=== PATIENT | female | born 1955 | race Caucasian/White ===

== ENCOUNTER → 2017-01-31 | Outpatient (CLI) | payer OTHER ==
[2016-07-31 14:38] VITALS: BP 146/78; PULSE 82
[~2017-01-31] MED LIST: ANAS1TAB19 PO; ASPI-461 PO; CITA10TA4 PO; FMR25 PO; IBUP-1450 PO; LISI10TA PO; LORA-339 PO; OMEP20CA9 PO; RISP0.254 PO; SIMV40TA4 PO
[2017-01-31 12:57] VITALS: BP 128/75; PULSE 89; TEMP 36.7; O2SAT 92
--- NOTE | 2017-01-31 16:45 | Radiation Oncology Follow-Up ---
Radiation Oncology Follow-Up Date of Visit Jan 31, 2017. Reason For Visit Six-month follow-up Radiation Completion Date 06/26/16 - Hypo Diagnosis (1) Cancer of central portion of left breast Status: Resolved Onset Date: 01/30/2016 Permanent Comment: Abnormal left breast mammogram Status post stereotactic biopsy 01/30/2016 revealing ductal carcinoma grade 2 Estrogen receptor positive, progesterone receptor positive, HER-2/frederic negative Status post needle localization lumpectomy and sentinel lymph node biopsy mar 24 2016 Stage pT1c pN0 positive margin of DCIS Status post reexcision 04/09/2016 negative margins Oncotype DX 7 Status post completion of radiation therapy 06/26/2016 received 5130 cGy utilizing hypo-fractionation Last Edited By: Sylvia Angel on Jul 02, 2016 16:32 History of Present Illness Ms. Bentley is a 61-year-old female with limited mental ability and a distant family history of breast cancer in aunts and cousins. She has been followed with screening mammograms. Her most recent bilateral screening mammogram was on 01/16/2016. This was compared to a prior study from 2011. In the left breast there was a grouped calcifications at the middle depth 90 o' clock position associated mammographic asymmetry was noted. Magnification views and true lateral views were recommended with ultrasound as needed. On patient underwent a unilateral diagnostic mammogram and spot magnification views. There was a persistent area of architectural distortion with some amorphous calcifications noted. Ultrasound evaluation showed no sonographic abnormalities. This was given a BI-RADS Category 4 indicating a suspicion of malignancy and a stereotactic biopsy was recommended. On 01/30/2016 the patient underwent a stereotactic biopsy of the left breast calcifications at the 3 o'clock position. 2 samples were taken both revealing invasive carcinoma [place] grade 2 of 3 with lobular features. The first biopsy measured 0.8 cm in greatest dimension and the second 0.7 cm in greatest dimension. Also noted was DCIS, intermediate grade solid and cribriform with luminal necrosis and dystrophic calcifications. Estrogen receptors were strongly positive as were progesterone receptors. HER-2/frederic oncogene expression is negative. [id number]. Patient was seen by Dr. Quiroz who reviewed treatment options. The patient' s brother is her power of securities attorney and the joint decision was to proceed with a left breast partial mastectomy and sentinel node biopsy. This procedure was performed on 03/06/2016. A single non-sentinel lymph node was negative for metastatic carcinoma and 3 sentinel nodes were identified and were negative for metastatic carcinoma on routine sections and immunohistochemical stains for cytokeratin. The partial mastectomy specimen confirmed residual infiltrating ductal carcinoma. The tumor measured 1.4 cm in greatest dimension. This was a histologic grade 2 with evidence of focal DCIS nuclear grade 2 with focal necrosis. The margins were uninvolved by invasive carcinoma. Invasive carcinoma however extended to within 0.2 cm anterior margin and 0.4 cm of the posterior margin. DCIS extended to the en face lateral margin with a focus measuring 0.2 cm. The AJCC pathologic staging was pT1c pNo(sn-), ER positive, NM positive and HER-2/frederic negative. Case: [id number]. Patient underwent a reexcision of the left breast excision cavity on 2015. This revealed no residual invasive carcinoma or DCIS. There was focal usual ductal hyperplasia and changes consistent with the previous biopsy and surgery including fat necrosis. Case: [id number]. The patient was subsequently seen by Dr. Memo Noble. She ordered an Oncotype DX test which was sent out on May 04 and results are pending. She is awaiting for the results of this test prior to making a final decision on the role of systemic chemotherapy. She has recommended adjuvant antiestrogen therapy which will begin following the completion of her radiation. We were asked to see the patient in referral to evaluate her and discuss with her the potential role of radiation. It is for this reason the patient is seen in referral. The Oncotype DX score came back at 7. She will return to our office for CT simulation. She was found to be a good candidate for hypo-fractionation. Radiation completed 06/26/2016. She received 5130 cGy. Interim History She continues to have discomfort of the left breast and chest wall. This occurs especially if she lays on this side. There is been no redness or swelling. She has noted no masses or changes of the axilla. She has had no swelling of her arm. She is up-to-date on mammography. She had a mammogram 01/2017. This was a bilateral mammogram. There was no evidence of malignancy. Follow-up was recommended for 6 months for the left and 12 months for the right. This was given a BI-RADS Category 2. She does take Tylenol intermittently for pain. I did speak to her brother who states that he will give her Tylenol 650 mg possibly 3 times a day when she is having breast discomfort. Allergies Coded Allergies: No Known Allergies (Unverified , 04/09/16) Home Medications Scheduled Anastrozole (Arimidex), 1 TAB PO DAILY Aspirin (Aspirin), 81 MG PO QAM Citalopram Hydrobromide (Citalopram Hydrobromide), 10 MG PO QAM Lisinopril (Prinivil), 10 MG PO QAM Loratadine (Allergy Relief), 10 MG PO QAM Omeprazole (Prilosec), 20 MG PO QPM Risperidone (Risperidone), 0.25 MG PO HS Simvastatin (Zocor), 40 MG PO QPM Scheduled PRN Ibuprofen (Motrin), 600 MG PO TID PRN for prn Review of Systems Gastrointestinal: Symptoms: WNL GI Comments: "Diarrhea the other day" Oral: Symptoms: No Problems Respiratory: Symptoms: WNL, SOB With Exertion Respiratory Comments: Patient currently has cold - moist productive cough thick yellow Other Respiratory: IVERSON Urinary: Symptoms: WNL Comments: incontinent at night Skin: Symptoms: No Problems Other Skin Symptoms: Patient reports pain/tenderness at site Breast: Right Upper Arm Measurement: 29.0 Right Mid Arm Measurement: 21.5 Right Wrist Measurement: 15.9 Left Upper Arm Measurement: 33.0 Left Mid Arm Measurement: 24.0 Left Wrist Measurement: 15.3 Arm Dominence: Left Physical Exam Vital Signs Date Time Temp Pulse Resp B/P Pulse Ox O2 Delivery O2 Flow Rate FiO2 01/31/17 12:57 36.7 89 16 128/75 92 Pain: Patient Pain Scale: 0 - 10 Initial Pain Intensity: 0.0 Fatigue: None General Appearance: no apparent distress Eyes: normal inspection, EOMI ENT: normal ENT inspection, hearing grossly normal Neck: no adenopathy Respiratory/Chest: lungs clear, no respiratory distress, no accessory muscle use Breast: Breast examination reveals well-healed incisions of the left breast. There are no masses. She has a generalized tenderness. This is increased to deep palpation and more notable laterally. There is no axillary adenopathy. There is no erythema or edema. She has no skin retractions or nipple changes. Using the Dickey score cosmesis she has in excellent outcome. The right breast showed no masses or tenderness and no axillary adenopathy. Cardiovascular: regular rate, rhythm, no gallop, no murmur Abdomen: non tender, soft, no organomegaly Extremities: non-tender, no pedal edema Neurologic/Psychiatric: no motor/sensory deficits, alert, normal mood/affect Skin: warm/dry Additional Studies Mammography as reviewed above. Assessment & Plan Plan: Recommendation is for warm compresses to the breast and lateral chest wall. She can continue to use the Tylenol. I reviewed with her brother that should steadily improved over time. If she continues to have problems they may call and we'll be happy to see her. Continue with current scheduled mammography. Continue follow-up with her surgeon and Dr. Noble. We asked her to return to our office in 1 year. Total Time In Follow-Up I spent 20 minutes speaking to the patient and performing examination. I spent 15 minutes reviewing information in completing this note. Copy To Dru Quiroz M.D.; Liss March M.D. (MEDICAL); Memo Noble MD
== END | disposition home or self-care (01) ==
LOC: C.ONC 12:50
PROVIDERS: ATTEND Physician Assistant Medical
DX: Z08 Encounter for follow-up examination after completed treatment for malignant neoplasm (principal); Z92.3 Personal history of irradiation; Z85.3 Personal history of malignant neoplasm of breast

== ENCOUNTER 2017-04-14 16:39 | Inpatient (IN) | payer OTHER ==
[~2017-04-14] VITALS: Ht 160 cm; Wt 80.3 kg
[~2017-04-14 16:39] MED LIST changes: -FMR25 PO
[2017-04-14] MEDS ORDERED: SODIUM CHLORIDE 0.9% 1000ML 1,000 ML IV STA ×2 (16:46)
[2017-04-14 17:03] LABS: URINE APPEARANCE CLOUDY (CLEAR); URINE BILIRUBIN NEG (NEG); URINE COLOR YELLOW; URINE EPITHELIAL CELL AUTO >30 /lpf (0-5); URINE NITRITE NEG (NEG); URINE PH 5.5 (4.5-7.5); URINE SPECIFIC GRAVITY 1.019 (1.000-1.030); UROBILINOGEN NEG (NEG); ZZUR CULT IF INDIC CLEAN CATCH YES
[2017-04-14 17:05] LABS: MANUAL MICROSCOPIC REQUIRED? NO; REVIEW REQ? YES
[2017-04-14 17:19] LABS: BASO % 0.2 %; BASO ABS # 0.03 K/uL (0-0.2); COMPLETE YES; HEMATOCRIT 38.4 % (37-47); IG% 0.3 %; LYMPH % 10.6 %; LYMPH ABS # 1.76 K/uL (1.2-3.4); MEAN CELL VOLUME 93.2 fL (80-100); MEAN CORPUSCULAR HEMOGLOBIN 32.8 pg (25-34); MEAN CORPUSCULAR HGB CONC 35.2 g/dl (32-36); MEAN PLATELET VOLUME 10.2 fL (7.4-10.4); MONO % 12.6 %; NEUT % 76.3 %; PLATELET COUNT 284 K/uL (130-400); RED BLOOD COUNT 4.12 M/uL (4.2-5.4); WHITE BLOOD COUNT 16.68 K/uL (4.8-10.8)
[2017-04-14] MEDS ORDERED: ONDANSETRON 8 MG/54 ML D5W IV STA (17:37)
[2017-04-14 19:03] LABS: ALT/SGPT 23 U/L (12-78); AST/SGOT 25 U/L (15-37); BLOOD UREA NITROGEN 9 mg/dl (7-18); BUN/CREATININE RATIO 16.4 (10-20); CALCIUM 8.2 mg/dl (8.5-10.1); CARBON DIOXIDE 27 mmol/L (21-32); CHLORIDE 103 mmol/L (98-107); CREATININE 0.53 mg/dl (0.60-1.20); GLUCOSE 126 mg/dl (70-99); POTASSIUM 3.2 mmol/L (3.5-5.1); SODIUM 140 mmol/L (136-145)
[2017-04-14 19:09] LABS: ALKALINE PHOSPHATASE 98 U/L (45-117); CKMB/CK RATIO 0.3 (0-3.0)
--- NOTE | 2017-04-14 19:56 | DIAGNOSTIC IMAGING REPORT ---
CT SCAN OF THE ABDOMEN AND PELVIS WITHOUT CONTRAST CLINICAL HISTORY: Flank pain, vomiting. Urinary symptoms. COMPARISON STUDY: None TECHNIQUE: CT scan of the abdomen and pelvis was performed from the lung bases to the proximal femurs. Images are reviewed in the axial, sagittal, and coronal planes. IV contrast was not administered for this examination. CT DOSE: 3083.00 mGy.cm FINDINGS: Lower chest: The heart is mildly enlarged. There is no pericardial effusion. There are no pleural effusions Liver: There is mild hepatic steatosis. No focal masses are visualized. Gallbladder: Unremarkable. Spleen: Normal in size and attenuation. Pancreas: Unremarkable. Adrenal glands: There is bilateral adrenal gland thickening Kidneys: No renal, ureteral, or bladder calculi are visualized. Bowel: There are no transition zones indicate bowel obstruction. There are several calcified appendicoliths. There are no periappendiceal inflammatory changes. The appendix is at the upper limits of normal in diameter. There is no acute diverticulitis. Peritoneum: There is no intraperitoneal free air or abdominal ascites. Vasculature: The abdominal aorta is normal in course and caliber. Adenopathy: None. Pelvic viscera: The bladder, and pelvic viscera are unremarkable. Skeletal structures: There are several nonspecific lytic foci within the skeleton. Is unclear whether these are pathologic or a reflection of focal osteoporosis. IMPRESSION: 1. No renal, ureteral, or bladder calculi identified 2. No evidence of bowel obstruction. No evidence of free air 3. Calcified appendicoliths, but no evidence of periappendiceal inflammatory change 4. No evidence of acute diverticulitis 5. Small nonspecific skeletal lytic foci most pronounced within the iliac bones. Electronically signed by: Sky Bajwa M.D. 04/14/2017 7:55 PM Dictated Date/Time: 04/14/2017 7:47 PM
[2017-04-14] MEDS ORDERED: CEFTRIAXONE SOD INJ 1 GM ADDVIAL IV STA (20:33)
[2017-04-14] MEDS ORDERED: POTASSIUM CHLORIDE 10 MEQ / 100ML WTR IV STA (20:33)
[2017-04-14] MEDS ORDERED: D5NSS + 20MEQ KCL 1,000 ML IV SCH (21:04)
[2017-04-14] MEDS ORDERED: ALUMINUM/MAGNESIUM/SIMETH (MAALOX MAX) 30 ML UDC PO PRN (21:15)
[2017-04-14] MEDS ORDERED: ONDANSETRON INJ 2 MG/ML 2 ML VIAL IV PRN (21:15)
[2017-04-14] MEDS ORDERED: MAGNESIUM HYDROXIDE SUSP 30 ML UDC PO PRN (21:15)
[2017-04-14] MEDS ORDERED: POLYETHYLENE (MIRALAX) 17 GM PACK PO PRN (21:15)
[2017-04-14] MEDS ORDERED: ACETAMINOPHEN 325 MG TAB PO PRN (21:15)
--- NOTE | 2017-04-14 21:48 | DIAGNOSTIC IMAGING REPORT ---
CHEST ONE VIEW PORTABLE CLINICAL HISTORY: hypoxia COMPARISON STUDY: 04/18/2015 FINDINGS: The heart is enlarged. There is no focal pulmonary consolidation. Slight prominence of the basilar markings, likely relates to overlying breast tissue attenuation. There is no overt failure. There are no pleural effusions.[ There is an old left ventricular fracture. IMPRESSION: Mild cardiomegaly. No evidence of focal pulmonary consolidation. Electronically signed by: Sky Bajwa M.D. 04/14/2017 9:46 PM Dictated Date/Time: 04/14/2017 9:45 PM
[2017-04-14 22:36] VITALS: BP 150/92; PULSE 106; TEMP 37; O2SAT 92; Ht 160 cm; Wt 80.3 kg
--- NOTE | 2017-04-14 22:36 | History and Physical ---
History & Physical Date & Time of Service: Apr 14, 2017 at 21:26 Chief Complaint: Vomiting,Not Eating/Drinking,Not Taking Meds Primary Care Physician: Liss March M.D. (MEDICAL) History of Present Illness Source: patient, family This is a 62 year old female with a PMH of mild MR, HTN, HLD, hx. of breast CA, GERD, depression/anxiety presents with a one week history of nausea/vomiting; history obtained from the patient and patient's brother, who has assumed the role of caregiver for the patient. He states that she usually performs her own ADLs (toilet/showering), works at [employer], but has been less active for the past years - she lays around most of the day. This past week, she could not keep anything down, including pills. Her brother thought maybe she stopped taking her pills, so he asked her to take them in front of him, but she threw this up. She tried soup, but this did not work either. She denies fevers/chills at home. Denies abdominal pain. C/o mild dysuria. Seems comfortable currently; does have supplemental oxygen via nasal cannula, but denies SOB. Past Medical/Surgical History Medical Problems: (1) Cancer of central portion of left breast Permanent Comment: Abnormal left breast mammogram Status post stereotactic biopsy 01/30/2016 revealing ductal carcinoma grade 2 Estrogen receptor positive, progesterone receptor positive, HER-2/frederic negative Status post needle localization lumpectomy and sentinel lymph node biopsy mar 24 2016 Stage pT1c pN0 positive margin of DCIS Status post reexcision 04/09/2016 negative margins Oncotype DX 7 Status post completion of radiation therapy 06/26/2016 received 5130 cGy utilizing hypo-fractionation Status: Resolved (2) Chest Pain Nos Status: Resolved (3) Mild Mental Retardation Status: Chronic Family History Patient reports no known family medical history. Social History Smoking Status: Never Smoker Drug Use: none Occupational Status: employed Allergies Coded Allergies: No Known Allergies (Unverified , 04/09/16) Home Medications Scheduled Anastrozole (Arimidex), 1 TAB PO DAILY Aspirin (Aspirin), 81 MG PO QAM Citalopram Hydrobromide (Citalopram Hydrobromide), 10 MG PO QAM Lisinopril (Prinivil), 10 MG PO QAM Loratadine (Allergy Relief), 10 MG PO QAM Omeprazole (Prilosec), 20 MG PO QPM Risperidone (Risperidone), 0.25 MG PO HS Simvastatin (Zocor), 40 MG PO QPM Review of Systems Constitutional: + weakness, No fever, No chills Respiratory: No cough, No sputum, No wheezing, No shortness of breath, No dyspnea on exertion, No dyspnea at rest Cardiovascular: No chest pain, No edema, No palpitations Abdomen: + nausea, + vomiting, No pain, No diarrhea, No constipation, No GI bleeding Genitourinary - Female: + dysuria, + urinary frequency, No urinary urgency, No urinary incontinence, No urinary retention, No hematuria Neurologic: No numbness/tingling, No vertigo Psychiatric: + depression symptoms (controlled with medications), + anxiety Endocrine: + excessive urination, No fatigue Hematologic / Lymphatic: No abnormal bleeding/bruising Integumentary: No rash Allergic / Immunologic: No environmental allergies, No seasonal allergies Physical Exam Vital Signs Date Time Temp Pulse Resp B/P (MAP) Pulse Ox O2 Delivery O2 Flow Rate FiO2 04/14/17 21:16 102 04/14/17 19:28 88 20 133/76 98 Nasal Cannula 3.0 04/14/17 18:01 89 Room Air 04/14/17 17:39 109 23 93 04/14/17 17:32 154/77 04/14/17 17:23 105 04/14/17 17:13 163/95 04/14/17 16:41 36.7 122 20 120/81 93 Room Air General Appearance: no apparent distress, + pertinent finding (mild intellectual disability) Head: normocephalic, atraumatic Eyes: normal inspection ENT: hearing grossly normal Respiratory/Chest: chest non-tender, lungs clear, normal breath sounds, no respiratory distress, no accessory muscle use Cardiovascular: no edema, no murmur, + tachycardia Abdomen/GI: normal bowel sounds, non tender, soft Extremities/Musculoskelatal: normal capillary refill, no pedal edema Neurologic/Psych: alert, normal mood/affect Skin: normal color Lymphatic: no adenopathy Diagnostics Laboratory Results Results Past 24 Hours Test 04/14/17 16:50 04/14/17 17:04 04/14/17 18:26 04/14/17 18:29 Range/Units Urine Color YELLOW Urine Appearance CLOUDY CLEAR Urine pH 5.5 4.5-7.5 Urine Specific [place] 1.019 1.000-1.030 Urine Protein 1+ NEG Urine Glucose (UA) NEG NEG Urine Ketones NEG NEG Urine Occult Blood 3+ NEG Urine Nitrite NEG NEG Urine Bilirubin NEG NEG Urine Urobilinogen NEG NEG Urine Leukocyte Esterase LARGE NEG Urine WBC (Auto) 10-30 0-5 /hpf Urine RBC (Auto) 0-4 0-4 /hpf Urine Hyaline Casts (Auto) 10-30 0-5 /lpf Urine Epithelial Cells (Auto) >30 0-5 /lpf Urine Bacteria (Auto) NEG NEG Urine Renal Epithelial Cells 0-5 0-5 /lpf Urine Yeast (Auto) PRESENT NONE PRSENT White Blood Count 16.68 4.8-10.8 K/uL Red Blood Count 4.12 4.2-5.4 M/uL Hemoglobin 13.5 12.0-16.0 g/dL Hematocrit 38.4 37-47 % Mean Corpuscular Volume 93.2 80-100 fL Mean Corpuscular Hemoglobin 32.8 25-34 pg Mean Corpuscular Hemoglobin Concent 35.2 32-36 g/dl Platelet Count 284 130-400 K/uL Mean Platelet Volume 10.2 7.4-10.4 fL Neutrophils (%) (Auto) 76.3 % Lymphocytes (%) (Auto) 10.6 % Monocytes (%) (Auto) 12.6 % Eosinophils (%) (Auto) 0.0 % Basophils (%) (Auto) 0.2 % Neutrophils # (Auto) 12.74 1.4-6.5 K/uL Lymphocytes # (Auto) 1.76 1.2-3.4 K/uL Monocytes # (Auto) 2.10 0.11-0.59 K/uL Eosinophils # (Auto) 0.00 0-0.5 K/uL Basophils # (Auto) 0.03 0-0.2 K/uL RDW Standard Deviation 44.6 36.4-46.3 fL RDW Coefficient of Variation 13.0 11.5-14.5 % Immature Granulocyte % (Auto) 0.3 % Immature Granulocyte # (Auto) 0.05 0.00-0.02 K/uL Creatine Kinase MB Ratio 0.3 0-3.0 Sodium Level 140 136-145 mmol/L Potassium Level 3.2 3.5-5.1 mmol/L Chloride Level 103 98-107 mmol/L Carbon Dioxide Level 27 21-32 mmol/L Anion Gap 10.0 3-11 mmol/L Blood Urea Nitrogen 9 7-18 mg/dl Creatinine 0.53 0.60-1.20 mg/dl Estimated GFR () 118.8 Estimated GFR (Non- 102.5 BUN/Creatinine Ratio 16.4 10-20 Random Glucose 126 70-99 mg/dl Calcium Level 8.2 8.5-10.1 mg/dl Total Bilirubin 0.5 0.2-1 mg/dl Direct Bilirubin 0.1 0-0.2 mg/dl Aspartate Amino Transf (AST/SGOT) 25 15-37 U/L Alanine Aminotransferase (ALT/SGPT) 23 12-78 U/L Alkaline Phosphatase 98 45-117 U/L Total Creatine Kinase 580 26-192 U/L Creatine Kinase MB 1.5 0.5-3.6 ng/ml Troponin I 0.019 0-0.045 ng/ml Total Protein 7.1 6.4-8.2 gm/dl Albumin 3.0 3.4-5.0 gm/dl Lipase 159 73-393 U/L Microbiology Results 04/14/17 Urine Culture, Received Pending Diagnostic Radiology CHEST ONE VIEW PORTABLE CLINICAL HISTORY: hypoxia COMPARISON STUDY: 04/18/2015 FINDINGS: The heart is enlarged. There is no focal pulmonary consolidation. Slight prominence of the basilar markings, likely relates to overlying breast tissue attenuation. There is no overt failure. There are no pleural effusions.[ There is an old left ventricular fracture. IMPRESSION: Mild cardiomegaly. No evidence of focal pulmonary consolidation. EKG Sinus tachycardia Possible Left atrial enlargement Incomplete right bundle branch block ST & T wave abnormality, consider lateral ischemia Impression Assessment and Plan This is a 62 year old female with a PMH of mild MR, HTN, HLD, hx. of breast CA, GERD, depression/anxiety presents with a one week history of nausea/vomiting Urinary Tract Infection patient presents with leukocytosis, tachycardia, some dysuria, frequency UA with + leukocyte esterase, +hematuria, +WBC urine culture pending started on Rocephin will continue this for now IVFs recheck CBC in AM to monitor WBC count Intractable Nausea/Vomiting viral infection vs. UTI related Zofran PRN, IVFs, monitor electrolytes start on clears and advance as tolerated EKG changes T wave inversions noted on lateral leads monitor in tele overnight with the tachycardia and EKG changes check cardiac enzymes if negative x 3, can transfer to med/surg clinically denies SOB or chest pain Hypoxia I believe this is obesity-hypoventilation vs. TC continue O2 use nocturnally, wean as tolerated CXR negative for pneumonia Mild MR performs her own ADLs will likely need PT/OT due to weakness Hypokalemia replace and recheck in AM HTN hold oral medications due to nausea/vomiting monitor BP and add back Lisinopril when eating okay HLD hold Zocor, add back on discharge DVT ppx subq heparin FULL CODE VTE Prophylaxis VTE Risk Assessment Done? Y/N: Yes Risk Level: Moderate
[2017-04-14] MEDS: NSS + 20MEQ KCL 1000ML 1,000 ML IV SCH (23:05)
[2017-04-14 23:59] VITALS: O2SAT 92
[2017-04-15] VITALS (8 sets, daily range): BP systolic 113–147; BP diastolic 57–84; PULSE 71–92; TEMP 36.4–37.6; O2SAT 92–97
--- NOTE | 2017-04-15 00:08 | EMERGENCY ROOM VISIT NOTE ---
History Report prepared by [place]: Bryan Nogueira Under the Supervision of: Dr. Sudheer Farah M.D. First contact with patient: 16:45 Chief Complaint: VOMITING Stated Complaint: VOMITING,NOT EATING/DRINKING,NOT TAKING MEDS History of Present Illness The patient is a 62 year old female who presents to the Emergency Room with complaints of intermittent vomiting starting two days ago. The patient's brother is accompanying her in the ED today. He states that she stopped taking her medication a week and a half ago and has been nauseous, vomiting, and experiencing diarrhea since. The brother reports that she has been progressively weak for the last six months. He states that she has not been able to keep down any fluids or food for the last three days. The patient states that she has mild abdominal pain, bilateral flank pain, dyspnea, chest pains, and a cough. She also states that she has been experiencing a hot sensation during urination. The patient denies any medication for any of her symptoms. The patient's brother states that she has breast cancer and has been taking medication for it that she is supposed to take for five years. He reports that she has amblyopia to her left eye that is not different from baseline. The patient denies LOC, headache, fevers, chills, diaphoresis, visual changes, neck pain, breathing difficulties, back pain, melena, hematochezia, numbness, weakness, lymphadenopathy, rash, or other complaints. Source of History: patient, sibling (brother) Onset: two days ago Position: other (global) Timing: intermittent Modifying Factors (Worsening): eating, drinking Associated Symptoms: + cough, + chest pain, + SOB, + abdominal pain, + back pain, + urinary symptoms Review of Systems See HPI for pertinent positives and negatives. A total of ten systems were reviewed and were otherwise negative. Past Medical & Surgical Medical Problems: (1) Cancer of central portion of left breast (2) Chest Pain Nos (3) Intractable nausea and vomiting (4) Mild Mental Retardation (5) UTI (urinary tract infection) Family History Patient reports no known family medical history. Social History Smoking Status: Never Smoker Smokeless Tobacco Use: No Alcohol Use: none Drug Use: none Occupation Status: employed Current/Historical Medications Scheduled Anastrozole (Arimidex), 1 TAB PO DAILY Aspirin (Aspirin), 81 MG PO QAM Citalopram Hydrobromide (Citalopram Hydrobromide), 10 MG PO QAM Lisinopril (Prinivil), 10 MG PO QAM Loratadine (Allergy Relief), 10 MG PO QAM Omeprazole (Prilosec), 20 MG PO QPM Risperidone (Risperidone), 0.25 MG PO HS Simvastatin (Zocor), 40 MG PO QPM Allergies Coded Allergies: No Known Allergies (Unverified , 04/09/16) Physical Exam Vital Signs Date Time Temp Pulse Resp B/P (MAP) Pulse Ox O2 Delivery O2 Flow Rate FiO2 04/14/17 19:28 88 20 133/76 98 Nasal Cannula 3.0 04/14/17 18:01 89 Room Air 04/14/17 17:39 109 23 93 04/14/17 17:32 154/77 04/14/17 17:23 105 04/14/17 17:13 163/95 04/14/17 16:41 36.7 122 20 120/81 93 Room Air Physical Exam GENERAL: Awake, alert, non ill appearing, mildly distress HEAD: Normocephalic, atraumatic. No edema. EYES: Normal conjunctiva. Sclera non-icteric. OROPHARYNX: Lips, tongue, and mucosa unremarkable. No erythema or exudate. NECK: Supple. No nuchal rigidity. FROM. No adenopathy. RESPIRATORY: CTA bilaterally. No wheezes rales or rhonchi. CARDIAC: Borderline tachycardic rate, normal rhythm. ABDOMEN: Soft, non distended. Mild tenderness to palpation to Left and Right Lower Quadrant. Moderate tenderness to palpation in the epigastric region. No rebound or guarding. MUSCULOSKELETAL: Atraumatic. No edema. NEURO: Normal sensorium. SKIN: No rash or jaundice noted Medical Decision & Procedures ER Provider Diagnostic Interpretation: Radiology results as stated below per my review and radiologist interpretation CT SCAN OF THE ABDOMEN AND PELVIS WITHOUT CONTRAST CLINICAL HISTORY: Flank pain, vomiting. Urinary symptoms. COMPARISON STUDY: None TECHNIQUE: CT scan of the abdomen and pelvis was performed from the lung bases to the proximal femurs. Images are reviewed in the axial, sagittal, and coronal planes. IV contrast was not administered for this examination. CT DOSE: 3083.00 mGy.cm FINDINGS: Lower chest: The heart is mildly enlarged. There is no pericardial effusion. There are no pleural effusions Liver: There is mild hepatic steatosis. No focal masses are visualized. Gallbladder: Unremarkable. Spleen: Normal in size and attenuation. Pancreas: Unremarkable. Adrenal glands: There is bilateral adrenal gland thickening Kidneys: No renal, ureteral, or bladder calculi are visualized. Bowel: There are no transition zones indicate bowel obstruction. There are several calcified appendicoliths. There are no periappendiceal inflammatory changes. The appendix is at the upper limits of normal in diameter. There is no acute diverticulitis. Peritoneum: There is no intraperitoneal free air or abdominal ascites. Vasculature: The abdominal aorta is normal in course and caliber. Adenopathy: None. Pelvic viscera: The bladder, and pelvic viscera are unremarkable. Skeletal structures: There are several nonspecific lytic foci within the skeleton. Is unclear whether these are pathologic or a reflection of focal osteoporosis. IMPRESSION: 1. No renal, ureteral, or bladder calculi identified Laboratory Results 04/14/17 17:04 Red Blood Count 4.12, Mean Corpuscular Volume 93.2, Mean Corpuscular Hemoglobin 32.8, Mean Corpuscular Hemoglobin Concent 35.2, Mean Platelet Volume 10.2, Neutrophils (%) (Auto) 76.3, Lymphocytes (%) (Auto) 10.6, Monocytes (%) (Auto) 12.6, Eosinophils (%) (Auto) 0.0, Basophils (%) (Auto) 0.2, Neutrophils # (Auto ) 12.74, Lymphocytes # (Auto) 1.76, Monocytes # (Auto) 2.10, Eosinophils # (Auto ) 0.00, Basophils # (Auto) 0.03 04/14/17 18:29 Test 04/14/17 16:50 04/14/17 17:04 04/14/17 18:29 Urine Color YELLOW Urine Appearance CLOUDY (CLEAR) Urine pH 5.5 (4.5-7.5) Urine Specific [place] 1.019 (1.000-1.030) Urine Protein 1+ (NEG) Urine Glucose (UA) NEG (NEG) Urine Ketones NEG (NEG) Urine Occult Blood 3+ (NEG) Urine Nitrite NEG (NEG) Urine Bilirubin NEG (NEG) Urine Urobilinogen NEG (NEG) Urine Leukocyte Esterase LARGE (NEG) Urine WBC (Auto) 10-30 /hpf (0-5) Urine RBC (Auto) 0-4 /hpf (0-4) Urine Hyaline Casts (Auto) 10-30 /lpf (0-5) Urine Epithelial Cells (Auto) >30 /lpf (0-5) Urine Bacteria (Auto) NEG (NEG) Urine Renal Epithelial Cells 0-5 /lpf (0-5) Urine Yeast (Auto) PRESENT (NONE PRSENT) White Blood Count 16.68 K/uL (4.8-10.8) Red Blood Count 4.12 M/uL (4.2-5.4) Hemoglobin 13.5 g/dL (12.0-16.0) Hematocrit 38.4 % (37-47) Mean Corpuscular Volume 93.2 fL (80-100) Mean Corpuscular Hemoglobin 32.8 pg (25-34) Mean Corpuscular Hemoglobin Concent 35.2 g/dl (32-36) Platelet Count 284 K/uL (130-400) Mean Platelet Volume 10.2 fL (7.4-10.4) Neutrophils (%) (Auto) 76.3 % Lymphocytes (%) (Auto) 10.6 % Monocytes (%) (Auto) 12.6 % Eosinophils (%) (Auto) 0.0 % Basophils (%) (Auto) 0.2 % Neutrophils # (Auto) 12.74 K/uL (1.4-6.5) Lymphocytes # (Auto) 1.76 K/uL (1.2-3.4) Monocytes # (Auto) 2.10 K/uL (0.11-0.59) Eosinophils # (Auto) 0.00 K/uL (0-0.5) Basophils # (Auto) 0.03 K/uL (0-0.2) RDW Standard Deviation 44.6 fL (36.4-46.3) RDW Coefficient of Variation 13.0 % (11.5-14.5) Immature Granulocyte % (Auto) 0.3 % Immature Granulocyte # (Auto) 0.05 K/uL (0.00-0.02) Anion Gap 10.0 mmol/L (3-11) Estimated GFR () 118.8 Estimated GFR (Non- 102.5 BUN/Creatinine Ratio 16.4 (10-20) Calcium Level 8.2 mg/dl (8.5-10.1) Total Bilirubin 0.5 mg/dl (0.2-1) Direct Bilirubin 0.1 mg/dl (0-0.2) Aspartate Amino Transf (AST/SGOT) 25 U/L (15-37) Alanine Aminotransferase (ALT/SGPT) 23 U/L (12-78) Alkaline Phosphatase 98 U/L (45-117) Total Creatine Kinase 580 U/L (26-192) Creatine Kinase MB 1.5 ng/ml (0.5-3.6) Creatine Kinase MB Ratio 0.3 (0-3.0) Troponin I 0.019 ng/ml (0-0.045) Total Protein 7.1 gm/dl (6.4-8.2) Albumin 3.0 gm/dl (3.4-5.0) Lipase 159 U/L (73-393) Laboratory results reviewed by me Medications Administered Medications (Trade) Dose Ordered Sig/Toma Route Start Time Stop Time Status Last Admin Dose Admin Sodium Chloride 1,000 ml @ 125 mls/hr Q8H STAT IV 04/14/17 16:46 04/14/17 22:27 DC 04/14/17 17:57 125 MLS/HR Sodium Chloride 1,000 ml @ 999 mls/hr Q1H1M STAT IV 04/14/17 16:46 04/14/17 17:46 DC 04/14/17 17:14 999 MLS/HR Ondansetron HCl (Zofran 8mg Iv) 8 mg NOW STAT IV 04/14/17 17:37 04/14/17 17:38 DC 04/14/17 17:57 8 MG Ceftriaxone Sodium (Rocephin Inj) 1 gm NOW STAT IV 04/14/17 20:33 04/14/17 20:35 DC 04/14/17 20:43 1 GM Potassium Chloride (Kcl 10 Meq / Wtr) 10 meq NOW STAT IV 04/14/17 20:33 04/14/17 20:35 DC 04/14/17 20:43 10 MEQ ECG Indication: vomiting Rate (beats per minute): 112 Rhythm: sinus tachycardia Findings: RBBB (incomplete), ST depression (Anterolateral, inferior) Comparison ECG Date: 06/28/15 Change: ST changes are new ED Course Blood pressure screening: Patient was found to have normal blood pressure on screening and does not require follow-up. Medication Reconciliation: I attest that I have personally reviewed the patient' s current medication list 1646: Sodium Chloride 1000 ml @ 999 mls/hr IV, Sodium Chloride 1000 ml @ 125 mls /hr. 165: The patient was evaluated in room B07. A complete history and physical exam was performed. 1736: Ondansetron HCl 8 mg IV. 1941: I reevaluated the patient and she is doing well. She is currently waiting on her imaging results. 2032: Potassium Chloride 10 meq IV, Rocephin Injection 1 gm IV. 2041: I discussed the patient's case with Suraj Castrejon. He understands the patient's condition and agrees to accept the patient. She will further be evaluated. Medical Decision Triage Nursing notes reviewed. The patient's presentation and history were concerning for vomiting, not taking medications and abdominal pain. Etiologies such as appendicitis, diverticulitis, cardiac issues, obstruction, inflammatory bowel disease, renal colic, PUD, biliary pathology, pancreatitis, mesenteric ischemia, aortic pathology, infections, genitourinary, UTI, perforated viscus, as well as others were entertained. An IV was established. The patient was treated as above. She was feeling better. Her CBC was concerning for leukocytosis. Her urinalysis did raise concerns for infection. IV Rocephin was initiated. She was found to be hypokalemic and was given IV potassium. The patient had a concerning ECG but negative cardiac markers. She underwent CT imaging which did not reveal any acute findings. Chest x-ray was unremarkable. Given the patient's symptoms further evaluation and management in the hospital will be necessary. [facility] The patient was evaluated for further management. Consults Time Called: 2041 Consulting Physician: Suraj Dennison Returned Call: 2041 I discussed the patient's case with Suraj Castrejon. He understands the patient's condition and agrees to accept the patient. She will further be evaluated. Impression Primary Impression: Vomiting Additional Impressions: Urinary tract infection Hypocalcemia Generalized abdominal pain Scribe Attestation The scribe's documentation has been prepared under my direction and personally reviewed by me in its entirety. I confirm that the note above accurately reflects all work, treatment, procedures, and medical decision making performed by me. Departure Information Dispostion Being Evaluated By Hospitalist (Dr. Lake) Referrals Liss March M.D. (MEDICAL) (PCP) Patient Instructions My [facility] Problem Qualifiers
[2017-04-15 03:30] LABS: PROTHROMBIN TIME (PATIENT) 11.1 SECONDS (9.0-12.0)
[2017-04-15 03:38] LABS: CALCIUM 8.2 mg/dl (8.5-10.1); CREATININE 0.48 mg/dl (0.60-1.20); MAGNESIUM 2.2 mg/dl (1.8-2.4); POTASSIUM 3.3 mmol/L (3.5-5.1)
[2017-04-15 03:43] LABS: CKMB/CK RATIO 0.2 (0-3.0)
[2017-04-15] MEDS: HEPARIN SOD 5000 UNIT/0.5 ML CARP SQ SCH ×3 (05:55→21:21)
[2017-04-15 07:37] LABS: HEMATOCRIT 35.9 % (37-47); MEAN CELL VOLUME 93.2 fL (80-100); MEAN CORPUSCULAR HEMOGLOBIN 30.4 pg (25-34); MEAN CORPUSCULAR HGB CONC 32.6 g/dl (32-36); MEAN PLATELET VOLUME 9.9 fL (7.4-10.4); PLATELET COUNT 268 K/uL (130-400); RED BLOOD COUNT 3.85 M/uL (4.2-5.4); WHITE BLOOD COUNT 16.58 K/uL (4.8-10.8)
--- NOTE | 2017-04-15 09:55 | Progress Note ---
Medicine Progress Note Date & Time of Visit: Apr 15, 2017 at 09:35. Subjective 62 yo F p/w 1 week n/v -vomiting improved and currently tolerating regular food -denies nausea -denies chest pain or trouble breathing -denies sick contacts, strange food exposure or travel history to [place] -states that she did have some bilateral flank/abdominal pain that is gone now ( pointed to sides just above hips) -denies fevers, chills -states that she is a little bit dizzy when she ambulates to and from the bathroom -nurse states that she has been up and down to the bathroom all night without any issues. Objective Last 8 Hrs Date Time Temp Pulse Resp B/P (MAP) Pulse Ox O2 Delivery O2 Flow Rate FiO2 04/15/17 08:01 36.8 81 19 143/79 (100) 95 Nasal Cannula 2.0 04/15/17 04:15 36.9 83 19 128/57 (80) 93 Nasal Cannula 2.0 04/15/17 04:00 92 Nasal Cannula 2.0 Physical Exam: GEN: WNWD, in no acute distress, alert and appropriate, no conversational dyspnea or tachypnea present HEENT: NC/AT, normal sclerae, MMM CARDIO: reg rate, S1/2 heard without m/g/r LUNGS: CTA bilaterally, no crackles, rales or wheezes, good diaphragmatic excursion ABD: soft, non-tender, non-distended, no rebound or guarding, +BS, no CVA tenderness EXTREMITY: RP and DP palpable 2+ bilat, no LE swelling or edema, extremities are warm and well-perfused NEURO: CN 2-12 grossly intact, sensation intact throughout, no gross focal deficits. Mentation is appropriate MUSC: moves all extremities equally SKIN: warm and dry Laboratory Results: 04/15/17 07:12 04/15/17 03:06 Test 04/14/17 16:50 04/14/17 17:04 04/14/17 18:29 04/15/17 03:06 Urine Color YELLOW Urine Appearance CLOUDY (CLEAR) Urine pH 5.5 (4.5-7.5) Urine Specific [place] 1.019 (1.000-1.030) Urine Protein 1+ (NEG) Urine Glucose (UA) NEG (NEG) Urine Ketones NEG (NEG) Urine Occult Blood 3+ (NEG) Urine Nitrite NEG (NEG) Urine Bilirubin NEG (NEG) Urine Urobilinogen NEG (NEG) Urine Leukocyte Esterase LARGE (NEG) Urine WBC (Auto) 10-30 /hpf (0-5) Urine RBC (Auto) 0-4 /hpf (0-4) Urine Hyaline Casts (Auto) 10-30 /lpf (0-5) Urine Epithelial Cells (Auto) >30 /lpf (0-5) Urine Bacteria (Auto) NEG (NEG) Urine Renal Epithelial Cells 0-5 /lpf (0-5) Urine Yeast (Auto) PRESENT (NONE PRSENT) Immature Granulocyte % (Auto) 0.3 % White Blood Count 16.68 K/uL (4.8-10.8) Red Blood Count 4.12 M/uL (4.2-5.4) Hemoglobin 13.5 g/dL (12.0-16.0) Hematocrit 38.4 % (37-47) Mean Corpuscular Volume 93.2 fL (80-100) Mean Corpuscular Hemoglobin 32.8 pg (25-34) Mean Corpuscular Hemoglobin Concent 35.2 g/dl (32-36) Platelet Count 284 K/uL (130-400) Mean Platelet Volume 10.2 fL (7.4-10.4) Neutrophils (%) (Auto) 76.3 % Lymphocytes (%) (Auto) 10.6 % Monocytes (%) (Auto) 12.6 % Eosinophils (%) (Auto) 0.0 % Basophils (%) (Auto) 0.2 % Neutrophils # (Auto) 12.74 K/uL (1.4-6.5) Lymphocytes # (Auto) 1.76 K/uL (1.2-3.4) Monocytes # (Auto) 2.10 K/uL (0.11-0.59) Eosinophils # (Auto) 0.00 K/uL (0-0.5) Basophils # (Auto) 0.03 K/uL (0-0.2) Immature Granulocyte # (Auto) 0.05 K/uL (0.00-0.02) Total Bilirubin 0.5 mg/dl (0.2-1) Direct Bilirubin 0.1 mg/dl (0-0.2) Aspartate Amino Transf (AST/SGOT) 25 U/L (15-37) Alanine Aminotransferase (ALT/SGPT) 23 U/L (12-78) Alkaline Phosphatase 98 U/L (45-117) Total Protein 7.1 gm/dl (6.4-8.2) Albumin 3.0 gm/dl (3.4-5.0) Lipase 159 U/L (73-393) Prothrombin Time 11.1 SECONDS (9.0-12.0) Prothromb Time International Ratio 1.0 (0.9-1.1) Anion Gap 9.0 mmol/L (3-11) Est Creatinine Clear Calc Drug Dose 123.5 ml/min Estimated GFR () 122.7 Estimated GFR (Non- 105.9 BUN/Creatinine Ratio 18.0 (10-20) Calcium Level 8.2 mg/dl (8.5-10.1) Magnesium Level 2.2 mg/dl (1.8-2.4) Total Creatine Kinase 801 U/L (26-192) Creatine Kinase MB 1.8 ng/ml (0.5-3.6) Creatine Kinase MB Ratio 0.2 (0-3.0) Troponin I 0.034 ng/ml (0-0.045) Test 04/15/17 07:12 Red Blood Count 3.85 M/uL (4.2-5.4) Mean Corpuscular Volume 93.2 fL (80-100) Mean Corpuscular Hemoglobin 30.4 pg (25-34) Mean Corpuscular Hemoglobin Concent 32.6 g/dl (32-36) RDW Standard Deviation 44.2 fL (36.4-46.3) RDW Coefficient of Variation 13.0 % (11.5-14.5) Mean Platelet Volume 9.9 fL (7.4-10.4) Date/Time Source Procedure Growth Status 04/14/17 16:50 Urine , Clean Catch Urine Culture Pending Received Last 24 Hours Test 04/14/17 16:50 04/14/17 17:04 04/14/17 18:26 04/14/17 18:29 Urine Color YELLOW Urine Appearance CLOUDY Urine pH 5.5 Urine Specific [place] 1.019 Urine Protein 1+ Urine Glucose (UA) NEG Urine Ketones NEG Urine Occult Blood 3+ Urine Nitrite NEG Urine Bilirubin NEG Urine Urobilinogen NEG Urine Leukocyte Esterase LARGE Urine WBC (Auto) 10-30 /hpf Urine RBC (Auto) 0-4 /hpf Urine Hyaline Casts (Auto) 10-30 /lpf Urine Epithelial Cells (Auto) >30 /lpf Urine Bacteria (Auto) NEG Urine Renal Epithelial Cells 0-5 /lpf Urine Yeast (Auto) PRESENT White Blood Count 16.68 K/uL Red Blood Count 4.12 M/uL Hemoglobin 13.5 g/dL Hematocrit 38.4 % Mean Corpuscular Volume 93.2 fL Mean Corpuscular Hemoglobin 32.8 pg Mean Corpuscular Hemoglobin Concent 35.2 g/dl Platelet Count 284 K/uL Mean Platelet Volume 10.2 fL Neutrophils (%) (Auto) 76.3 % Lymphocytes (%) (Auto) 10.6 % Monocytes (%) (Auto) 12.6 % Eosinophils (%) (Auto) 0.0 % Basophils (%) (Auto) 0.2 % Neutrophils # (Auto) 12.74 K/uL Lymphocytes # (Auto) 1.76 K/uL Monocytes # (Auto) 2.10 K/uL Eosinophils # (Auto) 0.00 K/uL Basophils # (Auto) 0.03 K/uL RDW Standard Deviation 44.6 fL RDW Coefficient of Variation 13.0 % Immature Granulocyte % (Auto) 0.3 % Immature Granulocyte # (Auto) 0.05 K/uL Creatine Kinase MB Ratio 0.3 Sodium Level 140 mmol/L Potassium Level 3.2 mmol/L Chloride Level 103 mmol/L Carbon Dioxide Level 27 mmol/L Anion Gap 10.0 mmol/L Blood Urea Nitrogen 9 mg/dl Creatinine 0.53 mg/dl Estimated GFR () 118.8 Estimated GFR (Non- 102.5 BUN/Creatinine Ratio 16.4 Random Glucose 126 mg/dl Calcium Level 8.2 mg/dl Total Bilirubin 0.5 mg/dl Direct Bilirubin 0.1 mg/dl Aspartate Amino Transf (AST/SGOT) 25 U/L Alanine Aminotransferase (ALT/SGPT) 23 U/L Alkaline Phosphatase 98 U/L Total Creatine Kinase 580 U/L Creatine Kinase MB 1.5 ng/ml Troponin I 0.019 ng/ml Total Protein 7.1 gm/dl Albumin 3.0 gm/dl Lipase 159 U/L Test 04/15/17 03:06 04/15/17 07:12 Prothrombin Time 11.1 SECONDS Prothromb Time International Ratio 1.0 Sodium Level 142 mmol/L Potassium Level 3.3 mmol/L Chloride Level 106 mmol/L Carbon Dioxide Level 27 mmol/L Anion Gap 9.0 mmol/L Blood Urea Nitrogen 9 mg/dl Creatinine 0.48 mg/dl Est Creatinine Clear Calc Drug Dose 123.5 ml/min Estimated GFR () 122.7 Estimated GFR (Non- 105.9 BUN/Creatinine Ratio 18.0 Random Glucose 112 mg/dl Calcium Level 8.2 mg/dl Magnesium Level 2.2 mg/dl Total Creatine Kinase 801 U/L Creatine Kinase MB 1.8 ng/ml Creatine Kinase MB Ratio 0.2 Troponin I 0.034 ng/ml White Blood Count 16.58 K/uL Red Blood Count 3.85 M/uL Hemoglobin 11.7 g/dL Hematocrit 35.9 % Mean Corpuscular Volume 93.2 fL Mean Corpuscular Hemoglobin 30.4 pg Mean Corpuscular Hemoglobin Concent 32.6 g/dl RDW Standard Deviation 44.2 fL RDW Coefficient of Variation 13.0 % Platelet Count 268 K/uL Mean Platelet Volume 9.9 fL Date/Time Source Procedure Growth Status 04/14/17 16:50 Urine , Clean Catch Urine Culture Pending Received Diagnostic Imaging: CHEST ONE VIEW PORTABLE CLINICAL HISTORY: hypoxia COMPARISON STUDY: 04/18/2015 FINDINGS: The heart is enlarged. There is no focal pulmonary consolidation. Slight prominence of the basilar markings, likely relates to overlying breast tissue attenuation. There is no overt failure. There are no pleural effusions.[ There is an old left ventricular fracture. IMPRESSION: Mild cardiomegaly. No evidence of focal pulmonary consolidation. CT A/P WITHOUT CONTRAST: IMPRESSION: 1. No renal, ureteral, or bladder calculi identified 2. No evidence of bowel obstruction. No evidence of free air 3. Calcified appendicoliths, but no evidence of periappendiceal inflammatory change 4. No evidence of acute diverticulitis 5. Small nonspecific skeletal lytic foci most pronounced within the iliac bones. Assessment & Plan 62 year old female with a PMH of mild developmental delay, HTN, HLD, hx. of breast CA, GERD, depression/anxiety presents with a one week history of nausea/ vomiting Urinary Tract Infection patient presents with leukocytosis, tachycardia, some dysuria, frequency UA with + leukocyte esterase, +hematuria, +WBC Leukocytosis still present at 16K--afebrile overnight and no chills. started on Rocephin empirically; cont pending culture results-->pt currently denying dysuria Intractable Nausea/Vomiting viral infection vs. UTI related Zofran PRN, IVFs, monitor electrolytes pt tolerating solid food this morning and not complaining of nausea-no vomiting overnight. EKG changes T wave inversions noted on lateral leads so was monitored on tele overnight no events on tele; she denies chest pain or shortness of breath serial cardiac enzymes were negative overnight transfer to floor Hypoxia Initially requiring 2L via NC thought to be 2/2 obesity hypoventilation vs TC she doesn't use supplemental oxygen at home no overt cause for hypoxia-i.e. CXR is clear, etc. weaned off at this time Mild MR performs her own ADLs PT/OT to assess for safety prior to discharge Hypokalemia 3.3 this am replace and recheck in AM HTN: Lisinopril added back this morning, currently controlled. HLD: Zocor added back today DVT ppx subq heparin FULL CODE Dispo-likely to home in am pending PT/OT; transfer to floor. Verónica Silva DO [facility] Hospitalist Current Inpatient Medications: Current Inpatient Medications Medications (Trade) Dose Ordered Sig/Toma Route Start Time Stop Time Status Last Admin Dose Admin Heparin Sodium (Porcine) (Heparin Sq 5000 Unit/0.5ml) 5,000 unit Q8 SQ 04/15/17 06:00 05/15/17 05:59 04/15/17 05:55 5,000 UNIT Acetaminophen (Tylenol Tab) 650 mg Q4H PRN PO 04/14/17 21:15 05/14/17 21:14 Al Hydrox/Mg Hydrox/Simethicone (Maalox Max Susp) 15 ml Q4H PRN PO 04/14/17 21:15 05/14/17 21:14 Magnesium Hydroxide (Milk Of Magnesia Susp) 30 ml Q12H PRN PO 04/14/17 21:15 05/14/17 21:14 Ondansetron HCl (Zofran Inj) 4 mg Q6H PRN IV 04/14/17 21:15 05/14/17 21:14 04/15/17 09:18 4 MG Polyethylene (Miralax Powder Packet) 17 gm DAILY PRN PO 04/14/17 21:15 05/14/17 21:14 Ceftriaxone Sodium 1 gm/ Dextrose 50 ml @ 100 mls/hr Q24H IV 04/15/17 21:00 04/20/17 20:59 Potassium Chloride/Sodium Chloride 1,000 ml @ 100 mls/hr Q10H IV 04/14/17 22:45 05/14/17 22:44 04/14/17 23:05 100 MLS/HR Potassium Chloride (Klor-Con Tab) 40 meq Q6H PO 04/15/17 09:00 04/15/17 15:01
[2017-04-15] MEDS: POTASSIUM CHLORIDE 20 MEQ TABCR PO SCH ×2 (10:03→14:26)
[2017-04-15] MEDS: NSS + 20MEQ KCL 1000ML 1,000 ML IV SCH ×2 (10:03→20:15)
[2017-04-15] MEDS: ASPIRIN 81 MG ECTAB PO SCH (11:18)
[2017-04-15] MEDS: LORATADINE 10 MG TAB PO SCH (11:18)
[2017-04-15] MEDS: LISINOPRIL 10 MG TAB PO SCH (11:18)
[2017-04-15] MEDS ORDERED: CEFTRIAXONE SOD INJ 1 GM in DEXTROSE 5% ADD-VANTAGE 50ML 50 ML IV SCH (21:00)
[2017-04-15] MEDS ORDERED: RISPERIDONE 0.5 MG TAB PO SCH (21:00)
[2017-04-15] MEDS ORDERED: SIMVASTATIN 40 MG TAB PO SCH (21:00)
[2017-04-16] VITALS: O2SAT 92
[2017-04-16] MEDS: NSS + 20MEQ KCL 1000ML 1,000 ML IV SCH (05:44)
[2017-04-16] MEDS: HEPARIN SOD 5000 UNIT/0.5 ML CARP SQ SCH ×2 (05:45→13:49)
[2017-04-16 07:22] VITALS: BP 122/65; PULSE 69; TEMP 36.5; O2SAT 96
[2017-04-16 07:36] LABS: BUN/CREATININE RATIO 16.1 (10-20); CALCIUM 8.8 mg/dl (8.5-10.1); CREATININE 0.36 mg/dl (0.60-1.20); MAGNESIUM 2.4 mg/dl (1.8-2.4); POTASSIUM 3.8 mmol/L (3.5-5.1)
[2017-04-16] MEDS: LORATADINE 10 MG TAB PO SCH (07:52)
[2017-04-16] MEDS: ASPIRIN 81 MG ECTAB PO SCH (07:52)
[2017-04-16] MEDS: LISINOPRIL 10 MG TAB PO SCH (07:52)
[2017-04-16 08:05] LABS: BASO % 0.3 %; BASO ABS # 0.04 K/uL (0-0.2); COMPLETE YES; EOS % 0.7 %; HEMATOCRIT 35.8 % (37-47); IG% 0.3 %; LYMPH % 14.4 %; LYMPH ABS # 1.65 K/uL (1.2-3.4); MEAN CORPUSCULAR HEMOGLOBIN 31.3 pg (25-34); MEAN PLATELET VOLUME 10.7 fL (7.4-10.4); MONO % 13.3 %; PLATELET COUNT 249 K/uL (130-400); RED BLOOD COUNT 3.77 M/uL (4.2-5.4); WHITE BLOOD COUNT 11.47 K/uL (4.8-10.8)
[2017-04-16] MEDS ORDERED: CITALOPRAM 20 MG TAB PO SCH (09:00)
[2017-04-16] MEDS ORDERED: PANTOprazole SOD 40 MG TAB PO SCH (09:00)
[2017-04-16 11:59] VITALS: BP 143/79; PULSE 73; TEMP 36.3; O2SAT 91
--- NOTE | 2017-04-16 15:18 | Discharge Instructions ---
Discharge Instructions Date of Service Apr 16, 2017. Admission Reason for Admission: Intractable Nausea And Vomiting,Uti Discharge Discharge Diagnosis / Problem: Nausea and vomiting Discharge Goals Goal(s): Prevent Disease Progression Activity Recommendations Activity Limitations: per Instructions/Follow-up section . Instructions / Follow-Up Instructions / Follow-Up Please continue all mediations as instructed. You have a follow-up appointment with Dr. March for Mon, 04/22 @ 1:45pm for follow-up from this hospitalization. Please bring all paperwork with you. You had a small nonspecific skeletal lytic foci most pronounced within the iliac bones that was seen on CT imaging while in the hospital. Dr. March will assist with follow-up and workup as outpatient as needed. It was a pleasure taking care of you! Call if you have any questions or problems. You can reach a [facility] hospitalist on duty at [facility] 24 hours a day by calling [phone]. Take care of yourself. Verónica Silva, [facility] Hospitalist Current Hospital Diet Patient's current hospital diet: Regular Diet Discharge Diet Recommended Diet: Regular Diet Procedures Procedures Performed: None. Pending Studies Studies pending at discharge: no Medical Emergencies . Who to Call and When: Medical Emergencies: If at any time you feel your situation is an emergency, please call 911 immediately. . Non-Emergent Contact Non-Emergency issues call your: Primary Care Provider . . "Provider Documentation" section prepared by Verónica Silva. . VTE Core Measure Inpt VTE Proph given/why not?: Unfractionated heparin SQ
--- NOTE | 2017-04-16 15:21 | Discharge Summary ---
Discharge Summary Date of Service Apr 16, 2017. Discharge Summary Admission Date: Apr 14, 2017 at 21:14 Discharge Date: Apr 16, 2017 Discharge Disposition: Home Principal Diagnosis: Gastritis likely viral Developmental Delay Hypokalemia-resolved Hypertension Hyperlipidemia Procedures: None. Vaccinations: None. Consultations: None. Pending Studies/Follow-Up: see instructions below. Medication Reconciliation Continued Medications: Anastrozole (Arimidex) 1 Mg Tab 1 TAB PO DAILY for 90 Days, #90 TAB 1 Refill Aspirin (Aspirin) 81 Mg Tab 81 MG PO QAM Citalopram Hydrobromide (Citalopram Hydrobromide) 10 Mg Tab 10 MG PO QAM Lisinopril (Prinivil) 10 Mg Tab 10 MG PO QAM, TAB Loratadine (Allergy Relief) 10 Mg Tab 10 MG PO QAM Omeprazole (Prilosec) 20 Mg Cap 20 MG PO QPM, CAP Risperidone (Risperidone) 0.25 Mg Tab 0.25 MG PO HS Simvastatin (Zocor) 40 Mg Tab 40 MG PO QPM, TAB Admission Information HPI (per Admitting provider): This is a 62 year old female with a PMH of mild MR, HTN, HLD, hx. of breast CA, GERD, depression/anxiety presents with a one week history of nausea/vomiting; history obtained from the patient and patient's brother, who has assumed the role of caregiver for the patient. He states that she usually performs her own ADLs (toilet/showering), works at [employer], but has been less active for the past years - she lays around most of the day. This past week, she could not keep anything down, including pills. Her brother thought maybe she stopped taking her pills, so he asked her to take them in front of him, but she threw this up. She tried soup, but this did not work either. She denies fevers/chills at home. Denies abdominal pain. C/o mild dysuria. Seems comfortable currently; does have supplemental oxygen via nasal cannula, but denies SOB. Physical Exam (per Admitting): General Appearance: no apparent distress, + pertinent finding (mild intellectual disability) Head: normocephalic, atraumatic Eyes: normal inspection ENT: hearing grossly normal Respiratory/Chest: chest non-tender, lungs clear, normal breath sounds, no respiratory distress, no accessory muscle use Cardiovascular: no edema, no murmur, + tachycardia Abdomen/GI: normal bowel sounds, non tender, soft Extremities/Musculoskelatal: normal capillary refill, no pedal edema Neurologic/Psych: alert, normal mood/affect Skin: normal color Lymphatic: no adenopathy Hospital Course 62 year old female with a PMH of mild developmental delay, HTN, HLD, hx. of breast CA, GERD, depression/anxiety presents with a one week history of nausea/ vomiting Urinary Tract Infection patient presents with leukocytosis, tachycardia, some dysuria, frequency UA with + leukocyte esterase, +hematuria, +WBC Leukocytosis still present at 16K--afebrile overnight and no chills. started on Rocephin empirically; cont pending culture results-->pt currently denying dysuria Intractable Nausea/Vomiting viral infection vs. UTI related Zofran PRN, IVFs, monitor electrolytes pt tolerating solid food EKG changes T wave inversions noted on lateral leads so was monitored on tele overnight no events on tele; she denies chest pain or shortness of breath serial cardiac enzymes were negative overnight transferred to floor, no further events on telemetry noted. Hypoxia Initially requiring 2L via NC thought to be 2/2 obesity hypoventilation vs TC she doesn't use supplemental oxygen at home no overt cause for hypoxia-i.e. CXR is clear, etc. weaned off at this time, tolerating room air at discharge. Mild performs her own ADLs After formal PT and OT evaluation she was deemed safe to go home with brother support with whom she lives. Hypokalemia 3.3-->replaced and was 3.8 at time of discharge. HTN: Lisinopril added back, currently controlled. HLD: Zocor added back today By day of discharge, she was tolerating regular food as nausea and vomiting had resolved. She had no demonstrated weakness and was mentating and ambulating at baseline. She was sent home in stable condition with close PCP follow-up recommended. Total time spent on discharge = 60 minutes This includes examination of the patient, discharge planning, medication reconciliation, and communication with other providers. Discharge Instructions Discharge Instructions Date of Service Apr 16, 2017. Admission Reason for Admission: Intractable Nausea And Vomiting,Uti Discharge Discharge Diagnosis / Problem: Nausea and vomiting Discharge Goals Goal(s): Prevent Disease Progression Activity Recommendations Activity Limitations: per Instructions/Follow-up section . Instructions / Follow-Up Instructions / Follow-Up Please continue all mediations as instructed. You have a follow-up appointment with Dr. March for Mon, 04/22 @ 1:45pm for follow-up from this hospitalization. Please bring all paperwork with you. You had a small nonspecific skeletal lytic foci most pronounced within the iliac bones that was seen on CT imaging while in the hospital. Dr. March will assist with follow-up and workup as outpatient as needed. It was a pleasure taking care of you! Call if you have any questions or problems. You can reach a [facility] hospitalist on duty at [facility] 24 hours a day by calling [phone]. Take care of yourself. Verónica Silva, DO [facility] Hospitalist Additional Copies To Liss March M.D. (MEDICAL)
[2017-04-16 15:22] VITALS: BP 143/79; PULSE 73; TEMP 36.3; O2SAT 91
== END 2017-04-16 15:40 | disposition home or self-care (01) | DRG 690 ==
LOC: C.EDB 16:40 → C.2T 21:14 → ENRESERV 21:19 → C.MED 04-15 11:39
PROVIDERS: ADMIT Family Medicine; ATTEND Hospitalist
DX: N39.0 Urinary tract infection, site not specified (principal); E66.2 Morbid (severe) obesity with alveolar hypoventilation; A08.4 Viral intestinal infection, unspecified; G47.33 Obstructive sleep apnea (adult) (pediatric); R62.50 Unspecified lack of expected normal physiological development in childhood; E87.6 Hypokalemia; I10 Essential (primary) hypertension; E78.5 Hyperlipidemia, unspecified; F70 Mild intellectual disabilities; Z85.3 Personal history of malignant neoplasm of breast; Z79.82 Long term (current) use of aspirin

== ENCOUNTER 2018-03-10 13:41 | Emergency (ER) | payer OTHER ==
[~2018-03-10] VITALS: Ht 157.5 cm; Wt 80.0 kg
[2018-03-10 13:52] VITALS: TEMP 37.3; Ht 157.5 cm; Wt 80.0 kg
[2018-03-10] MEDS ORDERED: ACETAMINOPHEN 500 MG TAB PO STA (13:57)
--- NOTE | 2018-03-10 14:10 | EMERGENCY ROOM VISIT NOTE ---
History Report prepared by [place]: Roby Gaspar Under the Supervision of: Dr. Justus Irby M.D. First contact with patient: 13:52 Chief Complaint: FALL Stated Complaint: FALL History of Present Illness The patient is a 63 year old female who presents to the Emergency Room with complaints of a sudden fall occurring prior to arrival. Per the nursing staff, the patient was at the gym with [employer], and she was on a treadmill for the first time. She fell, and she hit the back of her head, though she did not lose consciousness, and she was crying afterwards. Per her brother she is not on any blood thinners, and she is on cholesterol and blood pressure medications. The patient denies any neck pain, though she states that currently she has a headache. Source of History: patient, family, nursing staff Onset: prior to arrival Position: head, other (global) Quality: other (fall) Timing: other (sudden) Associated Symptoms: + headache, No LOC, No neck pain Review of Systems See HPI for pertinent positives & negatives. A total of 10 systems reviewed and were otherwise negative. Past Medical & Surgical Medical Problems: (1) Cancer of central portion of left breast (2) Chest Pain Nos (3) Intractable nausea and vomiting (4) Mild Mental Retardation (5) UTI (urinary tract infection) Family History Patient reports no known family medical history. Social History Smoking Status: Never Smoker Alcohol Use: none Drug Use: none Occupation Status: employed Current/Historical Medications Scheduled Anastrozole (Arimidex), 1 TAB PO DAILY Aspirin (Aspirin), 81 MG PO QAM Citalopram Hydrobromide (Citalopram Hydrobromide), 10 MG PO QAM Lisinopril (Prinivil), 10 MG PO QAM Loratadine (Allergy Relief), 10 MG PO QAM Omeprazole (Prilosec), 20 MG PO QPM Risperidone (Risperidone), 0.25 MG PO HS Simvastatin (Zocor), 40 MG PO QPM Allergies Coded Allergies: No Known Allergies (Unverified , 04/09/16) Physical Exam Vital Signs Date Time Temp Pulse Resp B/P (MAP) Pulse Ox O2 Delivery O2 Flow Rate FiO2 03/10/18 15:29 76 16 131/73 95 03/10/18 15:03 76 16 131/73 95 Room Air 03/10/18 14:09 84 161/77 93 Room Air 03/10/18 13:52 37.3 93 18 161/77 93 Room Air Physical Exam GENERAL: Patient is in no acute distress. HEENT: Mucous membranes are moist. No facial swelling or bony step off. There is a small hematoma to the posterior scalp. No laceration requiring repair. No bony step off. NECK: Non-tender C-spine. No stridor, no adenopathy, no meningismus, trachea is midline. LUNGS: Clear to auscultation bilaterally, no wheeze, no rhonchi, breath sounds equal. HEART: 2/6 systolic murmur, regular rate and rhythm. ABDOMEN: Soft, nontender, bowel sounds positive, no hernias, no peritonitis. EXTREMITIES: No cyanosis or edema, full range of motion of all the joints without pain or difficulty, no signs for acute trauma. NEUROLOGIC: Awake. Intellectual disability noted. Moving all extremities. No focal motor deficits. GCS 15 SKIN: No rash, no jaundice, no diaphoresis. Back: Nontender thoracic and lumbar spine. No contusions noted. Medical Decision & Procedures ER Provider Diagnostic Interpretation: Radiology results as stated below per my review and radiologist interpretation: HEAD WITHOUT CONTRAST (CT) CLINICAL HISTORY: 63 years-old Female with fall, hit head. Acute head trauma status post fall TECHNIQUE: Multiple axial CT images of the head were obtained without contrast. A dose lowering technique was utilized adhering to the principles of ALARA. CT DOSE: 614.27 mGy.cm COMPARISON: CT head 04/18/2015. FINDINGS: No acute intracranial hemorrhage, midline shift, intracranial mass, hydrocephalus, territorial ischemia or abnormal extra-axial collection. Senescent calcifications of the lentiform nuclei. The calvarium is intact. Mastoid air cells are clear. Mild mucosal thickening of the left maxillary sinus with trace air-fluid level. Soft tissues are unremarkable. Note is made of disconjugate gaze. IMPRESSION: No acute intracranial abnormality. The above report was generated using voice recognition software. It may contain grammatical, syntax or spelling errors. Electronically signed by: Hudson French M.D. 03/10/2018 2:56 PM Dictated Date/Time: 03/10/2018 2:48 PM Medications Administered Medications (Trade) Dose Ordered Sig/Toma Route Start Time Stop Time Status Last Admin Dose Admin Acetaminophen (Tylenol Tab) 1,000 mg NOW STAT PO 03/10/18 13:57 03/10/18 13:59 DC 03/10/18 14:07 1,000 MG ED Course 1352: The patient was evaluated in room A11. A complete history and physical exam was performed. 1357: Tylenol Tab 1000mg PO 1525: Reevaluated the patient. Discussed results and discharge instructions: she and her brother verbalized understanding and agreement. The patient is ready for discharge. Medical Decision Differential diagnoses include: intracranial bleeding, skull fracture, concussion, scalp hematoma, neck injury; back, chest, abdominal, or extremity trauma. Patient presents with head trauma. There was no loss of consciousness. There are no focal neurologic deficits. The patient is not on anticoagulants. I could not find evidence for injury to the neck, chest, back, extremities or abdomen. A brain CT was done, there was no skull fracture, no acute bleed or mass-effect. The patient was given oral Tylenol. She and her family were reassured. The patient was discharged home. Conservative measures were recommended. Head Trauma GCS Score: 15 Medication Reconcilliation Current Medication List: was personally reviewed by me Blood Pressure Screening Patient's blood pressure: Elevated blood pressure Blood pressure disposition: Elevated BP felt to be situational Impression Primary Impression: Fall Additional Impression: Head trauma Scribe Attestation The scribe's documentation has been prepared under my direction and personally reviewed by me in its entirety. I confirm that the note above accurately reflects all work, treatment, procedures, and medical decision making performed by me. Departure Information Dispostion Home / Self-Care Referrals Liss March M.D. (MEDICAL) (PCP) Forms HOME CARE DOCUMENTATION FORM, IMPORTANT VISIT INFORMATION Patient Instructions My [facility] Additional Instructions tylenol for pain ice to the area may help the pain as well brain CT today shows no bleeding or skull fracture return if worsening or have persistent vomiting Problem Qualifiers
--- NOTE | 2018-03-10 14:58 | DIAGNOSTIC IMAGING REPORT ---
HEAD WITHOUT CONTRAST (CT) CLINICAL HISTORY: 63 years-old Female with fall, hit head. Acute head trauma status post fall TECHNIQUE: Multiple axial CT images of the head were obtained without contrast. A dose lowering technique was utilized adhering to the principles of ALARA. CT DOSE: 614.27 mGy.cm COMPARISON: CT head 04/18/2015. FINDINGS: No acute intracranial hemorrhage, midline shift, intracranial mass, hydrocephalus, territorial ischemia or abnormal extra-axial collection. Senescent calcifications of the lentiform nuclei. The calvarium is intact. Mastoid air cells are clear. Mild mucosal thickening of the left maxillary sinus with trace air-fluid level. Soft tissues are unremarkable. Note is made of disconjugate gaze. IMPRESSION: No acute intracranial abnormality. The above report was generated using voice recognition software. It may contain grammatical, syntax or spelling errors. Electronically signed by: Hudson French M.D. 03/10/2018 2:56 PM Dictated Date/Time: 03/10/2018 2:48 PM
[2018-03-10 15:29] VITALS: BP 131/73; PULSE 76; O2SAT 95
[2018-03-12] MEDS ORDERED: CITA10TA4 PO (10:40)
[2018-03-12] MEDS ORDERED: LORA-339 PO (10:40)
[2018-03-12] MEDS ORDERED: RISP0.254 PO (10:40)
[2018-03-12] MEDS ORDERED: ASPI-461 PO (10:40)
[2018-03-12] MEDS ORDERED: SIMV40TA4 PO (10:40)
[2018-03-12] MEDS ORDERED: LISI10TA PO (10:40)
[2018-03-12] MEDS ORDERED: OMEP20CA9 PO (10:40)
[2018-03-12] MEDS ORDERED: ANAS1TAB19 PO (13:10)
== END 2018-03-10 15:27 | disposition home or self-care (01) ==
LOC: EDBD 13:41 → C.EDA 13:42
DX: S00.03XA Contusion of scalp, initial encounter (principal); W19.XXXA Unspecified fall, initial encounter; Y93.A1 Activity, exercise machines primarily for cardiorespiratory conditioning; R40.2412 Glasgow coma scale score 13-15, at arrival to emergency department; F70 Mild intellectual disabilities; Z79.82 Long term (current) use of aspirin; Z85.3 Personal history of malignant neoplasm of breast

== ENCOUNTER 2018-03-12 20:35 | Emergency (ER) | payer OTHER ==
[~2018-03-12] VITALS: Ht 170.2 cm; Wt 77.0 kg
[~2018-03-12 20:35] MED LIST changes: -IBUP-1450 PO
[2018-03-12] MEDS ORDERED: SODIUM CHLORIDE 0.9% 1000ML 1,000 ML IV STA (20:53)
[2018-03-12] MEDS ORDERED: ONDANSETRON INJ 2 MG/ML 2 ML VIAL IV STA (20:53)
--- NOTE | 2018-03-12 20:57 | EMERGENCY ROOM VISIT NOTE ---
History Report prepared by Edinson: Carl Jo Under the Supervision of: Dr. Cm Velazquez D.O. First contact with patient: 20:45 Chief Complaint: DIZZY Stated Complaint: DIZZINESS, Nursing Triage Summary: post concussive symptoms. s/p fall off treadmill 2 days ago, treated and released from [facility]. today c/o increased dizziness with movement and nausea. states able to drink po fluids and eat meals today. ems report "dry heaved en route" moustapha, EOMI, cranial #3,5,7,11 intact. states her OS deviation normal for her. tongue and trachea midline. speech limited, EMS report normal for pt. answers questions appropriately History of Present Illness The patient is a 63 year old female who presents to the Emergency Room with complaints of intermittent head ache secondary to a fall that occurred two days ago. She was seen in the ED at that time for similar symptoms. She states that she has had more frequent dizzy spells since the fall. She was on a treadmill when she fell and hit her head. She denies any neck pain. She denies any history of concussion. She reports abdominal pain. She states that she could not finish eating her supper. She denies taking any medication for nausea. Source of History: patient Onset: two days Position: head Quality: ache, other (dizziness) Timing: intermittent Associated Symptoms: + nausea, No neck pain Review of Systems See HPI for pertinent positives & negatives. A total of 10 systems reviewed and were otherwise negative. Past Medical & Surgical Medical Problems: (1) Cancer of central portion of left breast (2) Chest Pain Nos (3) Intractable nausea and vomiting (4) Mild Mental Retardation (5) UTI (urinary tract infection) Family History Patient reports no known family medical history. Social History Smoking Status: Never Smoker Alcohol Use: none Drug Use: none Marital Status: single Housing Status: lives with family Occupation Status: unemployed Current/Historical Medications Scheduled Anastrozole (Arimidex), 1 MG PO DAILY Aspirin (Aspirin), 81 MG PO QAM Citalopram Hydrobromide (Citalopram Hydrobromide), 10 MG PO QAM Lisinopril (Prinivil), 10 MG PO QAM Loratadine (Allergy Relief), 10 MG PO QAM Omeprazole (Prilosec), 20 MG PO QPM Ondasetron Odt (Zofran Odt), 4 MG SL Q6H Risperidone (Risperidone), 0.25 MG PO HS Simvastatin (Zocor), 40 MG PO QPM Allergies Coded Allergies: No Known Allergies (Unverified , 04/09/16) Physical Exam Vital Signs Date Time Temp Pulse Resp B/P (MAP) Pulse Ox O2 Delivery O2 Flow Rate FiO2 03/12/18 22:51 37.7 75 24 117/99 96 03/12/18 22:05 75 24 96 03/12/18 22:01 117/99 03/12/18 21:50 74 14 95 03/12/18 21:35 78 24 140/55 96 03/12/18 21:15 76 17 151/77 95 Room Air 03/12/18 21:10 79 19 94 Room Air 03/12/18 21:05 79 20 03/12/18 21:01 143/106 03/12/18 21:01 93 Room Air 03/12/18 21:01 93 Room Air 03/12/18 21:00 83 16 03/12/18 20:52 77 03/12/18 20:50 76 32 93 03/12/18 20:45 158/68 03/12/18 20:43 37.7 76 20 158/68 93 Room Air Physical Exam GENERAL: Patient is awake, alert, and in no acute distress. Patient is somewhat anxious appearing. EYES: The conjunctivae are clear. The pupils are round and reactive. Dysconjugate gaze noted. EARS, NOSE, MOUTH AND THROAT: The nose is without any evidence of any deformity. Mucous membranes are moist tongue is midline NECK: The neck is nontender and supple. RESPIRATORY: Normal respiratory effort is noted there is no evidence of wheezing rhonchi or rales CARDIOVASCULAR: Regular rate and rhythm noted there no murmurs rubs or gallops normal S1 normal S2 GASTROINTESTINAL: The abdomen is soft. Bowel sounds are present in all quadrants. Abdomen is nontender MUSCULOSKELETAL/EXTREMITIES: There is no evidence of gross deformity full range of motion is noted in the hips and shoulders SKIN: There is no obvious evidence of any rash. There are no petechiae, pallor or cyanosis noted. NEUROLOGIC: Patient is awake alert and oriented x3, strength is symmetric. Medical Decision & Procedures ER Provider Diagnostic Interpretation: Radiology results as stated below per my review and radiologist interpretation: CHEST ONE VIEW PORTABLE CLINICAL HISTORY: 63 years-old Female presenting with EVALUATE ALTERED MENTAL STATUS/WEAKNESS. TECHNIQUE: Portable upright AP view of the chest was obtained. COMPARISON: 04/14/2017. FINDINGS: Atherosclerosis of aortic arch. Cardiac silhouette enlarged. Mild pulmonary vascular prominence. Calcified granulomata may be present. No focal opacity. No large effusion or pneumothorax. Degenerative changes of the thoracic spine. Upper abdomen normal. IMPRESSION: 1. Cardiomegaly with possible volume overload. No carol pulmonary edema. Electronically signed by: Cirilo Pfeiffer M.D. 03/12/2018 9:15 PM Dictated Date/Time: 03/12/2018 9:13 PM HEAD WITHOUT CONTRAST (CT) CLINICAL HISTORY: 63 years-old Female presenting with EVALUATE ALTERED MENTAL STATUS/WEAKNESS. TECHNIQUE: Multidetector CT imaging of the head was performed without the use of intravenous contrast. IV contrast: None. A dose lowering technique was used consistent with the principles of ALARA (as low as reasonably achievable). COMPARISON: 03/10/2018. CT DOSE (mGy.cm): The estimated cumulative dose is 537.48 mGy.cm. FINDINGS: Toeing Stockings topogram: Unremarkable. Ventricles and sulci normal in size. Brain parenchyma normal in appearance with preserved fontenot-white differentiation. No mass effect or midline shift. No hemorrhage or acute territorial infarct. No extra-axial fluid collection. Paranasal sinuses and mastoid air cells clear. Calvarium intact. IMPRESSION: 1. No acute intracranial abnormality. Electronically signed by: Cirilo Pfeiffer M.D. 03/12/2018 9:32 PM Dictated Date/Time: 03/12/2018 9:30 PM Laboratory Results 03/12/18 21:00 Red Blood Count 4.27, Mean Corpuscular Volume 90.4, Mean Corpuscular Hemoglobin 32.1, Mean Corpuscular Hemoglobin Concent 35.5, Mean Platelet Volume 10.1, Neutrophils (%) (Auto) 74.4, Lymphocytes (%) (Auto) 15.7, Monocytes (%) (Auto) 8.7, Eosinophils (%) (Auto) 0.5, Basophils (%) (Auto) 0.3, Neutrophils # (Auto) 9.97, Lymphocytes # (Auto) 2.10, Monocytes # (Auto) 1.17, Eosinophils # (Auto) 0.07, Basophils # (Auto) 0.04 5/9/18 21:00 Test 03/12/18 21:00 White Blood Count 13.40 K/uL (4.8-10.8) Red Blood Count 4.27 M/uL (4.2-5.4) Hemoglobin 13.7 g/dL (12.0-16.0) Hematocrit 38.6 % (37-47) Mean Corpuscular Volume 90.4 fL (80-100) Mean Corpuscular Hemoglobin 32.1 pg (25-34) Mean Corpuscular Hemoglobin Concent 35.5 g/dl (32-36) Platelet Count 313 K/uL (130-400) Mean Platelet Volume 10.1 fL (7.4-10.4) Neutrophils (%) (Auto) 74.4 % Lymphocytes (%) (Auto) 15.7 % Monocytes (%) (Auto) 8.7 % Eosinophils (%) (Auto) 0.5 % Basophils (%) (Auto) 0.3 % Neutrophils # (Auto) 9.97 K/uL (1.4-6.5) Lymphocytes # (Auto) 2.10 K/uL (1.2-3.4) Monocytes # (Auto) 1.17 K/uL (0.11-0.59) Eosinophils # (Auto) 0.07 K/uL (0-0.5) Basophils # (Auto) 0.04 K/uL (0-0.2) RDW Standard Deviation 42.8 fL (36.4-46.3) RDW Coefficient of Variation 13.1 % (11.5-14.5) Immature Granulocyte % (Auto) 0.4 % Immature Granulocyte # (Auto) 0.05 K/uL (0.00-0.02) Prothrombin Time 10.3 SECONDS (9.0-12.0) Prothromb Time International Ratio 1.0 (0.9-1.1) Activated Partial Thromboplast Time 22.9 SECONDS (21.0-31.0) Partial Thromboplastin Ratio 0.9 Urine Color YELLOW Urine Appearance CLEAR (CLEAR) Urine pH 6.5 (4.5-7.5) Urine Specific [place] 1.006 (1.000-1.030) Urine Protein NEG (NEG) Urine Glucose (UA) NEG (NEG) Urine Ketones NEG (NEG) Urine Occult Blood TRACE (NEG) Urine Nitrite NEG (NEG) Urine Bilirubin NEG (NEG) Urine Urobilinogen NEG (NEG) Urine Leukocyte Esterase MODERATE (NEG) Urine WBC (Auto) 1-5 /hpf (0-5) Urine RBC (Auto) 0-4 /hpf (0-4) Urine Hyaline Casts (Auto) 0 /lpf (0-5) Urine Epithelial Cells (Auto) 10-20 /lpf (0-5) Urine Bacteria (Auto) NEG (NEG) Anion Gap 6.0 mmol/L (3-11) Est Creatinine Clear Calc Drug Dose 86.7 ml/min Estimated GFR () 104.0 Estimated GFR (Non- 89.8 BUN/Creatinine Ratio 16.3 (10-20) Calcium Level 8.9 mg/dl (8.5-10.1) Magnesium Level 2.0 mg/dl (1.8-2.4) Total Bilirubin 0.4 mg/dl (0.2-1) Direct Bilirubin 0.1 mg/dl (0-0.2) Aspartate Amino Transf (AST/SGOT) 15 U/L (15-37) Alanine Aminotransferase (ALT/SGPT) 19 U/L (12-78) Alkaline Phosphatase 116 U/L (45-117) Troponin I < 0.015 ng/ml (0-0.045) Total Protein 7.7 gm/dl (6.4-8.2) Albumin 3.8 gm/dl (3.4-5.0) Lipase 232 U/L (73-393) Thyroid Stimulating Hormone (TSH) 1.300 uIu/ml (0.300-4.500) Laboratory results per my review. Medications Administered Medications (Trade) Dose Ordered Sig/Toma Route Start Time Stop Time Status Last Admin Dose Admin Ondansetron HCl (Zofran Inj) 4 mg NOW STAT IV 03/12/18 20:53 03/12/18 20:54 DC 03/12/18 21:21 4 MG Sodium Chloride 1,000 ml @ 999 mls/hr Q1H1M STAT IV 03/12/18 20:53 03/12/18 21:53 DC 03/12/18 21:21 999 MLS/HR Ondansetron HCl (ZOFRAN ODT 4MG Home Pack) 1 homepack UD ONCE PO 03/12/18 23:00 03/12/18 23:01 DC 03/12/18 22:58 1 [facility] ED Course 2049: The patient was evaluated in room B12B. A complete history and physical examination were performed. 2052: Ordered NSS 1,000 ml @ 999 mls/hr IV and Zofran 4 mg IV 2244: I reassessed the patient at this time. She is feeling better and resting comfortably. I discussed the results and treatment plan with the patient. I answered all pertaining questions that she had. She expressed understanding and verbalized agreement. The patient will be discharged home. 2299: Ordered Zofran 1 [facility] PO Medical Decision Prior records/ancillary studies reviewed. Triage Nursing notes reviewed. The patient's history was concerning for dizziness and vertigo. Differential diagnosis: Etiologies such as benign positional vertigo, dehydration, hypovolemia, anemia, tumor, infection, hypoglycemia, electrolyte abnormalities, cardiac sources, intracerebral event, toxicologic, neurologic, as well as others were entertained. The patient is a 63-year-old female who presented to the emergency department for an evaluation of dizziness nausea and vomiting. The patient had a recent head injury and I do feel that her condition at this time is consistent with a postconcussive syndrome. The patient did not have any findings on abdominal exam. The patient was treated with Zofran in the emergency department. She was reevaluated multiple times. I discussed the patient's laboratory and radiographic studies with her and her family members. She was encouraged to continue using the Zofran for nausea and vomiting and follow-up with the primary care physician as soon as possible. She is also encouraged to discuss further testing such as MRI of the brain if symptoms do not improve. She was also encouraged to return the emergency department immediately if symptoms change worsen or the need arises. Medication Reconcilliation Current Medication List: was personally reviewed by me Blood Pressure Screening Patient's blood pressure: Elevated blood pressure Blood pressure disposition: Elevated BP felt to be situational Impression Primary Impression: Vertigo Additional Impression: Nausea and vomiting Scribe Attestation The scribe's documentation has been prepared under my direction and personally reviewed by me in its entirety. I confirm that the note above accurately reflects all work, treatment, procedures, and medical decision making performed by me. Departure Information Dispostion Home / Self-Care Prescriptions Ondasetron Odt (ZOFRAN ODT) 4 Mg Tab 4 MG SL Q6H for Nausea, #15 TAB Prov: Cm Velazquez DO 03/12/18 Referrals Liss March M.D. (MEDICAL) (PCP) Forms HOME CARE DOCUMENTATION FORM, IMPORTANT VISIT INFORMATION Patient Instructions My [facility] Additional Instructions Call your family doctor in the morning to schedule a follow-up appointment. Continue all medications as prescribed. Drink plenty clear liquids. Return to the emergency department immediately if symptoms change worsen or the need arises. Problem Qualifiers Additional Impression: Nausea and vomiting Vomiting type: unspecified Vomiting Intractability: non-intractable Qualified Codes: R11.2 - Nausea with vomiting, unspecified
[2018-03-12 21:01] VITALS: O2SAT 93; Ht 170.2 cm; Wt 77.0 kg
--- NOTE | 2018-03-12 21:16 | DIAGNOSTIC IMAGING REPORT ---
CHEST ONE VIEW PORTABLE CLINICAL HISTORY: 63 years-old Female presenting with EVALUATE ALTERED MENTAL STATUS/WEAKNESS. TECHNIQUE: Portable upright AP view of the chest was obtained. COMPARISON: 04/14/2017. FINDINGS: Atherosclerosis of aortic arch. Cardiac silhouette enlarged. Mild pulmonary vascular prominence. Calcified granulomata may be present. No focal opacity. No large effusion or pneumothorax. Degenerative changes of the thoracic spine. Upper abdomen normal. IMPRESSION: 1. Cardiomegaly with possible volume overload. No carol pulmonary edema. Electronically signed by: Cirilo Pfeiffer M.D. 03/12/2018 9:15 PM Dictated Date/Time: 03/12/2018 9:13 PM
[2018-03-12 21:22] LABS: BASO % 0.3 %; BASO ABS # 0.04 K/uL (0-0.2); EOS % 0.5 %; EOS ABS # 0.07 K/uL (0-0.5); HEMATOCRIT 38.6 % (37-47); HEMOGLOBIN 13.7 g/dL (12.0-16.0); IG# 0.05 K/uL (0.00-0.02); LYMPH % 15.7 %; MEAN CELL VOLUME 90.4 fL (80-100); MEAN CORPUSCULAR HEMOGLOBIN 32.1 pg (25-34); MEAN CORPUSCULAR HGB CONC 35.5 g/dl (32-36); MEAN PLATELET VOLUME 10.1 fL (7.4-10.4); MONO % 8.7 %; MONO ABS # 1.17 K/uL (0.11-0.59); NEUT % 74.4 %; NEUT ABS # 9.97 K/uL (1.4-6.5); PLATELET COUNT 313 K/uL (130-400); RED CELL DISTRIBUTION WIDTH CV 13.1 % (11.5-14.5); RED CELL DISTRIBUTION WIDTH SD 42.8 fL (36.4-46.3)
[2018-03-12 21:34] LABS: PTT PATIENT 22.9 SECONDS (21.0-31.0)
--- NOTE | 2018-03-12 21:34 | DIAGNOSTIC IMAGING REPORT ---
HEAD WITHOUT CONTRAST (CT) CLINICAL HISTORY: 63 years-old Female presenting with EVALUATE ALTERED MENTAL STATUS/WEAKNESS. TECHNIQUE: Multidetector CT imaging of the head was performed without the use of intravenous contrast. IV contrast: None. A dose lowering technique was used consistent with the principles of ALARA (as low as reasonably achievable). COMPARISON: 03/10/2018. CT DOSE (mGy.cm): The estimated cumulative dose is 537.48 mGy.cm. FINDINGS: [place] Tender topogram: Unremarkable. Ventricles and sulci normal in size. Brain parenchyma normal in appearance with preserved fontenot-white differentiation. No mass effect or midline shift. No hemorrhage or acute territorial infarct. No extra-axial fluid collection. Paranasal sinuses and mastoid air cells clear. Calvarium intact. IMPRESSION: 1. No acute intracranial abnormality. Electronically signed by: Cirilo Pfeiffer M.D. 03/12/2018 9:32 PM Dictated Date/Time: 03/12/2018 9:30 PM
[2018-03-12 21:40] LABS: ALBUMIN 3.8 gm/dl (3.4-5.0); ALT/SGPT 19 U/L (12-78); AST/SGOT 15 U/L (15-37); BLOOD UREA NITROGEN 12 mg/dl (7-18); CALCIUM 8.9 mg/dl (8.5-10.1); CARBON DIOXIDE 28 mmol/L (21-32); CREATININE 0.72 mg/dl (0.60-1.20); GLUCOSE 133 mg/dl (70-99); LIPASE 232 U/L (73-393); POTASSIUM 3.2 mmol/L (3.5-5.1); SODIUM 135 mmol/L (136-145)
[2018-03-12 21:50] LABS: ALKALINE PHOSPHATASE 116 U/L (45-117); TOTAL PROTEIN 7.7 gm/dl (6.4-8.2)
[2018-03-12] MEDS ORDERED: ONDA4TAB10 SL (22:48)
[2018-03-12 22:51] VITALS: BP 117/99; PULSE 75; TEMP 37.7; O2SAT 96
[2018-03-12] MEDS ORDERED: ONDANSETRON HOME PACK 4MG OD TAB PO ONE (23:00)
== END 2018-03-12 22:52 | disposition home or self-care (01) ==
LOC: EDBD 20:35 → C.EDB 20:36
DX: R42 Dizziness and giddiness (principal); R11.2 Nausea with vomiting, unspecified; W19.XXXA Unspecified fall, initial encounter; F70 Mild intellectual disabilities; Z85.3 Personal history of malignant neoplasm of breast; Z87.440 Personal history of urinary (tract) infections; Z79.82 Long term (current) use of aspirin

== ENCOUNTER 2023-10-07 08:56 | Inpatient (IN) ==
[2023-10-07 10:01] LABS: Basophils # (auto) 0.07 K/uL (0.00-0.20); Basophils % (auto) 0.6 %; Eosinophils % (auto) 0.9 %; Hemoglobin 13.6 g/dl (12.0-16.0); Immature Granulocytes # (auto) 0.19 K/uL (0.01-0.20); Immature Granulocytes % (auto) 1.7 %; Lymphocytes # (auto) 0.66 K/uL (1.20-3.40); Lymphocytes % (auto) 5.9 %; Mean Corpuscular Hemoglobin 30.8 pg (25.0-34.0); Mean Corpuscular Volume 90.7 fL (80.0-100.0); Mean Platelet Volume 9.9 fL (9.4-12.4); Monocytes # (auto) 1.54 K/uL (0.11-0.59); Monocytes % (auto) 13.9 %; Neutrophils # (auto) 8.55 K/uL (1.40-6.50); Platelet Count 318 K/uL (130-400); RDW Coefficient of Variation 13.7 % (11.5-14.5); RDW Standard Deviation 46.3 fL (36.4-46.3); Red Blood Count 4.41 M/uL (4.20-5.40); White Blood Count 11.11 K/ul (4.8-10.8)
--- OUTSIDE RECORDS SUMMARY | 2023-10-07 10:13 | External Medical Summary | Summary of Care ---
Author Name Unknown Organization [facility] Address [address] [place] [address] Phone [phone] Care Team Providers Care Gas Controller Name Role Phone Liudmila Tyson MD Primary Care Provid er Reason for Visit * Reason Onset Date Comments Appointment 08/20/2023 Encounter Details Date Type Department Care Team Description 08/20/2023 Telephone Pulmonary Medicine, [place] [address], [place] [id number] Kuldip Wellington, [address], [place] [phone] Appointment Allergies No known active allergiesdocumented as of this encounter (statuses as of 08/20/2023) Medications Medication Sig Dispensed Refills Start Date End Date Status Zoster Vac Recomb Adjuvanted 50 MCG/0.5ML Intramuscular Suspension Reconstituted (Shingrix)Indication s:Need for vaccination for zoster Inject 0.5 mL into a large muscle now and repeat dose in 180 days 1 Each 1 08/03/2022 Active Additional Information Patient not taking.Reported on 12/28/2022 Atorvastatin Calcium 40 MG Oral Tablet (Lipitor)Indications :Dyslipidemia, goal LDL below 100 Take 1 Tablet (40 mg) by mouth at bedtime. 90 Tablet 3 10/01/2022 Active Lisinopril 10 MG Oral Tablet (Prinivil)Indication s:HTN, goal below 130/80 Take 1 Tablet by mouth in the morning. 90 Tablet 1 01/30/2023 Active Omeprazole 20 MG Oral Capsule Delayed Release (PriLOSEC) TAKE ONE CAPSULE BY MOUTH EVERY EVENING 90 Capsule 3 04/15/2023 Active metFORMIN HCl ER 500 MG Oral Tablet Extended Release 24 Hour (Glucophage XR)Indications:Predi abetes Take 1 tab at bedtime x 7 days, then take 2 tabs at bedtime. 60 Tablet 5 06/28/2023 Active Diclofenac Sodium 1 % External Gel (Voltaren)Indication s:Chronic pain of right knee Apply topically to affected area 2 times a day as needed (muscle pain). 150 g 5 07/05/2023 Active LORazepam 0.5 MG Oral Tablet (Ativan)Indications: Panic attack Take 1 tab 30 minutes prior to dental appointment. May repeat dose in 2 hours if needed. No more than 2 tabs per day. 10 Tablet 0 07/11/2023 Active Citalopram Hydrobromide 10 MG Oral Tablet (CeleXA) Take 1.5 Tablets by mouth in the morning. 45 Tablet 1 07/17/2023 Active risperiDONE 0.25 MG Oral Tablet (RisperDAL)Indicatio ns:Hallucinations Take 1 Tablet by mouth at bedtime. 30 Tablet 1 07/17/2023 Active predniSONE 10 MG Oral Tablet (Deltasone)Indicatio ns:SOB (shortness of breath),Acute cough,Viral syndrome Take 5 tabs for 2 days, 4 tabs for 2 days, 3 tabs for 2 days, 2 tabs for 2 days 1 tab for 2 days 30 Tablet 0 08/08/2023 Active Ventolin HFA 108 (90 Base) MCG/ACT Inhalation Aerosol SolutionIndications: SOB (shortness of breath),Acute cough Inhale 2 Puffs by mouth every 4 hours as needed for Wheezing or Dyspnea. 1 g 0 08/08/2023 Active Spacer/Aero-Holding Chambers DeviceIndications:SO B (shortness of breath),Acute cough Use with inhaler. 1 Each 0 08/08/2023 Active Azithromycin 250 MG Oral Tablet (Zithromax Z-Heriberto)Indications:SO B (shortness of breath),Acute cough Take two tablets by mouth on first day, then 1 tablet daily until gone 6 Tablet 0 08/08/2023 Active Hospital, Clinic, or Other Facility Administered Medication Ordered Dose Route Frequency Start Date End Date Status Albuterol Sulfate (Proventil) (2.5 MG/3ML) 0.083% inhalation solution 2.5 mgIndications:Dyspnea on exertion 2.5 mg NEBULIZER ONCE PRN 06/07/2023 Active documented as of this encounter (statuses as of 08/20/2023) Active Problems Problem Noted Date Prediabetes 03/29/2023 Ambulatory dysfunction 08/03/2022 Esophageal dysmotility 08/03/2022 Colon cancer screening declined 08/03/20 22 Malignant neoplasm of upper- outer quadrant of left breast in female, estrogen receptor positive 12/01/2020 Malignant neoplasm of left female breast 07/03/2016 Esophageal reflux 12/28/2014 Mild intellectual disability 03/19/2013 Dyslipidemia, goal LDL below 100 010 HTN, goal below 140/90 documented as of this encounter (statuses as of 08/20/2023) Resolved Problems Problem Noted Date Resolved Date Need for shingles vaccine 07/05/20172016 Viral gastritis 04/24/2017 04/24/2017 Obesity, Class I, BMI 30.0-34.9 (see actual BMI) 01/01/2017 04/24/2017 Overview: bmi= 30.37 01/01/17 INFORMATION 01/01/2017 04/24/2017 Overview: 10 year cardiovascular risk of 10.5 Abnormal mammogram 01/18/2016 07/03/2016 Encounter for screening mammogram for breast can cer 12/30/2015 04/24/2017 S/P arthroscopic knee surgery 09/07/2015 Medial meniscus tear 05/12/2015 04/24/2017 Lower urinary tract infectious disease 5 04/24/2017 Overview: ICD-10 update of inactive term Knee pain, right 05/12/2015 04/24/2017 Obesity, Class I, BMI 30.0-34.9 (see actual BMI) 12/28/2014 04/24/2017 Overview: bmi= 31.32 12/28/14 Routine medical exam 12/28/2014 08/19/2016 Obesity, Class I, BMI 30.0-34.9 (see actual BMI) 09/24/2013 04/24/2017 Overview: bmi= 30.69 09/24/13 Fracture of metatarsal bone of left foot 013 04/24/2017 Overview: distal 5th Obesity, Class I, BMI 30.0-34.9 (see actual BMI) 03/19/2013 04/24/2017 Overview: bmi= 31.82 03/19/13 Sleep related hypoxia 11/07/2011 04/24/2017 Overview: 10/29/11 Noct ox RA -- low 85%, mean 91%, <89% 1:10 hrs, BRIAN 36 03/19/11 Noct ox RA -- low 85%, average 91%, time <89% 2:16 mins, BRIAN 8.5 02/07/11 PSG -- AHI 5, TST 5 hrs, hypoxia [facility] OBESITY, BMI= 31.28 04/26/11 04/26/201104/05 Esophageal reflux 04/26/2011 12/28/2014 Hypoxemia 03/23/2011 11/07/2011 Overview: 10/29/11 Noct ox RA -- low 85%, mean 91%, <89% 1:10 hrs, BRIAN 36 03/19/11 Noct ox RA -- low 85%, average 91%, time <89% 2:16 mins, BRIAN 8.5 02/07/11 PSG -- AHI 5, TST 5 hrs, hypoxia 07/11/11 faxed orders for oxygen at 2 LPM to [facility] Malaise and fatigue 02/22/2011 09/24/2013 Shortness of breath 02/22/2011 09/24/2013 Chronic rhinitis 02/22/2011 12/28/2014 HTN, goal below 130/80 07/13/2010 1 Dyslipidemia, goal to be determined 10/18/2009 07/13/2010 Overview: Per Lipid Taxonomy. Mixed dyslipidemia 06/30/2009 10/18/2009 Overview: Per Lipid Taxonomy. Dyslipidemia, goal to be determined 06/22/2009 09/28/2009 Overview: Per Lipid Taxonomy Routine medical exam 06/17/2009 12/28/2014 Need for afjuiocitz-vndazzk-dpvgjoape (Tdap) vac cine 06/17/2009 08/19/2016 Special screening for malignant neoplasms, colon 06/17/2009 07/28/2009 Overview: Modified by Screening Dx Protocol #6. HTN, goal below 140/90 0 Mild intellectual disability Overview: s/p scarlet fever or meningitis ICD-10 update of inactive term Hallucinations 12/28/2014 documented as of this encounter (statuses as of 08/20/2023) Immunizations Name Administration Dates Next Due COVID-19 mRNA, LNP-s, No Pre serve, 2-Dose Series (Moderna) 11/30/2020 COVID-19, mRNA, LNP-s, PF, B ooster, 100mcg/0.5mg (Moderna) 09/14/2022,12/28/2020 PPD 09/17/2022, 8,12/30/2015,11/05,10/31/2011,06/17/2009 Pneumococcal Conjugate Vacci ne, 20-valent ([id number]) 08/03/2022 Pneumococcal Polysaccharide PPV23 (Pneumovax) 09/24/2013 SEASONAL INFLUENZA, PF, 6 M & Above, IM , (FLULAVAL or FLUZONE) 11/27/2019,12/13/2017 11/27/2020 Seasonal Influenza Virus Vac cine, Unspecified Formulation 08/03/2022,11/27/2019,12/13/2017,12/06,09/24/2013,09/18/2012 Seasonal Influenza, Quadriva lent Hd (Fluzone Hd) 08/03/2022 Seasonal Influenza, Quadriva lent, No Preserve, IM 01/01/2017,09/07/2015 Seasonal Influenza, Split, I IV3, With Preserve, Inj 12/28/2014,09/24/2013,09/18/2012 12/28/2015 TDAP (age 10 and older)(Boostrix) 02/01/2020 TDAP (age 11 and older)(Adacel) 06/17/2009 Varicella Zoster Vaccine (Adult) 07/29/2017 documented as of this encounter Social History Tobacco Use Types Packs/Day Years Used Date Smoking Tobacco: Never Passive Smoke Exposure: Past Smokeless Tobacco: Never Alcohol Use Standard Drinks/Week Comments No 0 (1 standard drink = 0.6 oz pur e alcohol) none Alcohol Habits Answer Date Recorded How often do you have a drin k containing alcohol? Never 12/31/2022 How many drinks containing a lcohol do you have on a typical day when you are drinking? Patient does not drink 12/31/2022 How often do you have six or more drinks on one occasion? Never 12/31/2022 Food Insecurity Answer Date Recorded Within the past 12 months, y ou worried that your food would run out before you got money to buy more. Never true 07/17/2023 Within the past 12 months, t he food you bought just didn't last and you didn't have money to get more. Never true 07/17/2023 Sex Assigned at Date Recorded Female 07/17/2023 8:24 AM E DT Job Start Date Occupation Industry Not on file Not on file Not on file documented as of this encounter Miscellaneous Notes * Telephone Encounter - TC Patel - 08/20/2023 10:06 AM EDT Lmom and sent myG message to reschedule apt on 08/27 w/ Dr. Wellington in [facility]. Pt has PFTs on the same day that I didn't cancel. Pt may want them on the same day. Slots on hold on 09/25 for reschedules. documented in this encounter Plan of Treatment Upcoming Encounters Date Type Specialty Care Team Description 08/27/2023 PulmDiagnostic [facility] [place], [address] [place] [address] 08/28/2023 Telemedicine Psychiatry Ana Paula Epstein MD [address] [place] [address] 10/30/2023 Imaging Radiology 12/30/2023 Office Visit Family Medicine Liudmila Tyson MD [address] [place] [address] 01/28/2024 Office Visit Dentistry Adelita Vasquez, [facility] [address] [place] [address] Health Maintenance Due Date Last Done Comments Albumin/Creatinine Ratio 1974 Cologuard 2001 Fecal Occult Blood Test 2001 Sigmoidoscopy 2001 Zoster Vaccines (2 of 3) 09/23/2017 07/29/2017 Colonoscopy 08/09/2019 08/09/2009 Colorectal Cancer Screening 08/09/2019 Depression Screening 05/14/2020 05/14/2019, 12/13/2017, 12/28/2014 (Discussed) DXA Scan 05/21/2023 05/21/2016 COVID-19 Vaccine ( season) 2023 09/14/2022, 12/28/2020, 11/30/2020 Influenza Vaccine (FLU shot) (#1) 2023 08/03/2022, 08/03/2022, 11/27/2019, Additional history exists Mammogram 10/24/2023 10/24/2022, 10/04, 09/16/2020, Additional history exists GFR 03/22/2024 03/22/2023, 08/04, 05/26/2021, Additional history exists HbA1c 03/22/2024 03/22/2023 Lipid Panel 08/22/2027 08/22/2022, 05/05, 11/13/2019, Additional history exists DTaP,Tdap,and Td Vaccines (3 - Td or Tdap) 01/31/2030 02/01/2020, 06/17/2009 Pneumococcal Vaccine: 65+ Years Completed 08/03/2022, 09/24/2013 GARDASIL-HPV IMMUNIZATION SERIES Aged Out No longer eligible based on patient's age to complete this topic Hepatitis B Aged Out No longer eligi ble based on patient's age to complete this topic MENINGOCOCCAL (MENACTRA/MENVEO) Aged Out No longer eligible based on patient's age to complete this topic documented as of this encounter Medical Devices Not on filedocumented as of this encounter Care Teams Gas Controller Relationship Specialty Start Date End Date Liudmila Tyson MD [address], [place] [phone] PCP - General Family Medicine 08/02/22 documented as of this encounter
--- OUTSIDE RECORDS SUMMARY | 2023-10-07 10:13 | External Medical Summary | Summary of Care ---
Author Name Unknown Organization [facility] Address [address] [place] [address] Phone [phone] Care Team Providers Care Ems Manager Name Role Phone Liudmila Tyson MD Primary Care Provid er Reason for Visit * Reason Onset Date Comments Advice 06/24/2023 Encounter Details Date Type Department Care Team (Late st Contact Info) Description 06/24/[address] [facility] [address] [place] [address] Liudmila Tyson MD [address] [place] [address] Advice Allergies No known active allergiesdocumented as of this encounter (statuses as of 09/23/2023) Medications Medication Sig Dispensed Refills Start Date End Date Status Zoster Vac Recomb Adjuvanted 50 MCG/0.5ML Intramuscular Suspension Reconstituted (Shingrix)Indication s:Need for vaccination for zoster Inject 0.5 mL into a large muscle now and repeat dose in 180 days 1 Each 1 08/03/2022 Active Additional Information Patient not taking.Reported on 12/28/2022 Lisinopril 10 MG Oral Tablet (Prinivil)Indication s:HTN, goal below 130/80 Take 1 Tablet by mouth in the morning. 90 Tablet 1 01/30/2023 Active Omeprazole 20 MG Oral Capsule Delayed Release (PriLOSEC) TAKE ONE CAPSULE BY MOUTH EVERY EVENING 90 Capsule 3 04/15/2023 Active documented as of this encounter (statuses as of 09/23/2023) Active Problems Problem Noted Date Diagnosed Date Prediabetes 03/29/2023 Ambulatory dysfunction 08/03/2022 Esophageal dysmotility 08/03/2022 Colon cancer screening declined 08/03/2022 Malignant neoplasm of upper- outer quadrant of left breast in female, estrogen receptor positive 12/01/2020 Malignant neoplasm of left female breast 016 Esophageal reflux 12/28/2014 Mild intellectual disability 03/19/2013 Dyslipidemia, goal LDL below 100 07/13/2010 HTN, goal below 140/90 documented as of this encounter (statuses as of 09/23/2023) Resolved Problems Problem Noted Date Diagnosed Date Resolved Date Need for shingles vaccine 07/05/2017 Viral gastritis 04/24/2017 04/24/2017 Obesity, Class I, BMI 30.0-3 4.9 (see actual BMI) 01/01/2017 04/24/2017 Overview: bmi= 30.37 01/01/17 INFORMATION 01/01/2017 04/24/2017 Overview: 10 year cardiovascular risk of 10.5 Abnormal mammogram 01/18/2016 6 Encounter for screening mamm ogram for breast cancer 12/30/2015 04/24/2017 S/P arthroscopic knee surgery 09/07/2015 04/24/2017 Medial meniscus tear 05/12/2015 017 Lower urinary tract infectious disease 05/12/2015 04/24/2017 Overview: ICD-10 update of inactive term Knee pain, right 05/12/2015 04/24/2017 Obesity, Class I, BMI 30.0-3 4.9 (see actual BMI) 12/28/2014 04/24/2017 Overview: bmi= 31.32 12/28/14 Routine medical exam 12/28/2014 016 Obesity, Class I, BMI 30.0-3 4.9 (see actual BMI) 09/24/2013 04/24/2017 Overview: bmi= 30.69 09/24/13 Fracture of metatarsal bone of left foot 04/13/2013 04/24/2017 Overview: distal 5th Obesity, Class I, BMI 30.0-3 4.9 (see actual BMI) 03/19/2013 04/24/2017 Overview: bmi= 31.82 03/19/13 Sleep related hypoxia 11/07/20112016 Overview: 10/29/11 Noct ox RA -- low 85%, mean 91%, <89% 1:10 hrs, BRIAN 36 03/19/11 Noct ox RA -- low 85%, average 91%, time <89% 2:16 mins, BRIAN 8.5 02/07/11 PSG -- AHI 5, TST 5 hrs, hypoxia P OBESITY, BMI= 31.28 04/26/11 04/26/2011 04/24/2017 Esophageal reflux 04/26/2011 12/28/2014 Hypoxemia 03/23/2011 11/07/2011 Overview: 10/29/11 Noct ox RA -- low 85%, mean 91%, <89% 1:10 hrs, BRIAN 36 03/19/11 Noct ox RA -- low 85%, average 91%, time <89% 2:16 mins, BRIAN 8.5 02/07/11 PSG -- AHI 5, TST 5 hrs, hypoxia 07/11/11 faxed orders for oxygen at 2 LPM to [facility] Malaise and fatigue 02/22/2011 09/24/20 13 Shortness of breath 02/22/2011 09/24/20 13 Chronic rhinitis 02/22/2011 12/28/2014 HTN, goal below 130/80 07/13/201002/22 Dyslipidemia, goal to be determined 10/18/2009 07/13/2010 Overview: Per Lipid Taxonomy. Mixed dyslipidemia 06/30/2009 9 Overview: Per Lipid Taxonomy. Dyslipidemia, goal to be determined 06/22/2009 09/28/2009 Overview: Per Lipid Taxonomy Routine medical exam 06/17/2009 015 Need for diphtheria-tetanus- pertussis (Tdap) vaccine 06/17/2009 08/19/2016 Special screening for malign ant neoplasms, colon 06/17/2009 07/28/2009 Overview: Modified by Screening Dx Protocol #6. HTN, goal below 140/90 07/13 Mild intellectual disability 03/19/2013 Overview: s/p scarlet fever or meningitis ICD-10 update of inactive term Hallucinations 12/28/2014 documented as of this encounter (statuses as of 09/23/2023) Immunizations Name Administration Dates Next Due COVID-19 mRNA, LNP-s, No Pre serve, 2-Dose Series (Moderna) 11/30/2020 COVID-19, mRNA, LNP-s, PF, B ooster, 100mcg/0.5mg (Moderna) 09/14/2022,12/28/2020 PPD 09/17/2022, 8,12/30/2015,11/05,10/31/2011,06/17/2009 Pneumococcal Conjugate Vacci ne, 20-valent ([id number]) 08/03/2022 Pneumococcal Polysaccharide PPV23 (Pneumovax) 09/24/2013 SEASONAL [...] Packs/Day Years Used Date Smoking Tobacco: Never Smokeless Tobacco: Never Alcohol Use Standard Drinks/Week Comments No 0 (1 standard drink = 0.6 oz pur e alcohol) none AUDIT-C Answer Date Recorded Q1: How often do you have a drink containing alcohol? Never 12/31/2022 Q2: How many drinks containi ng alcohol do you have on a typical day when you are drinking? Patient does not drink Q3: How often do you have si x or more drinks on one occasion? Never 12/31/2022 PHQ-2 Answer Date Recorded PHQ Adult Total Score 4 08/28/2023 Hunger Vital Sign Answer Date Recorded Within the past 12 months, y ou worried that your food would run out before you got the money to buy more. Never true 07/17/20 23 Within the past 12 months, t he food you bought just didn't last and you didn't have money to get more. Never true 07/17/2023 Sex and Gender Information Value Date Recorded Sex Assigned at Female 07/17/2023 8:24 AM EDT Gender Identity Female 07/17/2023 8:24 AM EDT Sexual Orientation Straight 07/17/2023 8: 24 AM EDT Job Start Date Occupation Industry Not on file Not on file Not on file documented as of this encounter Plan of Treatment Upcoming Encounters Date Type Department Care Team (Late st Contact Info) Description 09/25/2023 11:40 AM EST Office Visit Pulmonary Medicine, [facility] [address] [facility] [place] [address] Kuldip Wellington DO [address] [place] [address] 10/23/2023 1:00 PM EST Telemedicine Psychiatry, [place] [address] [place] [address] Ana Paula Epstein MD [address] [place] [address] 10/30/2023 1:30 PM EST Imaging Radiology [facility] [address] [facility] [address] [facility] [place] [address] 10/30/2023 2:00 PM EST Imaging Radiology [facility] [address] [facility] [place] [address] 12/30/2023 1:20 PM EST Office Visit [facility] [address] [place] [address] Liudmila Tyson MD [address] [place] [address] 01/28/2024 1:00 PM EDT Office Visit Dental Hygiene, [place] [address] [place] [address] [facility] [address], [place] [phone] Health Maintenance Due Date Last Done Comments Albumin/Creatinine Ratio 1974 Cologuard 2001 Fecal Occult Blood Test 2001 Sigmoidoscopy 2001 Zoster Vaccines (2 of 3) 09/23/2017 07/29/2017 Colonoscopy 08/09/2019 08/09/2009 Colorectal Cancer Screening 08/09/2019 DXA Scan 05/21/2023 05/21/2016 COVID-19 Vaccine ( season) 2023 09/14/2022, 12/28/2020, 11/30/2020 Influenza Vaccine (FLU shot) (#1) 2023 08/03/2022, 08/03/2022, 11/27/2019, Additional history exists Mammogram 10/24/2023 10/24/2022, 10/04, 09/16/2020, Additional history exists GFR 03/22/2024 03/22/2023, 08/04, 05/26/2021, Additional history exists HbA1c 03/22/2024 03/22/2023 Depression Screening 08/28/2024 08/28/2023, 12/13/2017, 12/28/2014 (Discussed) Lipid Panel 08/22/2027 08/22/2022, 07/01/2021, 11/13/2019, Additional history exists DTaP,Tdap,and Td Vaccines [...] filedocumented as of this encounter Care Teams Ems Manager Relationship Specialty Start Date End Date Liudmila Tyson MD [address] [place] [address] PCP - General Family Medicine 08/02/22 documented as of this encounter
--- OUTSIDE RECORDS SUMMARY | 2023-10-07 10:13 | External Medical Summary | Summary of Care ---
Author Name Unknown Organization [facility] Address [address] [place] [address] Phone [phone] Care Team Providers Care [employer] Reverser Name Role Phone Liudmila Tyson MD Primary Care Provid er Reason for Visit * Reason Comments Pulmonary Function Test PFT with broncho dilator Oxygen Assessment 6 minute walk Encounter Details Date Type Department Care Team (Latest Contact Info) Description 08/27/2023 9:30 AM EDT PulmDiagnostic Pulmonary Function Lab, [facility] [address] [place] [address] [place], [address] [facility] [place] [address] Dyspnea on exertion* Allergies No known active allergiesdocumented as of this encounter (statuses as of 08/27/2023) Medications Medication Sig Dispensed Refills Start Date [...] until gone 6 Tablet 0 08/08/2023 Active documented as of this encounter (statuses as of 08/27/2023) Active Problems Problem Noted Date Diagnosed Date [...] as of this encounter (statuses as of 08/27/2023) Resolved Problems Problem Noted Date Diagnosed Date [...] orders for oxygen at 2 LPM to [facility] Malaise and fatigue 02/22/2011 09/24/20 13 Shortness [...] as of this encounter (statuses as of 08/27/2023) Immunizations Name Administration Dates Next Due COVID-19 mRNA, LNP-s, No Pre serve, 2-Dose Series (Moderna) 11/30/2020 COVID-19, mRNA, LNP-s, PF, B ooster, 100mcg/0.5mg (Moderna) 09/14/2022,12/28/2020 PPD 09/17/2022, 8,12/30/2015,11/05,10/31/2011,06/17/2009 Pneumococcal Conjugate Vacci ne, 20-valent ([id number]) 08/03/2022 Pneumococcal Polysaccharide PPV23 (Pneumovax) 09/24/2013 SEASONAL [...] Passive Smoke Exposure: Past Smokeless Tobacco: Never Tobacco Cessation:Counseling Given: Not Answered Alcohol Use Standard Drinks/Week Comments No 0 [...] occasion? Never 12/31/2022 PHQ-2 Answer Date Recorded PHQ-2 Score -1 05/20/2019 Hunger Vital Sign Answer Date Recorded Within [...] on file documented as of this encounter Last Filed Vital Signs Vital Sign Reading Time Taken Comments Blood Pressure 126/80 08/27/2023 9:58 AM EDT Pulse 80 08/27/2023 9:58 AM EDT Temperature 35.8 C (96.5 F) 08/27/2023 9:58 AM ED T Respiratory Rate 18 08/27/2023 9:58 AM EDT Oxygen Saturation 92% 08/27/2023 9:58 AM EDT Inhaled Oxygen Concentration - - Weight 89.1 kg (196 lb 6.9 oz) 08/27/2023 9:58 A M EDT Height 159 cm (5' 2.6") 08/27/2023 9:58 AM EDT Body Mass Index 35.24 08/27/2023 9:58 AM EDT documented in this encounter Nursing Notes * Umer Torres RRT - 08/27/2023 10:09 AM EDT Helena Bentley was identified by name, Date of : (1955), and . Vitals were obtained for testing. Body mass index is 35.24 kg/m. Pt does not have a smoking history. Pt is ashelter workshop worker. Spirometry, DLCO, RAW, and TGV performed. A slow volume nebulizer treatment of 0.5ml of albuterol in 3 ml of NSS was given. The proper method of use, as well as anticipated side effects, of this svn are discussed and demonstrated to the patient. Patient demonstrates adequate delivery. Exercise oximetry performed on room air x 6 minutes. Pt ambulated with a walker 900 feet/ 274 meters. No rest periods were required. Lowest SPO2 on room air was 90%. Administrations This Visit Albuterol Sulfate (Proventil) (2.5 MG/3ML) 0.083% inhalation solution 2.5 mg Admin Date 08/27/2023 Action Given Dose 2.5 mg Route Nebulizer Documented By Umer Torres RRT documented in this encounter Plan of Treatment Upcoming Encounters Date Type Department Care Team (Late st Contact Info) Description 08/28/2023 1:00 PM EDT Telemedicine Psychiatry, [place] [address] [place] [address] Ana Paula Epstein MD [address] [place] [address] 09/25/2023 11:40 AM EST Office Visit Pulmonary Medicine, [facility] [address] [place] [address] Kuldip Wellington DO [address] [place] [address] 10/30/2023 1:30 PM EST Imaging Rad[facility] [facility] [place] [address] [place] [address] 10/30/2023 2:00 PM EST Imaging Radiology [facility] [address] [place] [address] 12/30/2023 1:20 PM EST [facility] [address] [facility] [id number] Liudmila Tyson MD [address] [facility] [address] 01/28/2024 1:00 PM EDT Office Visit Dental Hygiene, [place] [address] [place] [address] [facility] [address] [place] [address] Pending Results Name Type Priority Associated Diagnoses Date /Time SPIROMETRY B/A BRONCHODILATOR Procedures Routine Dyspnea on exertion 08/27/2023 9:53 AM EDT LUNG VOLUMES (PLETHYSMOGRAPHY) Procedures Routine Dyspnea on exertion 08/27/2023 9:53 AM EDT DIFFUSION CAPACITY (DLCO) Procedures Routine Dyspnea on exertion 08/27/2023 9:53 AM EDT NITRIC OXIDE GAS DETERMINATION Procedures Routine Dyspnea on exertion 08/27/2023 9:53 AM EDT Health Maintenance Due Date Last Done Comments Albumin/Creatinine Ratio 1974 Cologuard 2001 Fecal Occult Blood Test 2001 Sigmoidoscopy 2001 Zoster Vaccines (2 of 3) 09/23/2017 07/29/2017 Colonoscopy 08/09/2019 08/09/2009 Colorectal Cancer Screening 08/09/2019 Depression Screening 05/14/2020 05/14/2019, 12/13/2017, 12/28/2014 (Discussed) DXA Scan 05/21/2023 05/21/2016 COVID-19 Vaccine ( - season) 2023 09/14/2022, 12/28/2020, 11/30/2020 Influenza Vaccine [...] Not on filedocumented as of this encounter Procedures Procedure Name Priority Date/Time Associated Diagnosis Comments DIFFUSION CAPACITY (DLCO) Routine 2022 9:53 AM EDT Dyspnea on exertion LUNG VOLUMES (PLETHYSMOGRAPHY) Routine 08/27/2023 9:53 AM EDT Dyspnea on exertion NITRIC OXIDE GAS DETERMINATION Routine 08/27/2023 9:53 AM EDT Dyspnea on exertion SPIROMETRY B/A BRONCHODILATOR Routine 08/27/2023 9:53 AM EDT Dyspnea on exertion documented in this encounter Visit Diagnoses Diagnosis Dyspnea on exertion- Primary Other dyspnea and respiratory abnormality documented in this encounter Administered Medications Inactive Administered Medications - up to 3 most recent administrations Medication Order MAR Action Action Date Dose Rate Site Albuterol Sulfate (Proventil) (2.5 MG/3ML) 0.083% inhalation solution 2.5 mg 2.5 mg, Nebulizer, ONCE PRN Dyspnea, Starting on Sat06/07/23 at 1050, Until Sat08/27/23 at 0926, For 1 dose Given 08/27/2023 9:26 AM EDT 2.5 mg documented in this encounter Care Teams [employer]s [employer] Reverser Relationship Specialty Start Date End Date Liudmila Tyson MD [address] [facility] [place] [address] PCP - General Family Medicine 08/02/22 documented as of this encounter
--- OUTSIDE RECORDS SUMMARY | 2023-10-07 10:13 | External Medical Summary | Summary of Care ---
Author Name Unknown Organization [facility] Address [address] [place] [address] Phone [phone] Care Team Providers Care Newsagent Name Role Phone Liudmila yTson MD Primary Care Provid er Reason for Visit * Reason Comments Medication Management Follow Up Anxiety Depression * - Authorized Specialty Diagnoses / Procedures Referred By Contac t Referred To Contact Referral ID Status Reason Start Date Expiration Date V isits Requested Visits Authorized [id number] Authorized 12/05/2022 12/04/2023 [id number] Encounter Details Date Type Department Care Team (Late st Contact Info) Description 08/28/2023 1:00 PM EDT Telemedicine Psychiatry, [place] [address], [place] [id number] Ana Paula Epstein MD [address], [place] [id number] Depression with anxiety*; Hallucinations; Mild intellectual disability Allergies No known active allergiesdocumented as of this encounter (statuses as of 08/28/2023) Medications Medication Sig Dispensed Refills Start Date End Date Status Zoster Vac Recomb Adjuvanted 50 MCG/0.5ML Intramuscular Suspension Reconstituted (Shingrix)Indicati ons:Need for vaccination for zoster Inject 0.5 mL into a large muscle now and repeat dose in 180 days 1 Each 1 08/03/2022 Active Additional Information Patient not taking.Reported on 12/28/2022 Atorvastatin Calcium 40 MG Oral Tablet (Lipitor)Indicatio ns:Dyslipidemia, goal LDL below 100 Take 1 Tablet (40 mg) by mouth at bedtime. 90 Tablet 3 10/01/2022 Active Lisinopril 10 MG Oral Tablet (Prinivil)Indicati ons:HTN, goal below 130/80 Take 1 Tablet by mouth in the morning. 90 Tablet 1 01/30/2023 Active Omeprazole 20 MG Oral Capsule Delayed Release (PriLOSEC) TAKE ONE CAPSULE BY MOUTH EVERY EVENING 90 Capsule 3 04/15/2023 Active metFORMIN HCl ER 500 MG Oral Tablet Extended Release 24 Hour (Glucophage XR)Indications:Pre diabetes Take 1 tab at bedtime x 7 days, then take 2 tabs at bedtime. 60 Tablet 5 06/28/2023 Active Diclofenac Sodium 1 % External Gel (Voltaren)Indicati ons:Chronic pain of right knee Apply topically to affected area 2 times a day as needed (muscle pain). 150 g 5 07/05/2023 Active LORazepam 0.5 MG Oral Tablet (Ativan)Indication s:Panic attack Take 1 tab 30 minutes prior to dental appointment. May repeat dose in 2 hours if needed. No more than 2 tabs per day. 10 Tablet 0 07/11/2023 Active predniSONE 10 MG Oral Tablet (Deltasone)Indicat ions:SOB (shortness of breath),Acute cough,Viral syndrome Take 5 tabs for 2 days, 4 tabs for 2 days, 3 tabs for 2 days, 2 tabs for 2 days 1 tab for 2 days 30 Tablet 0 08/08/2023 Active Ventolin HFA 108 (90 Base) MCG/ACT Inhalation Aerosol SolutionIndication s:SOB (shortness of breath),Acute cough Inhale 2 Puffs by mouth every 4 hours as needed for Wheezing or Dyspnea. 1 g 0 08/08/2023 Active Spacer/Aero-Holdin g Chambers DeviceIndications: SOB (shortness of breath),Acute cough Use with inhaler. 1 Each 0 08/08/2023 Active Azithromycin 250 MG Oral Tablet (Zithromax Z-Heriberto)Indications: SOB (shortness of breath),Acute cough Take two tablets by mouth on first day, then 1 tablet daily until gone 6 Tablet 0 08/08/2023 Active Citalopram Hydrobromide 10 MG Oral Tablet (CeleXA) Take 1.5 Tablets by mouth in the morning. 45 Tablet 1 08/28/2023 Active risperiDONE 0.25 MG Oral Tablet (RisperDAL)Indicat ions:Hallucination s Take 1 Tablet by mouth at bedtime. 30 Tablet 1 08/28/2023 Active Citalopram Hydrobromide 10 MG Oral Tablet (CeleXA) Take 1.5 Tablets by mouth in the morning. 45 Tablet 1 07/17/2023 3 Discontinue d(Refill) risperiDONE 0.25 MG Oral Tablet (RisperDAL)Indicat ions:Hallucination s Take 1 Tablet by mouth at bedtime. 30 Tablet 1 07/17/2023 3 Discontinue d(Refill) documented as of this encounter (statuses as of 08/28/2023) Active Problems Problem Noted Date Diagnosed Date [...] as of this encounter (statuses as of 08/28/2023) Resolved Problems Problem Noted Date Diagnosed Date [...] -- AHI 5, TST 5 hrs, hypoxia AHP OBESITY, BMI= 31.28 04/26/11 04/26/2011 04/24/2017 Esophageal reflux 04/26/2011 12/28/2014 Hypoxemia 03/23/2011 11/07/2011 Overview: 10/29/11 Noct ox RA -- low 85%, mean 91%, <89% 1:10 hrs, BRIAN 36 03/19/11 Noct ox RA -- low 85%, average 91%, time <89% 2:16 mins, BRIAN 8.5 02/07/11 PSG -- AHI 5, TST 5 hrs, hypoxia 07/11/11 [facility] Malaise and fatigue 02/22/2011 09/24/20 13 Shortness [...] as of this encounter (statuses as of 08/28/2023) Immunizations Name Administration Dates Next Due COVID-19 mRNA, LNP-s, No Pre serve, 2-Dose Series (Moderna) 11/30/2020 COVID-19, mRNA, LNP-s, PF, B ooster, 100mcg/0.5mg (Moderna) 09/14/2022,12/28/2020 PPD 09/17/2022, 8,12/30/2015,11/05,10/31/2011,06/17/2009 Pneumococcal Conjugate Vacci ne, 20-valent ([id number]) 08/03/2022 Pneumococcal Polysaccharide PPV23 (Pneumovax) 09/24/2013 SEASONAL [...] on file documented as of this encounter Progress Notes * Ana Paula Epstein MD - 08/28/2023 1:00 PM EDT OUTPATIENT PSYCHIATRY RETURN VISIT DIVISION OF PSYCHIATRY [address] [address] Name: Helena Bentley : 1955 Date and Time Patient was Seen: 08/28/2023 at 12:52 PM After connecting through [employer], patient was verified with two unique identifiers. Patient (or authorized legal construction sales representative) was then informed that this was a Telemedicine visit and that the exam was being conducted confidentially over secure lines. My office door was closed. No one else was in the room with me. Patient acknowledged consent and understanding of privacy and security of the Telemedicine visit and gave permission to have a telemedicine presenter stay in the room in order to assist with the history and to conduct the exam as needed. I informed the patient that I have reviewed their record in [facility] and presented the opportunity for them to ask any questions regarding the visit today. The patient agreed to participate. Additional telemed for psych required: Provider reviewed elements of Outpatient Services Description including limits of confidentiality, how to contact the department, risks and benefits of treatment and consent for treatment. Patient isunable to sign acknowledgment receiving form. Signature will be obtained when Covid 19 crisis has passed and in person services resume. For [facility] members, Encounter Form unable to be signed, signature exempt - Telehealth, and will beobtained when Covid 19 crisis has passed and in person services resume. Treatment plan signature page document signatures may be marked "signature exempt - Telehealth" with a provider policy to obtain signatures as soon as possible after the COVID-19 crisis has passed and in person services resume. HISTORY OF PRESENT ILLNESS 02/26/23: Helena Bentley is a 67 year old y/o female, single[facility] referred by primary care provider for anxiety. Initial intake assessment (12/31/22)reviewed. Patient is a limited informant. She reports that symptoms began during her dental visit and she was started on medications. The patient experiences discomfort accompanied by papitations, difficulty breathing, chest tightening, trembling, lightheaded and fear of dying that occurs unexpectedly and peaks within a couple minutes. It is unclear how often they occur. She does not endorse symptoms of agoraphobia. She denies worrying excessi vely. She states her mood is "okay." Patient describes middle insomnia, gets about 8 hours of sleep. She enjoys naps, watching TV, going out to eat with housemates. Patient states she thinks she occasionally hears her name being called (describes hypnogogic hallucinations). She had been on Celexa since July and recently was started on Risperdal. She is tolerating medications well. Ms. Izaguirre states that patient had been living with her brother and [id number] for a long time. Her brother passed and she continued to live with her SHELLIE until July 2022 when she moved into the custodial. She has 2 housemates and seems to have adjusted well. Ms. Izaguirre reported that patient occasionally has episodic worries and occasionally begins to cry for no reason. Patient is able toverbalize that she would like to talk to a therapist. Patient is currently on Celexa 10 mg and Risperdal 0.25 mg q HS PSYCHOTHERAPY & MEDICATION MANAGEMENT FOLLOW UP VISIT NOTE: Physical Location of patient: [facility] Seen with Staff: with Raquel Glez CC: follow-up visit / medication management " Not much has happened." (Patient) "All in all she hasbeen doing pretty well." (Staff) Chief Complaint Patient presents with Medication Management Follow Up Anxiety Depression INTERVAL HISTORY: SUBJECTIVE: Helena Bentley is a 68 year old female, PMHx HTN, DM, dyslipidemia with a diagnosis of Depression with anxiety, hallucinations; Mild Intellectual Difficulty who presents for follow-up visit. She is prescribed Celexa 15 mg daily and Risperdal 0.25 mg HS. Today she states she is sleeping and eating well. She had an abscess taken care of and she has been worried about returning to the dentist. There has been some difficulty finding a dentist. She was given Ativan 0.5 mg prn for her anxiety. The benefit of continuing on the low dose of Risperdal had been discussed with the team. She continues on Celexa 15 mg and Risperdal 0.25 mg HS. Ms. Glez notes that she can compulsively try to reach her niece. She also compulsively calls select staff. We discussed a behavior chart to try to modify behavior. Increasing medication will be a last resort. Also encouraged patient to reconsider dental visits as dental health is tied to overall physical wellbeing Mood: good Appetite: good Sleep: okay Anxiety: denies Perceptual Disturbances: denies hearing her father's voice MARISA/ SIB: denies Medication Compliance: good Medication Side Effects: none Medical: Still pending dental follow up; She will be getting her teeth removed; No other recent illness. No history of COPD/ TC. Does not use CPAP machine. Prescribed asthma inhaler Patient denies SI. No manic symptoms, psychotic symptoms, AH, VH or HI elicited. SUBSTANCE ABUSE:none RELEVANT PAST PSYCHIATRIC, MEDICAL, FAMILY OR SOCIAL HX: Medication trials: unrecalled [facility] at [facility] since July 2022; on disability [employer] SEVERITY RATING SCALE Frequent Screener Please see Rooming tab for updated CSSR Ask questions that are bold and underlined Since Last Contact (Dru with an X) YES NO Have you actually had thoughts about killing yourself? x If YES, ask the following questions. If NO, go directly to the last question Have you been thinking about how you might do this? Have you had these thoughts and had some intention of acting on them? E.g. I thought about taking an overdose, but I never made a specific plan as to when where or how I would actually do it.and I would never go through with it. Have you started to work out or worked out the details of how to kill yourself? Do you intend to carry out this plan? As opposed to I have the thoughts, but I definitely will not do anything about them. Have you done anything, started to do anything, or prepared to do anything to end your life? Examples: Collected pills, obtained a gun, gave away valuables, wrote a will or suicide note, took out pills but didn't swallow any, held a gun but changed your mind or it was grabbed from your hand,went to the roof but didn't jump; or actually took pills, tried to shoot yourself, cut yourself, tried to hang yourself, etc. x Low Risk Complete or review crisis plan with patient Discuss risk/protective factors and reasons for living Moderate Risk Complete or review crisis plan with patient Discuss risk/protective factors and reasons for living Discuss removal of means High Risk Maintain 1 to 1 monitoring until assessment is completed Evaluate for higher level of care (Inpatient or PHP) Consultation with Emergency Services as appropriate If patient not admitted: Complete or review crisis plan with patient Discuss risk/protective factors and reasons for living Advise removal of means Consider family or collateral contact to promote safety Schedule follow up care consistent with assessment ALLERGIES Review of patient's allergies indicates: No Known Allergies CURRENT MEDICATIONS: Current Outpatient Medications Medication Sig Dispense Refill Zoster Vac Recomb Adjuvanted 50 MCG/0.5ML Intramuscular Suspension Reconstituted (Shingrix) Inject 0.5 mL into a large muscle now and repeat dose in 180 days (Patient not taking: Reported on 12/28/2022) 1 Each 1 Atorvastatin Calcium 40 MG Oral Tablet (Lipitor) Take 1 Tablet (40 mg) by mouth at bedtime. 90 Tablet 3 Lisinopril 10 MG Oral Tablet (Prinivil) Take 1 Tablet by mouth in the morning. 90 Tablet 1 Omeprazole 20 MG Oral Capsule Delayed Release (PriLOSEC) TAKE ONE CAPSULE BY MOUTH EVERY EVENING 90Capsule 3 metFORMIN HCl ER 500 MG Oral Tablet Extended Release 24 Hour (Glucophage XR) Take 1 tab at bedtime x 7 days, then take 2 tabs at bedtime. 60 Tablet 5 Diclofenac Sodium 1 % External Gel (Voltaren) Apply topically to affected area 2 times a day as needed (muscle pain). 150 g 5 LORazepam 0.5 MG Oral Tablet (Ativan) Take 1 tab 30 minutes prior to dental appointment. May repeatdose in 2 hours if needed. No more than 2 tabs per day. 10 Tablet 0 Citalopram Hydrobromide 10 MG Oral Tablet (CeleXA) Take 1.5 Tablets by mouth in the morning. 45 Tablet 1 risperiDONE 0.25 MG Oral Tablet (RisperDAL) Take 1 Tablet by mouth at bedtime. 30 Tablet 1 predniSONE 10 MG Oral Tablet (Deltasone) Take 5 tabs for 2 days, 4 tabs for 2 days, 3 tabs for 2 days, 2 tabs for 2 days 1 tab for 2 days 30 Tablet 0 Ventolin HFA 108 (90 Base) MCG/ACT Inhalation Aerosol Solution Inhale 2 Puffs by mouth every 4 hours as needed for Wheezing or Dyspnea. 1 g 0 Spacer/Aero-Holding Chambers Device Use with inhaler. 1 Each 0 Azithromycin 250 MG Oral Tablet (Zithromax Z-Heriberto) Take two tablets by mouth on first day, then 1 tablet daily until gone 6 Tablet 0 No current facility-administered medications for this visit. RECENT LABS/IMAGING:Labs reviewed: Recent Results (from the past 2016 hour(s)) SPIROMETRY B/A BRONCHODILATOR Collection Time: 08/27/23 9:53 AM Result Value Ref Range FVC Actual Pre 1.12 L FVC Actual Pre %Predict 40 % FVC Actual Post 0.81 L FVC Actual Post %Change -11 % FEV1 Actual Pre 0.96 L FEV1 Actual Pre %Predict 43 % FEV1 Actual Post 0.78 L FEV1 Actual Post %Change -8 % FEV1/FVC Actual Pre 86 % FEV1/FVC Actual Post 97 % FEF 25-75% Actual Pre 0.97 L/sec FEF 25-75% Actual Pre %Predict 50 % LUNG VOLUMES (PLETHYSMOGRAPHY) Collection Time: 08/27/23 9:53 AM Result Value Ref Range SVC Actual Pre 1.03 L SVC Actual Pre %Predict 36 % IC Actual Pre 0.89 L IC Actual Pre %Predict 42 % ERV Actual Pre 0.11 L ERV Actual Pre %Predict 16 % TGV Actual Pre 2.58 L TGV Actual Pre %Predict 93 % RV (Pleth) Actual Pre 2.43 L RV (Pleth) Actual Pre %Predict 118 % TLC(Pleth) Actual Pre 3.46 L TLC (Pleth) Actual Pre %Predict 71 % RV/TLC (Pleth) Actual Pre 70 % DIFFUSION CAPACITY (DLCO) Collection Time: 08/27/23 9:53 AM Result Value Ref Range DLCO Uncorrect Actual Pre -2.35 ml/min/mmHg DLCO Uncorrect Actual Pre %Predict -12 % VITALS There were no vitals filed for this visit. Wt Readings from Last 3 Encounters: 08/27/23 89.1 kg (196 lb 6.9 oz) 08/08/23 88.6 kg (195 lb 6.4 oz) 06/28/23 88.8 kg (195 lb 12.8 oz) There is no height or weight on file to calculate BMI. No height and weight on file for this encounter. Weight at last 3 appointments: Wt Readings from Last 3 Encounters: 08/27/23 89.1 kg (196 lb 6.9 oz) 08/08/23 88.6 kg (195 lb 6.4 oz) 06/28/23 88.8 kg (195 lb 12.8 oz) ] PAST MEDICAL HISTORY: Reviewed, no changes. 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 Family History Problem Relation Age of Onset Diabetes Mother Hypertension Mother Diabetes Father Hypertension Father Cancer Uncle (Unspecified) colon ca Breast Cancer Aunt (Paternal) Breast Cancer Aunt (Paternal) SUMMARY OF/CHANGES TO PAST PSYCHIATRIC, MEDICAL, FAMILY, OR SOCIAL HISTORY: See interval history MEDICAL REVIEW OF SYSTEMS: Rate Gen Physical Health "good" Constitutional: (-) fever chills sweats or weight loss Eyes: (-) negative, no amaurosis fugax, pain, blurred vision, or redness prescription glasses Cardiovascular: (-) negative: no chest pain, dyspnea, syncope, or palpitations Pulmonary: (-) negative: no cough, wheezing, or shortness of breath Abdominal/GI: (-) negative: no pain, heartburn, dysphagia, bleeding, change in bowel habits, nauseaor vomiting Musculoskeletal: (-) negative: no pain Endocrine: (-) negative: no weight change, heat or cold intolerance, polyuria Skin: (-) negative: no rash or new or changing moles Neurology: (-) negative: no focal neurologic defect No observed or reported side effects to current medications MENTAL STATUS EVALUATION: Appearance: casually groomed Muscle strength and tone: no abnormal involuntary movement or gross abnormality of muscle strength and tone noticeable via tele-medicine encounter Gait and Station: No abnormalities noted via tele-medicine encounter graciela Behavior: cooperative, pleasant, engaged, humorous Speech: articulation error, mild dysarthria Mood: "okay" Affect: type - euthymic; range - full; lability - no Associations: intact Thought Process: limited Abstract Reasoning: not tested Thought Content: denies suicidal ideations, homicidal ideations, visual hallucinations, delusions, impulsivity to act out or preoccupation with violence; (+) occasional AH) Orientation: alert and oriented to person, place, time and situation Attention span/concentration as evidenced by: ability to sustain attention to examiner - intact Insight/ Judgment: impaired due to intellectual disability Formulation: Helena Bentley is a 68 year old y/o female presenting with anxiety and depressionin the context of lifelong stressors and losses and acute anxiety related to a recent dental visit.She resides at a custodial ([facility]) with 2 housemates. Based on her history and presentation and assessment of risk and protective factors, this patient's safety risk is assessed to beminimal at this time. ASSESSMENT AND PLAN: Depression with Anxiety Disorder, Mild Intellectual Disability by history, history of Schizoaffective Disorder Abnormal Involuntary Movement Scale (AIMS): 02/26/23 - 0 PLAN: 07/17/23 - Continue Celexa 15 mg and Risperdal 0.25 mg HS; will discuss with team whether Risperdal can be discontinued given recent increase in A1c 08/28/23 - Continue Celexa 15 mg and Risperdal 0.25 mg HS; will try behavioral chart to decrease compulsive phone usage Medications -Continue Celexa to 15 mg daily. Rx sent to pharmacy. Continue Risperdal 0.25 mg at night. Rx sent to pharmacy. If you think the medication may be causing a side effect, reduce the amount to the last dose you were on without the side effect. If that does not work, then stop the medication. If the problem persists after stopping the medication then it was not likely due to the medication and you need to call your primary care provider for evaluation of that problem. Therapy/services - continue current services; supportive psychotherapy Labs - A1c 6.6 % Safety - no current concerns identified Psychoeducation - Treatment options and alternatives reviewed with patient who agrees with the above plan. Information about current medications was provided to the patient including reasons why medications are being used. Patient understood the risks, benefits, side-effects, and potential complications associated with changes in medications being proposed (both medications being started, and medications being discontinued or having dose changed). Patient is making an informed medical decision to follow the recommendations outlined in this note. Directed patient to call with any questions or concerns, worsening symptoms and/or ask for earlier appointment. PDMP query - no red flags Helena Bentley will RTC in 8 weeks for follow up. ( 10/23/23 at 1 p.m.) prefers SATURDAY between 9 - 2 p.m. Greater than 50% of the time was spent counseling or coordinating the care of the patient OUTPATIENT ADULT PSYCHIATRY TREATMENT PLAN: Treatment Plan Update Due: 08/28/2023 [*UPDATE TREATMENT PLAN at next visit*] Treatment plan was developed on 02/26/23, treatment will continue to focus on goals below: Patient's goals captured in patient's words: "I want therapy to feel better, more relaxed, less worried " New Goal (08/28/23) "Maybe decrease phone calls." Problem areas: Anxiety/ Mood: Anxiety/ Mood Goals: -Improve ability to manage life stressors/ stable behavior: Progress rating 70 % (staff) Treatment update will occur when clinically indicated or by 02/27/2024. 08/28/2023. Please choose a method to track patient's improvement based on clinical assessment: PHQ-9 Adult Data ANSELMO-7 Data Labs/Outcomes 04/10/2023 08:55 06/04/2023 11:20 08/28/2023 12:22 Labs/Outcomes PHQ Score 4 PHQ Score Description No Depression GAD7 Score 11 5 6 Risk assessment was performed during this visit. This is a patient being treated for chronic mentalhealth conditions and/or substance use disorder as characterized above; at the time of this visit, there was no indication that she was either a risk to self, others, or gravely disabled by symptoms of a mental illness or substance use disorder. At the time of this evaluation, she did not appear humberto an acute risk to self or others, there were enough protective factors in place, and it was deemed safe and appropriate to continue with treatment on an outpatient basis with return to clinic in the timeframe described above. We reviewed previous crisis plan should she experience worsening of symptoms before next follow-up appointment, including being aware of what resources to use according to the urgency and severity ofsymptoms. She and/or family can call in the interim with any problems, questions, or concerns. Helena Sheree was able to verbalize understanding of the steps necessary to obtain help between appointments should this be needed -- from requesting a phone call, requesting an earlier appointment , reaching the clinic after hours, accessing our system, and accessing emergency mental health and medical services, either at a local emergency department or by activating mobile crisis teams and EMS. Billing code: [id number] + [phone] Time Spent on Visit: 30 minutes including preparing to see the patient, reviewing history, performing evaluation, counseling/educating patient, ordering medications/tests, documenting clinical information. At least 17 minutes was spent in psychotherapy providing active listening and support and engaging in discussion of ways to enhance coping skills/ strategies. This visit involved interactive complexity (add on [id number]) as described: - Required involvement of other third parties: see note Ana Paula Epstein MD Psychiatrist, [facility] 08/28/2023 documented in this encounter Plan of Treatment Upcoming Encounters Date Type Department Care Team (Late st Contact Info) Description 09/25/2023 11:40 AM EST Office Visit Pulmonary Medicine, [address] [place] [address] Kuldip Wellington DO [address] [place] [address] 10/23/2023 1:00 PM EST Telemedicine Psychiatry, [place] [address] [place] [address] Ana Paula Epstein MD [address] [place] [address] 10/30/2023 1:30 PM EST Imaging Radiology [facility] [address] [place] [address] 10/30/2023 2:00 PM EST Imaging Radiology [address] [place] [address] 12/30/2023 1:20 PM EST Office Visit [facility] [address] [place] [id number] Liudmila Tyson MD [address] [place] [address] 01/28/2024 1:00 PM EDT Office Visit Dental Hygiene, [place] [address] [place] [address] Adelita [facility] [address] [place] [address] Health Maintenance Due Date Last Done Comments [...] Not on filedocumented as of this encounter Visit Diagnoses Diagnosis Depression with anxiety- Primary Dysthymic disorder Hallucinations Mild intellectual disability Mild intellectual disabilities documented in this encounter Care Teams Newsagent Relationship Specialty Start Date End Date Liudmila Tyson MD [address] [address] PCP - General Family Medicine 08/02/22 documented as of this encounter
--- OUTSIDE RECORDS SUMMARY | 2023-10-07 10:13 | External Medical Summary | Summary of Care ---
Author Name Unknown Organization [facility] Address [address] [place] [address] Phone [phone] Care Team Providers Care Junior Systems Administrator Name Role Phone Liudmila Tyson MD Primary Care Provid er Reason for Visit * Reason Comments Medication Management Follow Up Anxiety Depression * - Authorized Specialty Diagnoses / Procedures Referred By Contac t Referred To Contact Referral ID Status Reason Start Date Expiration Date V isits Requested Visits Authorized [id number] Authorized 12/05/2022 12/04/2023 [id number] Encounter Details Date Type Department Care Team (Late st Contact Info) Description 08/28/2023 1:00 PM EDT Telemedicine Psychiatry, [place] [address], [place] [id number] Ana Paula Epstein MD [address] [place], [place] [id number] Depression with anxiety*; Hallucinations; Mild intellectual disability Allergies No known active allergiesdocumented as of this encounter (statuses as of 08/29/2023) Medications Medication Sig Dispensed Refills Start Date [...] as of this encounter (statuses as of 08/29/2023) Active Problems Problem Noted Date Diagnosed Date [...] as of this encounter (statuses as of 08/29/2023) Resolved Problems Problem Noted Date Diagnosed Date [...] [facility] Malaise and fatigue 02/22/2011 09/24/20 13 Shortness [...] as of this encounter (statuses as of 08/29/2023) Immunizations Name Administration Dates Next Due COVID-19 mRNA, LNP-s, No Pre serve, 2-Dose Series (Moderna) 11/30/2020 COVID-19, mRNA, LNP-s, PF, B ooster, 100mcg/0.5mg (Moderna) 09/14/2022,12/28/2020 PPD 09/17/2022, 8,12/30/2015,11/05,10/31/2011,06/17/2009 Pneumococcal Conjugate Vacci ne, 20-valent ([id number]) 08/03/2022 Pneumococcal Polysaccharide PPV23 (Pneumovax) 09/24/2013 SEASONAL [...] OUTPATIENT PSYCHIATRY RETURN VISIT DIVISION OF PSYCHIATRY [address] [address] Name: Helena Bentley : 1955 Date and Time Patient was Seen: 08/28/2023 at 12:52 PM After connecting through [employer], patient was verified with two unique identifiers. Patient (or authorized legal agricultural sales representative) was then informed that this [...] that I have reviewed their record in [employer] and presented the opportunity for them to [...] 67 year old y/o female, single[facility] on disability referred by [...] had been living with her brother and [id number] for a long time. Her brother passed and she continued to live with her SHELLIE until July 2022 when she moved into the snf. She has 2 housemates and seems to [...] UP VISIT NOTE: [facility] Seen with Staff: with Raquel Glez CC: [...] SOCIAL HX: Medication trials: unrecalled Llives at [facility] since July 2022; on disability [...] a recent dental visit.She resides at a snf ([facility]) with 2 housemates. Based on her history [...] PDMP query - no red flags Helena Sheree will RTC in 8 weeks for follow up. ( 10/23/23 at 1 p.m.) prefers SATURDAY between 9 - 2 p.m. Greater than 50% of the time was spent counseling or coordinating the care of the patient Risk assessment was performed during this visit. [...] with any problems, questions, or concerns. Helena Bentley was able to verbalize understanding of the steps necessary to obtain help between appointments should this be needed -- from requesting a phone call, requesting an earlier appointment , reaching the clinic after hours, accessing our system, and accessing emergency mental health and medical services, either at a local emergency department or by activating mobile crisis teams and EMS. OUTPATIENT ADULT PSYCHIATRY TREATMENT PLAN: Treatment Plan Update Due: 02/27/2024 Treatment plan was developed on 02/26/23, treatment [...] when clinically indicated or by 02/27/2024. 08/28/2023. 02/27/2024 Please choose a method to track patient's improvement based on clinical assessment: PHQ-9 Adult Data ANSELMO-7 Data Labs/Outcomes 04/10/2023 08:55 06/04/2023 11:20 08/28/2023 12:22 Labs/Outcomes PHQ Score 4 PHQ Score Description No Depression GAD7 Score 11 5 6 TREATMENT PLAN DATES: Initial Treatment Plan done: 02/26/2023 Update due: 08/28/23 02/27/24 Update Done: 08/28/23 Billing code: [id number] + [id number] + [id number] Time Spent on Visit: 30 minutes including preparing to see the patient, reviewing history, performing evaluation, counseling/educating patient, ordering medications/tests, documenting clinical information. At least 17 minutes was spent in psychotherapy providing active listening and support and engaging in discussion of ways to enhance coping skills/ strategies. This visit involved interactive complexity (add on [id number]) as described: - Required involvement of other third parties: see note Ana Paula Epstein MD Psychiatrist, [facility] 08/28/2023 documented in this encounter Plan of Treatment Upcoming Encounters Date Type Department Care Team (Late st Contact Info) Description 09/25/2023 11:40 AM EST Office Visit Pulmonary Medicine, [address] [place] [address] Kuldip Wellington DO [address] [place] [address] 10/23/2023 1:00 PM EST Telemedicine Psychiatry, [place] [address] [place] [address] Ana Paula Epstein MD [address] [place] [address] 10/30/2023 1:30 PM EST Imaging Radiology [facility] [address] [place] [address] 10/30/2023 2:00 PM EST Imaging Radiology [address] [place] [address] 12/30/2023 1:20 PM EST Office Visit [facility] [address] [place] [id number] Liudmila Tyson MD [address] [place] [address] 01/28/2024 1:00 PM EDT [facility] [address] [place] [address] Adelita Vasquez, [facility] [address] [place] [address] Health Maintenance Due Date Last Done Comments [...] 12/13/2017, 12/28/2014 (Discussed) Lipid Panel 08/22/2027 08/22/2022, 0701/2021, 11/13/2019, Additional history exists DTaP,Tdap,and Td Vaccines [...] disabilities documented in this encounter Care Teams Junior Systems Administrator Relationship Specialty Start Date End Date Liudmila Tyson MD [address] [address] PCP - General Family Medicine 08/02/22 documented as of this encounter
--- OUTSIDE RECORDS SUMMARY | 2023-10-07 10:13 | External Medical Summary | Summary of Care ---
Author Name Unknown Organization [facility] Address [address] [place] [address] Phone [phone] Care Team Providers Care Bag End Sewer Name Role Phone Liudmila Tyson MD Primary Care Provid er Reason for Visit * Reason Onset Date Comments Cough Cold Symptoms 08/08/2023 Encounter Details Date Type Department Care Team Description 08/08/2023 Convenient Care Visit [facility] [address] [place] [address] Oneal Medina PA-C [address] [place] [address] SOB (shortness of breath)*; Acute cough; Viral syndrome Allergies No known active allergiesdocumented as of this encounter (statuses as of 08/08/2023) Medications Medication Sig Dispensed Refills Start Date [...] as of this encounter (statuses as of 08/08/2023) Active Problems Problem Noted Date Prediabetes 03/29/2023 [...] as of this encounter (statuses as of 08/08/2023) Resolved Problems Problem Noted Date Resolved Date [...] -- AHI 5, TST 5 hrs, hypoxia [facility] OBESITY, BMI= 31.28 04/26/11 04/26/201104/05 Esophageal reflux 04/26/2011 12/28/2014 Hypoxemia 03/23/2011 11/07/2011 Overview: 10/29/11 Noct ox RA -- low 85%, mean 91%, <89% 1:10 hrs, BRIAN 36 03/19/11 Noct ox RA -- low 85%, average 91%, time <89% 2:16 mins, BRIAN 8.5 02/07/11 PSG -- AHI 5, TST 5 hrs, hypoxia 07/11/11 faxed orders for oxygen at 2 LPM to [facility] Malaise and fatigue 02/22/2011 09/24/2013 Shortness of breath 02/22/2011 09/24/2013 Chronic rhinitis 02/22/2011 12/28/2014 HTN, goal below 130/80 07/13/2010 1 Dyslipidemia, goal to be determined 10/18/2009 07/13/2010 Overview: Per Lipid Taxonomy. Mixed dyslipidemia 06/30/2009 10/18/2009 Overview: Per Lipid Taxonomy. Dyslipidemia, goal to be determined 06/22/2009 09/28/2009 Overview: Per Lipid Taxonomy Routine medical exam 06/17/2009 12/28/2014 Need for qidjbptcvm-wfxjcsp-kkakzjtzp (Tdap) vac cine 06/17/2009 08/19/2016 Special screening for malignant neoplasms, colon 06/17/2009 07/28/2009 Overview: Modified by Screening Dx Protocol #6. HTN, goal below 140/90 0 Mild intellectual disability Overview: s/p scarlet fever or meningitis ICD-10 update of inactive term Hallucinations 12/28/2014 documented as of this encounter (statuses as of 08/08/2023) Immunizations Name Administration Dates Next Due COVID-19 mRNA, LNP-s, No Pre serve, 2-Dose Series (Moderna) 11/30/2020 COVID-19, mRNA, LNP-s, PF, B ooster, 100mcg/0.5mg (Moderna) 09/14/2022,12/28/2020 PPD 09/17/2022, 8,12/30/2015,11/05,10/31/2011,06/17/2009 Pneumococcal Conjugate Vacci ne, 20-valent ([id number]) 08/03/2022 Pneumococcal Polysaccharide PPV23 (Pneumovax) 09/24/2013 SEASONAL [...] Sign Reading Time Taken Comments Blood Pressure 128/84 08/08/2023 10:42 AM EDT Pulse 106 08/08/2023 10:42 AM EDT Temperature 36.8 C (98.3 F) 08/08/2023 10:42 AM E DT Respiratory Rate 24 08/08/2023 10:42 AM EDT Oxygen Saturation 92% 08/08/2023 10:42 AM EDT Inhaled Oxygen Concentration - - Weight 88.6 kg (195 lb 6.4 oz) 08/08/2023 10:42 AM EDT Height 160 cm (5' 3") 08/08/2023 10:42 AM EDT Body Mass Index 34.61 08/08/2023 10:42 AM EDT documented in this encounter Patient Instructions * Patient Instructions* Oneal Medina PA-C - 08/08/2023 11:24 AM EDT Prednisone taper Zpack Albuterol inhaler 2 puffs up to every 4 hours as needed. Start a daily nasal spray such as Flonase, Nasacort, OR Nasonex. They work best if used consistently. In addition to one of these medicated nasal sprays use saline nasal spray to avoid dryness and thinout mucous Over the Counter (OTC) antihistamine (claritin, zyrtec, xyzal or estrella) can also be helpful for sinus symptoms. OTC decongestants: Sudafed, Mucinex-D (may have to get from behind pharmacy counter; you have to show your ID) can be used for nasal/sinus congestion for just a few days. If you have high blood pressure, you can use Coricidin. Continue supportive measures: Increase clear, non-sugary fluid intake. Get plenty of rest Use a cool mist vaporizer or humidifier daily and you can take hot showers for steam therapy. Do warm salt water gargles and/or chloraseptic throat spray, throat lozenges (Cepacol) for any sorethroat. Honey, if not concerned about diabetes or elevated blood sugar levels, can also be very helpful forsorethroat. You may also use ibuprofen or acetaminophen OTC for relief of pain or fevers. If no improvement in 3 days, needs to be seen in person for follow-up Chest Xray and evaluation of lungs Follow up with PCP or return if no improvement in a week, or sooner if worse. Go to the ED if any severe symptoms appear acutely documented in this encounter Progress Notes * Oneal Medina PA-C - 08/08/2023 10:55 AM EDT Nursing Notes: Reema Oscar LPN 08/08/23 1049 Signed Helena Bentley,is a 68 year old female, who presents to the walk in clinic today c/o cough, sore throat since Saturday morning. Used coricidan HBP that hasn't helped. Just completed course of augmentin on Aug 04. Helena Bentley is a 68 year old female with a PMH of DLD, HTN, GERD, esophageal dysmotility, Lbreast cancer, who presents with cough and ST since Saturday. Patient was accompanied by extended day teacher She live at the [facility] and her extended day teacher notes that she has had albuterol in the past, but no on knowsif she has a h/o asthma/copd, etc. Elva does state that she used to live with a smoker. They have an appt with pulmonary in a few weeks, as she does have wheezing, sob, and low oxygen a lot. Machine Group Leader notes that she typically has SpO2% of 95% at home. Severity of Symptoms: Moderate Modifying Factors (what was done since onset of symptoms): see nurse note Timing (how often does it occur): constant Quality (feels like): cough, st, sob Other associated Signs and Symptoms: NC, rhinorrhea, PND, ST, productive cough, wheezing, sob, malaise, fatigue. Denies f/s/ch, n/v/d/c, rash. 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 - Dr. 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 Quiroz [facility] 12/24/16 REMOVAL OF TONSILS, UNDER AGE 13 Tonsils Removal,<13 Y/O SENTINEL LYMPH NODE BIOPSY PERFORMED Left 2015 STEREOTAXIC BIOPSY/SURGERY Left 01/30/2116 01/30/2016 left breast , calcifications @ 3:00, dx invasive carcinoma, NST , [place] grade 20f 3, with lobular features, measuring 0.8 cm in greatest dimension - [facility] Radiology Social History Tobacco Use Smoking status: Never Passive exposure: Past Smokeless tobacco: Never Substance Use Topics Alcohol use: No Comment: none Vaping/E-Cigarette Use Vaping/E-Cigarette Use Never User Vaping/E-Cigarette Substances Vaping/E-Cigarette Devices Current Outpatient Medications Medication Sig Dispense Refill Atorvastatin Calcium 40 MG Oral Tablet (Lipitor) [...] tablet daily until gone 6 Tablet 0 Zoster Vac Recomb Adjuvanted 50 MCG/0.5ML Intramuscular Suspension Reconstituted (Shingrix) Inject 0.5 mL into a large muscle now and repeat dose in 180 days (Patient not taking: Reported on 12/28/2022) 1 Each 1 Current Facility-Administered Medications Medication Dose Route Frequency Provider Last Rate Last Admin Albuterol Sulfate (Proventil) (2.5 MG/3ML) 0.083% inhalation solution 2.5 mg 2.5 mg Nebulizer OncePRN Kuldip Wellington, Review of patient's allergies indicates: No Known Allergies Family History Problem Relation Age of Onset Diabetes Mother Hypertension Mother Diabetes Father Hypertension Father Cancer Uncle (Unspecified) colon ca Breast Cancer Aunt (Paternal) Breast Cancer Aunt (Paternal) OBJECTIVE BP 128/84 (BP Site: Left Arm, BP Position: Sitting, BP Cuff Size: Regular) | Pulse 106 | Temp 36.8 C (98.3 F) (Tympanic) | Resp 24 | Ht 1.6 m (5' 3") | Wt 88.6 kg (195 lb 6.4 oz) | SpO2 92% | BMI34.61 kg/m | BSA 1.98 m Wt Readings from Last 1 Encounters: 08/08/23 88.6 kg (195 lb 6.4 oz) General Appearance: awake, alert, no apparent distress HEENT: perrl and eomi tms - clear, normal light reflex, no erythema + red and irritated pharynx No sinus tenderness or facial pain to percussion + turbinate engorgement and discharge Neck: normal, supple, no adenopathy Respiratory: no rhonchi, no wheezes, no crackles, and reduced air movement bilaterally Heart: regular rate, regular rhythm, no murmurs , no rubs, and no gallops Skin: skin color, texture, turgor are normal, no rashes or significant lesions Patient Instructions Prednisone taper Zpack Albuterol inhaler 2 puffs up to every 4 hours as needed. Start a daily nasal spray such as Flonase, Nasacort, OR Nasonex. They work best if used consistently. In addition to one of these medicated nasal sprays use saline nasal spray to avoid dryness and thinout mucous Over the Counter (OTC) antihistamine (claritin, zyrtec, xyzal or estrella) can also be helpful for sinus symptoms. OTC decongestants: Sudafed, Mucinex-D (may have to get from behind pharmacy counter; you have to show your ID) can be used for nasal/sinus congestion for just a few days. If you have high blood pressure, you can use Coricidin. Continue supportive measures: Increase clear, non-sugary fluid intake. Get plenty of rest Use a cool mist vaporizer or humidifier daily and you can take hot showers for steam therapy. Do warm salt water gargles and/or chloraseptic throat spray, throat lozenges (Cepacol) for any sorethroat. Honey, if not concerned about diabetes or elevated blood sugar levels, can also be very helpful forsorethroat. You may also use ibuprofen or acetaminophen OTC for relief of pain or fevers. If no improvement in 3 days, needs to be seen in person for follow-up Chest Xray and evaluation of lungs Follow up with PCP or return if no improvement in a week, or sooner if worse. Go to the ED if any severe symptoms appear acutely ASSESSMENT AND PLAN SOB (shortness of breath) (Primary) - XR CHEST 2 VIEWS - predniSONE 10 MG Oral Tablet (Deltasone); Take 5 tabs for 2 days, 4 tabs for 2 days, 3 tabs for 2days, 2 tabs for 2 days 1 tab for 2 days - Ventolin HFA 108 (90 Base) MCG/ACT Inhalation Aerosol Solution; Inhale 2 Puffs by mouth every 4 hours as needed for Wheezing or Dyspnea. - Spacer/Aero-Holding Chambers Device; Use with inhaler. - Azithromycin 250 MG Oral Tablet (Zithromax Z-Heriberto); Take two tablets by mouth on first day, then 1tablet daily until gone Acute cough - XR CHEST 2 VIEWS - predniSONE 10 MG Oral Tablet (Deltasone); Take 5 tabs for 2 days, 4 tabs for 2 days, 3 tabs for 2days, 2 tabs for 2 days 1 tab for 2 days - Ventolin HFA 108 (90 Base) MCG/ACT Inhalation Aerosol Solution; Inhale 2 Puffs by mouth every 4 hours as needed for Wheezing or Dyspnea. - Spacer/Aero-Holding Chambers Device; Use with inhaler. - Azithromycin 250 MG Oral Tablet (Zithromax Z-Heriberto); Take two tablets by mouth on first day, then 1tablet daily until gone Viral syndrome - predniSONE 10 MG Oral Tablet (Deltasone); Take 5 tabs for 2 days, 4 tabs for 2 days, 3 tabs for 2days, 2 tabs for 2 days 1 tab for 2 days Follow-up: Return if symptoms worsen or fail to improve. | Check-out note: If symtoms worsen or fail to improve I spent a total of 40-54 minutes (exact time 40 mins) on the date of service in preparation, delivery, and documentation of the care provided to Helena Bentley excluding any time spent in the performance of separately billed services. Patient goals for plan of care were discussed Oneal Medina PA-C [address] [address] documented in this encounter Nursing Notes * Reema Oscar LPN - 08/08/2023 10:48 AM EDT Helena Bentley,is a 68 year old female, who presents to the walk in clinic today c/o cough, sore throat since Saturday morning. Used coricidan HBP that hasn't helped. Just completed course of augmentin on Aug 04. documented in this encounter Plan of Treatment Upcoming Encounters Date Type Specialty Care Team Description 08/27/2023 PulmDiagnostic Pulmonary Function [place], [facility] [address] [facility] [place] [address] 08/27/2023 Office Visit Pulmonary Kuldip Wellington DO [address] [place] [address] 08/28/2023 Telemedicine Psychiatry Ana Paula Epstein MD [address] [place] [address] 10/30/2023 Imaging Radiology 12/30/2023 Office Visit Family Medicine Liudmila Tyson MD [address] [place] [address] 01/28/2024 Office Visit Dentistry Adelita Vasquez, [facility] [address] [place] [address] Health Maintenance Due Date Last Done Comments [...] Procedure Name Priority Date/Time Associated Diagnosis Comments XR CHEST 2 VIEWS STAT 08/08/2023 11:1 8 AM EDT SOB (shortness of breath) Acute cough documented in this encounter Results * XR CHEST 2 VIEWS (08/08/2023 11:18 AM EDT) Anatomical Region Laterality Modality Chest Computed Radiogr aphy 08/08/2023 11:2 6 AM EDT Impressions 08/08/2023 11:24 AM EDT IMPRESSION Probable mild cardiomegaly without evidence of acute cardiopulmonary disease. Narrative 08/08/2023 11:24 AM EDT EXAM XR CHEST 2 VIEWS-08/08/2023 11:18 am HISTORY sob COMPARISON None TECHNIQUE AP and lateral views of the chest are examined. FINDINGS The lungs are clear. There is no pleural effusion. There is probable mild cardiomegaly. The pulmonary vasculature is within normal limits. There are degenerative changes of the spine. Procedure Note Sandeep Starr MD - 08/08/2023 EXAM XR CHEST 2 VIEWS-08/08/2023 11:18 am HISTORY sob COMPARISON None TECHNIQUE AP and lateral views of the chest are examined. FINDINGS The lungs are clear. There is no pleural effusion. There is probablemild cardiomegaly. The pulmonary vasculature is within normal limits.There are degenerative changes of the spine. IMPRESSION IMPRESSION Probable mild cardiomegaly without evidence of acute cardiopulmonarydisease. Oneal Medina PA-C RADIOLOGY ( RAD GENERAL) documented in this encounter Visit Diagnoses Diagnosis SOB (shortness of breath)- Primary Shortness of breath Acute cough Viral syndrome Unspecified viral infection, in conditions classified elsewhere and of unspecified site documented in this encounter Care Teams Bag End Sewer Relationship Specialty Start Date End Date Liudmila Tyson MD [address] [address] PCP - General Family Medicine 08/02/22 documented as of this encounter
--- OUTSIDE RECORDS SUMMARY | 2023-10-07 10:13 | External Medical Summary | Summary of Care ---
Author Name Unknown Organization [facility] Address [address] [place] [address] Phone [phone] Care Team Providers Care Crankshaft Straightener Name Role Phone Liudmila Tyson MD Primary Care Provid er Encounter Details Date Type Department Care Team Description 07/19/2023 Telephone [facility] [address] [place] [address] Liudmila Tyson MD [address] [place] [address] Allergies No known active allergiesdocumented as of this encounter (statuses as of 07/26/2023) Medications Medication Sig Dispensed Refills Start Date [...] at bedtime. 30 Tablet 1 07/17/2023 Active Hospital, Clinic, or Other Facility Administered Medication Ordered Dose Route Frequency Start Date End Date Status Albuterol Sulfate (Proventil) (2.5 MG/3ML) 0.083% inhalation solution 2.5 mgIndications:Dyspnea on exertion 2.5 mg NEBULIZER ONCE PRN 06/07/2023 Active documented as of this encounter (statuses as of 07/26/2023) Active Problems Problem Noted Date Prediabetes 03/29/2023 Ambulatory dysfunction 08/03/2022 Esophageal dysmotility 08/03/2022 Colon cancer screening declined 08/03/20 Malignant neoplasm of upper- outer quadrant of left breast in female, estrogen receptor positive 12/01/2020 Malignant neoplasm of left female breast 07/03/2016 Esophageal reflux 12/28/2014 Mild intellectual disability 03/19/2013 Dyslipidemia, goal LDL below 100 010 HTN, goal below 140/90 documented as of this encounter (statuses as of 07/26/2023) Resolved Problems Problem Noted Date Resolved Date [...] hrs, hypoxia [facility] OBESITY, BMI= 31.28 04/26/11 04/26/2011/11/2016 Esophageal reflux 04/26/2011 12/28/2014 Hypoxemia 03/23/2011 11/07/2011 Overview: 10/29/11 Noct ox RA -- low 85%, mean 91%, <89% 1:10 hrs, BRIAN 36 03/19/11 Noct ox RA -- low 85%, average 91%, time <89% 2:16 mins, BRIAN 8.5 02/07/11 PSG -- AHI 5, TST 5 hrs, hypoxia 07/11/11 faxed orders for oxygen at 2 LPM to [facility] Malaise and fatigue 02/22/2011 09/24/2013 Shortness of breath 02/22/2011 09/24/2013 Chronic rhinitis 02/22/2011 12/28/2014 HTN, goal below 130/80 07/13/2010 1 Dyslipidemia, goal to be determined 10/18/2009 07/13/2010 Overview: Per Lipid Taxonomy. Mixed dyslipidemia 06/30/2009 10/18/2009 Overview: Per Lipid Taxonomy. Dyslipidemia, goal to be determined 06/22/2009 09/28/2009 Overview: Per Lipid Taxonomy Routine medical exam 06/17/2009 12/28/2014 Need for ylzptcqtdi-pwuwpon-atsbgecgf (Tdap) vac cine 06/17/2009 08/19/2016 Special screening for malignant neoplasms, colon 06/17/2009 07/28/2009 Overview: Modified by Screening Dx Protocol #6. HTN, goal below 140/90 0 Mild intellectual disability Overview: s/p scarlet fever or meningitis ICD-10 update of inactive term Hallucinations 12/28/2014 documented as of this encounter (statuses as of 07/26/2023) Immunizations Name Administration Dates Next Due COVID-19 mRNA, LNP-s, No Pre serve, 2-Dose Series (Moderna) 11/30/2020 COVID-19, mRNA, LNP-s, PF, B ooster, 100mcg/0.5mg (Moderna) 09/14/2022,12/28/2020 PPD 09/17/2022, 8,12/30/2015,11/05,10/31/2011,06/17/2009 Pneumococcal Conjugate Vacci ne, 20-valent ([id number]) 08/03/2022 Pneumococcal Polysaccharide PPV23 (Pneumovax) 09/24/2013 Seasonal Influenza Virus Vac cine, Unspecified Formulation 08/03/2022,11/27/2019,12/13/2017,12/06,09/24/2013,09/18/2012 Seasonal Influenza, PF, 6 mo ns & Above, IM , (Flulaval) 11/27/2019,12/13/2017 11/27/2020 Seasonal Influenza, Quadriva lent Hd (Fluzone Hd) [...] encounter Miscellaneous Notes * Telephone Encounter - Prema Díaz - 07/19/2023 3:50 PM EDT 07/19/23 Rec paperwork for pt from [facility] that needs to be completed. Latest Office Notes were requested; attached to paperwork. Paperwork put in provider's mail bin on 07/19/23. documented in this encounter Plan of Treatment Upcoming Encounters Date Type Specialty Care Team Description 08/27/2023 Pulm[facility] [address] [facility] [address] 08/27/2023 Office Visit Pulmonary Kuldip Wellington DO [address] [place] [address] 08/28/2023 [facility] [address] [place] [address] 10/30/2023 Imaging Radiology 12/30/2023 Office Visit Family Medicine Liudmila Tyson MD [address] [place] [address] 01/28/2024 Office Visit Dentistry Adelita Vasquez [facility] [address], [place] [phone] Health Maintenance Due Date Last Done Comments Albumin/Creatinine Ratio 1974 Cologuard 2001 Fecal Occult Blood Test 2001 Sigmoidoscopy 2001 Zoster Vaccines (2 of 3) 09/23/2017 07/29/2017 Colonoscopy 08/09/2019 08/09/2009 Colorectal Cancer Screening 08/09/2019 Depression Screening 05/14/2020 05/14/2019, 12/13/2017, 12/28/2014 (Discussed) COVID-19 Vaccine (2 - Moderna series) 11/09/2022 09/14/2022, 12/28/2020, 11/30/2020 DXA Scan 05/21/2023 05/21/2016 Influenza Vaccine (FLU shot) (#1) 2023 08/03/2022, [...] filedocumented as of this encounter Care Teams Crankshaft Straightener Relationship Specialty Start Date End Date [facility]udmila Tyson MD [address] [facility] [address] PCP - General Family Medicine 08/02/22 documented as of this encounter
--- OUTSIDE RECORDS SUMMARY | 2023-10-07 10:14 | External Medical Summary | Summary of Care ---
Author Name Unknown Organization [facility] Address [address] [place] [address] Phone [phone] Care Team Providers Care Jet Piercer Operator Name Role Phone Liudmila Tyson MD Primary Care Provid er Reason for Visit * Reason Comments Medication Management Follow Up Depression Anxiety * - Authorized Specialty Diagnoses / Procedures Referred By Contac t Referred To Contact Referral ID Status Reason Start Date Expiration Date V isits Requested Visits Authorized [id number] Authorized 12/05/2022 12/04/[phone] Encounter Details Date Type Department Care Team Description [facility]17[facility]2023 [facility] [address] [place] [address] Ana Paula Epstein MD [address] [place], [place] [id number] Depression with anxiety*; Hallucinations; Mild intellectual disability Allergies No known active allergiesdocumented as of this encounter (statuses as of 07/17/2023) Medications Medication Sig Dispensed Refills Start Date [...] 07/17/2023 Active risperiDONE 0.25 MG Oral Tablet (RisperDAL)Indicat ions:Hallucination s Take 1 Tablet by mouth at bedtime. 30 Tablet 1 07/17/2023 Active Citalopram Hydrobromide 10 MG Oral Tablet (CeleXA) Take 1.5 Tablets by mouth in the morning. 45 Tablet 1 06/04/2023 3 Discontinue d(Refill) risperiDONE 0.25 MG Oral Tablet (RisperDAL)Indicat ions:Hallucination s Take 1 Tablet by mouth at bedtime. 30 Tablet 1 06/04/2023 3 Discontinue d(Refill) Hospital, Clinic, or Other Facility Administered Medication Ordered Dose Route Frequency Start Date End Date Status Albuterol Sulfate (Proventil) (2.5 MG/3ML) 0.083% inhalation solution 2.5 mgIndications:Dyspnea on exertion 2.5 mg NEBULIZER ONCE PRN 06/07/2023 Active documented as of this encounter (statuses as of 07/17/2023) Active Problems Problem Noted Date Prediabetes 03/29/2023 [...] as of this encounter (statuses as of 07/17/2023) Resolved Problems Problem Noted Date Resolved Date [...] -- AHI 5, TST 5 hrs, hypoxia [facility] OBESITY, BMI= 31.28 04/26/11 04/26/201104/05 Esophageal reflux 04/26/2011 12/28/2014 Hypoxemia 03/23/2011 11/07/2011 Overview: 10/29/11 Noct ox RA -- low 85%, mean 91%, <89% 1:10 hrs, BRIAN 36 03/19/11 Noct ox RA -- low 85%, average 91%, time <89% 2:16 mins, BRIAN 8.5 02/07/11 PSG -- AHI 5, TST 5 hrs, hypoxia 07/11/11 faxed orders for oxygen at 2 LPM to [facility] Malaise and fatigue 02/22/2011 09/24/2013 Shortness of breath 02/22/2011 09/24/2013 Chronic rhinitis 02/22/2011 12/28/2014 HTN, goal below 130/80 07/13/2010 1 Dyslipidemia, goal to be determined 10/18/2009 07/13/2010 Overview: Per Lipid Taxonomy. Mixed dyslipidemia 06/30/2009 10/18/2009 Overview: Per Lipid Taxonomy. Dyslipidemia, goal to be determined 06/22/2009 09/28/2009 Overview: Per Lipid Taxonomy Routine medical exam 06/17/2009 12/28/2014 Need for quqsvfuhmx-dvfxllo-vdoqwbtnk (Tdap) vac cine 06/17/2009 08/19/2016 Special screening for malignant neoplasms, colon 06/17/2009 07/28/2009 Overview: Modified by Screening Dx Protocol #6. HTN, goal below 140/90 0 Mild intellectual disability Overview: s/p scarlet fever or meningitis ICD-10 update of inactive term Hallucinations 12/28/2014 documented as of this encounter (statuses as of 07/17/2023) Immunizations Name Administration Dates Next Due COVID-19 mRNA, LNP-s, No Pre serve, 2-Dose Series (Moderna) 11/30/2020 COVID-19, mRNA, LNP-s, PF, B ooster, 100mcg/0.5mg (Moderna) 09/14/2022,12/28/2020 PPD 09/17/2022, 8,12/30/2015,11/05,10/31/2011,06/17/2009 Pneumococcal Conjugate Vacci ne, 20-valent ([id number]) 08/03/2022 Pneumococcal Polysaccharide PPV23 (Pneumovax) 09/24/2013 Seasonal [...] Notes * Ana Paula Epstein MD - 07/17/2023 11:31 AM EDT OUTPATIENT PSYCHIATRY RETURN VISIT DIVISION OF PSYCHIATRY [place] [address] Name: Helena Bentley : 1955 Date and Time Patient was Seen: 07/17/2023 at 11:32 AM Due to unforseeable audio-visual technical difficulties, the session was conducted telephonically in its entirety. After connecting through televideo, patient was verified with two unique identifiers. Patient (or authorized legal u.s. representative) was then informed that this was [...] that I have reviewed their record in [employer] and presented the opportunity for them to [...] 67 year old y/o female, [facility] on [facility] referred [...] had been living with her brother and [id number] for a long time. Her brother passed and she continued to live with her SHELLIE until July 2022 when she [facility] into [facility]. She has 2 housemates and seems to [...] UP VISIT NOTE: Physical Location of patient: retirement Seen with Staff: with Raquel Glez Due to unforseeable audio-visual technical difficulties, the session was conducted telephonically completely. CC: follow-up visit / medication management "I am all right." Chief Complaint Patient presents with Medication Management Follow Up Depression Anxiety INTERVAL HISTORY: SUBJECTIVE: Helena Bentley is a 68 year old female, PMHx HTN, DM, dyslipidemia with a diagnosis of Depression with anxiety, hallucinations; Mild Intellectual Difficulty who presents for follow-up visit. She is prescribed Celexa 15 mg daily and Risperdal 0.25 mg HS and has been compliant with me dications. Today, she states she is doing well; is anticipating a dental appointment. We discussed staying calm throughout the procedure and making an effort to "shine.".While discussing Risperdal --patient states she has heard voices mostly of her father and only occasionally and recently. Staff reports she has been in a good mood, has had no crying episodes. There have been no outbursts. She is sleeping and eating well. We discussed the implications of Metabolic Syndrome and continueduse of Risperdal. Admittedly this is a very low dose but the medication does carry the possibility of Metabolic Syndrome as a side effect. Ms Glez will discuss this with patient's team. Mood: good Appetite: good Sleep: okay Anxiety: denies Perceptual Disturbances: sometimes hears her father's voice MARISA/ SIB: denies Medication Compliance: good Medication Side Effects: none Medical: Has started on Metformin; She will be getting her teeth removed; No other recent illness. No history of COPD/ TC. Does not use CPAP machine. Prescribed asthma inhaler Patient denies SI. No manic symptoms, psychotic symptoms, AH, VH or HI elicited. SUBSTANCE ABUSE:none RELEVANT PAST PSYCHIATRIC, MEDICAL, FAMILY OR SOCIAL HX: Medication trials: unrecalled [facility] at [facility] since July 2022; on disability [place]-SUICIDE SEVERITY [...] CAPSULE BY MOUTH EVERY EVENING 90Capsule 3 Citalopram Hydrobromide 10 MG Oral Tablet (CeleXA) Take 1.5 Tablets by mouth in the morning. 45 Tablet 1 risperiDONE 0.25 MG Oral Tablet (RisperDAL) Take 1 Tablet by mouth at bedtime. 30 Tablet 1 metFORMIN HCl ER 500 MG Oral Tablet [...] 2 tabs per day. 10 Tablet 0 Current Facility-Administered Medications Medication Dose Route Frequency Provider Last Rate Last Admin Albuterol Sulfate (Proventil) (2.5 MG/3ML) 0.083% inhalation solution 2.5 mg 2.5 mg Nebulizer Once PRN Kuldip Wellington, RECENT LABS/IMAGING:Labs reviewed: No results found for this or any previous visit (from the past 2016 hour(s)). VITALS There were no vitals filed for this visit. Wt Readings from Last 3 Encounters: 06/28/23 88.8 kg (195 lb 12.8 oz) 06/07/23 88.9 kg (196 lb) 03/22/23 88.5 kg (195 lb) There is no height or weight on file to calculate BMI. No height and weight on file for this encounter. Weight at last 3 appointments: Wt Readings from Last 3 Encounters: 06/28/23 88.8 kg (195 lb 12.8 oz) 06/07/23 88.9 kg (196 lb) 03/22/23 88.5 kg (195 lb) ] PAST MEDICAL HISTORY: Reviewed, no changes. [...] effects to current medications MENTAL STATUS EVALUATION: Due to unforseeable audio-visual technical difficulties, the session was conducted telephonically in its entirety. Appearance: unable to assess Muscle strength and tone: no abnormal involuntary movement or gross abnormality of muscle strength and tone noticeable via tele-medicine encounter Gait and Station: No abnormalities noted via tele-medicine encounter graciela Behavior: cooperative, Speech: articulation error, sparse and soft Mood: "okay" Affect: type - graciela; range - graciela; lability - graciela Associations: intact Thought Process: limited Abstract Reasoning: [...] intellectual disability Formulation: Helena Bentley is a 67 year old y/o female presenting with anxiety and depressionin the context of lifelong stressors and losses and acute anxiety related to a recent dental visit.Based on her history and presentation and assessment of risk and protective factors, this patient'ssafety risk is assessed to be minimal at this time. ASSESSMENT AND PLAN: Depression with Anxiety Disorder, Mild Intellectual Disability by history, history of Schizoaffective Disorder Abnormal Involuntary Movement Scale (AIMS): 02/26/23 - 0 PLAN: 07/17/23 - Continue Celexa 15 mg and Risperdal 0.25 mg HS; will discuss with team whether Risperdal can be discontinued given recent increase in A1c Medications -Continue Celexa to 15 mg daily. [...] of that problem. Therapy/services - continue current services Labs - A1c 6.6 % Safety - [...] red flags Helena Bentley will RTC in 6 weeks for follow up. (08/28/23 at 1 p.m.) prefers SATURDAY between 9 [...] feel better, more relaxed, less worried " Problem areas: Anxiety: Anxiety Goals: -Improve ability to manage life stressors: Progress rating 70* % Treatment update will occur when clinically indicated or by 01/15/2024. 08/28/2023. Please choose a method to track patient's improvement based on clinical assessment: PHQ-9 Adult Data ANSELMO-7 Data [place] Suicide Screen Risk assessment was performed during this visit. [...] with any problems, questions, or concerns. Helena Hollidaysallyhammad was able to verbalize understanding of the steps necessary to obtain help between appointments should this be needed -- from requesting a phone call, requesting an earlier appointment , reaching the clinic after hours, accessing our system, and accessing emergency mental health and medical services, either at a local emergency department or by activating mobile crisis teams and EMS. Billing code: 52415 and 42362 Time Spent on Visit: 30 minutes including preparing to see the patient, reviewing history, performing evaluation, counseling/educating patient, ordering medications/tests, documenting clinical information. At least 17 minutes was spent in psychotherapy providing active listening and support and engaging in discussion of ways to enhance coping skills/ strategies. This visit involved interactive complexity (add on [id number]) as described: - Required involvement of other third parties: see note Ana Paula Epstein MD Psychiatrist, [facility] 07/17/2023 documented in this encounter Plan of Treatment Upcoming Encounters Date Type Specialty Care Team Description 08/27/2023 PulmDiagnostic Pulmonary Function [place], [address] [place] [address] 08/27/2023 Office Visit Pulmonary [facility]uldip Wellington, DO [address] [facility] [address] 08/28/2023 Telemedicine Psychiatry Ana Paula Epstein MD [address] [place] [address] 10/30/2023 Imaging Radiology 12/30/2023 Office Visit Family Medicine Liudmila Tyson MD [address] [place] [address] 01/28/2024 Office Visit Dentistry Adelita Vasquez, RD [address] [place] [address] Health Maintenance Due Date Last Done Comments [...] disabilities documented in this encounter Care Teams Jet Piercer Operator Relationship Specialty Start Date End Date Liudmila Tyson MD [address] [place], [place] [phone] PCP - General Family Medicine 08/02/22 documented as of this encounter
--- OUTSIDE RECORDS SUMMARY | 2023-10-07 10:14 | External Medical Summary | Summary of Care ---
Author Name Unknown Organization [facility] Address [address] [place] [address] Phone [phone] Care Team Providers Care Wardrobe Technician Name Role Phone Liudmila Tyson MD Primary Care Provid er Reason for Visit * Reason Onset Date Comments Oxygen Assessment 06/12/2023 NPO Encounter Details Date Type Department Care Team Description 06/12/2023 Telephone Pulmonary Medicine, [facility] [address] [place] [address] Kuldip Wellington, DO [address] [place] [address] Oxygen Assessment (NPO) Allergies No known active allergiesdocumented as of this encounter (statuses as of 06/12/2023) Medications Medication Sig Dispensed Refills Start Date End Date Status docusate sodium (COLACE) 100 MG CapsuleIndications: Malignant neoplasm of left breast in female, estrogen receptor positive, unspecified site of breast (HCC),Constipation, unspecified constipation type Take 1 Cap by mouth 2 times a day. For constipation Hold if loose stools 60 Cap 0 01/16/2018 Active Additional Information Patient not taking.Reported on 03/22/2023 fluticasone (FLONASE) 50 MCG/ACT nasal sprayIndications:Po st-nasal drip Administer 2 Sprays into each nostril daily. 1 Bottle 11 09/10/2018 Active Additional Information Patient not taking.Reported on 03/22/2023 Albuterol Sulfate (ALBUTEROL HFA) 108 (90 BASE) MCG/ACT inhalerIndications: Wheeze Inhale 2 Puffs by mouth 4 times a day as needed for Cough, Shortness of Breath or Wheezing. 1 Inhaler 1 11/27/2019 Active Additional Information Patient not taking.Reported on 03/22/2023 Diclofenac Sodium 1 % External Gel (Voltaren)Indicatio ns:Chronic pain of right knee Apply topically to affected area 2 times a day . 150 g 5 02/01/2022 Active Zoster Vac Recomb Adjuvanted 50 MCG/0.5ML Intramuscular Suspension Reconstituted (Shingrix)Indicatio ns:Need for vaccination for zoster Inject 0.5 mL into a large muscle now and repeat dose in 180 days 1 Each 1 08/03/2022 Active Additional Information Patient not taking.Reported on 12/28/2022 Atorvastatin Calcium 40 MG Oral Tablet (Lipitor)Indication s:Dyslipidemia, goal LDL below 100 Take 1 Tablet (40 mg) by mouth at bedtime. 90 Tablet 3 10/01/2022 Active LORazepam 0.5 MG Oral Tablet (Ativan)Indications :Panic attack Take 1 tab 30 minutes prior to dental appointment. May repeat dose in 2 hours if needed. No more than 2 tabs per day. 10 Tablet 0 12/04/2022 Active Additional Information Patient not taking.Reported on 12/31/2022 Benzonatate 100 MG Oral CapsuleIndications: Acute bronchitis, antibiotics not indicated Take 2 capsules three times daily as needed for cough. 30 Capsule 0 01/11/2023 Active Additional Information Patient not taking.Reported on 03/22/2023 Lisinopril 10 MG Oral Tablet (Prinivil)Indicatio ns:HTN, goal below 130/80 Take 1 Tablet by mouth in the morning. 90 Tablet 1 01/30/2023 Active Clindamycin HCl 150 MG Oral Capsule (Cleocin) 0 03/20/2023 Active Omeprazole 20 MG Oral Capsule Delayed Release (PriLOSEC) TAKE ONE CAPSULE BY MOUTH EVERY EVENING 90 Capsule 3 04/15/2023 Active Additional Information Patient not taking.Reported on 06/07/2023 Citalopram Hydrobromide 10 MG Oral Tablet (CeleXA) Take 1.5 Tablets by mouth in the morning. 45 Tablet 1 06/04/2023 Active risperiDONE 0.25 MG Oral Tablet (RisperDAL)Indicati ons:Hallucinations Take 1 Tablet by mouth at bedtime. 30 Tablet 1 06/04/2023 Active Additional Information Patient not taking.Reported on 06/07/2023 Hospital, Clinic, or Other Facility Administered Medication Ordered Dose Route Frequency Start Date End Date Status Albuterol Sulfate (Proventil) (2.5 MG/3ML) 0.083% inhalation solution 2.5 mgIndications:Dyspnea on exertion 2.5 mg NEBULIZER ONCE PRN 06/07/2023 Active documented as of this encounter (statuses as of 06/12/2023) Active Problems Problem Noted Date Prediabetes 03/29/2023 [...] as of this encounter (statuses as of 06/12/2023) Resolved Problems Problem Noted Date Resolved Date [...] -- AHI 5, TST 5 hrs, hypoxia [facility] OBESITY, BMI= 31.28 04/26/11 04/26/201104/05 Esophageal reflux 04/26/2011 12/28/2014 Hypoxemia 03/23/2011 11/07/2011 Overview: 10/29/11 Noct ox RA -- low 85%, mean 91%, <89% 1:10 hrs, BRIAN 36 03/19/11 Noct ox RA -- low 85%, average 91%, time <89% 2:16 mins, BRIAN 8.5 02/07/11 PSG -- AHI 5, TST 5 hrs, hypoxia 07/11/11 faxed orders for oxygen at 2 LPM to [facility] Malaise and fatigue 02/22/2011 09/24/2013 Shortness of breath 02/22/2011 09/24/2013 Chronic rhinitis 02/22/2011 12/28/2014 HTN, goal below 130/80 07/13/2010 1 Dyslipidemia, goal to be determined 10/18/2009 07/13/2010 Overview: Per Lipid Taxonomy. Mixed dyslipidemia 06/30/2009 10/18/2009 Overview: Per Lipid Taxonomy. Dyslipidemia, goal to be determined 06/22/2009 09/28/2009 Overview: Per Lipid Taxonomy Routine medical exam 06/17/2009 12/28/2014 Need for bydrkxlxat-vikwewe-othfkfoqc (Tdap) vac cine 06/17/2009 08/19/2016 Special screening for malignant neoplasms, colon 06/17/2009 07/28/2009 Overview: Modified by Screening Dx Protocol #6. HTN, goal below 140/90 0 Mild intellectual disability Overview: s/p scarlet fever or meningitis ICD-10 update of inactive term Hallucinations 12/28/2014 documented as of this encounter (statuses as of 06/12/2023) Immunizations Name Administration Dates Next Due COVID-19 mRNA, LNP-s, No Pre serve, 2-Dose Series (Moderna) 11/30/2020 PPD 09/17/2022, 8,12/30/2015,11/05,10/31/2011,06/17/2009 Pneumococcal Conjugate Vacci ne, 20-valent ([id number]) 08/03/2022 Pneumococcal Polysaccharide PPV23 (Pneumovax) 09/24/2013 Seasonal Influenza, Quadriva lent Hd (Fluzone Hd) 08/03/2022 Seasonal Influenza, Quadriva lent, No Preserve, 6 Mons & Above, IM 11/27/2019,12/13/2017 11/27/2020 Seasonal Influenza, Quadriva lent, No Preserve, IM 01/01/2017,09/07/2015 Seasonal Influenza, Split, I IV3, With Preserve, Inj 12/28/2014,09/24/2013,09/18/2012 12/28/2015 TDAP (age 11 and older)(Adacel) 06/17/2009 Varicella [...] more drinks on one occasion? Never 12/31/2022 Sex Assigned at Date Recorded Not on file Job Start Date Occupation Industry Not on file Not on file Not on file documented as of this encounter Miscellaneous Notes * Telephone Encounter - Edith Randall LPN - 06/12/2023 9:53 AM EDT Order has been entered into TH documented in this encounter Plan of Treatment Upcoming Encounters Date Type Specialty Care Team Description 06/28/2023 Office Visit Family Medicine Liudmila Tyson MD [address], [place] [phone] 07/17/2023 [facility] [address] [place] [address] 08/27/2023 PulmDiagnostic Pulmonary Function West, [address] [place] [address] 08/27/2023 Office Visit Pulmonary Kuldip Wellington DO [address] [place] [address] 10/30/2023 Imaging Radiology 12/30/2023 Office Visit Family Medicine Liudmila Tyson MD [address], [place] [phone] 01/28/2024 Office Visit Dentistry Adelita Vasquez, [facility] [address] [place] [address] Health Maintenance Due Date Last Done Comments Albumin/Creatinine Ratio 1974 Cologuard 2001 Fecal Occult Blood Test 2001 Sigmoidoscopy 2001 Zoster Vaccines (2 of 3) 09/23/2017 07/29/2017 DTaP,Tdap,and Td Vaccines (2 - Td or Tdap) 06/17/2019 06/17/2009 Colonoscopy 08/09/2019 08/09/2009 Colorectal Cancer Screening 08/09/2019 Depression Screening, Annual for Pts 12 and Over 05/14/2020 05/14/2019, 12/13/2017, 12/28/2014 (Discussed) COVID-19 Vaccine (2 - Moderna series) 01/25/2021 11/30/2020 DXA Scan 05/21/2023 05/21/2016 Influenza Vaccine (FLU shot) (#1) 2023 08/03/2022, 11/27/2019, 12/13/2017, Additional history exists Mammogram 10/24/2023 10/24/2022, 10/04, 09/16/2020, Additional history exists GFR 03/22/2024 03/22/2023, 08/04, 05/26/2021, Additional history exists HbA1c 03/22/2024 03/22/2023 Lipid Panel 08/22/2027 08/22/2022, 05/05, 11/13/2019, Additional history exists Pneumococcal Vaccine: 65+ Years Completed 08/03/2022, 09/24/2013 [...] filedocumented as of this encounter Care Teams Wardrobe Technician Relationship Specialty Start Date End Date Liudmila Tyson MD [address] [place] [facility] [place] [address] PCP - General Family Medicine 08/02/22 documented as of this encounter
--- OUTSIDE RECORDS SUMMARY | 2023-10-07 10:14 | External Medical Summary | Summary of Care ---
Author Name Unknown Organization [facility] Address [address] [place] [address] Phone [phone] Care Team Providers Care Chyron Operator Name Role Phone Liudmila Tyson MD Primary Care Provid er Reason for Visit * Reason Onset Date Comments Order Request 05/15/2023 Encounter Details Date Type Department Care Team Description 05/15/2023 Telephone [facility] [address] [place] [address] Liudmila Tyson MD [address] [place] [address] Order Request Allergies No known active allergiesdocumented as of this encounter (statuses as of 06/28/2023) Medications Medication Sig Dispensed Refills Start Date [...] 10/01/2022 Active LORazepam 0.5 MG Oral Tablet (Ativan)Indication s:Panic attack Take 1 tab 30 minutes prior to dental appointment. May repeat dose in 2 hours if needed. No more than 2 tabs per day. 10 Tablet 0 12/04/2022 Active Lisinopril 10 MG Oral Tablet (Prinivil)Indicati ons:HTN, goal below 130/80 Take 1 Tablet by mouth in the morning. 90 Tablet 1 01/30/2023 Active Omeprazole 20 MG Oral Capsule Delayed Release (PriLOSEC) TAKE ONE CAPSULE BY MOUTH EVERY EVENING 90 Capsule 3 04/15/2023 Active docusate sodium (COLACE) 100 MG CapsuleIndications :Malignant neoplasm of left breast in female, estrogen receptor positive, unspecified site of breast (HCC),Constipation , unspecified constipation type Take 1 Cap by mouth 2 times a day. For constipation Hold if loose stools 60 Cap 0 01/16/2018 3 Discontinu ed(Patient preference /discontin uation) fluticasone (FLONASE) 50 MCG/ACT nasal sprayIndications:P ost-nasal drip Administer 2 Sprays into each nostril daily. 1 Bottle 11 09/10/2018 3 Discontinu ed(Patient preference /discontin uation) Albuterol Sulfate (ALBUTEROL HFA) 108 (90 BASE) MCG/ACT inhalerIndications :Wheeze Inhale 2 Puffs by mouth 4 times a day as needed for Cough, Shortness of Breath or Wheezing. 1 Inhaler 1 11/27/2019 3 Discontinu ed(Patient preference /discontin uation) Diclofenac Sodium 1 % External Gel (Voltaren)Indicati ons:Chronic pain of right knee Apply topically to affected area 2 times a day . 150 g 5 02/01/2022 3 Discontinu ed(Refill) Benzonatate 100 MG Oral CapsuleIndications :Acute bronchitis, antibiotics not indicated Take 2 capsules three times daily as needed for cough. 30 Capsule 0 01/11/2023 3 Discontinu ed(Patient preference /discontin uation) Clindamycin HCl 150 MG Oral Capsule (Cleocin) 0 03/20/2023 3 Discontinu ed(Patient preference /discontin uation) Citalopram Hydrobromide 10 MG Oral Tablet (CeleXA) Take 1.5 Tablets by mouth in the morning. 45 Tablet 1 04/10/2023 3 Discontinu ed(Refill) risperiDONE 0.25 MG Oral Tablet (RisperDAL)Indicat ions:Hallucination s Take 1 Tablet by mouth at bedtime. 30 Tablet 1 04/10/2023 3 Discontinu ed(Refill) documented as of this encounter (statuses as of 06/28/2023) Active Problems Problem Noted Date Prediabetes 03/29/2023 [...] as of this encounter (statuses as of 06/28/2023) Resolved Problems Problem Noted Date Resolved Date [...] -- AHI 5, TST 5 hrs, hypoxia [facility] OBESITY, BMI= 31.28 04/26/11 04/26/201104/05 Esophageal reflux 04/26/2011 12/28/2014 Hypoxemia 03/23/2011 11/07/2011 Overview: 10/29/11 Noct ox RA -- low 85%, mean 91%, <89% 1:10 hrs, BRIAN 36 03/19/11 Noct ox RA -- low 85%, average 91%, time <89% 2:16 mins, BRIAN 8.5 02/07/11 PSG -- AHI 5, TST 5 hrs, hypoxia 07/11/11 faxed orders for oxygen at 2 LPM to [facility] Malaise and fatigue 02/22/2011 09/24/2013 Shortness of breath 02/22/2011 09/24/2013 Chronic rhinitis 02/22/2011 12/28/2014 HTN, goal below 130/80 07/13/2010 1 Dyslipidemia, goal to be determined 10/18/2009 07/13/2010 Overview: Per Lipid Taxonomy. Mixed dyslipidemia 06/30/2009 10/18/2009 Overview: Per Lipid Taxonomy. Dyslipidemia, goal to be determined 06/22/2009 09/28/2009 Overview: Per Lipid Taxonomy Routine medical exam 06/17/2009 12/28/2014 Need for comilndiwg-noyxkft-tbfqahuev (Tdap) vac cine 06/17/2009 08/19/2016 Special screening for malignant neoplasms, colon 06/17/2009 07/28/2009 Overview: Modified by Screening Dx Protocol #6. HTN, goal below 140/90 0 Mild intellectual disability Overview: s/p scarlet fever or meningitis ICD-10 update of inactive term Hallucinations 12/28/2014 documented as of this encounter (statuses as of 06/28/2023) Immunizations Name Administration Dates Next Due COVID-19 mRNA, LNP-s, No Pre serve, 2-Dose Series (Moderna) 11/30/2020 Covid-19 Mrna, Lnp-s, No Pre serve, Booster (Moderna) 09/14/2022,12/28/2020 PPD 09/17/2022, 8,12/30/2015,11/05,10/31/2011,06/17/2009 Pneumococcal Conjugate Vacci ne, 20-valent ([id number]) 08/03/2022 Pneumococcal Polysaccharide PPV23 (Pneumovax) 09/24/2013 Seasonal [...] encounter Miscellaneous Notes * Telephone Encounter - Guillermina Schultz LPN - 06/28/2023 3:16 PM EDT Please sign OV note so it can be sent along * Telephone Encounter - Liudmila Tyson MD - 06/28/2023 3:06 PM EDT Please resend DME order to [facility] please * Telephone Encounter - TC Amador - 05/15/2023 4:41 PM EDT Tayler said it needs to be more specific and she gave some examples such as: 1) urge incontinence 2) incontinence without sensory awareness 3) overflow incontinence Those are 3 examples of what it can be - this is what she stated she sees a lot. Unspecified will not be covered under the insurance. Please advise, TC Amador * Telephone Encounter - TC Ojeda - 05/15/2023 1:55 PM EDT Tayler ([facility]) called on behalf of pt states that order for incontinence products has to vinicio more specific diagnoses, ex:Urianry incontinence without sensory awarnes , mixed incontinance ,overflowing continence. Also will need pts Medicaid info faxed over documented in this encounter Plan of Treatment Upcoming Encounters Date Type Specialty Care Team Description 07/17/2023 Telemedicine Psychiatry Ana Paula Epstein MD [address] [place], [place] [phone] 08/27/2023 PulmDiagnostic Pulmonary Function West, [address] [place] [address] 08/27/2023 Office Visit Pulmonary Kuldip Wellington, DO [address] [place], [place] [phone] 10/30/2023 Imaging Radiology 12/30/2023 Office Visit Family Medicine Liudmila Tyson MD [address], [place] [phone] 01/28/2024 Office Visit Dentistry Adelita Vasquez, [facility] [address], [place] [phone] Health Maintenance Due Date Last Done Comments [...] as of this encounter Visit Diagnoses Diagnosis Urge incontinence- Primary documented in this encounter Care Teams Chyron Operator Relationship Specialty Start Date End Date Liudmila Tyson MD [address] [place] [address] PCP - General Family Medicine 08/02/22 documented as of this encounter
--- OUTSIDE RECORDS SUMMARY | 2023-10-07 10:14 | External Medical Summary | Summary of Care ---
Author Name Unknown Organization [facility] Address [address] [place] [address] Phone [phone] Care Team Providers Care Chrome Worker Name Role Phone Dianna Lynch MD Primary Care Provid er Reason for Visit * Reason Onset Date Comments Medication Refill 07/10/2023 Encounter Details Date Type Department Care Team Description 07/10/2023 Refill [facility] [address] [place] [address] Dianna Lynch MD [address] [place] [address] Panic attack Allergies No known active allergiesdocumented as of this encounter (statuses as of 07/11/2023) Medications Medication Sig Dispensed Refills Start Date [...] EVERY EVENING 90 Capsule 3 04/15/2023 Active Citalopram Hydrobromide 10 MG Oral Tablet (CeleXA) Take 1.5 Tablets by mouth in the morning. 45 Tablet 1 06/04/2023 Active risperiDONE 0.25 MG Oral Tablet (RisperDAL)Indicat ions:Hallucination s Take 1 Tablet by mouth at bedtime. 30 Tablet 1 06/04/2023 Active metFORMIN HCl ER 500 MG Oral [...] per day. 10 Tablet 0 07/11/2023 Active LORazepam 0.5 MG Oral Tablet (Ativan)Indication s:Panic attack Take 1 tab 30 minutes prior to dental appointment. May repeat dose in 2 hours if needed. No more than 2 tabs per day. 10 Tablet 0 12/04/2022 3 Discontinue d(Refill) Hospital, Clinic, or Other Facility Administered Medication Ordered Dose Route Frequency Start Date End Date Status Albuterol Sulfate (Proventil) (2.5 MG/3ML) 0.083% inhalation solution 2.5 mgIndications:Dyspnea on exertion 2.5 mg NEBULIZER ONCE PRN 06/07/2023 Active documented as of this encounter (statuses as of 07/11/2023) Active Problems Problem Noted Date Prediabetes 03/29/2023 [...] as of this encounter (statuses as of 07/11/2023) Resolved Problems Problem Noted Date Resolved Date [...] -- AHI 5, TST 5 hrs, hypoxia [facility] OBESITY, BMI= 31.28 04/26/11 04/26/201104/05 Esophageal reflux 04/26/2011 12/28/2014 Hypoxemia 03/23/2011 11/07/2011 Overview: 10/29/11 Noct ox RA -- low 85%, mean 91%, <89% 1:10 hrs, BRIAN 36 03/19/11 Noct ox RA -- low 85%, average 91%, time <89% 2:16 mins, BRIAN 8.5 02/07/11 PSG -- AHI 5, TST 5 hrs, hypoxia 07/11/11 faxed orders for oxygen at 2 LPM to [facility] Malaise and fatigue 02/22/2011 09/24/2013 Shortness of breath 02/22/2011 09/24/2013 Chronic rhinitis 02/22/2011 12/28/2014 HTN, goal below 130/80 07/13/2010 1 Dyslipidemia, goal to be determined 10/18/2009 07/13/2010 Overview: Per Lipid Taxonomy. Mixed dyslipidemia 06/30/2009 10/18/2009 Overview: Per Lipid Taxonomy. Dyslipidemia, goal to be determined 06/22/2009 09/28/2009 Overview: Per Lipid Taxonomy Routine medical exam 06/17/2009 12/28/2014 Need for jagjjwwrne-phmgewd-exqoebnpl (Tdap) vac cine 06/17/2009 08/19/2016 Special screening for malignant neoplasms, colon 06/17/2009 07/28/2009 Overview: Modified by Screening Dx Protocol #6. HTN, goal below 140/90 09/09/201 0 Mild intellectual disability Overview: s/p scarlet fever or meningitis ICD-10 update of inactive term Hallucinations 12/28/2014 documented as of this encounter (statuses as of 07/11/2023) Immunizations Name Administration Dates Next Due COVID-19 mRNA, LNP-s, No Pre serve, 2-Dose Series (Moderna) 11/30/2020 COVID-19, mRNA, LNP-s, PF, B ooster, 100mcg/0.5mg (Moderna) 09/14/2022,12/28/2020 PPD 09/17/2022, 8,12/30/2015,11/05,10/31/2011,06/17/2009 Pneumococcal Conjugate Vacci ne, 20-valent ([id number]) 08/03/2022 Pneumococcal Polysaccharide PPV23 (Pneumovax) 09/24/2013 Seasonal [...] encounter Miscellaneous Notes * Telephone Encounter - Dianna Lynch MD - 07/11/2023 5:29 PM EDT Signed Prescriptions: Disp Refills LORazepam 0.5 MG Oral Tablet (Ativan) 10 Tab*0 Sig: Take 1 tab 30 minutes prior to dental appointment. May repeat dose in 2 hours if needed. No more than 2 tabs per day. Authorizing Provider: DIANNA LYNCH * Telephone Encounter - Ian Simpson RP - 07/10/2023 3:53 PM EDTPending Prescriptions: Disp Refills LORazepam 0.5 MG Oral Tablet (Ativan) 10 Tab*0 Sig: Take 1 tab 30 minutes prior to dental appointment. May repeat dose in 2 hours if needed. No more than 2 tabs per day. * Telephone Encounter - Ian Simpson RP - 07/10/2023 3:50 PM EDT I have reviewed the patients controlled substance dispensing history in the Prescription Drug Monitoring Program in compliance with the [facility] regulations before prescribing a controlled substance. PDMP checked on 07/10/2023. Pending Prescriptions: Disp Refills LORazepam 0.5 MG Oral Tablet (Ativan) 10 Tab*0 Sig: Take 1 tab 30 minutes prior to dental appointment. May repeat dose in 2 hours if needed. No more than 2 tabs per day. Last Visit: 06/28/2023 (in office), Visit date not found (telemedicine) Next Visit: 12/30/2023 Date medication was last filled: 12/06 Date medication is due for refill: 12/11 Pharmacy: [id number] Is this request for a controlled substance? Yes and Urine Drug Screen Not completed Toxicology results: No results found for this or any previous visit. Please approve if appropriate. Thanks, Hudson Simpson, PharmD Clinical Pharmacist [facility] ([facility]) (Formerly Telepharmacy) [phone] 07/10/2023 3:50 PM documented in this encounter Plan of Treatment Upcoming Encounters Date Type Specialty Care Team Description 07/17/2023 Telemedicine Psychiatry Ana Paula Epstein MD [address] [place], [place] [phone] 08/27/2023 PulmDiagnostic Pulmonary Function West, [address] [place] [address] 08/27/2023 Office Visit Pulmonary Kuldip Wellington DO [address] [place] [address] 10/30/2023 Imaging Radiology 12/30/2023 Office Visit Family Medicine Dianna Lynch MD [address] [place] [address] 01/28/2024 Office Visit Dentistry Adelita Vasquez RD [address] [place], [place] [phone] Health Maintenance Due Date Last Done Comments [...] as of this encounter Visit Diagnoses Diagnosis Panic attack Panic disorder without agoraphobia documented in this encounter Care Teams Chrome Worker Relationship Specialty Start Date End Date Dianna Lynch MD [address] [place] [address] PCP - General Family Medicine 08/02/22 documented as of this encounter
--- OUTSIDE RECORDS SUMMARY | 2023-10-07 10:14 | External Medical Summary | Summary of Care ---
Author Name Unknown Organization [facility] Address [address] [place] [address] Phone [phone] Care Team Providers Care Greenhouse Manager Name Role Phone Liudmila Tyson MD Primary Care Provid er Reason for Referral * Evaluate & Treat - Unlimited Visits (Within 3 days (urgent)) - Authorized Specialty Diagnoses / Procedures Referred By Sharon escalante Referred To Contact Oral/Maxillofacial Surgery / Dentistry Diagnoses Dentalgia Liudmila Tyson MD [address] [place] [address] Referral ID Status Reason Start Date Expiration Date Visits Requested Visits Authorized [id number] Authorized Specialty Services Required 06/28/2023 999 999 Question Answer Referral Priority Within 3 days (urgent) Do you have pain at the present time? Yes Do you have any swelling? No Comments Pain in lower left jaw x several weeks. Worsening. No fevers. Patient is also requesting to have all her teeth removed. Reason for Visit * Reason Comments Physical-Exam Physical exam and fo geeta to fill out Encounter Details Date Type Department Care Team Description 06/28/2023 Office Visit [facility] [address] [place] [address] Liudmila Tyson MD [address] [place] [address] Prediabetes*; Chronic pain of right knee; Ambulatory dysfunction; Mild intellectual disability; Esophageal dysmotility; Gastroesophageal reflux disease without esophagitis; HTN, goal below 140/90; Dyslipidemia, goal LDL below 100; Dentalgia Allergies No known active allergiesdocumented as of [...] at bedtime. 30 Tablet 1 06/04/2023 Active Diclofenac Sodium 1 % External Gel (Voltaren)Indicati ons:Chronic pain of right knee Apply topically to affected area 2 times a day. 150 g 5 06/28/2023 Active metFORMIN HCl ER 500 MG Oral Tablet Extended Release 24 Hour (Glucophage XR)Indications:Pre diabetes Take 1 tab at bedtime x 7 days, then take 2 tabs at bedtime. 60 Tablet 5 06/28/2023 Active docusate sodium (COLACE) 100 MG CapsuleIndications [...] 03/20/2023 3 Discontinu ed(Patient preference /discontin uation) Hospital, Clinic, or Other Facility Administered Medication [...] -- AHI 5, TST 5 hrs, hypoxia [facility] OBESITY, BMI= 31.28 04/26/11 04/26/201104/05 Esophageal reflux 04/26/2011 12/28/2014 Hypoxemia 03/23/2011 11/07/2011 Overview: 10/29/11 Noct ox RA -- low 85%, mean 91%, <89% 1:10 hrs, BRIAN 36 03/19/11 Noct ox RA -- low 85%, average 91%, time <89% 2:16 mins, BRIAN 8.5 02/07/11 PSG -- AHI 5, TST 5 hrs, hypoxia 07/11/11 faxed orders for oxygen at 2 LPM to [facility] Malaise and fatigue 02/22/2011 09/24/2013 Shortness of breath 02/22/2011 09/24/2013 Chronic rhinitis 02/22/2011 12/28/2014 HTN, goal below 130/80 07/13/2010 04 1 Dyslipidemia, goal to be determined 10/18/2009 07/13/2010 Overview: Per Lipid Taxonomy. Mixed dyslipidemia 06/30/2009 10/18/2009 Overview: Per Lipid Taxonomy. Dyslipidemia, goal to be determined 06/22/2009 09/28/2009 Overview: Per Lipid Taxonomy Routine medical exam 06/17/2009 12/28/2014 Need for lddjigbsdi-hattquz-dgposutoz (Tdap) vac cine 06/17/2009 08/19/2016 Special screening [...] 09/17/2022, 8,12/30/2015,11/05,10/31/2011,06/17/2009 Pneumococcal Conjugate Vacci ne, 20-valent ([id number]) 08/03/2022 Pneumococcal Polysaccharide PPV23 (Pneumovax) 09/24/2013 Seasonal [...] Sign Reading Time Taken Comments Blood Pressure 138/78 06/28/2023 2:41 PM EDT Pulse 90 06/28/2023 2:41 PM EDT Temperature 36 C (96.8 F) 06/28/2023 2:41 PM EDT Respiratory Rate 20 06/28/2023 2:41 PM EDT Oxygen Saturation 93% 06/28/2023 2:41 PM EDT Inhaled Oxygen Concentration - - Weight 88.8 kg (195 lb 12.8 oz) 06/28/2023 2:41 PM EDT Height - - Body Mass Index 34.68 06/07/2023 10:30 AM EDT documented in this encounter Progress Notes * Liudmila Tyson MD - 06/28/2023 2:54 PM EDT ASSESSMENT / PLAN: Helena Bentley is a 68 year old female with PMHx HLD / HTN / GERD / mild intellectual disability / h/o breast ca 2016 / ambulatory dysfunction - here for CPE and form completion #Prediabetes A1c 6.6 March - recheck in Dec Diet/education provided Recommend start metformin, instructed on use #Ambulatory dysfunction Recommend walker, order placed #Urinary incontinence Recommend refill on adult briefs, order placed today (see separate TE) IVERSON Chronic, Mild, somewhat worsening however patient does not appear to be symptomatic Follows with Pulm - diagnostics pendng #HTN Well controlled, Continue lisinopril Depression / anxiety / mild intellectual disability Follows with psychiatry Last visit April 2023 Incr celexa to 15mg , continue risperdal HLD Tolerating statin well Dentalgia Pain in lower left jaw x several weeks. Worsening. No fevers. Patient is also requesting to have all her teeth removed. Screenings/anticipatory guidance reviewed include if applicable nutrition, family planning/contraception, physical activity, healthy weight, injury prevention, misuse of tobacco, alcohol and drugs, sexual behavior and STDs, dental health, mental health, immunizations, age appropriate screenings: Next colon ca screening - overdue - pt declines Next cervical ca screening - pap s no longer indicated Annual mammograms UTD Follow Up: Return for Fasting Labs 2-5 Days Before Next Visit. | For: Fasting Labs 2-5 Days Before Next Visit | Check-out note: Keep fe appt with me, labs prior please Prediabetes (Primary) - HEMOGLOBIN A1C; Future; Expected date: 12/29/2023 - COMPREHENSIVE METABOLIC PANEL; Future; Expected date: 12/29/2023 - LIPID PANEL WITH DIRECT LDL IF TG IS HIGH; Future; Expected date: 12/29/2023 - metFORMIN HCl ER 500 MG Oral Tablet Extended Release 24 Hour (Glucophage XR); Take 1 tab at bedtime x 7 days, then take 2 tabs at bedtime. Chronic pain of right knee - Diclofenac Sodium 1 % External Gel (Voltaren); Apply topically to affected area 2 times a day. Ambulatory dysfunction Mild intellectual disability Esophageal dysmotility - HEMOGLOBIN A1C; Future; Expected date: 12/29/2023 - COMPREHENSIVE METABOLIC PANEL; Future; Expected date: 12/29/2023 - LIPID PANEL WITH DIRECT LDL IF TG IS HIGH; Future; Expected date: 12/29/2023 Gastroesophageal reflux disease without esophagitis - HEMOGLOBIN A1C; Future; Expected date: 12/29/2023 - COMPREHENSIVE METABOLIC PANEL; Future; Expected date: 12/29/2023 - LIPID PANEL WITH DIRECT LDL IF TG IS HIGH; Future; Expected date: 12/29/2023 HTN, goal below 140/90 - HEMOGLOBIN A1C; Future; Expected date: 12/29/2023 - COMPREHENSIVE METABOLIC PANEL; Future; Expected date: 12/29/2023 - LIPID PANEL WITH DIRECT LDL IF TG IS HIGH; Future; Expected date: 12/29/2023 - ALBUMIN / CREATININE RATIO, URINE; Future; Expected date: 12/29/2023 Dyslipidemia, goal LDL below 100 - HEMOGLOBIN A1C; Future; Expected date: 12/29/2023 - COMPREHENSIVE METABOLIC PANEL; Future; Expected date: 12/29/2023 - LIPID PANEL WITH DIRECT LDL IF TG IS HIGH; Future; Expected date: 12/29/2023 Dentalgia - DENTAL MEDICINE & SURG REFERRAL OP Follow Up: Return for Fasting Labs 2-5 Days Before Next Visit. | For: Fasting Labs 2-5 Days Before Next Visit | Check-out note: Keep feb appt with me, labs prior please If needed, prefers contact by: Ok to leave message on phone: SUBJECTIVE: Nursing Notes: Alyssa Padilla LPN 06/28/23 1444 Signed Chief Complaint Patient presents with Physical-Exam Physical exam and forms to fill out HPI: Helena Bentley is a 68 year old female. Here for recheck. [facility] hasn't sent incontinence pads Updated order today Endorsed lower left jaw pain Taking ibuprofen No fevers Doesn't always brush her teeth Would like a mobility scooter Protein bagel [place] sausage and cheese breakfast sandwiches Does love carbs Drinking more water Latest Reference Range & Units 03/22/23 11:18 Sodium 135 - 146 mmol/L 139 Potassium 3.5 - 5.1 mmol/L 4.6 Chloride 98 - 107 mmol/L 100 CO2 22 - 32 mmol/L 27 BUN 6 - 20 mg/dL 15 Creatinine 0.5 - 1.0 mg/dL 0.6 Estimated Glomerular Filtration Rate >=60 mL/min >90 Anion Gap 7 - 15 mmol/L 12 Glucose 70 - 120 mg/dL 63 (L) Calcium 8.4 - 10.2 mg/dL 9.7 Protein 6.0 - 8.3 g/dL 6.7 Estimated Average Glucose <126 mg/dL 143 (H) Hemoglobin A1C 4.0 - 5.6 % 6.6 (H) TSH 0.27 - 4.20 uIU/mL 1.86 TSH WITH FREE T4 IF INDICATED Rpt ANEMIA CBC Rpt ! WBC 4.00 - 10.80 K/uL 11.61 (H) HGB 12.0 - 15.3 g/dL 13.8 HCT 36.0 - 45.2 % 42.9 MCV 81.5 - 97.5 fL 95.8 PLT 140 - 400 K/uL 378 Absolute Neutrophils 1.80 - 7.70 K/uL 7.31 Absolute Lymphocytes 1.00 - 4.80 K/ul 2.47 Absolute Monocytes 0.00 - 1.10 K/uL 1.51 (H) Absolute Eosinophils 0.00 - 0.70 K/uL 0.15 Absolute Basophils 0.00 - 0.20 K/uL 0.09 IRON SCREEN, INCLUDING TIBC Rpt Iron 33 - 151 ug/dL 68 Iron Binding Capacity 250 - 425 ug/dL 275 Transferrin Saturation Percent 15 - 55 % 25 Vitamin B12 232 - 1,245 pg/mL 432 Albumin 3.8 - 5.0 g/dL 4.3 AST 10 - 35 U/L 20 ALT 10 - 35 U/L 18 Alkaline Phosphatase 35 - 130 U/L 119 Bilirubin, Total <=1.2 mg/dL 0.2 (L): Data is abnormally low (H): Data is abnormally high !: Data is abnormal Rpt: View report in Results Review for more information 12/28/2022 03/12/2023 03/22/2023 06/07/2023 06/28/2023 VISIT WEIGHT TREND Weight 192 lb 196 lb 3.2 oz 195 lb 196 lb 195 lb 12.8 oz Reviewed sources 1-Pulm - 06/07/23- diagnostics pending to assess IVERSON 2- Psychiatry - 04/10/23- Increase Celexa to 15 mg daily Patient Active Problem List Diagnosis Code Dyslipidemia, goal LDL below 100 E78.5 HTN, goal below 140/90 I10 Mild intellectual disability F70 Esophageal reflux K21.9 Malignant neoplasm of left female breast (HCC) C50.912 Malignant neoplasm of upper-outer quadrant of left breast in female, estrogen receptor positive (HCC) C50.412, Z17.0 Ambulatory dysfunction R26.2 Esophageal dysmotility K22.4 Colon cancer screening declined Z53.20 Prediabetes R73.03 Current Outpatient Medications Medication Sig Dispense Refill Atorvastatin Calcium 40 MG Oral Tablet (Lipitor) Take 1 Tablet (40 mg) by mouth at bedtime. 90 Tablet 3 LORazepam 0.5 MG Oral Tablet (Ativan) Take 1 tab 30 minutes prior to dental appointment. May repeatdose in 2 hours if needed. No more than 2 tabs per day. 10 Tablet 0 Lisinopril 10 MG Oral Tablet (Prinivil) Take [...] by mouth at bedtime. 30 Tablet 1 Diclofenac Sodium 1 % External Gel (Voltaren) Apply topically to affected area 2 times a day. 150 g5 metFORMIN HCl ER 500 MG Oral Tablet Extended Release 24 Hour (Glucophage XR) Take 1 tab at bedtime x 7 days, then take 2 tabs at bedtime. 60 Tablet 5 Zoster Vac Recomb Adjuvanted 50 MCG/0.5ML Intramuscular Suspension Reconstituted (Shingrix) Inject 0.5 mL into a large muscle now and repeat dose in 180 days (Patient not taking: Reported on 12/28/2022) 1 Each 1 Current Facility-Administered Medications Medication Dose Route Frequency Provider Last Rate Last Admin Albuterol Sulfate (Proventil) (2.5 MG/3ML) 0.083% inhalation solution 2.5 mg 2.5 mg Nebulizer Once PRN Kuldip Wellington, OBJECTIVE: BP 138/78 | Pulse 90 | Temp 36 C (96.8 F) (Infrared ) | Resp 20 | Wt 88.8 kg (195 lb 12.8 oz) |SpO2 93% | BMI 34.68 kg/m | BSA 1.99 m Vitals reviewed and is normotensive / afebrile / and not tachycardic General: No acute distress. Neuro: Alert Pleasant & interactive. Respiratory: Good inspiratory effort, no labored breathing. CTAB CV: RRR no M R G Abd: soft nontender normoactive bs HEENT: Conjunctivae appear clear. No swelling noted face or lips. Skin: No rash visible on exposed skin areas, normal coloration & appears dry. Psych: Normal affect. Fluent speech. I spent a total of 40-54 minutes (exact time 40 mins) on the date of service in preparation, delivery, and documentation of the care provided to Helena Bentley excluding any time spent in the performance of separately billed services. Liudmila Tyson MD [address] [address] There are no Patient Instructions on file for this visit. documented in this encounter Nursing Notes * Alyssa Padilla LPN - 06/28/2023 2:35 PM EDT Chief Complaint Patient presents with Physical-Exam Physical exam and forms to fill out documented in this encounter Plan of Treatment Upcoming Encounters Date Type Specialty Care Team Description 07/17/2023 Telemedicine Psychiatry Ana Paula Epstein MD [address], [place] [phone] 08/27/2023 PulmDiagnostic Pulmonary Function [facility], [address] [place] [address] 08/27/2023 Office Visit Pulmonary Kuldip Wellington DO [address] [place] [address] 10/30/2023 Imaging Radiology 12/30/2023 Office Visit Family Medicine Liudmila Tyson MD [address], [place] [phone] 01/28/2024 Office Visit Dentistry Adelita Vasquez, [facility] [address], [place] [phone] Scheduled Orders Name Type Priority Associated Diagnoses Orde r Schedule HEMOGLOBIN A1C Lab Routine Prediabetes Esophageal dysmotility Gastroesophageal reflux disease without esophagitis HTN, goal below 140/90 Dyslipidemia, goal LDL below 100 Expected: 12/29/2023 (Approximate), Expires: 07/29/2024 COMPREHENSIVE METABOLIC PANEL Lab Routine Prediabetes Esophageal dysmotility Gastroesophageal reflux disease without esophagitis HTN, goal below 140/90 Dyslipidemia, goal LDL below 100 Expected: 12/29/2023 (Approximate), Expires: 07/29/2024 LIPID PANEL WITH DIRECT LDL IF TG IS HIGH Lab Routine Prediabetes Esophageal dysmotility Gastroesophageal reflux disease without esophagitis HTN, goal below 140/90 Dyslipidemia, goal LDL below 100 Expected: 12/29/2023 (Approximate), Expires: 07/29/2024 ALBUMIN / CREATININE RATIO, URINE Lab Routine HTN, goal below 140/90 Expected: 12/29/2023 (Approximate), Expires: 07/29/2024 Scheduled Referrals Name Type Priority Associated Diagnoses Orde r Schedule DENTAL MEDICINE & SURG REFERRAL OP Referral Within 3 days (urgent) Dentalgia Ordered: 06/28/2023 Health Maintenance Due Date Last Done Comments [...] HbA1c 03/22/2024 03/22/2023 Lipid Panel 08/22/2027 08/22/2022, 07/01/2021, 11/13/2019, Additional [...] as of this encounter Visit Diagnoses Diagnosis Prediabetes- Primary Other abnormal glucose Chronic pain of right knee Ambulatory dysfunction Mild intellectual disability Mild intellectual disabilities Esophageal dysmotility Dyskinesia of esophagus Gastroesophageal reflux disease without esophagitis Esophageal reflux HTN, goal below 140/90 Unspecified essential hypertension Dyslipidemia, goal LDL below 100 Other and unspecified hyperlipidemia Dentalgia Unspecified disorder of the teeth and supporting structures documented in this encounter Care Teams Greenhouse Manager Relationship Specialty Start Date End Date Liudmila Tyson MD [address], [place] [phone] PCP - General Family Medicine 08/02/22 documented as of this encounter"
--- OUTSIDE RECORDS SUMMARY | 2023-10-07 10:14 | External Medical Summary | Summary of Care ---
Author Name Unknown Organization [facility] Address [address] [place] [address] Phone [phone] Care Team Providers Care Squaring Shear Operator Name Role Phone Liudmila Tyson MD Primary Care Provid er Encounter Details Date Type Department Care Team Description 07/12/2023 Telephone [facility] [address] [place] [address] Liudmila Tyson MD [address] [place] [address] Allergies No known active allergiesdocumented as of this encounter (statuses as of 07/15/2023) Medications Medication Sig Dispensed Refills Start Date [...] 06/04/2023 Active risperiDONE 0.25 MG Oral Tablet (RisperDAL)Indicatio [...] per day. 10 Tablet 0 07/11/2023 Active Hospital, Clinic, or Other Facility Administered Medication Ordered Dose Route Frequency Start Date End Date Status Albuterol Sulfate (Proventil) (2.5 MG/3ML) 0.083% inhalation solution 2.5 mgIndications:Dyspnea on exertion 2.5 mg NEBULIZER ONCE PRN 06/07/2023 Active documented as of this encounter (statuses as of 07/15/2023) Active Problems Problem Noted Date Prediabetes 03/29/2023 [...] as of this encounter (statuses as of 07/15/2023) Resolved Problems Problem Noted Date Resolved Date [...] orders for oxygen at 2 LPM to [facility] Malaise and fatigue 02/22/2011 09/24/2013 Shortness of breath 02/22/2011 09/24/2013 Chronic rhinitis 02/22/2011 12/28/2014 HTN, goal below 130/80 07/13/2010 1 Dyslipidemia, goal to be determined 10/18/2009 07/13/2010 Overview: Per Lipid Taxonomy. Mixed dyslipidemia 06/30/2009 10/18/2009 Overview: Per Lipid Taxonomy. Dyslipidemia, goal to be determined 06/22/2009 09/28/2009 Overview: Per Lipid Taxonomy Routine medical exam 06/17/2009 12/28/2014 Need for metremwdky-oxrqfxn-qruinkwar (Tdap) vac cine 06/17/2009 08/19/2016 Special screening for malignant neoplasms, colon 06/17/2009 07/28/2009 Overview: Modified by Screening Dx Protocol #6. HTN, goal below 140/90 0 Mild intellectual disability Overview: s/p scarlet fever or meningitis ICD-10 update of inactive term Hallucinations 12/28/2014 documented as of this encounter (statuses as of 07/15/2023) Immunizations Name Administration Dates Next Due COVID-19 mRNA, LNP-s, No Pre serve, 2-Dose Series (Moderna) 11/30/2020 COVID-19, mRNA, LNP-s, PF, B ooster, 100mcg/0.5mg (Moderna) 09/14/2022,12/28/2020 PPD 09/17/2022, 8,12/30/2015,11/05,10/31/2011,06/17/2009 Pneumococcal Conjugate Vacci ne, 20-valent ([id number]) 08/03/2022 Pneumococcal Polysaccharide PPV23 (Pneumovax) 09/24/2013 Seasonal [...] encounter Miscellaneous Notes * Telephone Encounter - Sarah Xavier LPN - 07/12/2023 2:18 PM EDT Paperwork placed on Dr. Quintana desk 07/12/2023 1415 * Telephone Encounter - Prema Beltresuzanne - 07/12/2023 12:06 PM EDT 07/12/23 Rec paperwork from [facility] for pt that needs to be completed and faxed back for pt [facility]. Paperwork put in provider's mail bin on 07/12/23. Last office notes attached. documented in this encounter Plan of Treatment Upcoming Encounters Date Type Specialty Care Team Description 07/17/2023 Telemedicine Psychiatry [facility] Ana Paula Sara Nielsen MD [address] [place] [address] 08/27/2023 PulmDiagnostic Pulmonary Function [facility], [address] [place] [address] 08/27/2023 Office Visit Pulmonary Kuldip Wellington DO [address] [place] [address] 10/30/2023 Imaging Radiology 12/30/2023 Office Visit Family Medicine Liudmila Tyson MD [address], [place] [phone] 01/28/2024 Office Visit Adelita Becerra, [facility] [address] [place] [address] Health Maintenance Due Date Last Done Comments [...] filedocumented as of this encounter Care Teams Squaring Shear Operator Relationship Specialty Start Date End Date Liudmila Tyson MD [address] [facility] [phone] PCP - General Family Medicine 08/02/22 documented as of this encounter
--- OUTSIDE RECORDS SUMMARY | 2023-10-07 10:14 | External Medical Summary | Summary of Care ---
Author Name Unknown Organization [facility] Address [address] [place] [address] Phone [phone] Care Team Providers Care Seismic Computer Name Role Phone Liudmila Tyson MD Primary Care Provid er Reason for Visit * Reason Onset Date Comments Order Request 05/15/2023 Encounter Details Date Type Department Care Team Description 05/15/2023 Telephone [facility] [address] [place] [address] Liudmila Tyson MD [address] [place] [address] Order Request Allergies No known [...] -- AHI 5, TST 5 hrs, hypoxia [facility] OBESITY, BMI= 31.28 04/26/11 04/26/201104/05 Esophageal reflux 04/26/2011 12/28/2014 Hypoxemia 03/23/2011 11/07/2011 Overview: 10/29/11 Noct ox RA -- low 85%, mean 91%, <89% 1:10 hrs, BRIAN 36 03/19/11 Noct ox RA -- low 85%, average 91%, time <89% 2:16 mins, BRIAN 8.5 02/07/11 PSG -- AHI 5, TST 5 hrs, hypoxia 07/11/11 faxed orders for oxygen at 2 LPM to [facility] Malaise and fatigue 02/22/2011 09/24/2013 Shortness of breath 02/22/2011 09/24/2013 Chronic rhinitis 02/22/2011 12/28/2014 HTN, goal below 130/80 07/13/2010 1 Dyslipidemia, goal to be determined 10/18/2009 07/13/2010 Overview: Per Lipid Taxonomy. Mixed dyslipidemia 06/30/2009 10/18/2009 Overview: Per Lipid Taxonomy. Dyslipidemia, goal to be determined 06/22/2009 09/28/2009 Overview: Per Lipid Taxonomy Routine medical exam 06/17/2009 12/28/2014 Need for xwxoqadtbd-zpretsx-phqmupsqx (Tdap) vac cine 06/17/2009 08/19/2016 Special screening [...] 09/17/2022, 8,12/30/2015,11/05,10/31/2011,06/17/2009 Pneumococcal Conjugate Vacci ne, 20-valent ([id number]) 08/03/2022 Pneumococcal Polysaccharide PPV23 (Pneumovax) 09/24/2013 Seasonal [...] Ojeda - 05/15/2023 1:55 PM EDT [place] ([facility]) called on behalf of pt states that order for incontinence products has to vinicio more specific diagnoses, ex:Urianry incontinence without sensory awarnes , mixed incontinance ,overflowing continence. Also will need pts Medicaid info faxed over documented in this encounter Plan of Treatment Upcoming Encounters Date Type Specialty Care Team Description 07/17/2023 Telemedicine Psychiatry Ana Paula Epstein MD [address], [place] [phone] 08/27/2023 PulmDiagnostic Pulmonary Function West, [address] [place] [address] 08/27/2023 Office Visit Pulmonary Kuldip Wellington, DO [address] [place], [place] [phone] 10/30/2023 Imaging Radiology 12/30/2023 Office Visit Family Medicine Liudmila Tyson MD [address], [place] [phone] 01/28/2024 Office Visit Dentistry Adelita Vasquez, [facility] [address] [place], [place] [phone] Health Maintenance Due Date Last Done Comments [...] Primary documented in this encounter Care Teams Seismic Computer Relationship Specialty Start Date End Date Liudmila Tyson MD [address] [place] [address] PCP - General Family Medicine 08/02/22 documented as of this encounter
--- OUTSIDE RECORDS SUMMARY | 2023-10-07 10:14 | External Medical Summary | Summary of Care ---
Author Name Unknown Organization [facility] Address [address] [place] [address] Phone [phone] Care Team Providers Care Distillery Manager Name Role Phone Liudmila Tyson MD Primary Care Provid er Reason for Visit * Reason Onset Date Comments Order Request 05/15/2023 Encounter Details Date Type Department Care Team Description 05/15/[address] [facility] [address] [place] [address] Liudmila Tyson MD [address] [place] [address] Order Request Allergies No known active allergiesdocumented as of this encounter (statuses as of 07/01/2023) Medications Medication Sig Dispensed Refills Start Date [...] as of this encounter (statuses as of 07/01/2023) Active Problems Problem Noted Date Prediabetes 03/29/2023 [...] as of this encounter (statuses as of 07/01/2023) Resolved Problems Problem Noted Date Resolved Date [...] -- AHI 5, TST 5 hrs, hypoxia [facility] OBESITY, BMI= 31.28 04/26/11 04/26/201104/05 Esophageal reflux 04/26/2011 12/28/2014 Hypoxemia 03/23/2011 11/07/2011 Overview: 10/29/11 Noct ox RA -- low 85%, mean 91%, <89% 1:10 hrs, BRIAN 36 03/19/11 Noct ox RA -- low 85%, average 91%, time <89% 2:16 mins, BRIAN 8.5 02/07/11 PSG -- AHI 5, TST 5 hrs, hypoxia 07/11/11 faxed orders for oxygen at [address] [facility] Malaise and fatigue 02/22/2011 09/24/2013 Shortness of breath 02/22/2011 09/24/2013 Chronic rhinitis 02/22/2011 12/28/2014 HTN, goal below 130/80 07/13/2010 1 Dyslipidemia, goal to be determined 10/18/2009 07/13/2010 Overview: Per Lipid Taxonomy. Mixed dyslipidemia 06/30/2009 10/18/2009 Overview: Per Lipid Taxonomy. Dyslipidemia, goal to be determined 06/22/2009 09/28/2009 Overview: Per Lipid Taxonomy Routine medical exam 06/17/2009 12/28/2014 Need for phbdnyzdnv-lvvkvkb-ivviagkrq (Tdap) vac cine 06/17/2009 08/19/2016 Special screening for malignant neoplasms, colon 06/17/2009 07/28/2009 Overview: Modified by Screening Dx Protocol #6. HTN, goal below 140/90 0 Mild intellectual disability Overview: s/p scarlet fever or meningitis ICD-10 update of inactive term Hallucinations 12/28/2014 documented as of this encounter (statuses as of 07/01/2023) Immunizations Name Administration Dates Next Due COVID-19 mRNA, LNP-s, No Pre serve, 2-Dose Series (Moderna) 11/30/2020 Covid-19 Mrna, Lnp-s, No Pre serve, Booster (Moderna) 09/14/2022,12/28/2020 PPD 09/17/2022, 8,12/30/2015,11/05,10/31/2011,06/17/2009 Pneumococcal Conjugate Vacci ne, 20-valent ([id number]) 08/03/2022 Pneumococcal Polysaccharide PPV23 (Pneumovax) 09/24/2013 Seasonal [...] [facility] - 05/15/2023 1:55 PM EDT [place] ([facility]) called on behalf of pt states that order for incontinence products has to vinicio more specific diagnoses, ex:Urianry incontinence without sensory awarnes , mixed incontinance ,overflowing continence. Also will need pts Medicaid info faxed over documented in this encounter Plan of Treatment Upcoming Encounters Date Type Specialty Care Team Description 07/17/2023 Telemedicine Psychiatry Ana Paula Epstein MD [address], [place] [phone] 08/27/2023 PulmDiagnostic [facility], [address] [place] [address] 08/27/2023 Office Visit Pulmonary Kuldip Wellington, DO [address], [place] [phone] 10/30/2023 Imaging Radiology 12/30/2023 Office Visit Family Medicine Liudmila Tyson MD [address], [place] [phone] 01/28/2024 Office Visit Dentistry Adelita Vasquez, [facility] [address], [place] [phone] Health Maintenance Due Date Last Done Comments [...] Primary documented in this encounter Care Teams Distillery Manager Relationship Specialty Start Date End Date Liudmila Tyson MD [address] [place] [address] PCP - General Family Medicine 08/02/22 documented as of this encounter
--- OUTSIDE RECORDS SUMMARY | 2023-10-07 10:15 | External Medical Summary | Summary of Care ---
Author Name Unknown Organization [facility] Address [address] [place] [address] Phone [phone] Care Team Providers Care Service Cleaner Name Role Phone Liudmila Tyson MD Primary Care Provid er Reason for Visit * Reason Comments eRx-Medication Refill Encounter Details Date Type Department Care Team Description 04/12/2023 Refill [facility] [address] [place] [address] Liudmila Tyson MD [address] [place] [address] Mild intellectual disabilities Allergies No known active allergiesdocumented as of this encounter (statuses as of 04/14/2023) Medications Medication Sig Dispensed Refills Start Date [...] BY MOUTH EVERY EVENING 90 Capsule 3 04/08/2023 Active Citalopram Hydrobromide 10 MG Oral Tablet (CeleXA) Take 1.5 Tablets by mouth in the morning. 45 Tablet 1 04/10/2023 Active risperiDONE 0.25 MG Oral Tablet (RisperDAL)Indicati ons:Hallucinations Take 1 Tablet by mouth at bedtime. 30 Tablet 1 04/10/2023 Active documented as of this encounter (statuses as of 04/14/2023) Active Problems Problem Noted Date Prediabetes 03/29/2023 [...] as of this encounter (statuses as of 04/14/2023) Resolved Problems Problem Noted Date Resolved Date [...] -- AHI 5, TST 5 hrs, hypoxia [facility] OBESITY, BMI= 31.28 04/26/11 04/26/201104/05 Esophageal reflux 04/26/2011 12/28/2014 Hypoxemia 03/23/2011 11/07/2011 Overview: 10/29/11 Noct ox RA -- low 85%, mean 91%, <89% 1:10 hrs, BRIAN 36 03/19/11 Noct ox RA -- low 85%, average 91%, time <89% 2:16 mins, BRIAN 8.5 02/07/11 PSG -- AHI 5, TST 5 hrs, hypoxia 07/11/11 faxed orders for oxygen at 2 LPM to [facility] Malaise and fatigue 02/22/2011 09/24/2013 Shortness of breath 02/22/2011 09/24/2013 Chronic rhinitis 02/22/2011 12/28/2014 HTN, goal below 130/80 07/13/2010 1 Dyslipidemia, goal to be determined 10/18/2009 07/13/2010 Overview: Per Lipid Taxonomy. Mixed dyslipidemia 06/30/2009 10/18/2009 Overview: Per Lipid Taxonomy. Dyslipidemia, goal to be determined 06/22/2009 09/28/2009 Overview: Per Lipid Taxonomy Routine medical exam 06/17/2009 12/28/2014 Need for auglhdhzuc-gqgmjrq-ligkhfkzm (Tdap) vac cine 06/17/2009 08/19/2016 Special screening for malignant neoplasms, colon 06/17/2009 07/28/2009 Overview: Modified by Screening Dx Protocol #6. HTN, goal below 140/90 0 Mild intellectual disability Overview: s/p scarlet fever or meningitis ICD-10 update of inactive term Hallucinations 12/28/2014 documented as of this encounter (statuses as of 04/14/2023) Immunizations Name Administration Dates Next Due COVID-19 mRNA, LNP-s, No Pre serve, 2-Dose Series (Moderna) 11/30/2020 PPD 09/17/2022, 8,12/30/2015,11/05,10/31/2011,06/17/2009 Pneumococcal Conjugate Vacci ne, 20-valent ([id number]) 08/03/2022 Pneumococcal Polysaccharide PPV23 (Pneumovax) 09/24/2013 Seasonal [...] encounter Miscellaneous Notes * Telephone Encounter - Juanita Story [facility] - 04/14/2023 8:52 AM EDTRefused Prescriptions: Disp Refills Citalopram Hydrobromide 10 MG Oral Tablet *47 Tab*1 Sig: TAKE 1 AND 1/2 TABLETS BY MOUTH IN THE MORNINGRefused By: JUANITA STORY for Refusal: Managed by another physicianReason for Refusal Comment: psychiatry documented in this encounter Plan of Treatment Upcoming Encounters Date Type Specialty Care Team Description 05/22/2023 Telemedicine Psychiatry Ana Paula Epstein MD [address] [place] [address] 06/07/2023 Office Visit Kuldip Mendez DO [address] [place] [address] 06/28/2023 Office Visit Family Liudmila Medina MD [address], [place] [phone] 10/30/2023 Imaging Radiology 12/30/2023 Office Visit Family Liudmila Medina MD [address] [place] [address] Health Maintenance Due Date Last Done Comments [...] series) 01/25/2021 11/30/2020 DXA Scan 05/21/2023 05/21/2016 Mammogram 10/24/2023 10/24/2022, 10/04, 09/16/2020, Additional history exists GFR 03/22/2024 03/22/2023, 08/04, 05/26/2021, Additional history exists HbA1c 03/22/2024 03/22/2023 Lipid Panel 08/22/2027 08/22/2022, 05/05, 11/13/2019, Additional history exists Influenza Vaccine (FLU shot) Completed , 11/27/2019, 12/13/2017, Additional history exists Pneumococcal Vaccine: 65+ Years [...] as of this encounter Visit Diagnoses Diagnosis Mild intellectual disabilities documented in this encounter Care Teams Service Cleaner Relationship Specialty Start Date End Date Liudmila Tyson MD [address], [place] [phone] PCP - General Family Medicine 08/02/22 documented as of this encounter
--- OUTSIDE RECORDS SUMMARY | 2023-10-07 10:15 | External Medical Summary | Summary of Care ---
Author Name Unknown Organization [facility] Address [address] [place] [address] Phone [phone] Care Team Providers Care Lending Advisor Name Role Phone Liudmila Tyson MD Primary Care Provid er Reason for Visit * Reason Comments Medication Management Follow Up Anxiety Pain * - Authorized Specialty Diagnoses / Procedures Referred By Contac t Referred To Contact Referral ID Status Reason Start Date Expiration Date V isits Requested Visits Authorized [id number] Authorized 12/05/2022 12/04/[phone] Encounter Details Date Type Department Care Team Description 04[facility]10[facility]23 [facility] [address], [place] [address] Ana Paula Epstein MD [address] [place] [address] Depression with anxiety*; Mild intellectual disability; Hallucinations Allergies No known active allergiesdocumented as of this encounter (statuses as of 04/10/2023) Medications Medication Sig Dispensed Refills Start Date End Date Status docusate sodium (COLACE) 100 MG CapsuleIndications :Malignant neoplasm of left breast in female, estrogen receptor positive, unspecified site of breast (HCC),Constipation , unspecified constipation type Take 1 Cap by mouth 2 times a day. For constipation Hold if loose stools 60 Cap 0 01/16/2018 Active Additional Information Patient not taking.Reported on 03/22/2023 fluticasone (FLONASE) 50 MCG/ACT nasal sprayIndications:P ost-nasal [...] 03/22/2023 Diclofenac Sodium 1 % External Gel (Voltaren)Indicati [...] taking.Reported on 12/31/2022 Benzonatate 100 MG Oral CapsuleIndications :Acute bronchitis, antibiotics not indicated Take 2 capsules three times daily as needed for cough. 30 Capsule 0 01/11/2023 Active Additional Information Patient not taking.Reported on 03/22/2023 Lisinopril 10 MG Oral Tablet (Prinivil)Indicati ons:HTN, [...] 04/10/2023 Active risperiDONE 0.25 MG Oral Tablet (RisperDAL)Indicat ions:Hallucination s Take 1 Tablet by mouth at bedtime. 30 Tablet 1 04/10/2023 Active risperiDONE 0.25 MG Oral Tablet (RisperDAL)Indicat ions:Hallucination s TAKE 1 TABLET BY MOUTH BEFORE BEDTIME 31 Tablet 5 01/11/2023 3 Discontinu ed(Refill) Citalopram Hydrobromide 10 MG Oral Tablet (CeleXA)Indication s:Mild intellectual disability Take 1 Tablet by mouth in the morning. 90 Tablet 2 03/18/2023 3 Discontinu ed(Medicat ion/Dose Changed) documented as of this encounter (statuses as of 04/10/2023) Active Problems Problem Noted Date Prediabetes 03/29/2023 [...] as of this encounter (statuses as of 04/10/2023) Resolved Problems Problem Noted Date Resolved Date [...] hrs, hypoxia [facility] OBESITY, BMI= 31.28 04/26/11 04/26/201104/05 Esophageal reflux 04/26/2011 12/28/2014 Hypoxemia 03/23/2011 11/07/2011 Overview: 10/29/11 Noct ox RA -- low 85%, mean 91%, <89% 1:10 hrs, BRIAN 36 03/19/11 Noct ox RA -- low 85%, average 91%, time <89% 2:16 mins, BRIAN 8.5 02/07/11 PSG -- AHI 5, TST 5 hrs, hypoxia 07/11/11 faxed orders for oxygen at 2 LPM to P [facility] Malaise and fatigue 02/22/2011 09/24/2013 Shortness of breath 02/22/2011 09/24/2013 Chronic rhinitis 02/22/2011 12/28/2014 HTN, goal below 130/80 07/13/2010 1 Dyslipidemia, goal to be determined 10/18/2009 07/13/2010 Overview: Per Lipid Taxonomy. Mixed dyslipidemia 06/30/2009 10/18/2009 Overview: Per Lipid Taxonomy. Dyslipidemia, goal to be determined 06/22/2009 09/28/2009 Overview: Per Lipid Taxonomy Routine medical exam 06/17/2009 12/28/2014 Need for [id number]-[id number] (Tdap) vac cine 06/17/2009 08/19/2016 Special screening for malignant neoplasms, colon 06/17/2009 07/28/2009 Overview: Modified by Screening Dx Protocol #6. HTN, goal below 140/90 0 Mild intellectual disability Overview: s/p scarlet fever or meningitis ICD-10 update of inactive term Hallucinations 12/28/2014 documented as of this encounter (statuses as of 04/10/2023) Immunizations Name Administration Dates Next Due COVID-19 mRNA, LNP-s, No Pre serve, 2-Dose Series (Moderna) 11/30/2020 PPD 09/17/2022, 8,12/30/2015,11/05,10/31/2011,06/17/2009 Pneumococcal Conjugate Vacci ne, 20-valent ([id number]) 08/03/2022 Pneumococcal Polysaccharide PPV23 (Pneumovax) 09/24/2013 Seasonal [...] Notes * Ana Paula Epstein MD - 04/10/2023 1:00 PM EDT OUTPATIENT PSYCHIATRY RETURN VISIT DIVISION OF PSYCHIATRY [place] [address] Name: Helena Bentley : 1955 Date and Time Patient was Seen: 04/10/2023 at 1:00 PM After connecting through televSocialtyze[employer], patient was verified with two unique identifiers. Patient (or authorized legal healthcare representative) was then informed that this was [...] that I have reviewed their record in [employer] and presented the opportunity for them to [...] 67 year old y/o female, single, [facility], on disability referred by [...] had been living with her brother and [id number] for a long time. Her brother passed and she continued to live with her SHELLIE until July 2022 when she moved into the [facility]. She has 2 housemates and seems to [...] UP VISIT NOTE: Physical Location of patient: longterm Staff: with Raquel Glez CC: follow-up visit / medication management "I am okay." Chief Complaint Patient presents with Medication Management Follow Up Anxiety Pain INTERVAL HISTORY: SUBJECTIVE: Helena Bentley is a 68 year old female, with a diagnosis of Depression with anxiety; Mild Intellectual Difficulty who presents for follow-up visit. She is prescribed Celexa 10 mg daily and Risperdal 0.25 mg HS and has been compliant with medications. Today, she (and staff) states there has been episodic tearfulness likely triggered by abandonment issues (might be related to attachment to residential assistant - Lyn Izaguirre). She participated in a [employer] event recently and she enjoyed this. She continues to enjoy games on her tablet. Staff reports communication had been sent to provider -- unavailable at this time. Mood: good Appetite: good Sleep: okay Anxiety: denies Perceptual Disturbances: denies MARISA/ SIB:deniesdenies Medication Compliance: good Medication Side Effects: none Medical: The patient denies any recent medical changes in cardiac or neurologic history; no recent illness. No history of COPD/ asthma/ TC. Does not use CPAP machine. Patient denies SI. No manic symptoms, psychotic symptoms, AH, VH or HI elicited. SUBSTANCE ABUSE:none RELEVANT PAST PSYCHIATRIC, MEDICAL, FAMILY OR SOCIAL HX: Medication trials: unrecalled [facility] at [facility] since July 2022; on disability COLUM[place]-SUICIDE [...] to hang yourself, etc. x Low Risk 1. Complete or review crisis plan with patient 2. Discuss risk/protective factors and reasons for living Moderate Risk 3. Complete or review crisis plan with patient 4. Discuss risk/protective factors and reasons for living 5. Discuss removal of means 6. High Risk 7. Maintain 1 to 1 monitoring until assessment is completed 8. Evaluate for higher level of care (Inpatient or PHP) 9. Consultation with Emergency Services as appropriate 10. If patient not admitted: Complete or review crisis plan with patient Discuss risk/protective factors and reasons for living Advise removal of means Consider family or collateral contact to promote safety Schedule follow up care consistent with assessment ALLERGIES Review of patient's allergies indicates: No Known Allergies CURRENT MEDICATIONS: Current Outpatient Medications Medication Sig Dispense Refill docusate sodium (COLACE) 100 MG Capsule Take 1 Cap by mouth 2 times a day. For constipation Hold if loose stools (Patient not taking: Reported on 02/01/2022) 60 Cap 0 fluticasone (FLONASE) 50 MCG/ACT nasal spray Administer 2 Sprays into each nostril daily. (Patient not taking: Reported on 02/01/2022) 1 Bottle 11 Albuterol Sulfate (ALBUTEROL HFA) 108 (90 BASE) MCG/ACT inhaler Inhale 2 Puffs by mouth 4 timesa day as needed for Cough, Shortness of Breath or Wheezing. (Patient not taking: Reported on 02/01/2022) 1 Inhaler 1 Diclofenac Sodium 1 % External Gel (Voltaren) Apply topically to affected area 2 times a day . 150 g 5 Zoster Vac Recomb Adjuvanted 50 MCG/0.5ML [...] No more than 2 tabs per day. (Patient not taking: Reported on 12/31/2022) 10 Tablet 0 risperiDONE 0.25 MG Oral Tablet (RisperDAL) TAKE 1 TABLET BY MOUTH BEFORE BEDTIME 31 Tablet 5 Benzonatate 100 MG Oral Capsule Take 2 capsules three times daily as needed for cough. (Patientnot taking: Reported on 03/22/2023) 30 Capsule 0 Lisinopril 10 MG Oral Tablet (Prinivil) Take 1 Tablet by mouth in the morning. 90 Tablet 1 Citalopram Hydrobromide 10 MG Oral Tablet (CeleXA) Take 1 Tablet by mouth in the morning. 90 Tablet 2 Clindamycin HCl 150 MG Oral Capsule (Cleocin) Omeprazole 20 MG Oral Capsule Delayed Release (PriLOSEC) TAKE ONE CAPSULE BY MOUTH EVERY EVENING 90 Capsule 3 No current facility-administered medications for this visit. RECENT LABS/IMAGING:Labs reviewed: Recent Results (from the past 2016 hour(s)) GLUCOSE METER, POINT OF CARE (ENTER/EDIT) Collection Time: 03/12/23 1:02 PM Result Value Ref Range Glucose Meter Result 243 70 - 120 mg/dL URINALYSIS, POINT OF CARE (ENTER/EDIT) Collection Time: 03/12/23 1:03 PM Result Value Ref Range Color, Urine Yellow Yellow or Light Yellow Clarity, Urine Clear Clear Glucose, Urine Negative Negative mg/dL Bilirubin, Urine Negative Negative Ketone, Urine Negative Negative mg/dL Specific [place], Urine 1.025 1.003 - 1.030 Blood, Urine Small (A) Negative pH, Urine 5.5 5.0 - 7.5 units Protein, Urine Negative Negative mg/dL Urobilinogen, Urine 0.2 0.2 - 1.0 mg/dL Nitrite, Urine Negative Negative Esterase, Urine Small (A) Negative CULTURE, URINE, QUANTITATIVE Collection Time: 03/12/23 1:19 PM Specimen: Urine, Clean Catch Result Value Ref Range Culture Growth No significant growth HEMOGLOBIN A1C Collection Time: 03/22/23 11:18 AM Result Value Ref Range Hemoglobin A1C 6.6 (H) 4.0 - 5.6 % Estimated Average Glucose 143 (H) <126 mg/dL TSH WITH FREE T4 IF INDICATED Collection Time: 03/22/23 11:18 AM Result Value Ref Range TSH 1.86 0.27 - 4.20 uIU/mL COMPREHENSIVE METABOLIC PANEL Collection Time: 03/22/23 11:18 AM Result Value Ref Range BUN 15 6 - 20 mg/dL Creatinine 0.6 0.5 - 1.0 mg/dL Estimated Glomerular Filtration Rate >90 >=60 mL/min Sodium 139 135 - 146 mmol/L Potassium 4.6 3.5 - 5.1 mmol/L Chloride 100 98 - 107 mmol/L CO2 27 22 - 32 mmol/L Anion Gap 12 7 - 15 mmol/L Glucose 63 (L) 70 - 120 mg/dL Albumin 4.3 3.8 - 5.0 g/dL AST 20 10 - 35 U/L Alkaline Phosphatase 119 35 - 130 U/L Bilirubin, Total 0.2 <=1.2 mg/dL Calcium 9.7 8.4 - 10.2 mg/dL Protein 6.7 6.0 - 8.3 g/dL ALT 18 10 - 35 U/L IRON SCREEN, INCLUDING TIBC Collection Time: 03/22/23 11:18 AM Result Value Ref Range Iron 68 33 - 151 ug/dL Iron Binding Capacity 275 250 - 425 ug/dL Transferrin Saturation Percent 25 15 - 55 % ANEMIA CBC Collection Time: 03/22/23 11:18 AM Result Value Ref Range WBC 11.61 (H) 4.00 - 10.80 K/uL RBC 4.48 3.85 - 5.15 M/uL HGB 13.8 12.0 - 15.3 g/dL HCT 42.9 36.0 - 45.2 % MCV 95.8 81.5 - 97.5 fL MCH 30.8 27.0 - 34.0 pg MCHC 32.2 32.0 - 36.0 g/dL RDW 13.5 11.5 - 15.5 % PLT 378 140 - 400 K/uL MPV 10.6 6.6 - 11.1 fL nRBCs 0 <=0 /100 WBCs DIFFERENTIAL, AUTOMATED Collection Time: 03/22/23 11:18 AM Result Value Ref Range WBC 11.61 (H) 4.00 - 10.80 K/uL Neutrophils % 62.9 40.0 - 75.0 % Lymphocytes % 21.3 18.0 - 42.0 % Monocytes % 13.0 (H) 1.0 - 11.0 % Eosinophils % 1.3 0.0 - 6.0 % Basophils % 0.8 0.0 - 2.0 % Immature Granulocytes % 0.7 0.0 - 2.0 % Absolute Neutrophils 7.31 1.80 - 7.70 K/uL Absolute Lymphocytes 2.47 1.00 - 4.80 K/ul Absolute Monocytes 1.51 (H) 0.00 - 1.10 K/uL Absolute Eosinophils 0.15 0.00 - 0.70 K/uL Absolute Basophils 0.09 0.00 - 0.20 K/uL Absolute Immature Granulocytes 0.08 0.00 - 0.20 K/uL VITAMIN B12 Collection Time: 03/22/23 11:18 AM Result Value Ref Range Vitamin B12 432 232 - 1,245 pg/mL VITALS There were no vitals filed for this visit. Wt Readings from Last 3 Encounters: 03/22/23 88.5 kg (195 lb) 03/12/23 89 kg (196 lb 3.2 oz) 12/28/22 87.1 kg (192 lb) There is no height or weight on file to calculate BMI. No height and weight on file for this encounter. Weight at last 3 appointments: Wt Readings from Last 3 Encounters: 03/22/23 88.5 kg (195 lb) 03/12/23 89 kg (196 lb 3.2 oz) 12/28/22 87.1 kg (192 lb) ] PAST MEDICAL HISTORY: Reviewed, no [...] current medications MENTAL STATUS EVALUATION: Appearance: casually dressed Muscle strength and tone: no abnormal involuntary movement or gross abnormality of muscle strength and tone noticeable via tele-medicine encounter Gait and Station: No abnormalities noted via tele-medicine encounter Behavior: cooperative, hesitant Speech: articulation error, sparse and soft Mood: "okay" Affect: type - euthymic; range - full range; lability - no Associations: intact Thought Process: limited Abstract Reasoning: not tested Thought Content: denies suicidal ideations, homicidal ideations, auditory hallucinations, visual hallucinations, delusions, impulsivity to act out or preoccupation with violence Orientation: alert and oriented to person, place, [...] with Anxiety Disorder, Mild Intellectual Disability by history Abnormal Involuntary Movement Scale (AIMS): 02/26/23 - 0 PLAN: 1. Medications - Increase Celexa to 15 mg daily. Rx sent [...] care provider for evaluation of that problem. 2. Therapy/services - continue current services 3. Labs - 4. Safety - no current concerns identified 5. Psychoeducation - Treatment options and alternatives reviewed [...] worsening symptoms and/or ask for earlier appointment. 6. PDMP query - no red flags 7. Helena Bentley will RTC in 6 weeks for follow up. (05/22/23 at 1 p.m.) Greater than 50% of the time was spent counseling or coordinating the care of the patient OUTPATIENT ADULT PSYCHIATRY TREATMENT PLAN: Treatment plan was developed on 02/26/23, treatment will continue to focus on goals below: Patient's goals captured in patient's words: "I want therapyto feel better, more relaxed, less worried " Problem areas: Anxiety: Anxiety Goals: -Improve ability to manage life stressors: Progress rating 70* % Treatment update will occur when clinically indicated or by 10/10/2023. 08/28/2023. Please choose a method to track patient's improvement based on clinical assessment: PHQ-9 Adult Data ANSELMO-7 Data [place] Suicide Screen Risk assessment was performed during [...] mobile crisis teams and EMS. Billing code: [address] And [address] Time Spent on Visit: 30 minutes including preparing to see the patient, reviewing history, performing evaluation, counseling/educating patient, ordering medications/tests, documenting clinical information. During this visit: This visit involved interactive complexity (add on [id number]) as described: - Required involvement of other third parties: see note Ana Paula Epstein MD Psychiatrist, [facility] 04/10/2023 documented in this encounter Plan of Treatment Upcoming Encounters Date Type Specialty Care Team Description 05/22/2023 Telemedicine Psychiatry Ana Paula Epstein MD [address] [place] [address] 06/07/2023 Office Visit Pulmonary Kuldip Wellington DO [address] [place] [address] 06/28/2023 Office Visit Family Medicine Liudmila Tyson MD [address] [place] [address] 10/30/2023 Imaging Radiology 12/30/2023 Office Visit Family Liudmila Medina MD [address], [place] [id number] Health Maintenance Due Date Last Done Comments Albumin/Creatinine Ratio 1974 Cologuard 2001 Fecal Occult Blood Test 2001 Sigmoidoscopy 2001 Zoster Vaccines (2 of 3) 09/23/2017 07/29/2017 DTaP,Tdap,and Td Vaccines (2 - Td or Tdap) 06/17/2019 06/17/2009 Colonoscopy 08/09/2019 08/09/2009 Colorectal Cancer Screening 08/09/2019 Depression Screening, Annual for Pts 12 and Over 05/14/2020 05/14/2019, 12/13/2017, 12/28/2014 (Discussed) COVID-19 Vaccine (2 - Booster for Moderna series) 01/25/2021 11/30/2020 DXA Scan 05/21/2023 [...] Diagnosis Depression with anxiety- Primary Dysthymic disorder Mild intellectual disability Mild intellectual disabilities Hallucinations documented in this encounter Care Teams Lending Advisor Relationship Specialty Start Date End Date Liudmila Tyson MD [address] [place] [facility] [place] [address] PCP - General Family Medicine 08/02/22 documented as of this encounter
--- OUTSIDE RECORDS SUMMARY | 2023-10-07 10:15 | External Medical Summary | Summary of Care ---
Author Name Unknown Organization [facility] Address [address] [place] [address] Phone [phone] Care Team Providers Care Call Center Operations Manager Name Role Phone Liudmila Tyson MD Primary Care Provid er Reason for Visit * Reason Comments NEW PATIENT * Evaluate & Treat - Unlimited Visits (Within 30 days (routine)) - Authorized Specialty Diagnoses / Procedures Referred By Sharon t Referred To Contact Pulmonary Diseases / Pulmonary Diagnoses Hypoxia Liudmila Tyson MD [address] [place] [address] Referral ID Status Reason Start Date Expiration Date Visits Requested Visits Authorized [id number] Authorized Specialty Services Required 03/22/[phone] Encounter Details Date Type Department Care Team Description 06/07/2023 Office Visit Pulmonary Medicine, [facility] [address] [place] [address] Kuldip Wellington, DO [address], [place] [id number] Dyspnea on exertion*; Chronic cough; Nocturnal hypoxemia Allergies No known active allergiesdocumented as of this encounter (statuses as of 06/07/2023) Medications Medication Sig Dispensed Refills Start Date [...] as of this encounter (statuses as of 06/07/2023) Active Problems Problem Noted Date Prediabetes 03/29/2023 [...] as of this encounter (statuses as of 06/07/2023) Resolved Problems Problem Noted Date Resolved Date [...] orders for oxygen at 2 LPM to [facility] Malaise and fatigue 02/22/2011 09/24/2013 Shortness of breath 02/22/2011 09/24/2013 Chronic rhinitis 02/22/2011 12/28/2014 HTN, goal below 130/80 07/13/2010 1 Dyslipidemia, goal to be determined 10/18/2009 07/13/2010 Overview: Per Lipid Taxonomy. Mixed dyslipidemia 06/30/2009 10/18/2009 Overview: Per Lipid Taxonomy. Dyslipidemia, goal to be determined 06/22/2009 09/28/2009 Overview: Per Lipid Taxonomy Routine medical exam 06/17/2009 12/28/2014 Need for llomnuodlm-tqitrwt-audqirqjf (Tdap) vac cine 06/17/2009 08/19/2016 Special screening for malignant neoplasms, colon 06/17/2009 07/28/2009 Overview: Modified by Screening Dx Protocol #6. HTN, goal below 140/90 0 Mild intellectual disability Overview: s/p scarlet fever or meningitis ICD-10 update of inactive term Hallucinations 12/28/2014 documented as of this encounter (statuses as of 06/07/2023) Immunizations Name Administration Dates Next Due COVID-19 mRNA, LNP-s, No Pre serve, 2-Dose Series (Moderna) 11/30/2020 PPD 09/17/2022, 8,12/30/2015,11/05,10/31/2011,06/17/2009 Pneumococcal Conjugate Vacci ne, 20-valent ([id number]) 08/03/2022 Pneumococcal Polysaccharide PPV23 (Pneumovax) 09/24/2013 Seasonal [...] Date Smoking Tobacco: Never Smokeless Tobacco: Never Tobacco Cessation:Counseling Given: Not [...] Sign Reading Time Taken Comments Blood Pressure 142/72 06/07/2023 10:30 AM EDT Pulse 61 06/07/2023 10:30 AM EDT Temperature 37.1 C (98.7 F) 06/07/2023 10:30 AM E DT Respiratory Rate 22 06/07/2023 10:30 AM EDT Oxygen Saturation 94% 06/07/2023 10:31 AM EDT ra, amb Inhaled Oxygen Concentration - - Weight 88.9 kg (196 lb) 06/07/2023 10:30 AM EDT Height 160 cm (5' 3") 06/07/2023 10:30 AM EDT Body Mass Index 34.72 06/07/2023 10:30 AM EDT documented in this encounter Progress Notes * Kuldip Wellington DO - 06/07/2023 10:33 AM EDT Images from the original note were not included. INITIAL PULMONARY CONSULTATION NOTE REFERRING PHYSICIAN: Liudmila Tyson MD REASON FOR REFERRAL: Dyspnea, possible nocturnal hypoxemia HPI: Helena Bentley is a 68 year old female referred for evaluation of dyspnea and possible nocturnal hypoxemia. She is able to provide limited history. She recently moved in July into a new [facility]. There was some documentation that in the past she had refused oxygen although the patient and her PCP were not aware. In addition she reports shortness of breath with moving such as walking room to room in the house. She reports this resolves rapidly with rest. There was documentation that she used an albuterol inhaler in the past, she recalls not being able to use the inhaler well "can not pull it in". She does admit to coughing most days, no sputum production. She does admit to no n restorative sleep. She does not recall having a prior sleep study. She does not recall being toldof any diagnosis of asthma in the past. PAST PULMONARY / SOCIAL HISTORY: Never smoker No pets in the home No mold or water problems in the home Past Medical History: Diagnosis Date Breast cancer [...] ankle INFORMATION Left 2016 2016 left lumpectomy [facility] - Dr. 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 Quiroz [facility] 12/24/16 REMOVAL OF TONSILS, UNDER AGE 13 Tonsils Removal,<13 Y/O SENTINEL LYMPH NODE BIOPSY PERFORMED Left 2015 STEREOTAXIC BIOPSY/SURGERY Left 01/30/2116 01/30/2016 left breast , calcifications @ 3:00, dx invasive carcinoma, NST , [place] grade 20f 3, with lobular features, measuring 0.8 cm in greatest dimension - [facility] OB History 0 Para 0 Term 0 AB Living SAB IAB Ectopic Multiple Live Births Review of patient's allergies indicates: No Known Allergies Current Outpatient Medications Medication Sig Dispense Refill Diclofenac Sodium 1 % External Gel (Voltaren) Apply topically to affected area 2 times a day . 150 g 5 Atorvastatin Calcium 40 MG Oral Tablet (Lipitor) Take 1 Tablet (40 mg) by mouth at bedtime. 90 Tablet 3 Lisinopril 10 MG Oral Tablet (Prinivil) Take 1 Tablet by mouth in the morning. 90 Tablet 1 Citalopram Hydrobromide 10 MG Oral Tablet (CeleXA) Take 1.5 Tablets by mouth in the morning. 45 Tablet 1 docusate sodium (COLACE) 100 MG Capsule Take [...] inhaler Inhale 2 Puffs by mouth 4 times a day as needed for Cough, Shortness of Breath or Wheezing. (Patient not taking: Reported on 02/01/2022)1 Inhaler 1 Zoster Vac Recomb Adjuvanted 50 MCG/0.5ML Intramuscular Suspension Reconstituted (Shingrix) Inject 0.5 mL into a large muscle now and repeat dose in 180 days (Patient not taking: Reported on 12/28/2022) 1 Each 1 LORazepam 0.5 MG Oral Tablet (Ativan) Take 1 tab 30 minutes prior to dental appointment. May repeatdose in 2 hours if needed. No more than 2 tabs per day. (Patient not taking: Reported on 12/31/2022)10 Tablet 0 Benzonatate 100 MG Oral Capsule Take 2 capsules three times daily as needed for cough. (Patient nottaking: Reported on 03/22/2023) 30 Capsule 0 Clindamycin HCl 150 MG Oral Capsule (Cleocin) (Patient not taking: Reported on 06/07/2023) Omeprazole 20 MG Oral Capsule Delayed Release (PriLOSEC) TAKE ONE CAPSULE BY MOUTH EVERY EVENING (Patient not taking: Reported on 06/07/2023) 90 Capsule 3 risperiDONE 0.25 MG Oral Tablet (RisperDAL) Take 1 Tablet by mouth at bedtime. (Patient not taking:Reported on 06/07/2023) 30 Tablet 1 No current facility-administered medications for this visit. FAMILY HISTORY: She reports mother and sister have asthma Family History Problem Relation Age of Onset Diabetes Mother Hypertension Mother Diabetes Father Hypertension Father Cancer Uncle (Unspecified) colon ca Breast Cancer Aunt (Paternal) Breast Cancer Aunt (Paternal) PHYSICAL EXAM: BP 142/72 | Pulse 61 | Temp 37.1 C (98.7 F) (Tympanic) | Resp 22 | Ht 1.6 m (5' 3") | Wt 88.9 kg (196 lb) | SpO2 94% Comment: ra, amb | BMI 34.72 kg/m | BSA 1.99 m Constitutional: no acute distress, able to converse without apparent dyspnea Eyes: anicteric, pupils equal ENT: external ears normal, no nasal discharge Neck: trachea midline, JVP normal Chest: normal respiratory effort, clear to auscultation, no wheezing or crackles Abdomen: obese Extremities: no edema, no clubbing, no cyanosis Pulmonary Function Test Results: Ordered Chest X-ray: 04/14/2017 report reviewed (no imaging available to review): "Mild cardiomegaly. No evidence of focal pulmonary consolidation." Swallowing study: 02/26/2022: Echocardiogram: 02/17/2019: "Interpretation Summary The examination is adequate to evaluate the referral indication. The LV wall thickness is normal. The left ventricular wall motion is normal. The qualitative LV ejection fraction is 55-59% (normal). The left ventricular diastolic function is mildly abnormal (grade I). Mild aortic valve sclerosis is present. Aortic stenosis is absent." Assessment: R06.09 Dyspnea on exertion (primary encounter diagnosis) - possibly an asthma component given her prior use of albuterol and family history of asthma in her mother and sister, will attempt PFTs although with her intellectual disability unsure she will be able to give reliable efforts, may need to give an empiric trial of nebulized bronchodilators and corticosteroids, differentials would include obesity and deconditioning, cardiac dyspnea R05.3 Chronic cough G47.34 Nocturnal hypoxemia - if present would be most suspicious for obstructive sleep apnea Recommendations and Plans: PFTs (nathalie pre/post, lung volumes, diffusion capacity) Ambulatory oximetry FeNO Nocturnal oximetry, if nocturnal hypoxemia is present Sleep medicine referral Follow up 1-2 months with PFTs prior Kuldip Wellington DO Associate - Pulmonary and Critical Care Medicine [facility] [address] [facility] [place] [id number] documented in this encounter Nursing Notes * Candida Blair LPN - 06/07/2023 10:26 AM EDT New pt referred for evaluation of hypoxia. MMRC Dyspnea Scale = 4 (I am too breathless to leave the house or I am breathless when dressing) Interm History/Respiratory Symptoms Cough: occasional, dry Hemoptysis: no Sinus Symptoms: congestion Hospitalizations: no ED Trips: no Triggers: exertion, hot/humid weather Nocturnal: occasional cough, sleeps with head elevated CPAP/BiPAP/O2: no Flu Vaccine: 2021 Pneumovax: 2012 Prevnar: 2021 COVID 19: 11/30/20 documented in this encounter Plan of Treatment Upcoming Encounters Date Type Specialty Care Team Description 06/28/2023 Office Visit Family Medicine Liudmila Tyson MD [address] [place] [address] 07/17/2023 Telemedicine Psychiatry Ana Paula Epstein MD [address] [place] [address] 08/27/2023 PulmDiagnostic [facility] [address] [place] [address] 08/27/2023 Office Visit Pulmonary Kuldip Wellington DO [address] [place] [address] 10/30/2023 Imaging Radiology 12/30/2023 Office Visit Family Liudmila Medina MD [address] [place] [address] 01/28/2024 Office Visit Dentistry Adelita Vasquez, [facility] [address], [place] [phone] Scheduled Orders Name Type Priority Associated Diagnoses Orde r Schedule NOCTURNAL HOME OXIMETRY (OP) Procedures Routine Nocturnal hypoxemia Ordered: 06/07/2023 SPIROMETRY B/A BRONCHODILATOR Procedures Routine Dyspnea on exertion Expected: 06/14/2023, Expires: 07/08/2024 LUNG VOLUMES (PLETHYSMOGRAPHY) Procedures Routine Dyspnea on exertion Expected: 06/14/2023, Expires: 07/08/2024 DIFFUSION CAPACITY (DLCO) Procedures Routine Dyspnea on exertion Expected: 06/14/2023, Expires: 07/08/2024 PULMONARY STRESS TESTING Procedures Routine Dyspnea on exertion Expected: 06/07/2023, Expires: 07/08/2024 NITRIC OXIDE GAS DETERMINATION Procedures Routine Dyspnea on exertion Expected: 06/14/2023, Expires: 07/08/2024 Health Maintenance Due Date Last Done Comments [...] as of this encounter Visit Diagnoses Diagnosis Dyspnea on exertion- Primary Other dyspnea and respiratory abnormality Chronic cough Cough Nocturnal hypoxemia Hypoxemia documented in this encounter Care Teams Call Center Operations Manager Relationship Specialty Start Date End Date Liudmila Tyson MD [address], [place] [phone] PCP - General Family Medicine 08/02/22 documented as of this encounter
--- OUTSIDE RECORDS SUMMARY | 2023-10-07 10:15 | External Medical Summary | Summary of Care ---
Author Name Unknown Organization [facility] Address [address] [place] [address] Phone [phone] Care Team Providers Care Manager Lpn Name Role Phone Dianna Lynch MD Primary Care Provid er Reason for Visit * Reason Onset Date Comments Medication Refill 04/12/2023 Encounter Details Date Type Department Care Team Description 04/12/2023 Refill [facility] [address] [place] [address] Dianna Lynch MD [address] [place] [address] Allergies No known active allergiesdocumented as of this encounter (statuses as of 04/15/2023) Medications Medication Sig Dispensed Refills Start Date [...] MG Oral Capsule (Cleocin) 0 03/20/2023 Active Citalopram Hydrobromide 10 MG Oral Tablet (CeleXA) Take 1.5 Tablets by mouth in the morning. 45 Tablet 1 04/10/2023 Active risperiDONE 0.25 MG Oral Tablet (RisperDAL)Indicat ions:Hallucination s Take 1 Tablet by mouth at bedtime. 30 Tablet 1 04/10/2023 Active Omeprazole 20 MG Oral Capsule Delayed Release (PriLOSEC) TAKE ONE CAPSULE BY MOUTH EVERY EVENING 90 Capsule 3 04/15/2023 Active Omeprazole 20 MG Oral Capsule Delayed Release (PriLOSEC) TAKE ONE CAPSULE BY MOUTH EVERY EVENING 90 Capsule 3 04/08/2023 3 Discontinu ed(Refill) documented as of this encounter (statuses as of 04/15/2023) Active Problems Problem Noted Date Prediabetes 03/29/2023 [...] as of this encounter (statuses as of 04/15/2023) Resolved Problems Problem Noted Date Resolved Date [...] AHI 5, TST 5 hrs, hypoxia [facility], BMI= 31.28 04/26/11 04/26/201104/05 Esophageal reflux 04/26/2011 12/28/2014 Hypoxemia 03/23/2011 11/07/2011 Overview: 10/29/11 Noct ox RA -- low 85%, mean 91%, <89% 1:10 hrs, BRIAN 36 03/19/11 Noct ox RA -- low 85%, average 91%, time <89% 2:16 mins, BRIAN 8.5 02/07/11 PSG -- AHI 5, TST 5 hrs, hypoxia 07/11/11 faxed orders for oxygen at 2 LPM to [facility] Malaise and fatigue 02/22/2011 09/24/2013 Shortness of breath 02/22/2011 09/24/2013 Chronic rhinitis 02/22/2011 12/28/2014 HTN, goal below 130/80 07/13/2010 1 Dyslipidemia, goal to be determined 10/18/2009 07/13/2010 Overview: Per Lipid Taxonomy. Mixed dyslipidemia 06/30/2009 10/18/2009 Overview: Per Lipid Taxonomy. Dyslipidemia, goal to be determined 06/22/2009 09/28/2009 Overview: Per Lipid Taxonomy Routine medical exam 06/17/2009 12/28/2014 Need for ozzgaedbyg-qchkycc-tkicfqlan (Tdap) vac cine 06/17/2009 08/19/2016 Special screening for malignant neoplasms, colon 06/17/2009 07/28/2009 Overview: Modified by Screening Dx Protocol #6. HTN, goal below 140/90 0 Mild intellectual disability Overview: s/p scarlet fever or meningitis ICD-10 update of inactive term Hallucinations 12/28/2014 documented as of this encounter (statuses as of 04/15/2023) Immunizations Name Administration Dates Next Due COVID-19 mRNA, LNP-s, No Pre serve, 2-Dose Series (Moderna) 11/30/2020 PPD 09/17/2022, 8,12/30/2015,11/05,10/31/2011,06/17/2009 Pneumococcal Conjugate Vacci ne, 20-valent ([id number]) 08/03/2022 Pneumococcal Polysaccharide PPV23 (Pneumovax) 09/24/2013 Seasonal [...] Telephone Encounter - Dianna Lynch MD - 04/15/2023 12:17 PM EDT Signed Prescriptions: Disp Refills Omeprazole 20 MG Oral Capsule Delayed Rele*90 Cap*3 Sig: TAKE ONE CAPSULE BY MOUTH EVERY EVENING Authorizing Provider: DIANNA LYNCH * Telephone Encounter - Angela Farr LPN - 04/15/2023 9:47 AM EDTPending Prescriptions: Disp Refills Omeprazole 20 MG Oral Capsule Delayed Rele*90 Cap*3 Sig: TAKE ONE CAPSULE BY MOUTH EVERY EVENING * Telephone Encounter - TC Garcia - 04/12/2023 11:47 AM EDT Pending Prescriptions: Disp Refills Omeprazole 20 MG Oral Capsule Delayed Rel*90 Cap*3 Sig: TAKE ONE CAPSULE BY MOUTH EVERY EVENING Last Visit: 03/22/2023 (in office), Visit date not found (telemedicine) Next Visit: 06/28/2023 Last date the medication was ordered: Patient Active Problem List Diagnosis Code Dyslipidemia, goal LDL below 100 E78.5 HTN, goal below 140/90 I10 Mild intellectual disability F70 Esophageal reflux K21.9 Malignant neoplasm of left female breast (HCC) C50.912 Malignant neoplasm of upper-outer quadrant of left breast in female, estrogen receptor positive(HCC) C50.412, Z17.0 Ambulatory dysfunction R26.2 Esophageal dysmotility K22.4 Colon cancer screening declined Z53.20 Prediabetes R73.03 Labs: Lab Results Component Value Date/Time CREATININE - [facility] 0.6 03/22/2023 11:18 AM CREATININE - [facility] 0.8 06/16/2018 07:51 AM CREATININE-OUTSIDE LAB 0.73 04/07/2019 12:00 AM Lab Results Component Value Date/Time POTASSIUM - [facility] 4.6 03/22/2023 11:18 AM POTASSIUM - [facility] 4.4 06/16/2018 07:51 AM POTASSIUM-OUTSIDE LAB 3.9 04/07/2019 12:00 AM Lab Results Component Value Date/Time TSH - [facility] 1.86 03/22/2023 11:18 AM TSH - [facility] 1.52 01/17/2011 11:04 AM TSH - OUTSIDE LAB 1.300 03/12/2018 12:00 AM Lab Results Component Value Date/Time LDL CHOLESTEROL (CALCULATED) - [facility] 100 08/22/2022 07:25 AM LDL CHOLESTEROL (CALCULATED) - [facility] 76 05/26/2021 07:54 AM LDL CHOLESTEROL (CALCULATED) - [facility] 129 11/13/2019 07:52 AM LDL CHOLESTEROL (CALCULATED) - [facility] 109 06/16/2018 07:51 AM LDL CHOLESTEROL (DIRECT MEASURE) - [facility] NOT APPLICABLE 11/13/2019 07:52 AM LDL CHOLESTEROL (DIRECT MEASURE) - [facility] NOT APPLICABLE 06/16/2018 07:51 AM LDL CHOLESTEROL (DIRECT MEASURE) - [facility] 136 (H) 04/24/2017 10:42 AM LDL CHOLESTEROL (DIRECT MEASURE) - [facility] 220 (H) 06/17/2009 01:22 PM Lab Results Component Value Date/Time ALT - [facility] 18 03/22/2023 11:18 AM ALT - [facility] 12 06/16/2018 07:51 AM Hemoglobin AIC Results: Lab Results Component Value Date/Time HEMOGLOBIN A1C - [facility] 6.6 (H) 03/22/2023 11:18 AM documented in this encounter Plan of Treatment Upcoming Encounters Date Type Specialty Care Team Description 05/22/2023 Telemedicine Psychiatry Ana Paula Epstein MD [address] [place], [place] [phone] 06/07/2023 Office Visit Pulmonary Kuldip Wellington DO [address] [place] [address] 06/28/2023 Office Visit Family Medicine Dianna Lynch MD [address] [place] [address] 10/30/2023 Imaging Radiology 12/30/2023 Office Visit Family Medicine Dianna Lynch MD [address] [place] [address] Health Maintenance Due Date Last [...] filedocumented as of this encounter Care Teams Manager Lpn Relationship Specialty Start Date End Date Dianna Lynch MD [address] [place] [address] PCP - General Family Medicine 08/02/22 documented as of this encounter
--- OUTSIDE RECORDS SUMMARY | 2023-10-07 10:15 | External Medical Summary | Summary of Care ---
Author Name Unknown Organization [facility] Address [address] [place] [address] Phone [phone] Care Team Providers Care Field Operator Name Role Phone Liudmila Tyson MD Primary Care Provid er Reason for Visit * Reason Comments Medication Management Follow Up Depression * - Authorized Specialty Diagnoses / Procedures Referred By Contac t Referred To Contact Referral ID Status Reason Start Date Expiration Date V isits Requested Visits Authorized [id number] Authorized 12/05/2022 12/04/[phone] Encounter Details Date Type Department Care Team Description 06/04/2023 [facility] [address] [place] [address] Ana Paula Epstein MD [address] [place], [place] [phone] Depression with anxiety*; Mild intellectual disability; Hallucinations Allergies No known active allergiesdocumented as of this encounter (statuses as of 06/04/2023) Medications Medication Sig Dispensed Refills Start Date [...] at bedtime. 30 Tablet 1 06/04/2023 Active risperiDONE 0.25 MG Oral Tablet (RisperDAL)Indicat ions:Hallucination s Take 1 Tablet by mouth at bedtime. 30 Tablet 1 04/10/2023 3 Discontinu ed(Refill) Citalopram Hydrobromide 10 MG Oral Tablet (CeleXA) Take 1.5 Tablets by mouth in the morning. 45 Tablet 0 05/24/2023 3 Discontinu ed(Refill) documented as of this encounter (statuses as of 06/04/2023) Active Problems Problem Noted Date Prediabetes 03/29/2023 [...] as of this encounter (statuses as of 06/04/2023) Resolved Problems Problem Noted Date Resolved Date [...] orders for oxygen at 2 LPM to [facility] Malaise and fatigue 02/22/2011 09/24/2013 Shortness of breath 02/22/2011 09/24/2013 Chronic rhinitis 02/22/2011 12/28/2014 HTN, goal below 130/80 07/13/2010 1 Dyslipidemia, goal to be determined 10/18/2009 07/13/2010 Overview: Per Lipid Taxonomy. Mixed dyslipidemia 06/30/2009 10/18/2009 Overview: Per Lipid Taxonomy. Dyslipidemia, goal to be determined 06/22/2009 09/28/2009 Overview: Per Lipid Taxonomy Routine medical exam 06/17/2009 12/28/2014 Need for dqehyggfyt-djcknce-qhnqvctyf (Tdap) vac cine 06/17/2009 08/19/2016 Special screening for malignant neoplasms, colon 06/17/2009 07/28/2009 Overview: Modified by Screening Dx Protocol #6. HTN, goal below 140/90 0 Mild intellectual disability Overview: s/p scarlet fever or meningitis ICD-10 update of inactive term Hallucinations 12/28/2014 documented as of this encounter (statuses as of 06/04/2023) Immunizations Name Administration Dates Next Due COVID-19 mRNA, LNP-s, No Pre serve, 2-Dose Series (Moderna) 11/30/2020 PPD 09/17/2022, 8,12/30/2015,11/05,10/31/2011,06/17/2009 Pneumococcal Conjugate Vacci ne, 20-valent ([id number]) 08/03/2022 Pneumococcal Polysaccharide PPV23 (Pneumovax) 09/24/2013 Seasonal [...] Notes * Ana Paula Epstein MD - 06/04/2023 12:30 PM EDT OUTPATIENT PSYCHIATRY RETURN VISIT DIVISION OF PSYCHIATRY [place] [address] Name: Helena Bentley : 1955 Date and Time Patient was Seen: 06/04/2023 at 12:32 PM After connecting through [employer], patient was verified with two unique identifiers. Patient (or authorized legal public health representative) was then informed that this was [...] that I have reviewed their record in [facility] and presented the opportunity for them to [...] 67 year old y/o female, single, livingat [facility] since July 2022, on disability referred [...] had been living with her brother and sqtgms-qk-eyt for a long time. Her brother passed and she continued to live with her SHELLIE until July 2022 when she moved into the nursing home. She has 2 housemates and seems to [...] UP VISIT NOTE: Physical Location of patient: [facility] Seen with Staff: with Raquel Glez CC: follow-up visit / medication management " I am okay." Chief Complaint Patient presents with Medication Management Follow Up Depression INTERVAL HISTORY: SUBJECTIVE: Helena Bentley is a 68 year old female, PMHx HTN, prediabetes, dyslipidemia with adiagnosis of Depression with anxiety; Mild Intellectual Difficulty who presents for follow-up visit. She is prescribed Celexa 15 mg daily and Risperdal 0.25 mg HS and has been compliant with medications. Today, patient states she is doing okay. She appeared happy, smiling and laughing when answering questions. She reports she is sleeping and eating well. Staff reports that patient has not had anycrying bouts and she is doing much better; there have been no reports of untoward behavior. Mood: good Appetite: good Sleep: okay Anxiety: denies Perceptual Disturbances: denies MARISA/ SIB: denies Medication Compliance: good Medication Side Effects: none Medical: She had recently seen a washateria attendant and toe nail was removed. No other recent illness. No history of COPD/ TC. Does not use CPAP machine. Prescribed asthma inhaler Patient denies SI. No manic symptoms, psychotic symptoms, AH, VH or HI elicited. SUBSTANCE ABUSE:none RELEVANT PAST PSYCHIATRIC, MEDICAL, FAMILY OR SOCIAL HX: Medication trials: unrecalled [facility] at [facility] since July 2022; on disability [place]-SUICIDE SEVERITY [...] taking: Reported on 12/31/2022) 10 Tablet 0 Benzonatate 100 MG Oral Capsule Take 2 capsules three times daily as needed for cough. (Patientnot taking: Reported on 03/22/2023) 30 Capsule 0 Lisinopril 10 MG Oral Tablet (Prinivil) Take 1 Tablet by mouth in the morning. 90 Tablet 1 Clindamycin HCl 150 MG Oral Capsule (Cleocin) risperiDONE 0.25 MG Oral Tablet (RisperDAL) Take 1 Tablet by mouth at bedtime. 30 Tablet 1 Omeprazole 20 MG Oral Capsule Delayed Release (PriLOSEC) TAKE ONE CAPSULE BY MOUTH EVERY EVENING 90 Capsule 3 Citalopram Hydrobromide 10 MG Oral Tablet (CeleXA) Take 1.5 Tablets by mouth in the morning. 45Tablet 0 No current facility-administered medications for this [...] Negative Ketone, Urine Negative Negative mg/dL Specific [place], Urine 1.025 1.003 - 1.030 Blood, Urine [...] to current medications MENTAL STATUS EVALUATION: Appearance: very casually dressed and groomed Muscle strength and tone: no abnormal involuntary movement or gross abnormality of muscle strength and tone noticeable via tele-medicine encounter Gait and Station: No abnormalities noted via tele-medicine encounter Behavior: cooperative, engaged, smiling Speech: articulation error, sparse and soft Mood: [...] (AIMS): 02/26/23 - 0 PLAN: 1. Medications -Continue Celexa to 15 mg daily. [...] RTC in 6 weeks for follow up. ( 07/17/23 at 11:30 p.m.) Greater than 50% of the time was spent counseling or coordinating the care of the patient OUTPATIENT ADULT PSYCHIATRY TREATMENT PLAN: Treatment Plan Update Due: 08/28/2023 Treatment plan was developed on 02/26/23, treatment will continue to focus on goals below: Patient's goals captured in patient's words: "I want therapyto feel better, more relaxed, less worried " Problem areas: Anxiety: Anxiety Goals: -Improve ability to manage life stressors: Progress rating 70* % Treatment update will occur when clinically indicated or by 12/05/2023. 08/28/2023. Please choose a method to track patient's improvement based on clinical assessment: PHQ-9 Adult Data ANSELMO-7 Data [place] Suicide Screen Risk assessment was performed during [...] mobile crisis teams and EMS. Billing code: 68227 And [id number] Time Spent on Visit: 30 minutes including preparing to see the patient, reviewing history, performing evaluation, counseling/educating patient, ordering medications/tests, documenting clinical information. During this visit: This visit involved interactive complexity (add on code-[id number]) as described: - Required involvement of other third parties: see note Ana Paula Epstein MD Psychiatrist, [facility] 06/04/2023 documented in this encounter Plan of Treatment Upcoming Encounters Date Type Specialty Care Team Description 06/07/2023 Office Visit Pulmonary Kuldip Wellington, [address], [place] [phone] 06/28/2023 Office Visit Family Medicine Liudmila Tyson MD [address] [place] [address] 07/17/2023 Telemedicine Psychiatry Ana Paula Epstein MD [address] [place], [place] [phone] 10/30/2023 Imaging Radiology 12/30/2023 Office Visit Family Liudmila Medina MD [address] [place] [address] 01/28/2024 Office Visit Adelita Becerra, [facility] [address], [place] [phone] Health Maintenance Due Date Last Done Comments [...] Hallucinations documented in this encounter Care Teams Field Operator Relationship Specialty Start Date End Date Liudmila Tyson MD [address] [address] PCP - General Family Medicine 08/02/22 documented as of this encounter
--- OUTSIDE RECORDS SUMMARY | 2023-10-07 10:15 | External Medical Summary | Summary of Care ---
Author Name Unknown Organization [facility] Address [address] [place] [address] Phone [phone] Care Team Providers Care Telecommunications Repairer Name Role Phone Liudmila Tyson MD Primary Care Provid er Reason for Visit * Reason Onset Date Comments Med Request 05/24/2023 Encounter Details Date Type Department Care Team Description 05/24/2023 Telephone [facility] [place] [address] [place] [id number] Ana Paula Epstein MD [address], [place] [phone] Med Request Allergies No known active allergiesdocumented as of this encounter (statuses as of 05/24/2023) Medications Medication Sig Dispensed Refills Start Date [...] MG Oral Capsule (Cleocin) 0 03/20/2023 Active risperiDONE 0.25 MG Oral Tablet (RisperDAL)Indicat ions:Hallucination s Take 1 Tablet by mouth at bedtime. 30 Tablet 1 04/10/2023 Active Omeprazole 20 MG Oral Capsule Delayed Release (PriLOSEC) TAKE ONE CAPSULE BY MOUTH EVERY EVENING 90 Capsule 3 04/15/2023 Active Citalopram Hydrobromide 10 MG Oral Tablet (CeleXA) Take 1.5 Tablets by mouth in the morning. 45 Tablet 0 05/24/2023 Active Citalopram Hydrobromide 10 MG Oral Tablet (CeleXA) Take 1.5 Tablets by mouth in the morning. 45 Tablet 1 04/10/2023 3 Discontinu ed(Refill) documented as of this encounter (statuses as of 05/24/2023) Active Problems Problem Noted Date Prediabetes 03/29/2023 [...] as of this encounter (statuses as of 05/24/2023) Resolved Problems Problem Noted Date Resolved Date [...] -- AHI 5, TST 5 hrs, hypoxia [facility] OBESITY, BMI= 31.28 04/26/11 04/26/201104/05 Esophageal reflux 04/26/2011 12/28/2014 Hypoxemia 03/23/2011 11/07/2011 Overview: 10/29/11 Noct ox RA -- low 85%, mean 91%, <89% 1:10 hrs, BIRAN 36 03/19/11 Noct ox RA -- low 85%, average 91%, time <89% 2:16 mins, BRIAN 8.5 02/07/11 PSG -- AHI 5, TST 5 hrs, hypoxia 07/11/11 faxed orders for oxygen at 2 LPM to [facility] Malaise and fatigue 02/22/2011 09/24/2013 Shortness of breath 02/22/2011 09/24/2013 Chronic rhinitis 02/22/2011 12/28/2014 HTN, goal below 130/80 07/13/2010 1 Dyslipidemia, goal to be determined 10/18/2009 07/13/2010 Overview: Per Lipid Taxonomy. Mixed dyslipidemia 06/30/2009 10/18/2009 Overview: Per Lipid Taxonomy. Dyslipidemia, goal to be determined 06/22/2009 09/28/2009 Overview: Per Lipid Taxonomy Routine medical exam 06/17/2009 12/28/2014 Need for cukrogbjef-runfbtx-bpzdvpsjn (Tdap) vac cine 06/17/2009 08/19/2016 Special screening for malignant neoplasms, colon 06/17/2009 07/28/2009 Overview: Modified by Screening Dx Protocol #6. HTN, goal below 140/90 0 Mild intellectual disability Overview: s/p scarlet fever or meningitis ICD-10 update of inactive term Hallucinations 12/28/2014 documented as of this encounter (statuses as of 05/24/2023) Immunizations Name Administration Dates Next Due COVID-19 mRNA, LNP-s, No Pre serve, 2-Dose Series (Moderna) 11/30/2020 PPD 09/17/2022, 8,12/30/2015,11/05,10/31/2011,06/17/2009 Pneumococcal Conjugate Vacci ne, 20-valent ([id number]) 08/03/2022 Pneumococcal Polysaccharide PPV23 (Pneumovax) 09/24/2013 Seasonal [...] Miscellaneous Notes * Telephone Encounter - TC Harden - 05/24/2023 11:17 AM EDT Patient Requesting Refill Elva Bentley Prescribing Provider: Ana Paula Epstein Medication:citalopram 10 mg [facility] Last Visit Date:04/10/23 Future Visit Date:06/04/23 documented in this encounter Plan of Treatment Upcoming Encounters Date Type Specialty Care Team Description 06/04/2023 Telemedicine Psychiatry Ana Paula Epstein MD [address] [place] [address] 06/07/2023 Office Visit Pulmonary Kuldip Wellington DO [address] [place] [address] 06/28/2023 Office Visit Family Liudmila Medina MD [address] [place] [address] 10/30/2023 Imaging Radiology 12/30/2023 Office Visit Family Liudmila Medina MD [address] [place] [address] 01/28/2024 Office Visit Adelita Becerra, RD [address] [place] [address] Health Maintenance Due Date Last Done Comments [...] filedocumented as of this encounter Care Teams Telecommunications Repairer Relationship Specialty Start Date End Date Liudmila Tyson MD [address] [place] [address] PCP - General Family Medicine 08/02/22 documented as of this encounter
--- OUTSIDE RECORDS SUMMARY | 2023-10-07 10:15 | External Medical Summary | Summary of Care ---
Author Name Unknown Organization [facility] Address [address] [place] [address] Phone [phone] Care Team Providers Care Manager Local Name Role Phone Dianna Lynch MD Primary Care Provid er Reason for Visit * Reason Onset Date Comments Medication Refill 04/08/2023 Encounter Details Date Type Department Care Team Description 04/08/2023 Refill [facility] [address] [place] [address] Dianna Lynch MD [address] [place] [address] Allergies No known active allergiesdocumented as of this encounter (statuses as of 05/04/2023) Medications Medication Sig Dispensed Refills Start Date [...] CAPSULE BY MOUTH EVERY EVENING 90 Capsule 2 07/12/2022 3 Discontinu ed(Refill) risperiDONE 0.25 MG Oral Tablet (RisperDAL)Indicat ions:Hallucination s TAKE 1 TABLET BY MOUTH BEFORE BEDTIME 31 Tablet 5 01/11/2023 3 Discontinu ed(Refill) Citalopram Hydrobromide 10 MG Oral Tablet (CeleXA)Indication s:Mild intellectual disability Take 1 Tablet by mouth in the morning. 90 Tablet 2 03/18/2023 3 Discontinu ed(Medicat ion/Dose Changed) Omeprazole 20 MG Oral Capsule Delayed Release (PriLOSEC) TAKE ONE CAPSULE BY MOUTH EVERY EVENING 90 Capsule 3 04/08/2023 3 Discontinu ed(Refill) documented as of this encounter (statuses as of 05/04/2023) Active Problems Problem Noted Date Prediabetes 03/29/2023 [...] as of this encounter (statuses as of 05/04/2023) Resolved Problems Problem Noted Date Resolved Date [...] -- AHI 5, TST 5 hrs, hypoxia [facility] OBESITY, BMI= 31.28 04/26/11 04/26/201104/05 Esophageal [...] Routine medical exam 06/17/2009 12/28/2014 Need for euewwhnrwc-ehavwym-deryxtizf (Tdap) vac cine 06/17/2009 08/19/2016 Special screening for malignant neoplasms, colon 06/17/2009 07/28/2009 Overview: Modified by Screening Dx Protocol #6. HTN, goal below 140/90 0 Mild intellectual disability Overview: s/p scarlet fever or meningitis ICD-10 update of inactive term Hallucinations 12/28/2014 documented as of this encounter (statuses as of 05/04/2023) Immunizations Name Administration Dates Next Due COVID-19 mRNA, LNP-s, No Pre serve, 2-Dose Series (Moderna) 11/30/2020 PPD 09/17/2022, 8,12/30/2015,11/05,10/31/2011,06/17/2009 Pneumococcal Conjugate Vacci ne, 20-valent ([id number]) 08/03/2022 Pneumococcal Polysaccharide PPV23 (Pneumovax) 09/24/2013 Seasonal [...] Telephone Encounter - Dianna Lynch MD - 04/08/2023 5:30 PM EDT Signed Prescriptions: Disp Refills Omeprazole 20 MG Oral Capsule Delayed Rele*90 Cap*3 Sig: TAKE ONE CAPSULE BY MOUTH EVERY EVENING Authorizing Provider: DIANNA LYNCH * Telephone Encounter - Swetha Broussard LPN - 04/08/2023 2:44 PM EDTPending Prescriptions: Disp Refills Omeprazole 20 MG Oral Capsule Delayed Rele*90 Cap*2 Sig: TAKE ONE CAPSULE BY MOUTH EVERY EVENING * Telephone Encounter - TC Garcia - 04/08/2023 2:25 PM EDT Pending Prescriptions: Disp Refills Omeprazole 20 MG Oral Capsule Delayed Rel*90 Cap*2 Sig: TAKE ONE CAPSULE BY MOUTH EVERY [...] Psychiatry Ana Paula Epstein MD [address], [place] [phone] 06/07/2023 Office Visit Pulmonary Kuldip Wellington DO [address] [place], [place] [phone] 06/28/2023 Office Visit Family Medicine Dianna Lynch MD [address] [place] [address] 10/30/2023 Imaging Radiology 12/30/2023 Office Visit Family Dianna Medina MD [address] [place] [address] 01/28/2024 Office Visit Adelita Beecrra [facility] [address] [place] [place], [place] [phone] Health Maintenance Due Date Last Done Comments [...] as of this encounter Care Teams Manager Local Relationship Specialty Start Date End Date Dianna Lynch MD [address] [place] [address] PCP - General Family Medicine 08/02/22 documented as of this encounter
[2023-10-07 10:17] LABS: Alanine Aminotransferase 16 U/L (7-52); Albumin Globulin Ratio 1.4 (0.9-2); Albumin Level 4.1 gm/dl (3.4-5.0); Alkaline Phosphatase 98 U/L (34-104); Anion Gap 6 (3-11); Aspartate Aminotransferase 18 U/L (13-39); BUN Creatinine Ratio 24.6 (10-20); Bilirubin,Total 0.3 mg/dl (0.2-1.0); Blood Urea Nitrogen 16 mg/dl (6-23); Calcium 9.6 mg/dl (8.6-10.3); Carbon Dioxide 30 mmol/L (21-32); Chloride 97 mmol/L (98-107); Est GFR (African American) 106.5 ml/min; Est GFR (Non-African American) 91.9 ml/min; Glucose 114 mg/dl (70-99(Fasting)); Potassium 4.1 mmol/L (3.5-5.1); Sodium 133 mmol/L (136-145); Total Protein 7.1 gm/dl (6.0-8.3)
[2023-10-07 10:24] LABS: Troponin I High Sensitivity 9.7 pg/ml (0-14)
[2023-10-07 10:27] LABS: INR 0.9 (0.9-1.1); Partial Thromboplastin Ratio 0.9; Partial Thromboplastin Time 26.1 Seconds (21.0-31.0); Prothrombin Time 10.4 Seconds (9.0-12.0)
[2023-10-07 10:35] LABS: Influenza A virus by PCR Negative (Neg); Influenza B virus by PCR Negative (Neg); RSV by PCR Negative (Neg)
[2023-10-07 10:41] LABS: SARS CoV2 RNA(COVID-19) Ceph POSITIVE (Negative)
[2023-10-07] MEDS ORDERED: OPTIRAY 320 125ml IV ONE (10:53)
--- NOTE | 2023-10-07 11:22 | CT Scan Report ---
CT ANGIOGRAM OF THE CHEST CLINICAL HISTORY: Covid. Atypical chest pain. COMPARISON STUDY: Chest x-ray dated 12/25/2022. Abdominal CT dated 04/07/2019. TECHNIQUE: Following the IV administration of 118 cc of Optiray 320, CT angiogram of the chest was pe rformed from the upper abdomen to the thoracic inlet utilizing the pulmonary embolus protocol. Images are reviewed in the axial, sagittal, and coronal planes. 3-D MIPS images are created and assessed. I V contrast was administered without complication. A dose lowering technique was utilized adhering to the principles of ALARA. The examination is severely degraded by motion artifact. CT DOSE: 822.67 mGy.cm FINDINGS: Thyroid: Mildly enlarged and heterogeneous. Thoracic aorta: There is atherosclerotic calcification of the thoracic aorta, which is normal in nicole emily and demonstrates bovine variant arch anatomy. No dissection is seen. Pulmonary vasculature: The main pulmonary arteries are dilated suggesting pulmonary hypertension. The re are no filling defects identified in main or lobar pulmonary branches to indicate central pulmonar y embolus. Heart: The heart is mildly enlarged and without pericardial effusion. There are coronary artery calci fications. Lungs and pleural spaces: Evaluation of the lung parenchyma is significantly compromised by motion ar tifact. Atelectasis is seen at the lung bases. No airspace consolidation or pleural effusion is ident ified. There are scattered calcified granulomas. The trachea and central airways appear clear. Mediastinum: There is no mediastinal lymphadenopathy. Dori: Clear. Axillae: There is no axillary lymphadenopathy. Upper abdomen: Bilateral adrenal adenomas measuring up to 12 mm. Partially visualized upper abdominal viscera is otherwise grossly unremarkable. Skeletal structures: The skeletal structures are osteopenic. Degenerative change is noted in the shou lders and spine. No lytic or blastic bony lesions are seen. There is chronic deformity of the left cl avicle. IMPRESSION: 1. Severely motion degraded examination. 2. There is no evidence of central pulmonary embolus in the main or lobar pulmonary arteries. The seg mental and subsegmental branches cannot be assessed. 3. No airspace consolidation or pleural effusion is identified. 4. Additional findings as above. ACT 112: Negative or not required by law. Electronically signed by: Justus Campa M.D. 10/07/2023 11:20 AM
--- NOTE | 2023-10-07 11:29 | XRay Report ---
TWO VIEW CHEST CLINICAL HISTORY: Atypical chest pain. FINDINGS: AP upright and lateral chest radiographs are compared to study dated 12/25/2022 and correlat ed with chest CT performed the same day 12 for 23. The heart is enlarged. There is prominence of the pulmonary vasculature. There is bibasilar scarring/atelectasis. No airspace consolidation or large pl eural effusion is identified. There is no pneumothorax. The skeletal structures are osteopenic. The b cristofer thorax appears intact. IMPRESSION: Cardiomegaly with prominence of the pulmonary vasculature. Correlate clinically for evide nce of fluid overload/congestive change. ACT 112: Negative or not required by law. Electronically signed by: Justus Campa M.D. 10/07/2023 11:28 AM
[2023-10-07] MEDS ORDERED: ALBUTEROL 0.083% NEBU SOLN 3 ML VIAL NEB STA (11:33)
[2023-10-07] MEDS ORDERED: DEXAMETHASONE SOD INJ 4 MG/ML VIAL IV STA (11:33)
--- NOTE | 2023-10-07 12:12 | Emergency Department Note ---
Impression & Plan COVID-19, Acute respiratory failure with hypoxia ED Provider Note CHIEF COMPLAINT: Shortness of breath, COVID HISTORY OF PRESENT ILLNESS: This 68-year-old female patient with past medical history of breast cancer, UTI and vertigo presents to the emergency department with complaints of shortness of breath. Patient began to have a cough and felt chilled, took a COVID test last evening and is positive. She presented by EMS to the ER today. Patient is not normally oxygen dependent. REVIEW OF SYSTEMS: Much of the history is obtained from the family members at the bedside. ALLERGIES: see below MEDICATIONS: see below PMH: see below SOCIAL HISTORY: see below DDx: Pneumonia, PE, viral etiology such as COVID, influenza, COPD exacerbation, reactive airways among others. PHYSICAL EXAM: Vital signs reviewed. General: Somewhat ill-appearing 68-year-old female sitting up in wheelchair, in no significant distress HEENT: No scleral icterus, PERRLA, neck supple. Moist mucous membranes. Cardiovascular: Tachycardic, regular, no extra sounds Pulmonary: Subtle crackles bilaterally, slightly increased work of breathing on nasal cannula oxygen. Abdomen: Soft, obese nontender, nondistended, positive bowel sounds. Musculoskeletal: Atraumatic, minimal peripheral edema. Neurologic: Patient awake alert and oriented x 3, speech is clear Skin: Warm, dry, no rash EMERGENCY DEPARTMENT COURSE/MDM: This patient was evaluated and appeared to be in no significant distress. IV access was obtained and laboratory work was drawn. The patient was placed on the property assessment monitor noted to be in a sinus tachycardia. Chest x-ray was performed and reveals mild pulmonary vascular congestion. Patient's COVID swab is positive. Laboratory work is reassuring otherwise. The patient did have several desaturation episodes. She was given DuoNeb treatment and IV Solu-Medrol. She did receive 40 mg of IV Lasix. CT imaging of the chest was performed and is negative for PE. Given the patient's current oxygen requirement, is felt to be in her best interest to be evaluated by the hospitalist service for admission and further management. Patient was made aware of the plan and agrees. MONITORING: An order for cardiac monitoring was placed and the patient is noted to be in a sinus tachycardia at 110 beats per minute. RADIOLOGY: Chest x-ray to my interpretation reveals mild pulmonary vascular congestion and cardiomegaly. Otherwise defer to radiology is over read. Chest CT per radiology reveals motion artifact but no evidence of central PE. EKG: To my interpretation reveals a sinus tachycardia at 115 bpm. Left axis deviation, incomplete right bundle branch block. Lateral T wave abnormality, QTc is 462. When compared to previous dated December 25, 2022, rate has increased DISPOSITION: Admission Past Med/Surg History Medical History DM (diabetes mellitus), type 2 History of breast cancer Mild intellectual disability HLD (hyperlipidemia) HTN (hypertension) Cancer of central portion of left breast (01/30/16) "Abnormal left breast mammogram Status post stereotactic biopsy 01/30/2016 revealing ductal carcinoma grade 2 Estrogen receptor positive, progesterone receptor positive, HER-2/frederic negative Status post needle localization lumpectomy and sentinel lymph node biopsy mar 24 2016 Stage pT1c pN0 positive margin of DCIS Status post reexcision 04/09/2016 negative margins Oncotype DX 7 Status post completion of radiation therapy 06/26/2016 received 5130 cGy utilizing hypo-fractionation" On 05/16/16 11:51 Sylvia Angel wrote "Abnormal left breast mammogram Status post stereotactic biopsy 01/30/2016 revealing ductal carcinoma grade 2 Estrogen receptor positive, progesterone receptor positive, HER-2/frederic negative Status post needle localization lumpectomy and sentinel lymph node biopsy mar 24 2016 Stage pT1c pN0 positive margin of DCIS Status post reexcision 04/09/2016 negative margins Oncotype DX pending" Ambulatory dysfunction Surgical History Hx of tonsillectomy H/O partial mastectomy Family History Other Breast cancer Diabetes Hypertension Social History Smoking Status: Never smoker Second Hand Exposure: No; Do You Dip or Chew Tobacco: No; Hx Alcohol Use: No Hx Substance Use: No Preferred Language: Malay Communication Ability: Impaired Communication Ability Comment: developmental delay Network Security Administrator Required: No marital status: Single Current Living Situation: Boarding Home current occupational status: disabled Other Information That Helps Us Care for You: No Feels Safe at Home: Yes Safety Concerns: Feels Safe At This Time Assistive Devices: Walker Allergies Allergies Allergy/AdvReac Type Severity Reaction Status Date / Time No Known Allergies Allergy Verified 10/07/23 12:44 Home Meds Home Medications Medication Instructions Recorded Confirmed atorvastatin 40 mg tablet 40 mg PO HS 04/07/19 10/07/23 citalopram 10 mg tablet (Celexa) 15 mg PO QAM 04/07/19 10/07/23 lisinopril 10 mg tablet 10 mg PO QAM 04/07/19 10/07/23 omeprazole 20 mg tablet,delayed 20 mg PO HS 04/07/19 10/07/23 release risperidone 0.25 mg tablet 0.25 mg PO HS 04/07/19 10/07/23 aspirin 81 mg tablet,delayed 81 mg PO QAM 12/25/22 10/07/23 release albuterol sulfate 90 mcg/actuation 2 puff inhalation Q4H PRN 10/07/23 10/07/23 aerosol inhaler wheezing/dyspnea metformin 500 mg tablet,extended 1,000 mg PO HS 10/07/23 10/07/23 release 24 hr Results & Data (ED) Vital Signs Vital Signs - 24 hr 10/07/23 09:15 10/07/23 09:17 10/07/23 11:17 Temperature 36.8 C Temperature Source Temporal Artery Scan Pulse Rate 118 H 104 H Pulse Rate [Apical] Respiratory Rate 20 Respiratory Effort / Characteristics Spontaneous Respiratory Depth Normal Respiratory Pattern Regular Blood Pressure 134/69 Blood Pressure [Left Arm] Blood Pressure Mean 90 Blood Pressure Mean [Left Arm] Pulse Oximetry 89 L 94 Oxygen Delivery Method Room Air Nasal Cannula Oxygen Flow Rate 3 Sepsis Recent Fever Within 48 Hours No Sepsis New/Unexplained Change in Mental Status No Sepsis Action Taken by Nursing No Action Required 10/07/23 11:21 Temperature Temperature Source Pulse Rate Pulse Rate [Apical] 105 H Respiratory Rate 18 Respiratory Effort / Characteristics Respiratory Depth Respiratory Pattern Blood Pressure Blood Pressure [Left Arm] 129/79 Blood Pressure Mean Blood Pressure Mean [Left Arm] 95 Pulse Oximetry 94 Oxygen Delivery Method Nasal Cannula Oxygen Flow Rate 2 Sepsis Recent Fever Within 48 Hours Sepsis New/Unexplained Change in Mental Status Sepsis Action Taken by Correction Medications Current Medication List: was personally reviewed by me Laboratory Data Attestation: I reviewed the patient's lab results. 10/11/23 06:49 10/11/23 06:49 Lab Results 10/07/23 Range/Units 09:43 WBC 11.11 H (4.8-10.8) K/ul RBC 4.41 (4.20-5.40) M/uL Hgb 13.6 (12.0-16.0) g/dl Hct 40.0 (37.0-47.0) % MCV 90.7 (80.0-100.0) fL MCH 30.8 (25.0-34.0) pg MCHC 34.0 (32.0-36.0) g/dL RDW Std Deviation 46.3 (36.4-46.3) fL RDW Coeff of Alisa 13.7 (11.5-14.5) % Plt Count 318 (130-400) K/uL MPV 9.9 (9.4-12.4) fL Immature Gran % (Auto) 1.7 % Neut % (Auto) 77.0 % Lymph % (Auto) 5.9 % Ector % (Auto) 13.9 % Eos % (Auto) 0.9 % Baso % (Auto) 0.6 % Neut # (Auto) 8.55 H (1.40-6.50) K/uL Lymph # (Auto) 0.66 L (1.20-3.40) K/uL Ector # (Auto) 1.54 H (0.11-0.59) K/uL Eos # (Auto) 0.10 (0.00-0.50) K/uL Baso # (Auto) 0.07 (0.00-0.20) K/uL Immature Gran # (Auto) 0.19 (0.01-0.20) K/uL PT 10.4 (9.0-12.0) Seconds INR 0.9 (0.9-1.1) APTT 26.1 (21.0-31.0) Seconds PTT Ratio 0.9 Sodium 133 L (136-145) mmol/L Potassium 4.1 (3.5-5.1) mmol/L Chloride 97 L (98-107) mmol/L Carbon Dioxide 30 (21-32) mmol/L Anion Gap 6 (3-11) BUN 16 (6-23) mg/dl Creatinine 0.65 (0.6-1.2) mg/dl Est Cr Clr Drug Dosing Not Reportable Est GFR ( Amer) 106.5 ml/min Est GFR (Non-Af Amer) 91.9 ml/min BUN/Creatinine Ratio 24.6 H (10-20) Glucose 114 H (70-99(Fasting)) mg/dl Calcium 9.6 (8.6-10.3) mg/dl Total Bilirubin 0.3 (0.2-1.0) mg/dl AST 18 (13-39) U/L ALT 16 (7-52) U/L Alkaline Phosphatase 98 (34-104) U/L Troponin I High Sens 9.7 (0-14) pg/ml C-Reactive Protein 3.31 H (0-0.5) mg/dl Total Protein 7.1 (6.0-8.3) gm/dl Albumin 4.1 (3.4-5.0) gm/dl Globulin 3.0 (2.5-4.0) gm/dl Albumin/Globulin Ratio 1.4 (0.9-2) Procalcitonin 0.07 (0-0.5) ng/ml SARS-CoV-2 (PCR) POSITIVE A* (Negative) Influenza Type A (PCR) Negative (Neg) Influenza Type B (PCR) Negative (Neg) RSV (RT-PCR) Negative (Neg) Administered Medications Aspirin (Aspirin 81 Mg Ectab) 81 mg PO [facility] Stop: 11/07/23 08:59 Last Admin: 10/11/23 08:13 Dose: 81 mg Documented By: Admin: 10/10/23 08:15 Dose: 81 mg Documented By: Admin: 10/09/23 09:30 Dose: 81 mg Documented By: Admin: 10/08/23 07:37 Dose: 81 mg Documented By: TOMAS Atorvastatin Calcium (Atorvastatin 40 Mg Tab) 40 mg PO [facility] Stop: 11/06/23 20:59 Last Admin: 10/11/23 20:33 Dose: 40 mg Documented By: Admin: 10/10/23 20:47 Dose: 40 mg Documented By: Admin: 10/09/23 20:09 Dose: 40 mg Documented By: Admin: 10/08/23 20:32 Dose: 40 mg Documented By: Admin: 10/07/23 23:36 Dose: 40 mg Documented By: CATASTROPHE CLAIMS SUPERVISOR Citalopram Hydrobromide (Citalopram 10 Mg Tab) 1.5 each PO QAM [facility] Stop: 11/07/23 17:44 Last Admin: 10/11/23 08:17 Dose: 1.5 each Documented By: Admin: 10/10/23 08:15 Dose: 1.5 each Documented By: Admin: 10/09/23 08:45 Dose: 1.5 each Documented By: Admin: 10/08/23 18:12 Dose: 1.5 each Documented By: TOMAS Doxycycline Hyclate (Doxycycline Hyclate 100 Mg Cap) 100 mg PO BID [facility] Stop: 10/14/23 20:59 Last Admin: 10/11/23 20:33 Dose: 100 mg Documented By: Admin: 10/11/23 08:13 Dose: 100 mg Documented By: Admin: 10/10/23 20:46 Dose: 100 mg Documented By: Admin: 10/10/23 08:15 Dose: 100 mg Documented By: Admin: 10/09/23 20:09 Dose: 100 mg Documented By: Admin: 10/09/23 09:30 Dose: 100 mg Documented By: Admin: 10/08/23 20:32 Dose: 100 mg Documented By: Admin: 10/08/23 07:37 Dose: 100 mg Documented By: Admin: 10/07/23 23:36 Dose: 100 mg Documented By: STACY Enoxaparin Sodium (Enoxaparin Inj 40 Mg/0.4 Ml Syr) 40 mg SQ Q24H [facility] Stop: 11/06/23 15:29 Last Admin: 10/11/23 17:25 Dose: 40 mg Documented By: Admin: 10/10/23 15:20 Dose: 40 mg Documented By: Admin: 10/09/23 15:21 Dose: 40 mg Documented By: Admin: 10/08/23 17:16 Dose: 40 mg Documented By: Admin: 10/07/23 19:54 Dose: 40 mg Documented By: STACY Guaifenesin/Dextromethorphan (Guaifenesin/Dextrom Syrup 100mg/10mg 5ml Udc) 5 ml PO Q6H PRN PRN Reason: Cough Stop: 11/06/23 14:28 Last Admin: 10/10/23 08:15 Dose: 5 ml Documented By: Admin: 10/09/23 15:21 Dose: 5 ml Documented By: TOMAS Dexamethasone 6 mg/ Syringe 1.5 mls @ 1 mls/min IV DAILY [facility] Stop: 11/07/23 08:59 Last Admin: 10/11/23 08:11 Dose: 1 mls/min Documented By: Admin: 10/10/23 08:16 Dose: 1 mls/min Documented By: Admin: 10/09/23 09:29 Dose: 1 mls/min Documented By: Admin: 10/08/23 07:36 Dose: 1 mls/min Documented By: TOMAS Insulin Aspart (Insulin Aspart Per Unit Charge) 0 units SC ACHS [facility] Stop: 11/06/23 16:29 Last Admin: 10/11/23 20:24 Dose: Not Given Documented By: Admin: 10/11/23 18:50 Dose: Not Given Documented By: Admin: 10/11/23 12:15 Dose: 5 units Documented By: TOÑA Co-signed By: JOYA Admin: 10/11/23 08:40 Dose: Not Given Documented By: Admin: 10/10/23 20:39 Dose: Not Given Documented By: RACHELE Co-signed By: DANIAL Admin: 10/10/23 16:45 Dose: 3 units Documented By: TOMAS Co-signed By: EDUIN Admin: 10/10/23 12:49 Dose: 3 units Documented By: TOMAS Co-signed By: ILEANA Admin: 10/10/23 08:28 Dose: 2 units Documented By: TOMAS Co-signed By: DTT Admin: 10/09/23 20:05 Dose: 1 units Documented By: RACHELE Co-signed By: ELIER Admin: 10/09/23 17:01 Dose: 3 units Documented By: TOMAS Co-signed By: MTP Admin: 10/09/23 12:04 Dose: 3 units Documented By: TOMAS Co-signed By: DTT Admin: 10/09/23 08:12 Dose: 2 units Documented By: TOMAS Co-signed By: HM Admin: 10/08/23 20:30 Dose: Not Given Documented By: Admin: 10/08/23 16:56 Dose: 4 units Documented By: TOMAS Co-signed By: MAEVE Admin: 10/08/23 12:19 Dose: 6 units Documented By: TOMAS Co-signed By: MITCHELL Admin: 10/08/23 08:05 Dose: 1 units Documented By: TOMAS Co-signed By: MAEVE Admin: 10/07/23 21:45 Dose: Not Given Documented By: CATASTROPHE CLAIMS SUPERVISOR Admin: 10/07/23 19:54 Dose: 3 units Documented By: CATASTROPHE CLAIMS SUPERVISOR Co-signed By: KATHERINE Levalbuterol HCl (Levalbuterol Hcl 0.63 Mg/3 Ml Neb) 0.63 mg NEB Q6R [facility]; Protocol Stop: 11/06/23 18:59 Last Admin: 10/12/23 07:16 Dose: 0.63 mg Documented By: Admin: 10/12/23 00:36 Dose: 0.63 mg Documented By: Admin: 10/11/23 19:36 Dose: 0.63 mg Documented By: Admin: 10/11/23 12:08 Dose: 0.63 mg Documented By: Admin: 10/11/23 07:15 Dose: 0.63 mg Documented By: Admin: 10/11/23 00:24 Dose: 0.63 mg Documented By: Admin: 10/10/23 19:23 Dose: 0.63 mg Documented By: Admin: 10/10/23 14:24 Dose: 0.63 mg Documented By: Admin: 10/10/23 07:27 Dose: 0.63 mg Documented By: Admin: 10/09/23 23:59 Dose: 0.63 mg Documented By: Admin: 10/09/23 19:37 Dose: 0.63 mg Documented By: Admin: 10/09/23 13:28 Dose: 0.63 mg Documented By: Admin: 10/09/23 07:25 Dose: 0.63 mg Documented By: Admin: 10/08/23 23:29 Dose: 0.63 mg Documented By: Admin: 10/08/23 18:06 Dose: 0.63 mg Documented By: Admin: 10/08/23 13:05 Dose: 0.63 mg Documented By: Admin: 10/08/23 06:54 Dose: 0.63 mg Documented By: Admin: 10/08/23 00:55 Dose: 0.63 mg Documented By: Admin: 10/07/23 20:53 Dose: 0.63 mg Documented By: KEKE [facility]inopril ([facility] 10 Mg Tab) [facility] Stop: 11/07/23 08:59 Last Admin: 10/11/23 08:14 Dose: 10 mg Documented By: Admin: 10/10/23 08:16 Dose: 10 mg Documented By: Admin: 10/09/23 09:29 Dose: 10 mg Documented By: Admin: 10/08/23 07:36 Dose: 10 mg Documented By: TOMAS Pantoprazole Sodium (Pantoprazole 40 Mg Tab) 40 mg PO [facility] Stop: 11/06/23 20:59 Last Admin: 10/11/23 20:33 Dose: 40 mg Documented By: Admin: 10/10/23 20:45 Dose: 40 mg Documented By: Admin: 10/09/23 20:08 Dose: 40 mg Documented By: Admin: 10/08/23 20:32 Dose: 40 mg Documented By: Admin: 10/07/23 23:36 Dose: 40 mg Documented By: CATASTROPHE CLAIMS SUPERVISOR Risperidone (Risperidone 0.5 Mg Tablet) 0.25 mg PO [facility] Stop: 11/06/23 20:59 Last Admin: 10/11/23 20:34 Dose: 0.25 mg Documented By: Admin: 10/10/23 20:45 Dose: 0.25 mg Documented By: Admin: 10/09/23 20:08 Dose: 0.25 mg Documented By: Admin: 10/08/23 20:32 Dose: 0.25 mg Documented By: Admin: 10/07/23 23:36 Dose: 0.25 mg Documented By: CATASTROPHE CLAIMS SUPERVISOR Discontinued Medications Albuterol (Albuterol 0.083% Nebu Soln 3 Ml Vial) 2.5 mg NEB NOW STA; Protocol Stop: 10/07/23 11:34 Last Admin: 10/07/23 11:53 Dose: 2.5 mg Documented By: JEFFREY Dexamethasone (Dexamethasone Sod Inj 4 Mg/Ml Vial) 6 mg IV NOW STA Stop: 10/07/23 11:34 Last Admin: 10/07/23 11:53 Dose: 6 mg Documented By: JEFFREY Furosemide (Furosemide 40 Mg/4 Ml Vial) 40 mg IV ONE ONE Stop: 10/07/23 12:43 Last Admin: 10/07/23 13:28 Dose: 40 mg Documented By: LUDIVINA Furosemide (Furosemide Inj 20 Mg/2 Ml Vial) 10 mg IV ONE ONE Stop: 10/11/23 07:24 Last Admin: 10/11/23 08:08 Dose: 10 mg Documented By: TOÑA Remdesivir 200 mg/ Sodium (Chloride) 250 mls @ 125 mls/hr IV ONE STA; Protocol Stop: 10/07/23 16:10 Last Infusion: 10/07/23 17:45 Dose: Infused Documented By: Admin: 10/07/23 15:40 Dose: 125 mls/hr Documented By: STACY Remdesivir 100 mg/ Sodium (Chloride) 250 mls @ 250 mls/hr IV Q24H [facility] Stop: 10/11/23 12:59 Last Infusion: 10/11/23 13:00 Dose: Infused Documented By: Admin: 10/11/23 12:02 Dose: 250 mls/hr Documented By: Infusion: 10/10/23 12:50 Dose: Infused Documented By: Admin: 10/10/23 11:50 Dose: 250 mls/hr Documented By: Infusion: 10/09/23 14:35 Dose: Infused Documented By: Admin: 10/09/23 13:13 Dose: 250 mls/hr Documented By: Infusion: 10/08/23 12:51 Dose: Infused Documented By: Admin: 10/08/23 11:39 Dose: 250 mls/hr Documented By: TOMAS Ioversol (Optiray 320 125ml) 118 ml IV ONCE ONE Stop: 10/07/23 10:54 Last Admin: 10/07/23 10:53 Dose: 118 ml Documented By: BELEN Miscellaneous (Citalopram *10mg* Tabs - Order Awaiting Action) 1 each N/A QS [facility] Stop: 11/06/23 16:59 Last Admin: 10/09/23 03:27 Dose: Not Given Documented By: Admin: 10/08/23 15:50 Dose: Not Given Documented By: Admin: 10/08/23 07:37 Dose: Not Given Documented By: Admin: 10/07/23 23:50 Dose: Not Given Documented By: Admin: 10/07/23 23:49 Dose: Not Given Documented By: GH Miscellaneous (Patient's Height &/Or Weight Needed) 1 each N/A Q15M [facility] Stop: 10/07/23 19:31 Last Admin: 10/07/23 16:50 Dose: Not Given Documented By: CATASTROPHE CLAIMS SUPERVISOR Admin: 10/07/23 16:12 Dose: 1 each Documented By: CATASTROPHE CLAIMS SUPERVISOR Admin: 10/07/23 16:12 Dose: Not Given Documented By: CATASTROPHE CLAIMS SUPERVISOR Potassium Chloride (Potassium Chloride Pwd 20 Meq Pack) 40 meq PO NOW STA Stop: 10/09/23 14:33 Last Admin: 10/09/23 17:05 Dose: 40 meq Documented By: TOMAS Potassium Chloride (Potassium Chloride Crtab 20 Meq Tabcr) 40 meq PO NOW STA Stop: 10/10/23 07:59 Last Admin: 10/10/23 08:19 Dose: 40 meq Documented By: TOMAS Imaging Data Radiologist's Impression: Chest X-Ray 10/07/23 09:18 TWO VIEW CHEST CLINICAL HISTORY: Atypical chest pain. FINDINGS: AP upright and lateral chest radiographs are compared to study dated 12/25/2022 and correlated with chest CT performed the same day . The heart is enlarged. There is prominence of the pulmonary vasculature. There is bibasilar scarring/atelectasis. No airspace consolidation or large pleural effusion is identified. There is no pneumothorax. The skeletal structures are osteopenic. The bony thorax appears intact. IMPRESSION: Cardiomegaly with prominence of the pulmonary vasculature. Correlate clinically for evidence of fluid overload/congestive change. ACT 112: Negative or not required by law. Electronically signed by: Justus Campa M.D. 10/07/2023 11:28 AM Chest CTA 10/07/23 09:46 CT ANGIOGRAM OF THE CHEST CLINICAL HISTORY: Covid. Atypical chest pain. COMPARISON STUDY: Chest x-ray dated 12/25/2022. Abdominal CT dated 04/07/2019. TECHNIQUE: Following the IV administration of 118 cc of Optiray 320, CT angiogram of the chest was performed from the upper abdomen to the thoracic inlet utilizing the pulmonary embolus protocol. Images are reviewed in the axial, sagittal, and coronal planes. 3-D MIPS images are created and assessed. IV contrast was administered without complication. A dose lowering technique was utilized adhering to the principles of ALARA. The examination is severely degraded by motion artifact. CT DOSE: 822.67 mGy.cm FINDINGS: Thyroid: Mildly enlarged and heterogeneous. Thoracic aorta: There is atherosclerotic calcification of the thoracic aorta, which is normal in caliber and demonstrates bovine variant arch anatomy. No dissection is seen. Pulmonary vasculature: The main pulmonary arteries are dilated suggesting pulmonary hypertension. There are no filling defects identified in main or lobar pulmonary branches to indicate central pulmonary embolus. Heart: The heart is mildly enlarged and without pericardial effusion. There are coronary artery calcifications. Lungs and pleural spaces: Evaluation of the lung parenchyma is significantly compromised by motion artifact. Atelectasis is seen at the lung bases. No airspace consolidation or pleural effusion is identified. There are scattered calcified granulomas. The trachea and central airways appear clear. Mediastinum: There is no mediastinal lymphadenopathy. Dori: Clear. Axillae: There is no axillary lymphadenopathy. Upper abdomen: Bilateral adrenal adenomas measuring up to 12 mm. Partially visualized upper abdominal viscera is otherwise grossly unremarkable. Skeletal structures: The skeletal structures are osteopenic. Degenerative change is noted in the shoulders and spine. No lytic or blastic bony lesions are seen. There is chronic deformity of the left clavicle. IMPRESSION: 1. Severely motion degraded examination. 2. There is no evidence of central pulmonary embolus in the main or lobar pulmonary arteries. The segmental and subsegmental branches cannot be assessed. 3. No airspace consolidation or pleural effusion is identified. 4. Additional findings as above. ACT 112: Negative or not required by law. Electronically signed by: Justus Campa M.D. 10/07/2023 11:20 AM Discharge Plan Visit Data Chief Complaint: Flu Like Symptoms Stated Complaint: COVID + ED Provider: Sasha Sánchez Discharge Problem: COVID-19, Acute respiratory failure with hypoxia Patient Disposition: Admitted As Inpatient Discharge Instructions Interventions: ED Discharge Assessment Last Done: 10/07/23 15:31
[2023-10-07] MEDS ORDERED: FUROSEMIDE 40 MG/4 ML VIAL IV ONE (12:42)
--- NOTE | 2023-10-07 12:49 | Electrocardiogram Report ---
Test Reason : Blood Pressure : / mmHG Vent. Rate : 115 BPM Atrial Rate : 115 BPM P-R Int : 144 ms QRS Dur : 092 ms QT Int : 334 ms P-R-T Axes : 053 -52 088 degrees QTc Int : 462 ms Sinus tachycardia Left axis deviation Incomplete right bundle branch block Poor R wave progression, consider anterior [place] vs. lead placement vs. LVH T wave abnormality, consider lateral ischemia Abnormal ECG When compared with ECG of 25-DEC-2022 17:02, Vent. rate has increased BY 46 BPM Confirmed by Cm Ramirez ([id number]) on 10/07/2023 12:49:08 PM Referred By: Confirmed By:Cm Ramirez
--- NOTE | 2023-10-07 13:27 | History & Physical Report ---
Date of Service October 07, 2023 Assessment & Plan (1) Acute respiratory failure with hypoxia: (2) COVID-19: (3) HTN (hypertension): (4) HLD (hyperlipidemia): (5) History of breast cancer: (6) Mild intellectual disability: (7) Ambulatory dysfunction: (8) DM (diabetes mellitus), type 2: Plan This is a 68yo F from [facility] with PMH of mild intellectual disability, hypertension, dyslipidemia, ambulatory dysfunction, history of left breast cancer status post partial mastectomy and other problems listed below who presents with shortness of breath and was found to have hypoxic respiratory failure 2/2 covid. Acute hypoxic respiratory failure Covid 19 Symptomatic since 10/06, covid positive on 10/06 Hypoxic at 85% on room air, improved to 90% on 2L oxymask, continue supplemental O2 and wean as tolerated Given Dexamethasone in ED, plan to continue. Added Remdesivir Xopenex Q6HR, flutter valve, incentive spirometry, antitussives PRN Chest CTA with no evidence of central pulmonary embolus in the main or lobar pulmonary arteries. Atelectasis is seen at the lung bases. No airspace consolidation or pleural effusion is identified. Daily liver panel while on remdesivir Obtaining KUB due to patient's abd discomfort HTN Normotensive. Continue home lisinopril DM II A1c 6.09 Mar 2023 Hold home agents SSI while in-patient BSG AC HS HLD Chronic, stable. Continue statin Mild intellectual disability Resides at the [facility] (contact: Lyn [phone]) A&Ox3 and responds appropriately at baseline, slow to answer DVT Ppx: SQ lovenox Code status: FULL PCP: [place] Dispo: Admit to PCU Patient seen in collaboration with Dr. Waterman. Please see addendum. Contact at the [facility] History of Present Illness Chief Complaint: SOB Primary Care Provider: Liudmila Tyson MD This is a 68yo F from [facility] with PMH of mild intellectual disability, hypertension, dyslipidemia, DM II, ambulatory dysfunction, history of left breast cancer status post partial mastectomy and other problems listed below who presents with shortness of breath.History primarily obtained from [facility] staff member at bedside. Developed cough with productive sputum and chills yesterday and took a COVID test in the evening, which was positive. Progressive SOB overnight and pain with cough so brought into ED for further evaluation. Endorses some general abdominal discomfort, last bowel movement this morning. No F/C, lightheadedness, CP, N/V, dysuria or diarrhea. Allergies Allergy/AdvReac Type Severity Reaction Status Date / Time No Known Allergies Allergy Verified 10/07/23 12:44 Home Medications Medication Instructions Recorded Confirmed Type atorvastatin 40 mg tablet 40 mg PO HS 04/07/19 10/07/23 History citalopram 10 mg tablet (Celexa) 15 mg PO QAM 04/07/19 10/07/23 History lisinopril 10 mg tablet 10 mg PO QAM 04/07/19 10/07/23 History omeprazole 20 mg tablet,delayed 20 mg PO HS 04/07/19 10/07/23 History release risperidone 0.25 mg tablet 0.25 mg PO HS 04/07/19 10/07/23 History aspirin 81 mg tablet,delayed 81 mg PO QAM 12/25/22 10/07/23 History release albuterol sulfate 90 mcg/actuation 2 puff inhalation Q4H PRN 10/07/23 10/07/23 History aerosol inhaler wheezing/dyspnea metformin 500 mg tablet,extended 1,000 mg PO HS 10/07/23 10/07/23 History release 24 hr Past Med/Surg History Medical History DM (diabetes mellitus), type 2 History of breast cancer Mild intellectual disability HLD (hyperlipidemia) HTN (hypertension) Cancer of central portion of left breast (01/30/16) "Abnormal left breast mammogram Status post stereotactic biopsy 01/30/2016 revealing ductal carcinoma grade 2 Estrogen receptor positive, progesterone receptor positive, HER-2/frederic negative Status post needle localization lumpectomy and sentinel lymph node biopsy mar 24 2016 Stage pT1c pN0 positive margin of DCIS Status post reexcision 04/09/2016 negative margins Oncotype DX 7 Status post completion of radiation therapy 06/26/2016 received 5130 cGy utilizing hypo-fractionation" On 05/16/16 11:51 Sylvia Angel wrote "Abnormal left breast mammogram Status post stereotactic biopsy 01/30/2016 revealing ductal carcinoma grade 2 Estrogen receptor positive, progesterone receptor positive, HER-2/frederic negative Status post needle localization lumpectomy and sentinel lymph node biopsy mar 24 2016 Stage pT1c pN0 positive margin of DCIS Status post reexcision 04/09/2016 negative margins Oncotype DX pending" Ambulatory dysfunction Surgical History Hx of tonsillectomy H/O partial mastectomy Family History Other Breast cancer Diabetes Hypertension Social History Smoking Status: Never smoker Preferred Language: Tajik marital status: Single current occupational status: disabled Feels Safe at Home: Yes Review of Systems Review of Systems: At least ten systems reviewed and negative except as noted in the HPI. Physical Exam Physical Exam: Please see Dr. Waterman's addendum for physical exam. Results & Data Results & Data Vital Signs (Past 12 Hours) Vital Signs Temp Pulse Pulse Resp BP BP Pulse Ox 10/07/23 12:37 92 10/07/23 12:37 85 L 10/07/23 11:21 105 H 18 129/79 94 10/07/23 11:17 104 H 10/07/23 09:17 94 10/07/23 09:15 36.8 C 118 H 20 134/69 89 L O2 Del Method O2 Flow Rate 10/07/23 12:37 Nasal Cannula 2 10/07/23 12:37 Room Air 10/07/23 11:21 Nasal Cannula 2 10/07/23 11:17 10/07/23 09:17 Nasal Cannula 3 10/07/23 09:15 Room Air Laboratory Results Short CBC 10/07/23 Range/Units 09:43 WBC 11.11 H (4.8-10.8) K/ul Hgb 13.6 (12.0-16.0) g/dl Hct 40.0 (37.0-47.0) % Plt Count 318 (130-400) K/uL BMP 10/07/23 09:43 Sodium 133 L Potassium 4.1 Chloride 97 L Carbon Dioxide 30 BUN 16 Creatinine 0.65 Glucose 114 H Calcium 9.6 Liver Function 10/07/23 Range/Units 09:43 Total Bilirubin 0.3 (0.2-1.0) mg/dl AST 18 (13-39) U/L ALT 16 (7-52) U/L Alkaline Phosphatase 98 (34-104) U/L Albumin 4.1 (3.4-5.0) gm/dl Diagnostic Findings Chest X-Ray 10/07/23 09:18 TWO VIEW CHEST CLINICAL HISTORY: Atypical chest pain. FINDINGS: AP upright and lateral chest radiographs are compared to study dated 12/25/2022 and correlated with chest CT performed the same day . The heart is enlarged. There is prominence of the pulmonary vasculature. There is bibasilar scarring/atelectasis. No airspace consolidation or large pleural effusion is identified. There is no pneumothorax. The skeletal structures are osteopenic. The bony thorax appears intact. IMPRESSION: Cardiomegaly with prominence of the pulmonary vasculature. Correlate clinically for evidence of fluid overload/congestive change. ACT 112: Negative or not required by law. Electronically signed by: Justus Campa M.D. 10/07/2023 11:28 AM Chest CTA 10/07/23 09:46 CT ANGIOGRAM OF THE CHEST CLINICAL HISTORY: Covid. Atypical chest pain. COMPARISON STUDY: Chest x-ray dated 12/25/2022. Abdominal CT dated 04/07/2019. TECHNIQUE: Following the IV administration of 118 cc of Optiray 320, CT angiogram of the chest was performed from the upper abdomen to the thoracic inlet utilizing the pulmonary embolus protocol. Images are reviewed in the axial, sagittal, and coronal planes. 3-D MIPS images are created and assessed. IV contrast was administered without complication. A dose lowering technique was utilized adhering to the principles of ALARA. The examination is severely degraded by motion artifact. CT DOSE: 822.67 mGy.cm FINDINGS: Thyroid: Mildly enlarged and heterogeneous. Thoracic aorta: There is atherosclerotic calcification of the thoracic aorta, which is normal in caliber and demonstrates bovine variant arch anatomy. No dissection is seen. Pulmonary vasculature: The main pulmonary arteries are dilated suggesting pulmonary hypertension. There are no filling defects identified in main or lobar pulmonary branches to indicate central pulmonary embolus. Heart: The heart is mildly enlarged and without pericardial effusion. There are coronary artery calcifications. Lungs and pleural spaces: Evaluation of the lung parenchyma is significantly compromised by motion artifact. Atelectasis is seen at the lung bases. No airspace consolidation or pleural effusion is identified. There are scattered calcified granulomas. The trachea and central airways appear clear. Mediastinum: There is no mediastinal lymphadenopathy. Dori: Clear. Axillae: There is no axillary lymphadenopathy. Upper abdomen: Bilateral adrenal adenomas measuring up to 12 mm. Partially visualized upper abdominal viscera is otherwise grossly unremarkable. Skeletal structures: The skeletal structures are osteopenic. Degenerative change is noted in the shoulders and spine. No lytic or blastic bony lesions are seen. There is chronic deformity of the left clavicle. IMPRESSION: 1. Severely motion degraded examination. 2. There is no evidence of central pulmonary embolus in the main or lobar pulmonary arteries. The segmental and subsegmental branches cannot be assessed. 3. No airspace consolidation or pleural effusion is identified. 4. Additional findings as above. ACT 112: Negative or not required by law. Electronically signed by: Justus Campa M.D. 10/07/2023 11:20 AM Supervising Physician Co-Signing Physician Notes Patient is a 68-year-old female with history of mild intellectual disability, breast cancer, diabetes mellitus, ambulatory dysfunction and other medical problems presents with history of cough with expectoration, shortness of breath, chest congestion and some pain associated with cough since 1 day duration. She also complained of some abdominal discomfort, last bowel movement this morning. Staff noticed minimal change in mental status this morning which currently resolved and thought to be back to her baseline while in ED. poor appetite lately. Please review HPI for complete details of presentation. No suggestive leukocytosis 11.1, sodium 133, chloride 97, glucose 115, otherwise within normal limits. CRP, procalcitonin pending. Serology positive for COVID, negative for influenza and RSV. CTA showed no signs of PE, pneumonia. Showed findings suggestive of atelectasis. EKG showed sinus tachycardia, left axis deviation, incomplete right bundle branch block poor R wave progression (unchanged from prior), QTc 462.(Increased from prior). Physical Exam: Vitals signs as noted above General Appearance:Obese, no apparent distress Head: normocephalic, Atraumatic Eyes: normal inspection, EOMI, + left eye strabismus Neck: supple, Trachea midline Respiratory/Chest: Decreased breath sounds, CTA, No accessory muscle use Cardiovascular: S1, S2, No murmur, +Tachycardia Abdomen/GI:Soft, mild hypogastric tender, Bowel sounds present Extremities/Musculoskeletal:normal inspection, Trace pedal edema Neurologic/Psych:AAOX2, grossly no focal neurological deficits Skin: normal color, warm Acute respiratory failure with hypoxia COVID 19 Infection COVID Screen:Positive CTA: no PE, Pneumonia Procalcitonin, CRP pending Normal Troponin Blood Cultures obtained Started on Remdesivir, Dexamethasone Isolation precautions--Airborne/Contact Encourage frequent Proning Lasix as needed Nebs PRN Continue Supplemental Oxygen as needed DVT prophylaxis--Lovenox SQ Monitor LFTs, renal function while on Remdesivir Empirically on Doxy Acute metabolic encephalopathy Likely secondary to above/hypoxia Mental status back to baseline currently Consider imaging studies if needed Delirium precautions Abdominal discomfort Check KUB Mild hyponatremia Likely due to poor oral intake Encourage increased oral intake Monitor sodium levels I personally reviewed the record. Patient is interviewed and examined at bedside. Patient's care is coordinated with April Anthony PA-C. Please refer to the documentation above for details of patient's presentation and for discussion of other issues.
[2023-10-07] MEDS ORDERED: REMDESIVIR 200 MG in SODIUM CHLORIDE 0.9% 210 ML IV STA (14:11)
[2023-10-07 15:16] LABS: C Reactive Protein 3.31 mg/dl (0-0.5)
[2023-10-07] MEDS ORDERED: POLYETHYLENE (MIRALAX) 17 GM PACK PO PRN (15:30)
[2023-10-07] MEDS ORDERED: CARBOHYDRATES FOR HYPOGLYCEMIA PO PRN (15:30)
[2023-10-07] MEDS ORDERED: ACETAMINOPHEN 325 MG TAB PO PRN (15:30)
[2023-10-07] MEDS ORDERED: DEXTROSE 50% 50 ML SYRINGE IV PRN (15:30)
[2023-10-07] MEDS ORDERED: ALBUTEROL HFA 8 GM INHALER INH PRN (15:30)
[2023-10-07] MEDS ORDERED: GLUCAGON FOR INJ 1 MG VIAL SQ PRN (15:30)
[2023-10-07] MEDS ORDERED: GLUCOSE 10 TAB/TUBE PO PRN (15:30)
[2023-10-07] MEDS ORDERED: ONDANSETRON INJ 2 MG/ML 2 ML VIAL IV PRN (15:30)
[2023-10-07] MEDS ORDERED: GLUCOSE 40% GEL 15 GM TUBE PO PRN (15:30)
[2023-10-07] MEDS: Patient's HEIGHT &/or WEIGHT Needed SCH ×3 (16:12→16:50)
--- NOTE | 2023-10-07 16:47 | XRay Report ---
KUB CLINICAL HISTORY: Generalized abdominal pain. FINDINGS: 2 AP, portable, supine abdominal radiographs are compared to study dated 12/25/2022. There i s a nonobstructed abdominal bowel gas pattern. No evidence of intraperitoneal free air is seen on the se supine images. The hepatic silhouette appears enlarged. The bladder is filled with excreted IV con trast. No abnormal abdominal calcifications are identified. The skeletal structures are osteopenic an d appear intact. There is moderate lumbosacral spondylosis. IMPRESSION: No acute abnormality is identified. Electronically signed by: Justus Campa M.D. 10/07/2023 4:45 PM
[2023-10-07] MEDS: ENOXAPARIN INJ 40 MG/0.4 ML SYR SQ SCH (19:54)
[2023-10-07] MEDS: INSULIN ASPART PER UNIT CHARGE SC SCH ×2 (19:54→21:45)
[2023-10-07] MEDS: LEVALBUTEROL HCL 0.63 MG/3 ML NEB NEB SCH (20:53)
[2023-10-07] MEDS: risperiDONE 0.5 MG TABLET PO SCH (23:36)
[2023-10-07] MEDS: DOXYCYCLINE HYCLATE 100 MG CAP PO SCH (23:36)
[2023-10-07] MEDS: PANTOprazole 40 MG TAB PO SCH (23:36)
[2023-10-07] MEDS: ATORVASTATIN 40 MG TAB PO SCH (23:36)
[2023-10-08] MEDS: LEVALBUTEROL HCL 0.63 MG/3 ML NEB NEB SCH ×5 (00:55→23:29)
[2023-10-08] MEDS: dexAMETHasone 6 MG in SYRINGE 0 ML IV SCH (07:36)
[2023-10-08] MEDS: lisinopril 10 MG TAB PO SCH (07:36)
[2023-10-08] MEDS: ASPIRIN 81 MG ECTAB PO SCH (07:37)
[2023-10-08] MEDS: DOXYCYCLINE HYCLATE 100 MG CAP PO SCH ×2 (07:37→20:32)
[2023-10-08] MEDS: INSULIN ASPART PER UNIT CHARGE SC SCH ×4 (08:05→20:30)
[2023-10-08 08:35] LABS: Hemoglobin 14.1 g/dl (12.0-16.0); Mean Corpuscular Hemoglobin 30.9 pg (25.0-34.0); Mean Corpuscular Hgb Conc 33.6 g/dL (32.0-36.0); Mean Corpuscular Volume 92.1 fL (80.0-100.0); Platelet Count 317 K/uL (130-400); RDW Standard Deviation 47.2 fL (36.4-46.3); Red Blood Count 4.56 M/uL (4.20-5.40); White Blood Count 7.43 K/ul (4.8-10.8)
[2023-10-08 08:46] LABS: Albumin Level 4.1 gm/dl (3.4-5.0); BUN Creatinine Ratio 32.4 (10-20); Bilirubin Direct 0.1 mg/dl (0-0.2); Bilirubin,Total 0.4 mg/dl (0.2-1.0); Calcium 9.3 mg/dl (8.6-10.3); Creatinine Clr Calc Pharmacy 81.3 ml/min; Est GFR (African American) 104.9 ml/min; Est GFR (Non-African American) 90.5 ml/min; Magnesium 2.2 mg/dl (1.7-2.4); Potassium 3.5 mmol/L (3.5-5.1); Total Protein 7.1 gm/dl (6.0-8.3)
[2023-10-08] MEDS ORDERED: DEXAMETHASONE SOD INJ 4 MG/ML VIAL IV SCH (09:00)
[2023-10-08 09:05] LABS: Estimated Average Glucose 128 mg/dl; Hemoglobin A1C 6.1 % (4.5-5.6)
[2023-10-08] MEDS: REMDESIVIR 100 MG in SODIUM CHLORIDE 0.9% 230 ML IV SCH (11:39)
--- NOTE | 2023-10-08 13:23 | Hospitalist Progress Note ---
Date of Service October 08, 2023 Assessment & Plan (1) Acute respiratory failure with hypoxia: (2) COVID-19: (3) HTN (hypertension): (4) HLD (hyperlipidemia): (5) History of breast cancer: (6) Mild intellectual disability: (7) Ambulatory dysfunction: (8) DM (diabetes mellitus), type 2: Plan 68yo F from [facility] longterm with PMH of mild intellectual disability, hypertension, dyslipidemia, ambulatory dysfunction, history of left breast cancer status post partial mastectomy and other problems listed below who presents with shortness of breath and was found to have hypoxic respiratory failure 2/2 covid. She is being managed for the following: Acute hypoxic respiratory failure Covid 19 Symptomatic since 10/06, covid positive on 10/06 Hypoxic at 85% on room air at presentation, improved to 90% on 2L oxymask, continue supplemental O2 and wean as tolerated Chest imagings reviewed, no PE, no consolidation. Currently requiring 5L, wean down as analilia. C/w IS and flutter valve. c/w dexa and remdesivir; c/w nebs renan and prn; c/w antitussive. Daily liver panel while on remdesivir Pt started on doxy 10/07, will complete 5 days course. HTN : Normotensive. Continue home lisinopril DM II A1c 6.09 Mar 2023 Hold home agents SSI while in-patient BSG AC HS HLD: Chronic, stable. Continue statin Mild intellectual disability Resides at the [facility] (contact: Lyn [phone]) A&Ox3 and responds appropriately at baseline, slow to answer DVT Ppx: SQ lovenox Code status: FULL PCP: [place] Dispo: Admit to PCU Admission and Anticipated Discharge Date Admission Date: October 07, 2023 Subjective Patient was seen and examined at bedside. Patient was lying in bed, on 5 L oxygen via nasal cannula, resting comfortably, not in any acute distress. Patient reports cough about the same, denies any sputum, reports eating okay, denies any discomfort or chest pain or abdominal pain. Per RN, no diarrhea or acute events overnight. Patient eating okay. Physical Exam Physical Exam: General Appearance:Obese, no apparent distress Head: normocephalic, Atraumatic Eyes: normal inspection, EOMI, + left eye strabismus Neck: supple, Trachea midline Respiratory/Chest: Decreased breath sounds, CTA, No accessory muscle use Cardiovascular: S1, S2, No murmur, no rubs Abdomen/GI:Soft, mild hypogastric tender, Bowel sounds present Extremities/Musculoskeletal:normal inspection, Trace pedal edema Neurologic/Psych:AAOX2, grossly no focal neurological deficits Skin: normal color, warm Results & Data Results & Data Vital Signs (Past 12 Hours) Vital Signs Temp Pulse Pulse Resp BP Pulse Ox O2 Del Method 10/08/23 13:06 67 18 93 Nasal Cannula 10/08/23 11:24 36.3 C L 68 18 120/71 91 High Flow Nasal Cannula 10/08/23 08:00 58 L 10/08/23 08:00 High Flow Nasal Cannula 10/08/23 07:51 36.4 C L 67 18 119/57 L 92 High Flow Nasal Cannula 10/08/23 06:56 77 18 94 Oxymask 10/08/23 04:34 36.6 C 65 18 132/76 94 Oxymask 10/08/23 02:05 92 Oxymask O2 Flow Rate 10/08/23 13:06 5 10/08/23 11:24 3 10/08/23 08:00 10/08/23 08:00 4 10/08/23 07:51 3 10/08/23 06:56 4 10/08/23 04:34 5 10/08/23 02:05 5
--- NOTE | 2023-10-08 13:48 | Electrocardiogram Report ---
Test Reason : Blood Pressure : / mmHG Vent. Rate : 067 BPM Atrial Rate : 067 BPM P-R Int : 156 ms QRS Dur : 102 ms QT Int : 478 ms P-R-T Axes : 053 -18 110 degrees QTc Int : 505 ms Sinus rhythm with marked sinus arrhythmia Incomplete right bundle branch block T wave abnormality, consider lateral ischemia Prolonged QT Abnormal ECG When compared with ECG of 07-OCT-2023 09:32, Vent. rate has decreased BY 48 BPM Inverted T waves have replaced nonspecific T wave abnormality in Anterior leads Confirmed by Cm Ramirez ([id number]) on 10/08/2023 1:48:23 PM Referred By: REFERRED SELF Confirmed By:Cm Ramirez
[2023-10-08] MEDS: ENOXAPARIN INJ 40 MG/0.4 ML SYR SQ SCH (17:16)
[2023-10-08] MEDS: CITALOPRAM 10 MG TAB PO SCH (18:12)
[2023-10-08] MEDS: risperiDONE 0.5 MG TABLET PO SCH (20:32)
[2023-10-08] MEDS: ATORVASTATIN 40 MG TAB PO SCH (20:32)
[2023-10-08] MEDS: PANTOprazole 40 MG TAB PO SCH (20:32)
[2023-10-09] MEDS: LEVALBUTEROL HCL 0.63 MG/3 ML NEB NEB SCH ×4 (07:25→23:59)
[2023-10-09] MEDS: INSULIN ASPART PER UNIT CHARGE SC SCH ×4 (08:12→20:05)
[2023-10-09] MEDS: CITALOPRAM 10 MG TAB PO SCH (08:45)
[2023-10-09 09:15] LABS: Hematocrit (blood only) 42.8 % (37.0-47.0); Mean Corpuscular Hemoglobin 30.4 pg (25.0-34.0); Mean Corpuscular Hgb Conc 32.7 g/dL (32.0-36.0); Mean Corpuscular Volume 92.8 fL (80.0-100.0); Mean Platelet Volume 9.9 fL (9.4-12.4); Platelet Count 319 K/uL (130-400); RDW Coefficient of Variation 14.1 % (11.5-14.5); RDW Standard Deviation 47.8 fL (36.4-46.3); Red Blood Count 4.61 M/uL (4.20-5.40); White Blood Count 8.87 K/ul (4.8-10.8)
[2023-10-09] MEDS: lisinopril 10 MG TAB PO SCH (09:29)
[2023-10-09] MEDS: dexAMETHasone 6 MG in SYRINGE 0 ML IV SCH (09:29)
[2023-10-09] MEDS: DOXYCYCLINE HYCLATE 100 MG CAP PO SCH ×2 (09:30→20:09)
[2023-10-09] MEDS: ASPIRIN 81 MG ECTAB PO SCH (09:30)
[2023-10-09 09:44] LABS: BUN Creatinine Ratio 39.1 (10-20); Calcium 8.9 mg/dl (8.6-10.3); Creatinine Clr Calc Pharmacy 80.7 ml/min; Est GFR (African American) 104.4 ml/min; Est GFR (Non-African American) 90.1 ml/min; Potassium 3.4 mmol/L (3.5-5.1)
[2023-10-09] MEDS: REMDESIVIR 100 MG in SODIUM CHLORIDE 0.9% 230 ML IV SCH (13:13)
[2023-10-09] MEDS ORDERED: POTASSIUM CHLORIDE PWD 20 MEQ PACK PO STA (14:32)
--- NOTE | 2023-10-09 14:32 | Hospitalist Progress Note ---
Date of Service October 09, 2023 Assessment & Plan (1) Acute respiratory failure with hypoxia: (2) COVID-19: (3) HTN (hypertension): (4) HLD (hyperlipidemia): (5) History of breast cancer: (6) Mild intellectual disability: (7) Ambulatory dysfunction: (8) DM (diabetes mellitus), type 2: Plan Ms. Bentley is a 68yo F from [facility] long-term with PMH of mild intellectual disability, hypertension, dyslipidemia, ambulatory dysfunction, history of left breast cancer status post partial mastectomy and other problems listed below who presents with shortness of breath and was found to have hypoxic respiratory failure 2/2 covid and admitted on 10/07 for m anagement. She is being managed for the following: #Acute hypoxic respiratory failure 2/2 COVID pneumonia Symptomatic since 10/06, covid positive on 10/06 Hypoxic to low-mid 80s on admission CTA negative for PE Currently requiring 5L, wean O2 as able Encourage IS and flutter valve. Continue dexamethaone for 10 days for hypoxia 2/2 covid Continue 5 days of remdesivir; c/w nebs renan and prn; c/w antitussive. Daily liver panel while on remdesivir Continue doxy 10/07, EOT 10/12 #HTN : Normotensive. Continue home lisinopril #DM II A1c 6.09 Mar 2023 Hold home agents SSI while in-patient BSG AC HS #HLD: Chronic, stable. Continue statin #Mild intellectual disability Resides at the [facility] (contact: Lyn [phone]) A&Ox3 and responds appropriately at baseline, slow to answer DVT Ppx: SQ lovenox Code status: FULL PCP: [place] Dispo: Admit to PCU Admission and Anticipated Discharge Date Admission Date: October 07, 2023 Subjective NAEO Reports feeling mildly improved Endorses cough with deep inhalation but denies any other acute concerns Review of Systems Review of Systems: All systems reviewed & are unremarkable except as noted in Subjective Physical Exam Constitutional: WD/WN, vitals as above Respiratory: decreased airway movement, limited secondary to cough, no wheezing or crackles appreciated Cardiovascular: RRR, no murmur, no edema Results & Data Results & Data Vital Signs (Past 12 Hours) Vital Signs Temp Pulse Pulse Resp BP Pulse Ox O2 Del Method 10/09/23 13:29 62 18 94 Oxymask 10/09/23 11:45 36.9 C 71 21 137/69 94 High Flow Nasal Cannula 10/09/23 08:00 Oxymask 10/09/23 07:25 57 L 18 97 Oxymask 10/09/23 07:14 57 L 10/09/23 06:48 36.8 C 81 18 155/70 H 93 Oxymask 10/09/23 03:15 36.7 C 57 L 22 91/57 L 96 Oxymask O2 Flow Rate 10/09/23 13:29 5 10/09/23 11:45 6 10/09/23 08:00 6 10/09/23 07:25 6 10/09/23 07:14 10/09/23 06:48 6 10/09/23 03:15 8 Laboratory Results Short CBC 10/09/23 Range/Units 08:41 WBC 8.87 (4.8-10.8) K/ul Hgb 14.0 (12.0-16.0) g/dl Hct 42.8 (37.0-47.0) % Plt Count 319 (130-400) K/uL BMP 10/09/23 08:41 Sodium 137 Potassium 3.4 L Chloride 99 Carbon Dioxide 30 BUN 27 H Creatinine 0.69 Glucose 150 H Calcium 8.9 Medications Administered Home Medications Medication Instructions Recorded Confirmed Last Taken atorvastatin 40 mg tablet 40 mg PO 04/07/19 10/07/23 12/24/22 citalopram 10 mg tablet (Celexa) 15 mg PO [facility] 04/07/19 10/07/23 12/25/22 lisinopril 10 mg tablet 10 mg PO QA 04/07/19 10/07/23 12/25/22 omeprazole 20 mg tablet,delayed 20 mg PO 04/07/19 10/07/23 12/24/22 release risperidone 0.25 mg tablet 0.25 mg PO 04/07/19 10/07/23 12/24/22 aspirin 81 mg tablet,delayed 81 mg PO QA 12/25/22 10/07/23 12/25/22 release albuterol sulfate 90 mcg/actuation 2 puff inhalation Q4H PRN 10/07/23 10/07/23 Unknown aerosol inhaler wheezing/dyspnea metformin 500 mg tablet,extended 1,000 mg PO HS 10/07/23 10/07/23 Unknown release 24 hr Active Medications Generic Name Dose Route Start Last Admin Trade Name Naomy PRN Reason Stop Dose Admin Aspirin 81 mg 10/08/23 09:00 10/09/23 09:30 Aspirin 81 Mg Ectab PO 11/07/23 08:59 81 mg QAM RENAN Administration Atorvastatin Calcium 40 mg 10/07/23 21:00 10/08/23 20:32 Atorvastatin 40 Mg Tab PO 11/06/23 20:59 40 mg HS RENAN Administration Citalopram Hydrobromide 1.5 each 10/08/23 17:45 10/09/23 08:45 Citalopram 10 Mg Tab PO 11/07/23 17:44 1.5 each QAM RENAN Administration Doxycycline Hyclate 100 mg 10/07/23 21:00 10/09/23 09:30 Doxycycline Hyclate 100 Mg Cap PO 10/14/23 20:59 100 mg BID RENAN Administration Enoxaparin Sodium 40 mg 10/07/23 15:30 10/08/23 17:16 Enoxaparin Inj 40 Mg/0.4 Ml Syr SQ 11/06/23 15:29 40 mg Q24H RENAN Administration Remdesivir 100 mg/ Sodium 250 mls @ 250 mls/hr 10/08/23 12:00 10/09/23 13:13 Chloride IV 10/11/23 12:59 250 mls/hr Q24H RENAN Administration Dexamethasone 6 mg/ Syringe 1.5 mls @ 1 mls/min 10/08/23 09:00 10/09/23 09:29 IV 11/07/23 08:59 1 mls/min DAILY RENAN Administration Insulin Aspart 0 units 10/07/23 16:30 10/09/23 12:04 Insulin Aspart Per Unit Charge SC 11/06/23 16:29 3 units ACHS RENAN Administration Levalbuterol HCl 0.63 mg 10/07/23 19:00 10/09/23 13:28 Levalbuterol Hcl 0.63 Mg/3 Ml Neb NEB 11/06/23 18:59 0.63 mg Q6R RENAN Administration Protocol Lisinopril 10 mg 10/08/23 09:00 10/09/23 09:29 Lisinopril 10 Mg Tab PO 11/07/23 08:59 10 mg QAM RENAN Administration Pantoprazole Sodium 40 mg 10/07/23 21:00 10/08/23 20:32 Pantoprazole 40 Mg Tab PO 11/06/23 20:59 40 mg HS RENAN Administration Risperidone 0.25 mg 10/07/23 21:00 10/08/23 20:32 Risperidone 0.5 Mg Tablet PO 11/06/23 20:59 0.25 mg HS RENAN Administration
[2023-10-09] MEDS: guaiFENesin/DEXTROM SYRUP 100MG/10MG 5ML UDC PO PRN (15:21)
[2023-10-09] MEDS: ENOXAPARIN INJ 40 MG/0.4 ML SYR SQ SCH (15:21)
[2023-10-09] MEDS: PANTOprazole 40 MG TAB PO SCH (20:08)
[2023-10-09] MEDS: risperiDONE 0.5 MG TABLET PO SCH (20:08)
[2023-10-09] MEDS: ATORVASTATIN 40 MG TAB PO SCH (20:09)
[2023-10-10] MEDS: LEVALBUTEROL HCL 0.63 MG/3 ML NEB NEB SCH ×3 (07:27→19:23)
[2023-10-10] MEDS ORDERED: POTASSIUM CHLORIDE CRTAB 20 MEQ TABCR PO STA (07:58)
[2023-10-10] MEDS: guaiFENesin/DEXTROM SYRUP 100MG/10MG 5ML UDC PO PRN (08:15)
[2023-10-10] MEDS: CITALOPRAM 10 MG TAB PO SCH (08:15)
[2023-10-10] MEDS: DOXYCYCLINE HYCLATE 100 MG CAP PO SCH ×2 (08:15→20:46)
[2023-10-10] MEDS: ASPIRIN 81 MG ECTAB PO SCH (08:15)
[2023-10-10] MEDS: dexAMETHasone 6 MG in SYRINGE 0 ML IV SCH (08:16)
[2023-10-10] MEDS: lisinopril 10 MG TAB PO SCH (08:16)
[2023-10-10] MEDS: INSULIN ASPART PER UNIT CHARGE SC SCH ×4 (08:28→20:39)
[2023-10-10 08:43] LABS: Hematocrit (blood only) 40.5 % (37.0-47.0); Hemoglobin 13.4 g/dl (12.0-16.0); Mean Corpuscular Hemoglobin 30.4 pg (25.0-34.0); Mean Corpuscular Hgb Conc 33.1 g/dL (32.0-36.0); Mean Corpuscular Volume 91.8 fL (80.0-100.0); Mean Platelet Volume 10.2 fL (9.4-12.4); Platelet Count 303 K/uL (130-400); RDW Standard Deviation 47.6 fL (36.4-46.3); Red Blood Count 4.41 M/uL (4.20-5.40); White Blood Count 9.02 K/ul (4.8-10.8)
[2023-10-10 08:56] LABS: Albumin Globulin Ratio 1.3 (0.9-2); Albumin Level 3.5 gm/dl (3.4-5.0); BUN Creatinine Ratio 39.6 (10-20); Bilirubin,Total 0.4 mg/dl (0.2-1.0); Calcium 8.6 mg/dl (8.6-10.3); Est GFR (African American) 113.9 ml/min; Est GFR (Non-African American) 98.2 ml/min; Globulin 2.7 gm/dl (2.5-4.0); Magnesium 2.3 mg/dl (1.7-2.4); Phosphorus 3.1 mg/dl (2.5-4.9); Potassium 4.2 mmol/L (3.5-5.1); Total Protein 6.2 gm/dl (6.0-8.3)
[2023-10-10] MEDS: REMDESIVIR 100 MG in SODIUM CHLORIDE 0.9% 230 ML IV SCH (11:50)
--- NOTE | 2023-10-10 13:54 | Hospitalist Progress Note ---
Date of Service October 10, 2023 Assessment & Plan (1) Acute respiratory failure with hypoxia: (2) COVID-19: (3) HTN (hypertension): (4) HLD (hyperlipidemia): (5) History of breast cancer: (6) Mild intellectual disability: (7) Ambulatory dysfunction: (8) DM (diabetes mellitus), type 2: Plan Ms. Bentley is a 68yo F from [facility] senior [facility] with PMH of mild intellectual disability, hypertension, dyslipidemia, ambulatory dysfunction, history of left breast cancer status post partial mastectomy and other problems listed below who presents with shortness of breath and was found to have hypoxic respiratory failure 2/2 covid and admitted on 10/07 for m anagement. She is being managed for the following: #Acute hypoxic respiratory failure 2/2 COVID pneumonia Symptomatic since 10/06, covid positive on 10/06 Hypoxic to low-mid 80s on admission CTA negative for PE Currently requiring 4L, wean O2 as able for O2 sat >92% Encourage IS and flutter valve. Continue dexamethaone for 10 days for hypoxia 2/2 covid Continue 5 days of remdesivir; c/w nebs renan and prn; c/w antitussive. Daily liver panel while on remdesivir Continue doxy 10/07, EOT 10/12 #HTN : Normotensive. Continue home lisinopril #DM II A1c 6.09 Mar 2023 Hold home agents SSI while in-patient BSG AC HS #HLD: Chronic, stable. Continue statin #Mild intellectual disability Resides at the [facility] (contact: Lyn [phone]) A&Ox3 and responds appropriately at baseline, slow to answer DVT Ppx: SQ lovenox Code status: FULL PCP: [place] Dispo: Admit to PCU Admission and Anticipated Discharge Date Admission Date: October 07, 2023 Subjective Reports feeling somewhat improved, still with cough and SOB on exertion, but otherwise reports being comfortable Denies any acute concerns this am Review of Systems Review of Systems: All systems reviewed & are unremarkable except as noted in Subjective Physical Exam Constitutional: WD/WN, vitals as above Respiratory: normal respiratory effort, lungs clear to auscultation (cough present, dry with deep inhalation, 5L oxymask on exam ) Cardiovascular: RRR, no murmur, no edema Results & Data Results & Data Vital Signs (Past 12 Hours) Vital Signs Temp Pulse Pulse Resp BP Pulse Ox O2 Del Method 10/10/23 11:19 36.6 C 59 L 20 152/84 H 95 Oxymask 10/10/23 08:00 Oxymask 10/10/23 07:28 60 18 96 Oxymask 10/10/23 07:27 36.5 C 61 19 142/76 H 96 Oxymask 10/10/23 07:02 60 10/10/23 03:29 36.6 C 57 L 18 159/82 H 97 Oxymask O2 Flow Rate FiO2 10/10/23 11:19 4.0 10/10/23 08:00 4 10/10/23 07:28 5 10/10/23 07:27 5.0 10/10/23 07:02 10/10/23 03:29 6
[2023-10-10] MEDS: ENOXAPARIN INJ 40 MG/0.4 ML SYR SQ SCH (15:20)
[2023-10-10] MEDS: PANTOprazole 40 MG TAB PO SCH (20:45)
[2023-10-10] MEDS: risperiDONE 0.5 MG TABLET PO SCH (20:45)
[2023-10-10] MEDS: ATORVASTATIN 40 MG TAB PO SCH (20:47)
[2023-10-11] MEDS: LEVALBUTEROL HCL 0.63 MG/3 ML NEB NEB SCH ×4 (00:24→19:36)
[2023-10-11] MEDS ORDERED: FUROSEMIDE INJ 20 MG/2 ML VIAL IV ONE (07:23)
[2023-10-11 07:25] LABS: Hematocrit (blood only) 40.5 % (37.0-47.0); Hemoglobin 13.5 g/dl (12.0-16.0); Mean Corpuscular Hemoglobin 30.9 pg (25.0-34.0); Mean Corpuscular Hgb Conc 33.3 g/dL (32.0-36.0); Mean Corpuscular Volume 92.7 fL (80.0-100.0); Mean Platelet Volume 9.9 fL (9.4-12.4); Platelet Count 325 K/uL (130-400); RDW Coefficient of Variation 13.9 % (11.5-14.5); RDW Standard Deviation 47.9 fL (36.4-46.3); Red Blood Count 4.37 M/uL (4.20-5.40); White Blood Count 10.22 K/ul (4.8-10.8)
[2023-10-11 07:40] LABS: Albumin Globulin Ratio 1.3 (0.9-2); Albumin Level 3.6 gm/dl (3.4-5.0); BUN Creatinine Ratio 38.7 (10-20); Bilirubin Direct 0.1 mg/dl (0-0.2); Bilirubin,Total 0.5 mg/dl (0.2-1.0); Calcium 8.8 mg/dl (8.6-10.3); Creatinine Clr Calc Pharmacy 88.9 ml/min; Est GFR (African American) 108.1 ml/min; Est GFR (Non-African American) 93.3 ml/min; Globulin 2.7 gm/dl (2.5-4.0); Potassium 4.2 mmol/L (3.5-5.1); Total Protein 6.3 gm/dl (6.0-8.3)
[2023-10-11] MEDS: dexAMETHasone 6 MG in SYRINGE 0 ML IV SCH (08:11)
[2023-10-11] MEDS: ASPIRIN 81 MG ECTAB PO SCH (08:13)
[2023-10-11] MEDS: DOXYCYCLINE HYCLATE 100 MG CAP PO SCH ×2 (08:13→20:33)
[2023-10-11] MEDS: lisinopril 10 MG TAB PO SCH (08:14)
[2023-10-11] MEDS: CITALOPRAM 10 MG TAB PO SCH (08:17)
[2023-10-11] MEDS: INSULIN ASPART PER UNIT CHARGE SC SCH ×4 (08:40→20:24)
[2023-10-11] MEDS: REMDESIVIR 100 MG in SODIUM CHLORIDE 0.9% 230 ML IV SCH (12:02)
--- NOTE | 2023-10-11 12:16 | Hospitalist Progress Note ---
Date of Service October 11, 2023 Assessment & Plan (1) Acute respiratory failure with hypoxia: (2) COVID-19: (3) HTN (hypertension): (4) HLD (hyperlipidemia): (5) History of breast cancer: (6) Mild intellectual disability: (7) Ambulatory dysfunction: (8) DM (diabetes mellitus), type 2: Plan Ms. Bentley is a 68yo F from [facility] senior living with PMH of mild intellectual disability, hypertension, dyslipidemia, ambulatory dysfunction, history of left breast cancer status post partial mastectomy and other problems listed below who presents with shortness of breath and was found to have hypoxic respiratory failure 2/2 covid and admitted on 10/07 for m anagement. She is being managed for the following: #Acute hypoxic respiratory failure 2/2 COVID pneumonia *improving Symptomatic since 10/06, covid positive on 10/06 Hypoxic to low-mid 80s on admission CTA negative for PE Currently requiring 4L, wean O2 as able for O2 sat >92% Encourage IS and flutter valve. Continue dexamethaone for 10 days for hypoxia 2/2 covid Continue 5 days of remdesivir; c/w nebs renan and prn; c/w antitussive. Daily liver panel while on remdesivir Continue doxy 10/07, EOT 10/12 2 Step for Home O2 ECHO given vascular congestion on CXR (no crackles or peripheral edema) s/p IV lasix given signs of vascular congestion #HTN : Normotensive. Continue home lisinopril #DM II A1c 6.09 Mar 2023 Hold home agents SSI while in-patient BSG AC HS #HLD: Chronic, stable. Continue statin #Mild intellectual disability Resides at the [facility] (contact: Lyn [phone]) A&Ox3 and responds appropriately at baseline, slow to answer DVT Ppx: SQ lovenox Code status: FULL PCP: [place] Dispo:likely discharge tomorrow Admission and Anticipated Discharge Date Admission Date: October 07, 2023 Subjective Denies any new symptoms this morning, really eager to get back to her senior living Notes cough is improving and able to move around better Review of Systems Review of Systems: All systems reviewed & are unremarkable except as noted in Subjective Physical Exam Constitutional: WD/WN, vitals as above Respiratory: normal respiratory effort, lungs clear to auscultation Cardiovascular: RRR, no murmur, no edema Results & Data Results & Data Vital Signs (Past 12 Hours) Vital Signs Temp Pulse Pulse Resp BP Pulse Ox O2 Del Method 10/11/23 12:08 78 18 91 Nasal Cannula 10/11/23 11:33 89 L Nasal Cannula 10/11/23 11:17 91 Nasal Cannula 10/11/23 11:00 89 L Nasal Cannula 10/11/23 10:22 36.2 C L 71 19 132/82 93 Nasal Cannula 10/11/23 09:20 51 L 10/11/23 08:06 36.5 C 65 17 127/62 93 Nasal Cannula 10/11/23 07:15 57 L 18 97 Nasal Cannula 10/11/23 03:41 36.5 C 61 14 169/61 H 96 Nasal Cannula 10/11/23 00:25 65 18 96 Nasal Cannula O2 Flow Rate 10/11/23 12:08 3 10/11/23 11:33 2 10/11/23 11:17 3 10/11/23 11:00 2 10/11/23 10:22 4.0 10/11/23 09:20 10/11/23 08:06 4.0 10/11/23 07:15 4 10/11/23 03:41 4 10/11/23 00:25 4 Laboratory Results Home Medications Medication Instructions Recorded Confirmed Last Taken atorvastatin 40 mg tablet 40 mg PO 04/07/19 10/07/23 12/24/22 citalopram 10 mg tablet (Celexa) 15 mg PO [facility] 04/07/19 10/07/23 12/25/22 lisinopril 10 mg tablet 10 mg PO [facility] 04/07/19 10/07/23 12/25/22 omeprazole 20 mg tablet,delayed 20 mg PO 04/07/19 10/07/23 12/24/22 release risperidone 0.25 mg tablet 0.25 mg PO 04/07/19 10/07/23 12/24/22 aspirin 81 mg tablet,delayed 81 mg PO [facility] 12/25/22 10/07/23 12/25/22 release albuterol sulfate 90 mcg/actuation 2 puff inhalation Q4H PRN 10/07/23 10/07/23 Unknown aerosol inhaler wheezing/dyspnea metformin 500 mg tablet,extended 1,000 mg PO HS 10/07/23 10/07/23 Unknown release 24 hr Active Medications Generic Name Dose Route Start Last Admin Trade Name Denisq PRN Reason Stop Dose Admin Aspirin 81 mg 10/08/23 09:00 10/11/23 08:13 Aspirin 81 Mg Ectab PO 11/07/23 08:59 81 mg QAM RENAN Administration Atorvastatin Calcium 40 mg 10/07/23 21:00 10/10/23 20:47 Atorvastatin 40 Mg Tab PO 11/06/23 20:59 40 mg HS RENAN Administration Citalopram Hydrobromide 1.5 each 10/08/23 17:45 10/11/23 08:17 Citalopram 10 Mg Tab PO 11/07/23 17:44 1.5 each QAM RENAN Administration Doxycycline Hyclate 100 mg 10/07/23 21:00 10/11/23 08:13 Doxycycline Hyclate 100 Mg Cap PO 10/14/23 20:59 100 mg BID RENAN Administration Enoxaparin Sodium 40 mg 10/07/23 15:30 10/10/23 15:20 Enoxaparin Inj 40 Mg/0.4 Ml Syr SQ 11/06/23 15:29 40 mg Q24H RENAN Administration Guaifenesin/Dextromethorphan 5 ml 10/07/23 14:29 10/10/23 08:15 Guaifenesin/Dextrom Syrup 100mg/10mg 5ml Udc PO 11/06/23 14:28 5 ml Q6H PRN Administration Cough Remdesivir 100 mg/ Sodium 250 mls @ 250 mls/hr 10/08/23 12:00 10/11/23 12:02 Chloride IV 10/11/23 12:59 250 mls/hr Q24H RENAN Administration Dexamethasone 6 mg/ Syringe 1.5 mls @ 1 mls/min 10/08/23 09:00 10/11/23 08:11 IV 11/07/23 08:59 1 mls/min DAILY RENAN Administration Insulin Aspart 0 units 10/07/23 16:30 10/11/23 08:40 Insulin Aspart Per Unit Charge SC 11/06/23 16:29 Not Given ACHS RENAN Levalbuterol HCl 0.63 mg 10/07/23 19:00 10/11/23 12:08 Levalbuterol Hcl 0.63 Mg/3 Ml Neb NEB 11/06/23 18:59 0.63 mg Q6R RENNA Administration Protocol Lisinopril 10 mg 10/08/23 09:00 10/11/23 08:14 Lisinopril 10 Mg Tab PO 11/07/23 08:59 10 mg QAM RENAN Administration Pantoprazole Sodium 40 mg 10/07/23 21:00 10/10/23 20:45 Pantoprazole 40 Mg Tab PO 11/06/23 20:59 40 mg HS RENAN Administration Risperidone 0.25 mg 10/07/23 21:00 10/10/23 20:45 Risperidone 0.5 Mg Tablet PO 11/06/23 20:59 0.25 mg HS RENAN Administration Medications Administered Home Medications Medication Instructions Recorded Confirmed Last Taken atorvastatin 40 mg tablet 40 mg PO 04/07/19 10/07/23 12/24/22 citalopram 10 mg tablet (Celexa) 15 mg PO [facility] 04/07/19 10/07/23 12/25/22 lisinopril 10 mg tablet 10 mg PO [facility] 04/07/19 10/07/23 12/25/22 omeprazole 20 mg tablet,delayed 20 mg PO 04/07/19 10/07/23 12/24/22 release risperidone 0.25 mg tablet 0.25 mg PO 04/07/19 10/07/23 12/24/22 aspirin 81 mg tablet,delayed 81 mg PO [facility] 12/25/22 10/07/23 12/25/22 release albuterol sulfate 90 mcg/actuation 2 puff inhalation Q4H PRN 10/07/23 10/07/23 Unknown aerosol inhaler wheezing/dyspnea metformin 500 mg tablet,extended 1,000 mg PO 10/07/23 10/07/23 Unknown release 24 hr Active Medications Generic Name Dose Route Start Last Admin Trade Name Freq PRN Reason Stop Dose Admin Aspirin 81 mg 10/08/23 09:00 10/11/23 08:13 Aspirin 81 Mg Ectab PO 11/07/23 08:59 81 mg QAM RENAN Administration Atorvastatin Calcium 40 mg 10/07/23 21:00 10/10/23 20:47 Atorvastatin 40 Mg Tab PO 11/06/23 20:59 40 mg HS RENAN Administration Citalopram Hydrobromide 1.5 each 10/08/23 17:45 10/11/23 08:17 Citalopram 10 Mg Tab PO 11/07/23 17:44 1.5 each QAM RENAN Administration Doxycycline Hyclate 100 mg 10/07/23 21:00 10/11/23 08:13 Doxycycline Hyclate 100 Mg Cap PO 10/14/23 20:59 100 mg BID RENAN Administration Enoxaparin Sodium 40 mg 10/07/23 15:30 10/10/23 15:20 Enoxaparin Inj 40 Mg/0.4 Ml Syr SQ 11/06/23 15:29 40 mg Q24H RENAN Administration Guaifenesin/Dextromethorphan 5 ml 10/07/23 14:29 10/10/23 08:15 Guaifenesin/Dextrom Syrup 100mg/10mg 5ml Udc PO 11/06/23 14:28 5 ml Q6H PRN Administration Cough Remdesivir 100 mg/ Sodium 250 mls @ 250 mls/hr 10/08/23 12:00 10/11/23 12:02 Chloride IV 10/11/23 12:59 250 mls/hr Q24H RENAN Administration Dexamethasone 6 mg/ Syringe 1.5 mls @ 1 mls/min 10/08/23 09:00 10/11/23 08:11 IV 11/07/23 08:59 1 mls/min DAILY RENAN Administration Insulin Aspart 0 units 10/07/23 16:30 10/11/23 08:40 Insulin Aspart Per Unit Charge SC 11/06/23 16:29 Not Given ACHS RENAN Levalbuterol HCl 0.63 mg 10/07/23 19:00 10/11/23 12:08 Levalbuterol Hcl 0.63 Mg/3 Ml Neb NEB 11/06/23 18:59 0.63 mg Q6R RENAN Administration Protocol Lisinopril 10 mg 10/08/23 09:00 10/11/23 08:14 Lisinopril 10 Mg Tab PO 11/07/23 08:59 10 mg QAM RENAN Administration Pantoprazole Sodium 40 mg 10/07/23 21:00 10/10/23 20:45 Pantoprazole 40 Mg Tab PO 11/06/23 20:59 40 mg HS RENAN Administration Risperidone 0.25 mg 10/07/23 21:00 10/10/23 20:45 Risperidone 0.5 Mg Tablet PO 11/06/23 20:59 0.25 mg HS RENAN Administration
[2023-10-11] MEDS: ENOXAPARIN INJ 40 MG/0.4 ML SYR SQ SCH (17:25)
[2023-10-11] MEDS: ATORVASTATIN 40 MG TAB PO SCH (20:33)
[2023-10-11] MEDS: PANTOprazole 40 MG TAB PO SCH (20:33)
[2023-10-11] MEDS: risperiDONE 0.5 MG TABLET PO SCH (20:34)
[2023-10-12] MEDS: LEVALBUTEROL HCL 0.63 MG/3 ML NEB NEB SCH ×4 (00:36→17:54)
[2023-10-12 07:35] LABS: Hematocrit (blood only) 40.1 % (37.0-47.0); Hemoglobin 13.9 g/dl (12.0-16.0); Mean Corpuscular Hemoglobin 31.2 pg (25.0-34.0); Mean Corpuscular Hgb Conc 34.7 g/dL (32.0-36.0); Mean Corpuscular Volume 89.9 fL (80.0-100.0); Mean Platelet Volume 9.7 fL (9.4-12.4); Platelet Count 318 K/uL (130-400); RDW Coefficient of Variation 13.8 % (11.5-14.5); RDW Standard Deviation 45.5 fL (36.4-46.3); Red Blood Count 4.46 M/uL (4.20-5.40)
[2023-10-12 07:52] LABS: BUN Creatinine Ratio 40.3 (10-20); Calcium 8.6 mg/dl (8.6-10.3); Creatinine Clr Calc Pharmacy 88.6 ml/min; Est GFR (African American) 108.1 ml/min; Est GFR (Non-African American) 93.3 ml/min; Magnesium 2.2 mg/dl (1.7-2.4); Phosphorus 3.7 mg/dl (2.5-4.9)
[2023-10-12] MEDS: ASPIRIN 81 MG ECTAB PO SCH (08:32)
[2023-10-12] MEDS: lisinopril 10 MG TAB PO SCH (08:35)
[2023-10-12] MEDS: CITALOPRAM 10 MG TAB PO SCH (08:35)
[2023-10-12] MEDS: DOXYCYCLINE HYCLATE 100 MG CAP PO SCH ×2 (08:35→20:53)
[2023-10-12] MEDS: dexAMETHasone 6 MG in SYRINGE 0 ML IV SCH (08:39)
[2023-10-12] MEDS: INSULIN ASPART PER UNIT CHARGE SC SCH ×4 (08:46→20:05)
--- NOTE | 2023-10-12 14:20 | Hospitalist Progress Note ---
Date of Service October 12, 2023 Assessment & Plan (1) Acute respiratory failure with hypoxia: (2) COVID-19: (3) HTN (hypertension): (4) HLD (hyperlipidemia): (5) History of breast cancer: (6) Mild intellectual disability: (7) Ambulatory dysfunction: (8) DM (diabetes mellitus), type 2: Plan Ms. Bentley is a 68yo F from [facility] halfway with PMH of mild intellectual disability, hypertension, dyslipidemia, ambulatory dysfunction, history of left breast cancer status post partial mastectomy and other problems listed below who presents with shortness of breath and was found to have hypoxic respiratory failure 2/2 covid and admitted on 10/07 for m anagement. She is being managed for the following: #Acute hypoxic respiratory failure 2/2 COVID pneumonia *improving Symptomatic since 10/06, covid positive on 10/06 Hypoxic to low-mid 80s on admission CTA negative for PE Currently requiring 4L, wean O2 as able for O2 sat >92% Encourage IS and flutter valve. Continue dexamethaone for 10 days for hypoxia 2/2 covid Continue 5 days of remdesivir; c/w nebs renan and prn; c/w antitussive. Daily liver panel while on remdesivir Continue doxy 10/07, EOT 10/12 2 Step for Home O2 ECHO given vascular congestion on CXR (no crackles or peripheral edema) ECHO WNL s/p IV lasix given signs of vascular congestion -Continue to wean as able, will hold on additional lasix, will need repeat 2 step as halfway unable to take patient until Saturday #HTN : Normotensive. Continue home lisinopril #DM II A1c 6.09 Mar 2023 Hold home agents SSI while in-patient BSG AC HS #HLD: Chronic, stable. Continue statin #Mild intellectual disability Resides at the [facility] (contact: Lyn [phone]) A&Ox3 and responds appropriately at baseline, slow to answer DVT Ppx: SQ lovenox Code status: FULL PCP: [place] Dispo:likely discharge tomorrow Admission and Anticipated Discharge Date Admission Date: October 07, 2023 Subjective NAEO Denies any acute concerns, notes getting better day by day Physical Exam Constitutional: WD/WN, vitals as above Respiratory: normal respiratory effort, lungs clear to auscultation (3L NC ) Cardiovascular: RRR, no murmur, no edema Results & Data Results & Data Vital Signs (Past 12 Hours) Vital Signs Temp Pulse Pulse Resp BP Pulse Ox O2 Del Method 10/12/23 13:55 56 L 18 96 Nasal Cannula 10/12/23 12:17 36.7 C 81 20 124/79 92 Nasal Cannula 10/12/23 07:45 36.5 C 62 18 156/74 H 96 Nasal Cannula 10/12/23 07:30 Nasal Cannula 10/12/23 07:20 62 10/12/23 07:18 67 18 95 Nasal Cannula 10/12/23 03:16 36.5 C 71 18 154/77 H 93 Nasal Cannula O2 Flow Rate 10/12/23 13:55 3 10/12/23 12:17 3 10/12/23 07:45 3 10/12/23 07:30 3 10/12/23 07:20 10/12/23 07:18 2.5 10/12/23 03:16 3 Laboratory Results Short CBC 10/12/23 Range/Units 07:12 WBC 11.60 H (4.8-10.8) K/ul Hgb 13.9 (12.0-16.0) g/dl Hct 40.1 (37.0-47.0) % Plt Count 318 (130-400) K/uL BMP 10/12/23 07:12 Sodium 134 L Potassium 4.0 Chloride 100 Carbon Dioxide 28 BUN 25 H Creatinine 0.62 Glucose 89 Calcium 8.6 Medications Administered Home Medications Medication Instructions Recorded Confirmed Last Taken atorvastatin 40 mg tablet 40 mg PO 04/07/19 10/07/23 12/24/22 citalopram 10 mg tablet (Celexa) 15 mg PO QAM 04/07/19 10/07/23 12/25/22 lisinopril 10 mg tablet 10 mg PO QAM 04/07/19 10/07/23 12/25/22 omeprazole 20 mg tablet,delayed 20 mg PO HS 04/07/19 10/07/23 12/24/22 release risperidone 0.25 mg tablet 0.25 mg PO 04/07/19 10/07/23 12/24/22 aspirin 81 mg tablet,delayed 81 mg PO QAM 12/25/22 10/07/23 12/25/22 release albuterol sulfate 90 mcg/actuation 2 puff inhalation Q4H PRN 10/07/23 10/07/23 Unknown aerosol inhaler wheezing/dyspnea metformin 500 mg tablet,extended 1,000 mg PO HS 10/07/23 10/07/23 Unknown release 24 hr Active Medications Generic Name Dose Route Start Last Admin Trade Name Freq PRN Reason Stop Dose Admin Aspirin 81 mg 10/08/23 09:00 10/12/23 08:32 Aspirin 81 Mg Ectab PO 11/07/23 08:59 81 mg QAM RENAN Administration Atorvastatin Calcium 40 mg 10/07/23 21:00 10/11/23 20:33 Atorvastatin 40 Mg Tab PO 11/06/23 20:59 40 mg HS RENAN Administration Citalopram Hydrobromide 1.5 each 10/08/23 17:45 10/12/23 08:35 Citalopram 10 Mg Tab PO 11/07/23 17:44 1.5 each QAM RENAN Administration Doxycycline Hyclate 100 mg 10/07/23 21:00 10/12/23 08:35 Doxycycline Hyclate 100 Mg Cap PO 10/14/23 20:59 100 mg BID RENAN Administration Enoxaparin Sodium 40 mg 10/07/23 15:30 10/11/23 17:25 Enoxaparin Inj 40 Mg/0.4 Ml Syr SQ 11/06/23 15:29 40 mg Q24H RENAN Administration Guaifenesin/Dextromethorphan 5 ml 10/07/23 14:29 10/10/23 08:15 Guaifenesin/Dextrom Syrup 100mg/10mg 5ml Udc PO 11/06/23 14:28 5 ml Q6H PRN Administration Cough Dexamethasone 6 mg/ Syringe 1.5 mls @ 1 mls/min 10/08/23 09:00 10/12/23 08:39 IV 11/07/23 08:59 1 mls/min DAILY RENAN Administration Insulin Aspart 0 units 10/07/23 16:30 10/12/23 12:39 Insulin Aspart Per Unit Charge SC 11/06/23 16:29 5 units ACHS RENAN Administration Levalbuterol HCl 0.63 mg 10/07/23 19:00 10/12/23 13:55 Levalbuterol Hcl 0.63 Mg/3 Ml Neb NEB 11/06/23 18:59 0.63 mg Q6R RENAN Administration Protocol Lisinopril 10 mg 10/08/23 09:00 10/12/23 08:35 Lisinopril 10 Mg Tab PO 11/07/23 08:59 10 mg QAM RENAN Administration Pantoprazole Sodium 40 mg 10/07/23 21:00 10/11/23 20:33 Pantoprazole 40 Mg Tab PO 11/06/23 20:59 40 mg HS RENAN Administration Risperidone 0.25 mg 10/07/23 21:00 10/11/23 20:34 Risperidone 0.5 Mg Tablet PO 11/06/23 20:59 0.25 mg HS RENAN Administration
[2023-10-12] MEDS: ENOXAPARIN INJ 40 MG/0.4 ML SYR SQ SCH (16:38)
[2023-10-12] MEDS: risperiDONE 0.5 MG TABLET PO SCH (20:53)
[2023-10-12] MEDS: PANTOprazole 40 MG TAB PO SCH (20:54)
[2023-10-12] MEDS: ATORVASTATIN 40 MG TAB PO SCH (20:55)
[2023-10-13] MEDS: LEVALBUTEROL HCL 0.63 MG/3 ML NEB NEB SCH ×4 (00:28→19:28)
[2023-10-13] MEDS: INSULIN ASPART PER UNIT CHARGE SC SCH ×4 (07:50→20:14)
[2023-10-13 08:22] LABS: Basophils # (auto) 0.03 K/uL (0.00-0.20); Basophils % (auto) 0.2 %; Eosinophils # (auto) 0.04 K/uL (0.00-0.50); Eosinophils % (auto) 0.3 %; Hematocrit (blood only) 43.8 % (37.0-47.0); Hemoglobin 14.5 g/dl (12.0-16.0); Immature Granulocytes # (auto) 0.06 K/uL (0.01-0.20); Immature Granulocytes % (auto) 0.4 %; Lymphocytes % (auto) 21.5 %; Mean Corpuscular Hemoglobin 30.5 pg (25.0-34.0); Mean Corpuscular Hgb Conc 33.1 g/dL (32.0-36.0); Mean Corpuscular Volume 92.2 fL (80.0-100.0); Mean Platelet Volume 9.9 fL (9.4-12.4); Monocytes % (auto) 12.6 %; Neutrophils # (auto) 8.75 K/uL (1.40-6.50); Platelet Count 352 K/uL (130-400); RDW Coefficient of Variation 13.7 % (11.5-14.5); RDW Standard Deviation 46.7 fL (36.4-46.3); Red Blood Count 4.75 M/uL (4.20-5.40); White Blood Count 13.48 K/ul (4.8-10.8)
[2023-10-13] MEDS: ASPIRIN 81 MG ECTAB PO SCH (08:45)
[2023-10-13] MEDS: DOXYCYCLINE HYCLATE 100 MG CAP PO SCH ×2 (08:45→20:31)
[2023-10-13] MEDS: CITALOPRAM 10 MG TAB PO SCH (08:46)
[2023-10-13] MEDS: lisinopril 10 MG TAB PO SCH (08:47)
[2023-10-13 08:48] LABS: BUN Creatinine Ratio 36.9 (10-20); Calcium 9.2 mg/dl (8.6-10.3); Creatinine Clr Calc Pharmacy 84.5 ml/min; Est GFR (African American) 106.5 ml/min; Est GFR (Non-African American) 91.9 ml/min; Magnesium 2.3 mg/dl (1.7-2.4)
[2023-10-13] MEDS: guaiFENesin/DEXTROM SYRUP 100MG/10MG 5ML UDC PO PRN (08:48)
[2023-10-13] MEDS: dexAMETHasone 6 MG in SYRINGE 0 ML IV SCH (08:54)
[2023-10-13] MEDS ORDERED: bisacodyL 5 MG TABEC PO ONE (11:56)
[2023-10-13] MEDS ORDERED: bisacodyL 10 MG SUPP PR PRN (11:56)
--- NOTE | 2023-10-13 12:04 | Hospitalist Progress Note ---
Date of Service October 13, 2023 Assessment & Plan (1) Acute respiratory failure with hypoxia: (2) COVID-19: (3) HTN (hypertension): (4) HLD (hyperlipidemia): (5) History of breast cancer: (6) Mild intellectual disability: (7) Ambulatory dysfunction: (8) DM (diabetes mellitus), type 2: Plan Ms. Bentley is a 68yo F from [facility] halfway with PMH of mild intellectual disability, hypertension, dyslipidemia, ambulatory dysfunction, history of left breast cancer status post partial mastectomy and other problems listed below who presents with shortness of breath and was found to have hypoxic respiratory failure 2/2 covid and admitted on 10/07 for management. She is being managed for the following: #Constipation -Miralx, bisacodyl now -Miralax daily #Leukocytosis -Afebrile since 10/07, clinically improving, possibly delayed increase / to ongoing steroids -Complete course for doxy -CTM for signs of infection #Acute hypoxic respiratory failure 2/2 COVID pneumonia *improving Symptomatic since 10/06, covid positive on 10/06 Hypoxic to low-mid 80s on admission CTA negative for PE Currently requiring 4L, wean O2 as able for O2 sat >92% Encourage IS and flutter valve. Continue dexamethaone for 10 days for hypoxia 2/2 covid Completed 5 days of remdesivir; c/w nebs renan and prn; c/w antitussive. desivir Completed doxy 10/07, EOT 10/12 2 Step for Home O2 ECHO given vascular congestion on CXR (no crackles or peripheral edema) ECHO WNL s/p IV lasix given signs of vascular congestion -Continue to wean as able, will hold on additional lasix, will need repeat 2 step as halfway unable to take patient until Saturday #HTN : Normotensive. Continue home lisinopril #DM II A1c 6.09 Mar 2023 Hold home agents SSI while in-patient BSG AC HS #HLD: Chronic, stable. Continue statin #Mild intellectual disability Resides at the [facility] (contact: Lyn [phone]) A&Ox3 and responds appropriately at baseline, slow to answer DVT Ppx: SQ lovenox Code status: FULL PCP: [place] Dispo:likely discharge 10/14 Admission and Anticipated Discharge Date Admission Date: October 07, 2023 Subjective NAEO, reports feeling much better. Denies bowel movement in a few days, feels like she has to go States cough is improving Physical Exam Constitutional: WD/WN, vitals as above Respiratory: normal respiratory effort, lungs clear to auscultation Cardiovascular: RRR, no murmur, no edema Results & Data Results & Data Vital Signs (Past 12 Hours) Vital Signs Temp Pulse Pulse Resp BP Pulse Ox O2 Del Method 10/13/23 11:05 36.3 C L 68 20 115/74 91 Nasal Cannula 10/13/23 10:00 71 10/13/23 10:00 Nasal Cannula 10/13/23 07:17 36.4 C L 69 20 113/72 91 Nasal Cannula 10/13/23 07:08 74 18 96 Nasal Cannula 10/13/23 03:22 36.4 C L 57 L 20 138/81 92 Nasal Cannula 10/13/23 00:29 67 16 98 Nasal Cannula 10/13/23 00:15 Nasal Cannula O2 Flow Rate 10/13/23 11:05 2 10/13/23 10:00 10/13/23 10:00 2 10/13/23 07:17 2 10/13/23 07:08 2 10/13/23 03:22 1 10/13/23 00:29 2 10/13/23 00:15 3 Laboratory Results Short CBC 10/13/23 Range/Units 07:29 WBC 13.48 H (4.8-10.8) K/ul Hgb 14.5 (12.0-16.0) g/dl Hct 43.8 (37.0-47.0) % Plt Count 352 (130-400) K/uL BMP 10/13/23 07:29 Sodium 136 Potassium 4.0 Chloride 99 Carbon Dioxide 31 BUN 24 H Creatinine 0.65 Glucose 86 Calcium 9.2 Medications Administered Home Medications Medication Instructions Recorded Confirmed Last Taken atorvastatin 40 mg tablet 40 mg PO 04/07/19 10/07/23 12/24/22 citalopram 10 mg tablet (Celexa) 15 mg PO QA 04/07/19 10/07/23 12/25/22 lisinopril 10 mg tablet 10 mg PO QAM 04/07/19 10/07/23 12/25/22 omeprazole 20 mg tablet,delayed 20 mg PO HS 04/07/19 10/07/23 12/24/22 release risperidone 0.25 mg tablet 0.25 mg PO HS 04/07/19 10/07/23 12/24/22 aspirin 81 mg tablet,delayed 81 mg PO QAM 12/25/22 10/07/23 12/25/22 release albuterol sulfate 90 mcg/actuation 2 puff inhalation Q4H PRN 10/07/23 10/07/23 Unknown aerosol inhaler wheezing/dyspnea metformin 500 mg tablet,extended 1,000 mg PO HS 10/07/23 10/07/23 Unknown release 24 hr Active Medications Generic Name Dose Route Start Last Admin Trade Name Freq PRN Reason Stop Dose Admin Aspirin 81 mg 10/08/23 09:00 10/13/23 08:45 Aspirin 81 Mg Ectab PO 11/07/23 08:59 81 mg QAM RENAN Administration Atorvastatin Calcium 40 mg 10/07/23 21:00 10/12/23 20:55 Atorvastatin 40 Mg Tab PO 11/06/23 20:59 40 mg HS RENAN Administration Citalopram Hydrobromide 1.5 each 10/08/23 17:45 10/13/23 08:46 Citalopram 10 Mg Tab PO 11/07/23 17:44 1.5 each QAM RENAN Administration Doxycycline Hyclate 100 mg 10/07/23 21:00 10/13/23 08:45 Doxycycline Hyclate 100 Mg Cap PO 10/14/23 20:59 100 mg BID RENAN Administration Enoxaparin Sodium 40 mg 10/07/23 15:30 10/12/23 16:38 Enoxaparin Inj 40 Mg/0.4 Ml Syr SQ 11/06/23 15:29 40 mg Q24H RENAN Administration Guaifenesin/Dextromethorphan 5 ml 10/07/23 14:29 10/13/23 08:48 Guaifenesin/Dextrom Syrup 100mg/10mg 5ml Udc PO 11/06/23 14:28 5 ml Q6H PRN Administration Cough Dexamethasone 6 mg/ Syringe 1.5 mls @ 1 mls/min 10/08/23 09:00 10/13/23 08:54 IV 11/07/23 08:59 1 mls/min DAILY RENAN Administration Insulin Aspart 0 units 10/07/23 16:30 10/13/23 11:40 Insulin Aspart Per Unit Charge SC 11/06/23 16:29 3 units ACHS RENAN Administration Levalbuterol HCl 0.63 mg 10/07/23 19:00 10/13/23 07:07 Levalbuterol Hcl 0.63 Mg/3 Ml Neb NEB 11/06/23 18:59 0.63 mg Q6R RENAN Administration Protocol Lisinopril 10 mg 10/08/23 09:00 10/13/23 08:47 Lisinopril 10 Mg Tab PO 11/07/23 08:59 10 mg QAM RENAN Administration Pantoprazole Sodium 40 mg 10/07/23 21:00 10/12/23 20:54 Pantoprazole 40 Mg Tab PO 11/06/23 20:59 40 mg HS RENAN Administration Polyethylene Glycol 17 gm 10/07/23 15:30 10/13/23 11:46 Polyethylene (Miralax) 17 Gm Pack PO 11/06/23 15:29 17 gm DAILY PRN Administration Constipation Risperidone 0.25 mg 10/07/23 21:00 10/12/23 20:53 Risperidone 0.5 Mg Tablet PO 11/06/23 20:59 0.25 mg HS RENAN Administration
[2023-10-13] MEDS: POLYETHYLENE (MIRALAX) 17 GM PACK PO SCH (12:08)
[2023-10-13] MEDS: ENOXAPARIN INJ 40 MG/0.4 ML SYR SQ SCH (16:53)
[2023-10-13] MEDS: risperiDONE 0.5 MG TABLET PO SCH (20:31)
[2023-10-13] MEDS: PANTOprazole 40 MG TAB PO SCH (20:32)
[2023-10-13] MEDS: ATORVASTATIN 40 MG TAB PO SCH (20:32)
[2023-10-14] MEDS: LEVALBUTEROL HCL 0.63 MG/3 ML NEB NEB SCH ×2 (00:42→07:01)
[2023-10-14 09:06] LABS: Basophils # (auto) 0.03 K/uL (0.00-0.20); Basophils % (auto) 0.2 %; Eosinophils # (auto) 0.06 K/uL (0.00-0.50); Eosinophils % (auto) 0.4 %; Hematocrit (blood only) 39.8 % (37.0-47.0); Hemoglobin 13.7 g/dl (12.0-16.0); Immature Granulocytes # (auto) 0.05 K/uL (0.01-0.20); Immature Granulocytes % (auto) 0.3 %; Lymphocytes # (auto) 3.61 K/uL (1.20-3.40); Lymphocytes % (auto) 23.3 %; Mean Corpuscular Hemoglobin 30.9 pg (25.0-34.0); Mean Corpuscular Hgb Conc 34.4 g/dL (32.0-36.0); Mean Corpuscular Volume 89.6 fL (80.0-100.0); Mean Platelet Volume 9.9 fL (9.4-12.4); Monocytes # (auto) 1.44 K/uL (0.11-0.59); Monocytes % (auto) 9.3 %; Neutrophils % (auto) 66.5 %; Platelet Count 341 K/uL (130-400); RDW Coefficient of Variation 13.8 % (11.5-14.5); RDW Standard Deviation 44.9 fL (36.4-46.3); Red Blood Count 4.44 M/uL (4.20-5.40); White Blood Count 15.49 K/ul (4.8-10.8)
[2023-10-14] MEDS: ASPIRIN 81 MG ECTAB PO SCH (09:46)
[2023-10-14] MEDS: CITALOPRAM 10 MG TAB PO SCH (09:47)
[2023-10-14] MEDS: lisinopril 10 MG TAB PO SCH (09:48)
[2023-10-14] MEDS: DOXYCYCLINE HYCLATE 100 MG CAP PO SCH (09:48)
[2023-10-14] MEDS: POLYETHYLENE (MIRALAX) 17 GM PACK PO SCH (09:49)
[2023-10-14] MEDS: dexAMETHasone 6 MG in SYRINGE 0 ML IV SCH (09:50)
[2023-10-14] MEDS: INSULIN ASPART PER UNIT CHARGE SC SCH ×2 (09:54→11:53)
--- NOTE | 2023-10-14 14:31 | Discharge Summary ---
Discharge Summary Date of Service October 14, 2023 Notes For Next Care Provider Medication Changes From Visit -Dexamethasone x 3 more doses Admission HPI Per Admitting Provider This is a 68yo F from [facility] with PMH of mild intellectual disability, hypertension, dyslipidemia, DM II, ambulatory dysfunction, history of left breast cancer status post partial mastectomy and other problems listed below who presents with shortness of breath.History primarily obtained from [facility] staff member at bedside. Developed cough with productive sputum and chills yesterday and took a COVID test in the evening, which was positive. Progressive SOB overnight and pain with cough so brought into ED for further evaluation. Endorses some general abdominal discomfort, last bowel movement this morning. No F/C, lightheadedness, CP, N/V, dysuria or diarrhea. Admission Exam Per Admitting Provider Physical Exam: Vitals signs as noted above General Appearance:Obese, no apparent distress Head: normocephalic, Atraumatic Eyes: normal inspection, EOMI, + left eye strabismus Neck: supple, Trachea midline Respiratory/Chest: Decreased breath sounds, CTA, No accessory muscle use Cardiovascular: S1, S2, No murmur, +Tachycardia Abdomen/GI:Soft, mild hypogastric tender, Bowel sounds present Extremities/Musculoskeletal:normal inspection, Trace pedal edema Neurologic/Psych:AAOX2, grossly no focal neurological deficits Skin: normal color, warm Principal Dx & Hospital Course #1 = Principal Diagnosis (1) Acute respiratory failure with hypoxia: (2) COVID-19: (3) HTN (hypertension): (4) HLD (hyperlipidemia): (5) History of breast cancer: (6) Mild intellectual disability: (7) Ambulatory dysfunction: (8) DM (diabetes mellitus), type 2: Plan Ms. Bentley is a 68yo F from [facility] with PMH of mild intellectual disability, hypertension, dyslipidemia, ambulatory dysfunction, history of left breast cancer status post partial mastectomy and other problems listed below who presents with shortness of breath and was found to have hypoxic respiratory failure 2/2 covid and admitted on 10/07 for management. She was being managed for the following: #Constipation * -BM before discharge #Leukocytosis -Afebrile since 10/07, clinically improving, possibly delayed increase 2/2 to ongoing steroids -Complete course for doxy -Continued to improved without concerns for infection -Consider OP CBC in 1-2 weeks for resolution #Acute hypoxic respiratory failure 2/2 COVID pneumonia *improving Symptomatic since 10/06, covid positive on 10/06 Hypoxic to low-mid 80s on admission CTA negative for PE Currently requiring 4L, wean O2 as able for O2 sat >92% Encourage IS and flutter valve. Continue dexamethaone for 10 days for hypoxia 2/2 covid--sent with 3 days to complete course Completed 5 days of remdesivir Completed doxy 10/07, EOT 10/13 2 Step for Home O2: no needs ECHO given vascular congestion on CXR (no crackles or peripheral edema) ECHO WNL Weaned off of oxygen prior to discharge #HTN : Normotensive. Continue home lisinopril #DM II A1c 6.09 Mar 2023 Hold home agents SSI while in-patient BSG AC HS #HLD: Chronic, stable. Continue statin #Mild intellectual disability Resides at the [facility] (contact: Lyn [phone]) A&Ox3 and responds appropriately at baseline, slow to answer On day of discharge, Ms. Bentley was ambulating in room, eating meals without issues, and denying any acute concerns. She reports eagerness to return home. Discharge Exam Constitutional WD/WN, vitals as above Respiratory normal respiratory effort, lungs clear to auscultation Cardiovascular RRR, no murmur, no edema Musculoskeletal no cyanosis or clubbing, extremities motor strength 5/5 Updated Medication List Medication Instructions Recorded Confirmed Type atorvastatin 40 mg tablet 40 mg PO HS 04/07/19 10/07/23 History citalopram 10 mg tablet (Celexa) 15 mg PO QAM 04/07/19 10/07/23 History lisinopril 10 mg tablet 10 mg PO QAM 04/07/19 10/07/23 History omeprazole 20 mg tablet,delayed 20 mg PO HS 04/07/19 10/07/23 History release risperidone 0.25 mg tablet 0.25 mg PO HS 04/07/19 10/07/23 History aspirin 81 mg tablet,delayed 81 mg PO QAM 12/25/22 10/07/23 History release albuterol sulfate 90 mcg/actuation 2 puff inhalation Q4H PRN 10/07/23 10/07/23 History aerosol inhaler wheezing/dyspnea metformin 500 mg tablet,extended 1,000 mg PO HS 10/07/23 10/07/23 History release 24 hr dexamethasone 6 mg tablet 6 mg PO DAILY #3 tabs 10/14/23 Rx Hospital Stay Data Diagnostic Imagining Performed 10/07/23 09:46 CT angio chest PE protocol Stat Pending Results Patient Have Any Pending Studies at Discharge: No Discharge Instructions Given to Patient (Per Discharging Provider) You came in with shortness of breath and cough, and were found to have a COVID infection. You required oxygen, but were able to wean off. You completed a course of remdesivir, antiviral used to curb the duration of COVID (5 days) You completed a course of antibiotics to prevent superimposed bacterial pneumonia. You were started on a course of steroid (dexamethasone) to help you wean off of oxygen. You still have 3 days left. Your next dose is tomorrow 10/15 in the morning. You will continue all home medications as prescribed. It is not uncommon to have a cough for some time after a viral infection. Please follow up with your primary care doctor in 1-2 weeks. Total Time Total Time Spent Total Time Spent (In Minutes): 45
== END 2023-10-14 12:40 | disposition home or self-care (01) | DRG 177 ==
LOC: ED 08:56 → SUATTDRO 13:52 → EDINP 13:52 → 2S 15:31

== ENCOUNTER 2025-07-26 08:21 | Inpatient (IN) ==
[2025-07-26] MEDS: ALBUT/IPRATROP 3MG/0.5MG NEB 3 ML VIAL INH STA (08:40)
[2025-07-26 08:46] LABS: Base Excess VBG 1.4 mEq/L; HCO3 VBG 27 mmol/L; Oxygen Saturation VBG 92.8 %; PCO2 VBG 43 mmHg (38-50); PO2 VBG 66 mmHg; pH VBG 7.40 (7.36-7.41)
[2025-07-26 08:52] LABS: Hematocrit (blood only) 40.0 % (37.0-47.0); Hemoglobin 12.9 g/dl (12.0-16.0); Immature Granulocytes # (auto) 0.07 K/uL (0.01-0.20); Immature Granulocytes % (auto) 0.4 %; Mean Corpuscular Hemoglobin 30.6 pg (25.0-34.0); Mean Corpuscular Volume 95.0 fL (80.0-100.0); Platelet Count 278 K/uL (130-400); RDW Standard Deviation 48.0 fL (36.4-46.3); Red Blood Count 4.21 M/uL (4.20-5.40); White Blood Count 16.15 K/ul (4.8-10.8)
--- NOTE | 2025-07-26 09:06 | Emergency Department Note ---
Impression & Plan Acute hypoxic respiratory failure, Fall, Pseudohyponatremia, Leukocytosis, Rhinovirus infection, Community acquired pneumonia ED Provider Note NAME: CLARE SANTIZO AGE: 70 SEX: F : 1955 ARRIVES VIA: Ambulance INFORMANT: Patient, EMS, facility staff ED PROVIDER(S): Mak Angel DO CHIEF COMPLAINT: SOB HPI: This is a 70-year-old female with the PMHx of hypertension, hyperlipidemia, DM2, remote breast cancer, ambulatory dysfunction and frequent falls presenting to [facility] for further evaluation of Cold-like symptoms with shortness of breath. Patient is accompanied by facility staff who provide additional history. it was reported that the patient fell this week and was evaluated in the emergency department. She had negative workup and was discharged home. Over the last day she has been more confused as well as short of breath. She does have a cough and congestion. EMS noted that the patient was hypoxic and she was placed on low-flow nasal cannula. They deny fever or chills. Denies chest pain or palpitations. They deny abdominal pain, nausea and vomiting. No urinary complaints. No recent changes in bowel movements. Patient denies recent changes in medications or OTC supplements. Patient offers no other complaints, today. I discussed further with the patient's facility staff member at the bedside. Patient had a fall this weekend and no traumatic injuries were noted. Patient has continued to worsen. Now with cough, congestion complaints of abdominal pain. Facility staff does note that she intermittently wears low-flow nasal cannula at night. She does not require oxygen during the day. They state that she does seem not to be herself. ADDITIONAL HISTORY OBTAINED: Per HPI Chronic Medical/Social Conditions Affecting Care: Per HPI PAST MEDICAL HISTORY: See Below PAST SURGICAL HISTORY: See Below FAMILY HISTORY: See Below SOCIAL HISTORY: See Below HOME MEDICATIONS: See Below ALLERGIES: See Below VITALS: See Below PHYSICAL EXAMINATION: GENERAL: Sitting up in bed, alert, ill appearing, well nourished, no distress, non-toxic EYE EXAM: normal conjunctiva. PERRL and EOM's grossly intact. OROPHARYNX: no exudate, no erythema, lips, buccal mucosa, and tongue normal and mucous membranes are moist NECK: supple, no nuchal rigidity, no adenopathy, non-tender LUNGS: Scattered rhonchi. Normal chest wall mechanics HEART: no murmurs, regular rate, regular rhythm ABDOMEN: abdomen soft, non-tender, no masses, no rebound or guarding. BACK: Back is symmetrical on inspection and there is no deformity, no midline tenderness, no CVA tenderness. SKIN: no rashes and no bruising UPPER EXTREMITIES: upper extremities are grossly normal. LOWER EXTREMITIES: No pitting edema. NEURO EXAM: Normal sensorium, GCS 15, normal speech, no gross weakness of arms, no gross weakness of legs. MEDICAL DECISION MAKING: Differential diagnoses includes but not limited to ACS, unstable angina, dysrhythmia, PNA, hypervolemia/pulmonary edema, CHF exacerbation, COPD exacerbation, PE, pneumothorax, pericardial effusion, cardiac tamponade, anxiety/psychogenic, viral URI In summary, this is a 70 year old female who presented with SOB. Differential as above. Nursing notes and pertinent past medical records reviewed. Vital signs reviewed and the patient is hypoxic but otherwise afebrile and hemodynamically stable. Patient was placed on low-flow nasal cannula with improvement. History and presentation revealed I reviewed documentation from this weekend. The patient was here for a fall. She no evidence of trauma. Patient was not hypoxic at that time. She had imaging of her head and neck as well as a chest x-ray and was ultimately discharged back to her living facility. Physical examination revealed as above. As a result of my initial evaluation, given the recent fall now with worsening shortness of breath and oxygen requirement, we will repeat the patient's chest x-ray today. She does have features of possible viral URI versus pneumonia. I do feel it is pertinent to obtain CT chest abdomen pelvis as this was not obtained this weekend and she now is on her second emergency department visit for worsening symptoms. Diagnostics interpreted by me include EKG and cardiac monitoring as listed below: -Cardiac Monitoring: An order was placed for continuous cardiac monitoring. The monitor shows a rate of 70-80s with regular rhythm. -ECG: Appears to be normal sinus rhythm at a ventricular rate of [address] segment changes suggest STEMI. There is a very poor baseline on this EKG Patient completed laboratory studies and imaging. Chest x-ray independently interpreted by me reveals possible left-sided pneumonia. Results independently interpreted by me are leukocytosis. No significant anemia. No kidney dysfunction. Pseudohyponatremia noted. Patient's procalcitonin is normal. RVP is positive for rhino/enterovirus. The patient was managed with low-flow nasal cannula but she progressively became more hypoxic. Patient was switched to a nonrebreather mask initially. Improvement in oxygenation status. Given ongoing abdominal pain as well as acute hypoxic respiratory failure and a leukocytosis, I did elect to proceed with CT imaging of the chest abdomen and pelvis. CTA chest showed mucous plugging with possible left-sided pneumonia. Patient's CT of the abdomen/pelvis did not reveal any intra-abdominal pathology. Do feel the patient's symptoms are largely related to her viral URI including rhino/enterovirus infection. There is possibly a component of community- acquired pneumonia and she was started on ceftriaxone azithromycin. She does not appear septic at this time. Patient was given a DuoNeb which failed to improve her symptoms her oxygenation status. Given her acute hypoxic respiratory failure, I do recommend admission to the hospital. Ultimately, the decision was made to admit the patient for Acute hypoxic respiratory failure secondary to viral URI and likely pneumonia. I discussed the case with the hospitalist service via telephone/TigerText and they are agreeable to admit the patient to their services. Based on the above, including the patient's age, coexisting illnesses, labs, imaging, and exam findings the decision to treat as an inpatient. I discussed the patient with the hospitalist team who recommended admission to their services. They received the medications, treatments, interventions indicated above and their condition remained guarded. I discussed my findings with the patient and their family and they understand and agree with the treatment plan. All patient / family questions were answered to their satisfaction. Consults/Care Managements Discussions: Per [facility] ER treatment provided: See above Procedures:none Critical Care: I have personally spent 41 minutes of critical care time in direct management of this patient. This includes bedside care, interpretation of diagnostic studies, and testing, discussion with consultants, patient, and family members, and other require inpatient management activities. This 41 minutes is in excess of all separately billable procedures. The chart was completed utilizing [employer] Speech voice recognition software. Grammatical errors, random word insertions, pronoun errors, and incomplete sentences are an occasional consequence of this system due to software limitations, ambient noise, and hardware issues. Any formal questions or concerns about the content, text, or information contained within the body of this dictation should be directly addressed to the physician for clarification. Past Med/Surg History Problem List (Updated 07/28/25 @ 16:43 by Mak Angel DO) Community acquired pneumonia (Acute) Rhinovirus infection (Acute) Leukocytosis (Acute) Pseudohyponatremia (Acute) Acute hypoxic respiratory failure (Acute) Abnormal chest CT Dehydration Viral respiratory infection Acute on chronic hypoxic respiratory failure Fall (Acute) Medical History Restrictive lung disease Mild intellectual disability Cancer of central portion of left breast (01/30/16) "Abnormal left breast mammogram Status post stereotactic biopsy 01/30/2016 revealing ductal carcinoma grade 2 Estrogen receptor positive, progesterone receptor positive, HER-2/frederic negative Status post needle localization lumpectomy and sentinel lymph node biopsy mar 24 2016 Stage pT1c pN0 positive margin of DCIS Status post reexcision 04/09/2016 negative margins Oncotype DX 7 Status post completion of radiation therapy 06/26/2016 received 5130 cGy utilizing hypo-fractionation" On 05/16/16 11:51 Sylvia Angel wrote "Abnormal left breast mammogram Status post stereotactic biopsy 01/30/2016 revealing ductal carcinoma grade 2 Estrogen receptor positive, progesterone receptor positive, HER-2/frederic negative Status post needle localization lumpectomy and sentinel lymph node biopsy mar 24 2016 Stage pT1c pN0 positive margin of DCIS Status post reexcision 04/09/2016 negative margins Oncotype DX pending" HTN (hypertension) DM (diabetes mellitus), type 2 HLD (hyperlipidemia) Obstructive sleep apnea Schizoaffective disorder History of breast cancer Acute respiratory failure with hypoxia Surgical History Hx of tonsillectomy H/O partial mastectomy Family History Other Breast cancer Diabetes Hypertension Social History Smoking Status: Never smoker Second Hand Exposure: No; Do You Dip or Chew Tobacco: No; Hx Alcohol Use: No Hx Substance Use: No Preferred Language: Sammarinese Communication Ability: Effective Communication Ability Comment: developmental delay Wire Spooler Required: No Beliefs That Will Affect Care: None marital status: Single Current Living Situation: Boarding Home current occupational status: disabled Feels Safe at Home: Yes Safety Concerns: Feels Safe At This Time Gender Identity: Female Assistive Devices: Oxygen - at Night and Walker Allergies Allergies Allergy/AdvReac Type Severity Reaction Status Date / Time No Known Allergies Allergy Verified 07/26/25 11:53 Home Meds Home Medications Medication Instructions Recorded Confirmed atorvastatin 40 mg tablet 40 mg PO HS 04/07/19 07/26/25 lisinopril 10 mg tablet 10 mg PO QAM 04/07/19 07/26/25 omeprazole 20 mg tablet,delayed 20 mg PO HS 04/07/19 07/26/25 release glipizide 5 mg tablet, extended 5 mg PO DAILY 02/02/25 07/26/25 release 24 hr nystatin 100,000 unit/gram topical 100,000 unit topical 3XD PRN SKIN 02/02/25 07/26/25 powder ([facility]) FOLDS NEEDED citalopram 20 mg tablet 20 mg PO QAM 03/29/25 07/26/25 Aloe Aftersun Gel 1 applic topical DIRECTED PRN 07/24/25 07/26/25 [place] aluminum-mag hydroxide-simethicone 10 ml PO Q6H PRN Indigestion 07/24/25 07/26/25 400 mg-400 mg-40 mg/5 mL oral susp (Mylanta Maximum Strength) chlorpheniramine-dextromethorphan 1 tab PO Q6H PRN RUNNY NOSE/COLDS 07/24/25 07/26/25 4 mg-30 mg tablet (Coricidin HBP Cough and Cold) diclofenac sodium 1 % topical gel 2 g topical Q4H PRN Pain 07/24/25 07/26/25 hydrocortisone 1 % topical cream 1 applic topical TID PRN Rash 07/24/25 07/26/25 ibuprofen 200 mg tablet 400 mg PO Q4H PRN 07/24/25 07/26/25 FEVER/PAIN/HEADACHES loperamide 1 mg/7.5 mL oral liquid 2 mg PO DIRECTED PRN Diarrhea 07/24/25 07/26/25 (Imodium A-D) magnesium hydroxide 400 mg/5 mL 30 ml PO Q6H PRN Constipation 07/24/25 07/26/25 oral suspension (Milk of Magnesia) neomycin-bacitracn Zn-polymyx 3.5 1 applic topical BID PRN MINOR 07/24/25 07/26/25 mg-400 unit-5,000 unit/gram top SCRAPS/CUTS oint (Neosporin (pxr-[id number]-swqfx)) phosphorated carbohydrate oral 15 ml PO Q15M PRN NAUSEA/VOMITING 07/24/25 07/26/25 solution (Emetrol oral solution) risperidone 0.5 mg tablet 0.5 mg PO HS 07/24/25 07/26/25 (Risperdal) mirabegron 50 mg tablet,extended 50 mg PO HS 07/26/25 07/26/25 release 24 hr (Myrbetriq) Results & Data (ED) Vital Signs Vital Signs - 24 hr 07/26/25 08:27 07/26/25 08:33 07/26/25 08:33 Temperature 36.7 C Temperature Source Oral Pulse Rate 88 88 87 Pulse Rate [Apical] Pulse Rate from SpO2 Sensor Respiratory Rate 24 26 H Blood Pressure 143/78 H Blood Pressure [Right Arm] Blood Pressure Mean 99 Blood Pressure Mean [Right Arm] Pulse Oximetry 92 91 Oxygen Delivery Method Room Air Room Air Oxygen Flow Rate Sepsis Recent Fever Within 48 Hours No Sepsis New/Unexplained Change in Mental Status No Sepsis Action Taken by Nursing No Action Required Oxygen Flow Rate - Titration Pulse Oximetry Post Tiitration 07/26/25 08:50 07/26/25 09:00 07/26/25 09:03 Temperature Temperature Source Pulse Rate Pulse Rate [Apical] Pulse Rate from SpO2 Sensor Respiratory Rate Blood Pressure Blood Pressure [Right Arm] Blood Pressure Mean Blood Pressure Mean [Right Arm] Pulse Oximetry 91 87 L 89 L Oxygen Delivery Method Nasal Cannula Nasal Cannula Non-rebreather Oxygen Flow Rate 0 2 6 Sepsis Recent Fever Within 48 Hours Sepsis New/Unexplained Change in Mental Status Sepsis Action Taken by Nursing Oxygen Flow Rate - Titration 2 6 15 Pulse Oximetry Post Tiitration 94 89 L 90 07/26/25 09:15 07/26/25 09:30 07/26/25 10:21 Temperature Temperature Source Pulse Rate 78 75 Pulse Rate [Apical] Pulse Rate from SpO2 Sensor 77 Respiratory Rate 18 22 Blood Pressure 135/82 132/70 Blood Pressure [Right Arm] Blood Pressure Mean 99 90 Blood Pressure Mean [Right Arm] Pulse Oximetry 97 98 96 Oxygen Delivery Method Oxyhood Oxygen Flow Rate 15 Sepsis Recent Fever Within 48 Hours Sepsis New/Unexplained Change in Mental Status Sepsis Action Taken by Nursing Oxygen Flow Rate - Titration 6 Pulse Oximetry Post Tiitration 95 07/26/25 10:26 07/26/25 11:30 Temperature Temperature Source Pulse Rate 74 Pulse Rate [Apical] 75 Pulse Rate from SpO2 Sensor Respiratory Rate 14 21 Blood Pressure 154/63 H Blood Pressure [Right Arm] 132/70 Blood Pressure Mean 106 Blood Pressure Mean [Right Arm] 90 Pulse Oximetry 95 95 Oxygen Delivery Method Oxymask Oxygen Flow Rate 6 Sepsis Recent Fever Within 48 Hours Sepsis New/Unexplained Change in Mental Status Sepsis Action Taken by Nursing Oxygen Flow Rate - Titration Pulse Oximetry Post Tiitration Laboratory Data 07/28/25 05:46 07/28/25 05:46 Lab Results 07/26/25 07/26/25 07/26/25 Range/Units 08:33 08:53 10:08 WBC 16.15 H (4.8-10.8) K/ul RBC 4.21 (4.20-5.40) M/uL Hgb 12.9 (12.0-16.0) g/dl Hct 40.0 (37.0-47.0) % MCV 95.0 (80.0-100.0) fL MCH 30.6 (25.0-34.0) pg MCHC 32.3 (32.0-36.0) g/dL RDW Std Deviation 48.0 H (36.4-46.3) fL RDW Coeff of Alisa 13.7 (11.5-14.5) % Plt Count 278 (130-400) K/uL MPV 10.3 (9.4-12.4) fL Immature Gran % (Auto) 0.4 % Neut % (Auto) 77.9 % Lymph % (Auto) 10.3 % [place] % (Auto) 10.6 % Eos % (Auto) 0.4 % Baso % (Auto) 0.4 % Neut # (Auto) 12.57 H (1.40-6.50) K/uL Lymph # (Auto) 1.66 (1.20-3.40) K/uL [place] # (Auto) 1.71 H (0.11-0.59) K/uL Eos # (Auto) 0.07 (0.00-0.50) K/uL Baso # (Auto) 0.07 (0.00-0.20) K/uL Immature Gran # (Auto) 0.07 (0.01-0.20) K/uL VBG pH 7.40 (7.36-7.41) VBG pCO2 43 (38-50) mmHg VBG pO2 66 mmHg VBG HCO3 27 mmol/L VBG O2 Saturation 92.8 % VBG Base Excess 1.4 mEq/L Sodium 135 L (136-145) mmol/L Potassium TNP 3.9 Chloride 99 (98-107) mmol/L Carbon Dioxide 28 (21-32) mmol/L Anion Gap 8 (3-11) BUN 18 (6-23) mg/dl Creatinine 0.72 (0.6-1.2) mg/dl Est Cr Clr Drug Dosing Not Reportable eGFR 90.45 BUN/Creatinine Ratio 25.0 H (10-20) Glucose 141 H (70-99(Fasting)) mg/dl Estimat Average Glucose 123 mg/dl Hemoglobin A1c 5.9 H (4.5-5.6) % Calcium 9.1 (8.6-10.3) mg/dl Magnesium 2.0 (1.7-2.4) mg/dl Total Bilirubin 0.7 (0.2-1.0) mg/dl AST TNP 17 ALT 9 (7-52) U/L Alkaline Phosphatase 87 (34-104) U/L Troponin I High Sens 8.7 (0-14) pg/ml Total Protein 7.1 (6.0-8.3) gm/dl Albumin 3.8 (3.4-5.0) gm/dl Globulin 3.3 (2.5-4.0) gm/dl Albumin/Globulin Ratio 1.2 (0.9-2) Procalcitonin 0.06 (0-0.5) ng/ml Administered Medications Acetylcysteine (Acetylcysteine 10% Inhal Soln 4 Ml Dispensed By Resp.) 5 ml INH TID ROMEL Stop: 08/27/25 08:59 Last Admin: 07/28/25 15:42 Dose: 5 ml Documented By: Admin: 07/28/25 11:28 Dose: 5 ml Documented By: [email or web address] Atorvastatin Calcium (Atorvastatin 40 Mg Tab) 40 mg PO HS ROMEL Stop: 08/25/25 20:59 Last Admin: 07/27/25 20:34 Dose: 40 mg Documented By: Admin: 07/26/25 20:05 Dose: 40 mg Documented By: GUERRERO Citalopram Hydrobromide (Citalopram 20 Mg Tab) 20 mg PO QAM [facility] Stop: 08/26/25 08:59 Last Admin: 07/28/25 07:59 Dose: 20 mg Documented By: kvng Admin: 07/27/25 07:36 Dose: 20 mg Documented By: kvng Doxycycline Hyclate (Doxycycline Hyclate 100 Mg Cap) 100 mg PO BID [facility] Stop: 08/01/25 08:59 Last Admin: 07/28/25 07:59 Dose: 100 mg Documented By: kvng Admin: 07/27/25 20:33 Dose: 100 mg Documented By: Admin: 07/27/25 08:26 Dose: Not Given Documented By: kvng Guaifenesin (Guaifenesin 600 Mg Tabcr) 600 mg PO Q12 [facility] Stop: 08/25/25 20:59 Last Admin: 07/28/25 07:59 Dose: 600 mg Documented By: kvng Admin: 07/27/25 20:33 Dose: 600 mg Documented By: Admin: 07/27/25 07:36 Dose: 600 mg Documented By: kvng Admin: 07/26/25 20:04 Dose: 600 mg Documented By: GUERRERO Cefepime HCl (Maxipime 2000mg) 2,000 mg in 20 mls @ 5 mls/min IV Q8H [facility]; Protocol Stop: 07/31/25 15:59 Last Admin: 07/28/25 16:24 Dose: 5 mls/min Documented By: kvng Admin: 07/28/25 09:31 Dose: 5 mls/min Documented By: kvng Admin: 07/28/25 00:07 Dose: 5 mls/min Documented By: Admin: 07/27/25 16:12 Dose: 5 mls/min Documented By: kvng Admin: 07/27/25 07:36 Dose: 5 mls/min Documented By: kvng Admin: 07/26/25 23:13 Dose: 5 mls/min Documented By: Admin: 07/26/25 15:48 Dose: 5 mls/min Documented By: JOSEMANUEL Insulin Aspart (Insulin Aspart Per Unit Charge) 0 units SC ACHS [facility] Stop: 08/25/25 16:29 Last Admin: 07/28/25 12:22 Dose: 7 units Documented By: kvng Co-signed By: CHUY Admin: 07/28/25 08:32 Dose: 6 units Documented By: kvng Co-signed By: TOMAS Admin: 07/27/25 20:33 Dose: 2 units Documented By: ELEANOR Co-signed By: TOÑA Admin: 07/27/25 17:00 Dose: 8 units Documented By: kvng Co-signed By: HAIR Admin: 07/27/25 12:30 Dose: 8 units Documented By: kvng Co-signed By: HALEY Admin: 07/27/25 08:18 Dose: 4 units Documented By: kvng Co-signed By: HALEY Admin: 07/26/25 20:23 Dose: Not Given Documented By: Admin: 07/26/25 16:42 Dose: 8 units Documented By: WILLIAM Co-signed By: JOSEMANUEL Lactobacillus Acidophilus (Advanced Probiotic 625 Mg Capsule) 1,250 mg PO DAILY [facility] Stop: 08/25/25 08:59 Last Admin: 07/28/25 07:59 Dose: 1,250 mg Documented By: kvng Admin: 07/27/25 07:37 Dose: 1,250 mg Documented By: kvng Admin: 07/26/25 14:54 Dose: 1,250 mg Documented By: JOSEMANUEL Lisinopril (Lisinopril 10 Mg Tab) 10 mg PO QAM [facility] Stop: 08/26/25 08:59 Last Admin: 07/28/25 07:59 Dose: 10 mg Documented By: kvng Admin: 07/27/25 07:36 Dose: 10 mg Documented By: kvng Pantoprazole Sodium (Pantoprazole 40 Mg Tab) 40 mg PO QAM [facility] Stop: 08/25/25 14:44 Last Admin: 07/28/25 07:59 Dose: 40 mg Documented By: kvng Admin: 07/27/25 07:36 Dose: 40 mg Documented By: kvng Admin: 07/26/25 14:54 Dose: 40 mg Documented By: JOSEMANUEL Risperidone (Risperidone 0.5 Mg Tablet) 0.5 mg PO HS [facility] Stop: 08/25/25 20:59 Last Admin: 07/27/25 20:34 Dose: 0.5 mg Documented By: Admin: 07/26/25 20:05 Dose: 0.5 mg Documented By: GUERRERO Sodium Chloride (Sodium Chlor 7% 4 Ml Neb) 4 ml NEB BIDR [facility] Stop: 08/25/25 11:34 Last Admin: 07/28/25 07:07 Dose: 4 ml Documented By: Admin: 07/27/25 19:58 Dose: 4 ml Documented By: Admin: 07/27/25 07:15 Dose: 4 ml Documented By: [id number] Admin: 07/26/25 20:27 Dose: 4 ml Documented By: Admin: 07/26/25 12:05 Dose: 4 ml Documented By: VALERI Vibegron (Vibegron 75 Mg Tab) 75 mg PO HS [facility] Stop: 08/25/25 20:59 Last Admin: 07/27/25 20:33 Dose: 75 mg Documented By: Admin: 07/26/25 20:05 Dose: 75 mg Documented By: GUERRERO Discontinued Medications Albuterol (Albut/Ipratrop 3mg/0.5mg Neb 3 Ml Vial) 3 ml INH NOW STA Stop: 07/26/25 08:30 Last Admin: 07/26/25 08:40 Dose: 3 ml Documented By: bella Albuterol (Albut/Ipratrop 3mg/0.5mg Neb 3 Ml Vial) 3 ml NEB NOW STA; Protocol Stop: 07/26/25 09:06 Last Admin: 07/26/25 09:11 Dose: 3 ml Documented By: bella Albuterol (Albut/Ipratrop 3mg/0.5mg Neb 3 Ml Vial) 3 ml NEB QIDR [facility]; Protocol Stop: 08/25/25 14:59 Last Admin: 07/28/25 15:39 Dose: 3 ml Documented By: Admin: 07/28/25 11:26 Dose: 3 ml Documented By: Admin: 07/28/25 07:07 Dose: 3 ml Documented By: Admin: 07/27/25 19:57 Dose: 3 ml Documented By: Admin: 07/27/25 15:48 Dose: 3 ml Documented By: [id number] Admin: 07/27/25 11:58 Dose: 3 ml Documented By: [id number] Admin: 07/27/25 07:15 Dose: 3 ml Documented By: [id number] Admin: 07/26/25 20:27 Dose: 3 ml Documented By: Admin: 07/26/25 15:38 Dose: 3 ml Documented By: [id number] Ceftriaxone Sodium (Rocephin) 2,000 mg in 50 mls @ 100 mls/hr IV NOW STA Stop: 07/26/25 10:25 Last Infusion: 07/26/25 10:38 Dose: Infused Documented By: Admin: 07/26/25 10:08 Dose: 100 mls/hr Documented By: bella Azithromycin (Zithromax) 500 mg in 255 mls @ 127.5 mls/hr IV NOW ONE Stop: 07/26/25 11:55 Last Infusion: 07/26/25 14:39 Dose: Infused Documented By: Admin: 07/26/25 10:58 Dose: 127.5 mls/hr Documented By: NORI Sodium Chloride (Nss) 1,000 mls @ 60 mls/hr IV .[id number] [facility] Stop: 07/27/25 04:39 Last Infusion: 07/27/25 05:22 Dose: Infused Documented By: Admin: 07/26/25 12:59 Dose: 60 mls/hr Documented By: HINA Methylprednisolone 40 mg/ (Syringe) 0.64 mls @ 1.5 mls/min IV Q12H [facility] Stop: 08/25/25 20:59 Last Admin: 07/27/25 08:16 Dose: 1.5 mls/min Documented By: kvng Admin: 07/26/25 20:04 Dose: 1.5 mls/min Documented By: GUERRERO Doxycycline Hyclate 100 mg/ (Dextrose) 100 mls @ 50 mls/hr IV Q12H [facility] Stop: 07/31/25 19:59 Last Infusion: 07/27/25 10:25 Dose: Infused Documented By: kvng Admin: 07/27/25 08:20 Dose: 100 mls/hr Documented By: kvng Infusion: 07/26/25 22:29 Dose: Infused Documented By: Admin: 07/26/25 20:04 Dose: 50 mls/hr Documented By: GUERRERO Ioversol (Optiray 320 100ml) 94 ml IV ONCE ONE Stop: 07/26/25 10:00 Last Admin: 07/26/25 10:00 Dose: 94 ml Documented By: JAR Imaging Data Radiologist's Impression: Chest X-Ray 07/26/25 09:05 XR chest 1V portable CLINICAL HISTORY: eval for pna COMPARISON STUDY: 07/23/2025 FINDINGS: Stable mild cardiomegaly without pulmonary vascular congestion. There is mildly increased hazy opacity at the left lung base. There is stable mild stranding of the right base. No pneumothorax. IMPRESSION: Mildly increased hazy opacity at the left lung base could represent early pneumonia or atelectasis. ACT 112: Negative or not required by law. Electronically signed by: Biju Cabral M.D. 07/26/2025 9:28 AM Abdomen/Pelvis CT 07/26/25 09:[address] WITH IV CONTRAST CT DOSE: 3418 HISTORY: fall, abd pain TECHNIQUE: Multiaxial CT images of the abdomen and pelvis were performed following the IV administration of 90 cc of Optiray, A dose lowering technique was utilized adhering to the principles of ALARA. COMPARISON STUDY: 12/25/2022 FINDINGS: ABDOMEN: Liver, gallbladder, spleen, pancreas, adrenal glands, and kidneys show no evidence of acute injury. Stable tiny fat density finding distally in the pancreas. Stable nodularity of the left adrenal gland with largest nodule measuring 1.3 cm. There is no hydronephrosis. No evidence of abdominal aortic injury. There are scattered atherosclerotic calcifications. No abdominal aortic aneurysm. Pelvis: Uterus and adnexa are grossly unremarkable. Urinary bladder is nondistended. There is moderate retained stool. No bowel inflammation or obstruction seen. No free fluid, free air, or hematoma seen. Osseous structures: There is osteopenia. There are moderate degenerative changes at the lumbar spine. No acute fracture is seen of the visualized osseous structures. IMPRESSION: No acute injury seen at the abdomen or pelvis. Otherwise as described. ACT 112: Negative or not required by law. The above report was generated using voice recognition software. It may contain grammatical, syntax or spelling errors. Electronically signed by: Biju Cabral M.D. 07/26/2025 10:[address] 07/26/25 09:[address] WITH CONTRAST CT DOSE: 2418.31 mGy.cm HISTORY: Acute chest trauma eval for trauma, pna TECHNIQUE: Multiaxial CT images of the chest were performed following the IV administration of 94 cc of Optiray. A dose lowering technique was utilized adhering to the principles of ALARA. COMPARISON: CT abdomen and pelvis of same day, CTA chest 10/07/2023 FINDINGS: Subcentimeter low suspicion hypodense scattered thyroid nodules. Mild cardiomegaly without pericardial effusion. No thoracic aortic aneurysm. Unremarkable opacified pulmonary artery. Study is limited secondary to respiratory motion artifact and upper extremity positioning. Mild right hemidiaphragmatic elevation. There is no pneumothorax, pleural effusion or overt pulmonary edema. Linear subsegmental areas of bibasilar prominent consolidation suggestive of atelectasis. There are no suspicious pulmonary nodules or masses. Are bibasilar mucous plugging. No acute upper abdominal abnormality. CT abdomen and pelvis dictated separately. Degenerative changes of the shoulders and spine. No acute displaced rib fractures identified. Healed chronic distal left clavicular fracture deformity. IMPRESSION: 1. No acute posttraumatic intrathoracic abnormality. 2. No acute rib fracture or pneumothorax identified 3. Mild bibasilar mucous plugging with subsegmental atelectasis. ACT 112: Negative or not required by law. Electronically signed by: Ian French M.D. 07/26/2025 10:19 AM Discharge Plan Visit Data Chief Complaint: Flu Like Symptoms Stated Complaint: FLU LIKE SX, CONGESTION, COUGH ED Provider: Mak nAgel Discharge Problem: Acute hypoxic respiratory failure, Fall, Pseudohyponatremia, Leukocytosis, Rhinovirus infection, Community acquired pneumonia Patient Disposition: Admitted As Inpatient Condition: Serious Discharge Instructions Interventions: ED Discharge Assessment Last Done: 07/26/25 13:42
[2025-07-26] MEDS: ALBUT/IPRATROP 3MG/0.5MG NEB 3 ML VIAL NEB STA (09:11)
[2025-07-26 09:26] LABS: Alanine Aminotransferase 9 U/L (7-52); Albumin Globulin Ratio 1.2 (0.9-2); Albumin Level 3.8 gm/dl (3.4-5.0); Alkaline Phosphatase 87 U/L (34-104); Anion Gap 8 (3-11); Bilirubin,Total 0.7 mg/dl (0.2-1.0); Blood Urea Nitrogen 18 mg/dl (6-23); Calcium 9.1 mg/dl (8.6-10.3); Carbon Dioxide 28 mmol/L (21-32); Chloride 99 mmol/L (98-107); Globulin 3.3 gm/dl (2.5-4.0); Glucose 141 mg/dl (70-99(Fasting)); Magnesium 2.0 mg/dl (1.7-2.4); Sodium 135 mmol/L (136-145); Total Protein 7.1 gm/dl (6.0-8.3)
--- NOTE | 2025-07-26 09:30 | XRay Report ---
XR chest 1V portable CLINICAL HISTORY: eval for pna COMPARISON STUDY: 07/23/2025 FINDINGS: Stable mild cardiomegaly without pulmonary vascular congestion. There is mildly increased h azy opacity at the left lung base. There is stable mild stranding of the right base. No pneumothorax. IMPRESSION: Mildly increased hazy opacity at the left lung base could represent early pneumonia or a telectasis. ACT 112: Negative or not required by law. Electronically signed by: Biju Cabral M.D. 07/26/2025 9:28 AM
[2025-07-26 09:43] LABS: Chlamydia pneumoniae PCR Not Detected (NotDetected); Coronavirus 229E PCR Not Detected (NotDetected); Coronavirus CoV-2 (COVID19)PCR Not Detected (NotDetected); Coronavirus HKU1 PCR Not Detected (NotDetected); Coronavirus NL63 PCR Not Detected (NotDetected); Coronavirus OC43PCR Not Detected (NotDetected); Human Metapneumovirus PCR Not Detected (NotDetected); Parainfluenza Virus 1 PCR Not Detected (NotDetected); Parainfluenza Virus 2 PCR Not Detected (NotDetected); Parainfluenza Virus 3 PCR Not Detected (NotDetected); Parainfluenza Virus 4 PCR Not Detected (NotDetected); Respiratory Syncytial VirusPCR Not Detected (NotDetected); Rhinovirus/Enterovirus PCR DETECTED (NotDetected)
[2025-07-26] MEDS: OPTIRAY 320 100ml IV ONE (10:00)
[2025-07-26] MEDS: cefTRIAXone SODIUM 2,000 MG/50 ML BAG IV STA (10:08)
--- NOTE | 2025-07-26 10:19 | CT Scan Report ---
ABDOMEN AND PELVIS CT WITH IV CONTRAST CT DOSE: 3418 HISTORY: fall, abd pain TECHNIQUE: Multiaxial CT images of the abdomen and pelvis were performed following the IV administrat ion of 90 cc of Optiray, A dose lowering technique was utilized adhering to the principles of ALARA. COMPARISON STUDY: 12/25/2022 FINDINGS: ABDOMEN: Liver, gallbladder, spleen, pancreas, adrenal glands, and kidneys show no evidence of acute injury. Stable tiny fat density finding distally in the pancreas. Stable nodularity of the left adren al gland with largest nodule measuring 1.3 cm. There is no hydronephrosis. No evidence of abdominal a ortic injury. There are scattered atherosclerotic calcifications. No abdominal aortic aneurysm. Pelvis: Uterus and adnexa are grossly unremarkable. Urinary bladder is nondistended. There is moderat e retained stool. No bowel inflammation or obstruction seen. No free fluid, free air, or hematoma see n. Osseous structures: There is osteopenia. There are moderate degenerative changes at the lumbar spine. No acute fracture is seen of the visualized osseous structures. IMPRESSION: No acute injury seen at the abdomen or pelvis. Otherwise as described. ACT 112: Negative or not required by law. The above report was generated using voice recognition software. It may contain grammatical, syntax o r spelling errors. Electronically signed by: Biju Cabral M.D. 07/26/2025 10:17 AM
--- NOTE | 2025-07-26 10:20 | CT Scan Report ---
CHEST CT WITH CONTRAST CT DOSE: 2418.31 mGy.cm HISTORY: Acute chest trauma eval for trauma, pna TECHNIQUE: Multiaxial CT images of the chest were performed following the IV administration of 94 cc of Optiray. A dose lowering technique was utilized adhering to the principles of ALARA. COMPARISON: CT abdomen and pelvis of same day, CTA chest 10/07/2023 FINDINGS: Subcentimeter low suspicion hypodense scattered thyroid nodules. Mild cardiomegaly without pericardial effusion. No thoracic aortic aneurysm. Unremarkable opacified pulmonary artery. Study is limited secondary to respiratory motion artifact and upper extremity positioning. Mild right hemidiaphragmatic elevation. There is no pneumothorax, pleural effusion or overt pulmonary edema. Linear subsegmental areas of bibasilar prominent consolidation suggestive of atelectasis. The re are no suspicious pulmonary nodules or masses. Are bibasilar mucous plugging. No acute upper abdom inal abnormality. CT abdomen and pelvis dictated separately. Degenerative changes of the shoulders an d spine. No acute displaced rib fractures identified. Healed chronic distal left clavicular fracture deformity. IMPRESSION: 1. No acute posttraumatic intrathoracic abnormality. 2. No acute rib fracture or pneumothorax identified 3. Mild bibasilar mucous plugging with subsegmental atelectasis. ACT 112: Negative or not required by law. Electronically signed by: Ian French M.D. 07/26/2025 10:19 AM
--- NOTE | 2025-07-26 10:44 | History & Physical Report ---
Date of Service July 26, 2025 Assessment & Plan (1) Acute on chronic hypoxic respiratory failure: (2) Viral respiratory infection: (3) Dehydration: (4) Restrictive lung disease: (5) Obstructive sleep apnea: (6) DM (diabetes mellitus), type 2: (7) HTN (hypertension): (8) Schizoaffective disorder: (9) Mild intellectual disability: Plan This is a 70 y/o female with DM2, TC, not tolerant of CPAP, nocturnal hypoxemia (supposed to be on O2 2L via NC at HS), schizoaffective d/o, restrictive lung dz, mild intellectual disability, prior breast CA, HTN, GERD, dyslipidemia, and other history as outlined below who presents to the ED today from the [facility] where she resides with cold symptoms for last few days. In the ED, she was noted to be hypoxic with sats in the 80s, initially required 15L O2 via oxymask but this has been successfully decreased to 6L with maintenance of sats in the 90s. [employer] respiratory panel was positive for entero/rhinovirus, negative for flu/COVID, RSV. CT chest personally reviewed - shows bilateral basilar mucus plugging, atelectasis, possible early pneumonia. Pt referred for admission for evaluation and management. #Acute on chronic respiratory failure #Viral respiratory infection - entero-/rhinovirus positive #Possible secondary bacterial pneumonia #Restrictive lung disease #TC - noncompliant with CPAP, intermittently uses nocturnal O2 - Admit to PCU - Continue oxygen for respiratory support - Broad spectrum antibiotic coverage for now with cefepime, change to doxycycline due to potential QT prolongation with psychiatric meds and azithromycin - Check MRSA swab, sputum culture, blood cultures - Scheduled/prn DuoNebs - Hypertonic saline nebs, incentive spirometry, flutter valve - Consult pulmonology for additional recommendations - IV Solu-Medrol 40 mg BID for now, reassess tomorrow #Dehydration - IVF x 1 liter then reassess - Encourage oral intake #Schizoaffective disorder #Mild intellectual disability - [facility] resident - please keep staff updated on plan of care - Continue outpatient citalopram, risperidone #Type 2 Diabetes - Hold oral meds - Diabetic diet - BSG ACHS - Insulin sliding scale - A1c in the AM #Hypertension - Chronic, stable - Resume home regimen tomorrow #GERD/esophageal dysmotility - Easy to chew diet (per [facility] car sales representative) - Continue daily PPI #Dyslipidemia - Chronic, stable - continue statin therapy Pt seen and reviewed with collaborating physician, Dr. Jackson. Plan of care discussed and as outlined above. Code status: full code DVT prophylaxis: Hitesh Gutierrez PA-C History of Present Illness Chief Complaint: weakness, cold symptoms Primary Care Provider: Liudmila Tyson MD This is a 70 y/o female with DM2, TC, not tolerant of CPAP, nocturnal hypoxemia (supposed to be on O2 2L via NC at ), schizoaffective d/o, restrictive lung dz, mild intellectual disability, prior breast CA, HTN, GERD, dyslipidemia, and other history as outlined below who presents to the ED today from the [facility] where she resides with cold symptoms for last few days. Pt was seen in the ED over the weekend after a GLF (fell out of bed) - negative CT head, knee x-rays, CXR though noted to have a leukocytosis at that visit of 16.06, COVID/flu/RSV negative. Today she presents with cold symptoms and shortness of breath, staff at [facility] note that she has not been acting like herself. Pt reports a cough that is not productive. Generalized fatigue and weakness affecting ability to ambulate. She denies abdominal pain, N/V/D, ARGUELLO, sore throat. Unsure how her appetite has been. Her outpatient Epic records were reviewed including notes from PCP, pulmonology and sleep medicine. Pt has a history of restrictive lung disease - follows with [facility] pulmonology. Last visit 07/20/25. Noted noncompliance with inhaler due to not liking taste so prescribed nebulizer to try instead but facility has not yet been able to get this set up. Also follows with sleep medicine due to severe TC but not able to tolerate CPAP. Uses 2L of oxygen at night due to nocturnal hypoxemia but reportedly not using consistently. Did use the last couple nights. No known sick contacts. Allergies Allergy/AdvReac Type Severity Reaction Status Date / Time No Known Allergies Allergy Verified 07/26/25 11:53 Home Medications Medication Instructions Recorded Confirmed Type atorvastatin 40 mg tablet 40 mg PO HS 04/07/19 07/26/25 History lisinopril 10 mg tablet 10 mg PO QAM 04/07/19 07/26/25 History omeprazole 20 mg tablet,delayed 20 mg PO HS 04/07/19 07/26/25 History release glipizide 5 mg tablet, extended 5 mg PO DAILY 02/02/25 07/26/25 History release 24 hr nystatin 100,000 unit/gram topical 100,000 unit topical 3XD PRN SKIN 02/02/25 07/26/25 History powder (Nyamyc) FOLDS NEEDED citalopram 20 mg tablet 20 mg PO QAM 03/29/25 07/26/25 History Aloe Aftersun Gel 1 applic topical DIRECTED PRN 07/24/25 07/26/25 History SUN[place]NS aluminum-mag hydroxide-simethicone 10 ml PO Q6H PRN Indigestion 07/24/25 07/26/25 History 400 mg-400 mg-40 mg/5 mL oral susp (Mylanta Maximum Strength) chlorpheniramine-dextromethorphan 1 tab PO Q6H PRN RUNNY NOSE/COLDS 07/24/25 07/26/25 History 4 mg-30 mg tablet (Coricidin HBP Cough and Cold) diclofenac sodium 1 % topical gel 2 g topical Q4H PRN Pain 07/24/25 07/26/25 History hydrocortisone 1 % topical cream 1 applic topical TID PRN Rash 07/24/25 07/26/25 History ibuprofen 200 mg tablet 400 mg PO Q4H PRN 07/24/25 07/26/25 History FEVER/PAIN/HEADACHES loperamide 1 mg/7.5 mL oral liquid 2 mg PO DIRECTED PRN Diarrhea 07/24/25 07/26/25 History (Imodium A-D) magnesium hydroxide 400 mg/5 mL 30 ml PO Q6H PRN Constipation 07/24/25 07/26/25 History oral suspension (Milk of Magnesia) neomycin-bacitracn Zn-polymyx 3.5 1 applic topical BID PRN MINOR 07/24/25 07/26/25 History mg-400 unit-5,000 unit/gram top SCRAPS/CUTS oint (Neosporin (dnu-gtf-vosdh)) phosphorated carbohydrate oral 15 ml PO Q15M PRN NAUSEA/VOMITING 07/24/25 07/26/25 History solution (Emetrol oral solution) risperidone 0.5 mg tablet 0.5 mg PO HS 07/24/25 07/26/25 History (Risperdal) mirabegron 50 mg tablet,extended 50 mg PO HS 07/26/25 07/26/25 History release 24 hr (Myrbetriq) Past Med/Surg History Problem List (Updated 07/26/25 @ 12:38 by Thuy Gutierrez PA-C) Dehydration Viral respiratory infection Acute on chronic hypoxic respiratory failure Fall (Acute) Medical History (Updated 07/26/25 @ 12:38 by Thuy Gutierrez PA-C) Restrictive lung disease Mild intellectual disability Cancer of central portion of left breast (01/30/16) "Abnormal left breast mammogram Status post stereotactic biopsy 01/30/2016 revealing ductal carcinoma grade 2 Estrogen receptor positive, progesterone receptor positive, HER-2/frederic negative Status post needle localization lumpectomy and sentinel lymph node biopsy mar 24 2016 Stage pT1c pN0 positive margin of DCIS Status post reexcision 04/09/2016 negative margins Oncotype DX 7 Status post completion of radiation therapy 06/26/2016 received 5130 cGy utilizing hypo-fractionation" On 05/16/16 11:51 Sylvia Angel wrote "Abnormal left breast mammogram Status post stereotactic biopsy 01/30/2016 revealing ductal carcinoma grade 2 Estrogen receptor positive, progesterone receptor positive, HER-2/frederic negative Status post needle localization lumpectomy and sentinel lymph node biopsy mar 24 2016 Stage pT1c pN0 positive margin of DCIS Status post reexcision 04/09/2016 negative margins Oncotype DX pending" HTN (hypertension) DM (diabetes mellitus), type 2 HLD (hyperlipidemia) Obstructive sleep apnea Schizoaffective disorder History of breast cancer Acute respiratory failure with hypoxia Surgical History Hx of tonsillectomy H/O partial mastectomy Family History Other Breast cancer Diabetes Hypertension Social History Smoking Status: Never smoker Second Hand Exposure: No; Do You Dip or Chew Tobacco: No; Hx Alcohol Use: No Hx Substance Use: No Preferred Language: Icelandic Communication Ability: Impaired Communication Ability Comment: developmental delay Child Care Group Leader Required: No Beliefs That Will Affect Care: None marital status: Single Current Living Situation: Boarding Home current occupational status: disabled Feels Safe at Home: Yes Safety Concerns: Feels Safe At This Time Gender Identity: Female Assistive Devices: Oxygen - at Night and Walker Review of Systems Review of Systems: All systems reviewed & are unremarkable except as noted in Subjective Physical Exam Physical Exam: Please see physician note for details of the physical exam. Results & Data Results & Data Vital Signs (Past 12 Hours) Vital Signs Temp Pulse Pulse Resp BP BP Pulse Ox 07/26/25 10:26 75 14 132/70 95 07/26/25 09:30 98 07/26/25 09:03 89 L 07/26/25 09:00 87 L 07/26/25 08:50 91 07/26/25 08:33 87 07/26/25 08:33 88 26 H 91 07/26/25 08:27 36.7 C 88 24 143/78 H 92 O2 Del Method O2 Flow Rate 07/26/25 10:26 Oxyhood 6 07/26/25 09:30 Oxyhood 15 07/26/25 09:03 Non-rebreather 6 07/26/25 09:00 Nasal Cannula 2 07/26/25 08:50 Nasal Cannula 0 07/26/25 08:33 07/26/25 08:33 Room Air 07/26/25 08:27 Room Air Laboratory Results Lab Results 07/26/25 07/26/25 07/26/25 Range/Units 08:33 08:53 Unknown WBC 16.15 H (4.8-10.8) K/ul RBC 4.21 (4.20-5.40) M/uL Hgb 12.9 (12.0-16.0) g/dl Hct 40.0 (37.0-47.0) % MCV 95.0 (80.0-100.0) fL MCH 30.6 (25.0-34.0) pg MCHC 32.3 (32.0-36.0) g/dL RDW Std Deviation 48.0 H (36.4-46.3) fL RDW Coeff of Alisa 13.7 (11.5-14.5) % Plt Count 278 (130-400) K/uL MPV 10.3 (9.4-12.4) fL Immature Gran % (Auto) 0.4 % Neut % (Auto) 77.9 % Lymph % (Auto) 10.3 % Crowley % (Auto) 10.6 % Eos % (Auto) 0.4 % Baso % (Auto) 0.4 % Neut # (Auto) 12.57 H (1.40-6.50) K/uL Lymph # (Auto) 1.66 (1.20-3.40) K/uL Crowley # (Auto) 1.71 H (0.11-0.59) K/uL Eos # (Auto) 0.07 (0.00-0.50) K/uL Baso # (Auto) 0.07 (0.00-0.20) K/uL Immature Gran # (Auto) 0.07 (0.01-0.20) K/uL VBG pH 7.40 (7.36-7.41) VBG pCO2 43 (38-50) mmHg VBG pO2 66 mmHg VBG HCO3 27 mmol/L VBG O2 Saturation 92.8 % VBG Base Excess 1.4 mEq/L Sodium 135 L (136-145) mmol/L Potassium TNP Chloride 99 (98-107) mmol/L Carbon Dioxide 28 (21-32) mmol/L Anion Gap 8 (3-11) BUN 18 (6-23) mg/dl Creatinine 0.72 (0.6-1.2) mg/dl Est Cr Clr Drug Dosing Not Reportable eGFR 90.45 BUN/Creatinine Ratio 25.0 H (10-20) Glucose 141 H (70-99(Fasting)) mg/dl Calcium 9.1 (8.6-10.3) mg/dl Magnesium 2.0 (1.7-2.4) mg/dl Total Bilirubin 0.7 (0.2-1.0) mg/dl AST TNP ALT 9 (7-52) U/L Alkaline Phosphatase 87 (34-104) U/L Troponin I High Sens 8.7 (0-14) pg/ml Total Protein 7.1 (6.0-8.3) gm/dl Albumin 3.8 (3.4-5.0) gm/dl Globulin 3.3 (2.5-4.0) gm/dl Albumin/Globulin Ratio 1.2 (0.9-2) Procalcitonin 0.06 (0-0.5) ng/ml Adenovirus (PCR) Not Detected (NotDetected) B. pertussis DNA (PCR) Not Detected (NotDetected) B.parapertussis DNA PCR Not Detected (NotDetected) C. pneumoniae DNA (PCR) Not Detected (NotDetected) Coronavirus OC43 (PCR) Not Detected (NotDetected) Coronavirus HKU1 (PCR) Not Detected (NotDetected) Coronavirus 229E (PCR) Not Detected (NotDetected) SARS-CoV-2 (PCR) Not Detected (NotDetected) Coronavirus NL63 (PCR) Not Detected (NotDetected) Human Metapneumovir PCR Not Detected (NotDetected) Influenza Type A (PCR) Not Detected (NotDetected) Influenza Type B (PCR) Not Detected (NotDetected) M. pneumoniae (PCR) Not Detected (NotDetected) Parainfluenza 1 (PCR) Not Detected (NotDetected) Parainfluenza 2 (PCR) Not Detected (NotDetected) Parainfluenza 3 (PCR) Not Detected (NotDetected) Parainfluenza 4 (PCR) Not Detected (NotDetected) RSV (PCR) Not Detected (NotDetected) Entero/Rhino (PCR) DETECTED A (NotDetected) Diagnostic Findings Chest X-Ray 07/26/25 09:05 XR chest 1V portable CLINICAL HISTORY: eval for pna COMPARISON STUDY: 07/23/2025 FINDINGS: Stable mild cardiomegaly without pulmonary vascular congestion. There is mildly increased hazy opacity at the left lung base. There is stable mild stranding of the right base. No pneumothorax. IMPRESSION: Mildly increased hazy opacity at the left lung base could represent early pneumonia or atelectasis. ACT 112: Negative or not required by law. Electronically signed by: Biju Cabral M.D. 07/26/2025 9:28 AM Abdomen/Pelvis CT 07/26/25 09:[address] WITH IV CONTRAST CT DOSE: 3418 HISTORY: fall, abd pain TECHNIQUE: Multiaxial CT images of the abdomen and pelvis were performed following the IV administration of 90 cc of Optiray, A dose lowering technique was utilized adhering to the principles of ALARA. COMPARISON STUDY: 12/25/2022 FINDINGS: ABDOMEN: Liver, gallbladder, spleen, pancreas, adrenal glands, and kidneys show no evidence of acute injury. Stable tiny fat density finding distally in the pancreas. Stable nodularity of the left adrenal gland with largest nodule measuring 1.3 cm. There is no hydronephrosis. No evidence of abdominal aortic injury. There are scattered atherosclerotic calcifications. No abdominal aortic aneurysm. Pelvis: Uterus and adnexa are grossly unremarkable. Urinary bladder is nondistended. There is moderate retained stool. No bowel inflammation or obstruction seen. No free fluid, free air, or hematoma seen. Osseous structures: There is osteopenia. There are moderate degenerative changes at the lumbar spine. No acute fracture is seen of the visualized osseous structures. IMPRESSION: No acute injury seen at the abdomen or pelvis. Otherwise as describe d. ACT 112: Negative or not required by law. The above report was generated using voice recognition software. It may contain grammatical, syntax or spelling errors. Electronically signed by: Biju Cabral M.D. 07/26/2025 10:[address] 07/26/25 09:[address] CONTRAST CT DOSE: 2418.31 mGy.cm HISTORY: Acute chest trauma eval for trauma, pna TECHNIQUE: Multiaxial CT images of the chest were performed following the IV administration of 94 cc of Optiray. A dose lowering technique was utilized adhering to the principles of ALARA. COMPARISON: CT abdomen and pelvis of same day, CTA chest 10/07/2023 FINDINGS: Subcentimeter low suspicion hypodense scattered thyroid nodules. Mild cardiomegaly without pericardial effusion. No thoracic aortic aneurysm. Unremarkable opacified pulmonary artery. Study is limited secondary to respiratory motion artifact and upper extremity positioning. Mild right hemidiaphragmatic elevation. There is no pneumothorax, pleural effusion or overt pulmonary edema. Linear subsegmental areas of bibasilar prominent consolidation suggestive of atelectasis. There are no suspicious pulmonary nodules or masses. Are bibasilar mucous plugging. No acute upper abdominal abnormality. CT abdomen and pelvis dictated separately. Degenerative changes of the shoulders and spine. No acute displaced rib fractures identified. Healed chronic distal left clavicular fracture deformity. IMPRESSION: 1. No acute posttraumatic intrathoracic abnormality. 2. No acute rib fracture or pneumothorax identified 3. Mild bibasilar mucous plugging with subsegmental atelectasis. ACT 112: Negative or not required by law. Electronically signed by: Ian French M.D. 07/26/2025 10:19 AM Medications Administered Discontinued Medications Albuterol (Albut/Ipratrop 3mg/0.5mg Neb 3 Ml Vial) 3 ml INH NOW STA Stop: 07/26/25 08:30 Last Admin: 07/26/25 08:40 Dose: 3 ml Documented By: bella Albuterol (Albut/Ipratrop 3mg/0.5mg Neb 3 Ml Vial) 3 ml NEB NOW STA; Protocol Stop: 07/26/25 09:06 Last Admin: 07/26/25 09:11 Dose: 3 ml Documented By: bella Ceftriaxone Sodium (Rocephin) 2,000 mg in 50 mls @ 100 mls/hr IV NOW STA Stop: 07/26/25 10:25 Last Admin: 07/26/25 10:08 Dose: 100 mls/hr Documented By: bella Ioversol (Optiray 320 100ml) 94 ml IV ONCE ONE Stop: 07/26/25 10:00 Last Admin: 07/26/25 10:00 Dose: 94 ml Documented By: JOURDAN (6) DM (diabetes mellitus), type 2 Diabetes mellitus complication status: without complication Diabetes mellitus superintendent container terminal insulin use: without superintendent container terminal use Qualified Code(s): E11.9 - Type 2 diabetes mellitus without complications (7) HTN (hypertension) Hypertension type: unspecified Qualified Code(s): I10 - Essential (primary) hypertension (8) Schizoaffective disorder Schizoaffective disorder type: depressive Qualified Code(s): F25.1 - Schizoaffective disorder, depressive type
[2025-07-26 10:49] LABS: Potassium 3.9 mmol/L (3.5-5.1)
[2025-07-26] MEDS: AZITHROMYCIN 500 MG/255 ML BAG IV ONE (10:58)
[2025-07-26] MEDS: SODIUM CHLOR 7% 4 ML NEB NEB SCH (12:05)
[2025-07-26] MEDS ORDERED: DEXTROSE 50% 50 ML SYRINGE IV PRN (12:08)
[2025-07-26] MEDS ORDERED: CARBOHYDRATES FOR HYPOGLYCEMIA PO PRN (12:08)
[2025-07-26] MEDS ORDERED: GLUCOSE 40% GEL 15 GM TUBE PO PRN (12:08)
[2025-07-26] MEDS ORDERED: GLUCOSE 10 TAB/TUBE PO PRN (12:08)
[2025-07-26] MEDS ORDERED: GLUCAGON FOR INJ 1 MG VIAL SQ PRN (12:08)
--- NOTE | 2025-07-26 12:13 | Communication Note ---
Date of Service: July 26, 2025 Attending Addendum: Case reviewed with the advanced practitioner. I have personally performed a history and physical examination on the patient. I have reviewed the advanced practitioner's documentation on the date of service referenced in note, and I agree with, and take responsibility for the plan of care. please refer to her notes for full details patient seen and examined, records reviewed by myself as well on exam, patient seen sitting up in bed, on 6 L of O2 via OxyMask, not in distress, comfortable, but appears on the weak side shelter [facility] contact representative/caregiver Raquel at the bedside patient oriented timesx 2, answering most questions appropriately States her breathing is okay at this point, has occasional cough, nonproductive, no chest pain, headache, dizziness, sore throat, abdominal pain, vomiting or diarrhea no other symptoms VS noted and reviewed oriented x 2, not in distress, speaks in sentences with no effort nor accessory muscle use normal rate, regular rhythm, no murmurs positive diffuse mild rhonchi and wheeze bilaterally non distended, soft, nontender no bipedal edema, erythema, warmth no neuro deficits all labs, imaging noted and reviewed ASSESSMENT AND PLAN> 70-year-old female, shelter resident, with history of intellectual disability, obstructive sleep apnea-not tolerating CPAP, presenting with shortness of breath times few days. Acute hypoxic respiratory failure secondary to acute bronchitis versus pneumonia Entero-/rhinovirus infection Obstructive sleep apnea patient lives in a shelter follows with outpatient pulmonology service for obstructive sleep apnea, patient not tolerating CPAP at bedtime Respiratory panel: Positive for entero-/rhinovirus VBG: pH 7.4, , pCO2 43, bicarb 27 sputum culture ordered MRSA nasal swab ordered Blood cultures ordered Start Solu-Medrol 40 mg IV every 12 hours- monitor blood glucose closely DuoNeb 4 times daily, hypertonic saline every 12 Cefepime plus azithromycin Mucinex twice daily Spirometry, flutter valve Pulmonology service consulted other diagnoses and plan of care as per advanced practitioner's notes I spent a total of 60 minutes coordinating, documenting, and providing care for this patient, excluding time spent in the performance of separately billed services or time spent by another provider/QHP. Silas Jackson MD
--- NOTE | 2025-07-26 12:53 | Electrocardiogram Report ---
Test Reason : Blood Pressure : */* mmHG Vent. Rate : 87 BPM Atrial Rate : 87 BPM P-R Int : 140 ms QRS Dur : 90 ms QT Int : 370 ms P-R-T Axes : 75 -46 77 degrees QTcB Int : 445 ms Normal sinus rhythm Left axis deviation RSR' or QR pattern in V1 suggests right ventricular conduction delay Abnormal ECG When compared with ECG of 24-Jul-2025 00:24, Premature atrial complexes are no longer Present Confirmed by Cm Ramirez ([id number]) on 07/26/2025 12:52:51 PM Referred By: REFERRED SELF Confirmed By: Cm Ramirez
[2025-07-26] MEDS: SODIUM CHLORIDE 0.9% 1,000 ML IV SCH (12:59)
[2025-07-26] MEDS: ADVANCED PROBIOTIC 625 MG CAPSULE PO SCH (14:54)
[2025-07-26] MEDS: ALBUT/IPRATROP 3MG/0.5MG NEB 3 ML VIAL NEB SCH (15:38)
[2025-07-26] MEDS: CEFEPIME 2000MG 2,000 MG/20 ML SYR IV SCH (15:48)
[2025-07-26] MEDS: INSULIN ASPART PER UNIT CHARGE SC SCH (16:42)
[2025-07-26] MEDS: DOXYCYCLINE HYCLATE 100 MG in DEXTROSE 5% MINI-B 100 ML IV SCH (20:04)
[2025-07-26] MEDS: guaiFENesin 600 MG TABCR PO SCH (20:04)
[2025-07-26] MEDS: ATORVASTATIN 40 MG TAB PO SCH (20:05)
[2025-07-26] MEDS: VIBEGRON 75 MG TAB PO SCH (20:05)
[2025-07-26] MEDS ORDERED: methylPREDNISolone 10 mg/mL (For Ped Dose < 7mg) IV SCH (21:00)
[2025-07-27 07:36] LABS: Hemoglobin A1C 5.9 % (4.5-5.6)
[2025-07-27] MEDS: CITALOPRAM 20 MG TAB PO SCH (07:36)
[2025-07-27] MEDS ORDERED: AZITHROMYCIN 500 MG/255 ML BAG IV SCH (08:00)
[2025-07-27] MEDS: DOXYCYCLINE HYCLATE 100 MG CAP PO SCH (08:26)
--- NOTE | 2025-07-27 09:19 | Pulmonary Consultation ---
Date of Consultation July 27, 2025 Assessment & Plan (1) Viral respiratory infection: Enterovirus/retrovirus detected on viral PCR panel. Possible incidental finding, but more likely precipitating event for current clinical presentation. (2) Acute on chronic hypoxic respiratory failure: Routine patient has been maintained on nocturnal Oxygen, probably due to intolerance of CPAP treatment of TC. Worsening gas-exchange/Oxygen-needs probably related to viral pneumonia with possible superimposed bacterial pneumonia. Taper Oxygen as tolerated. OK to tolerate SpO2 as low as 88%. Discussed with respiratory therapy and bedside nurse. (3) Abnormal chest CT: Suspicion for bibasilar mucus-plugging and atelectasis, but cannot rule out viral pneumonia with possible superimposed bacterial pneumonia. Will need follow up until resolution. Continue current antibiotics. No need for further treatment with systemic steroids at this time. Sputum for culture. Pulmonary toileting with Flutter Valve. (4) Obstructive sleep apnea: Intolerance of treatment with CPAP. (5) Restrictive lung disease: Diagnosis carried in chart. Unclear etiology. Cannot locate Pulmonary Function Tests. No evidence of ILD on CT scan. No evidence of significant chronic hypoventilation. No specific intervention indicated at this time. History of Present Illness Reason for Consultation: "hypox resp failure, restrictive lung dz" Attending Physician: Lenard Waterman MD History of Present Illness The patient is a very pleasant 70-year-old female who [facility] due to cold symptoms that had persisted for several days. She had experienced a fall over the weekend without traumatic injuries, but subsequently developed worsening symptoms, including cough, congestion, and abdominal pain. Facility staff noted that she was not acting like herself. On arrival to the ED, she was found to be hypoxic with SpO2 in the 80s, initially requiring 15 L/min O2 via oxymask, which was later successfully weaned to 6 L/min with maintenance of SpO2 in the mid-90s. A [employer] respiratory panel was positive for entero/rhinovirus and negative for influenza, COVID, and RSV. CT chest was interpreted as showing bilateral basilar mucus plugging, atelectasis, and possible early pneumonia. Her past medical history included DM2, TC (not tolerant of CPAP), nocturnal hypoxemia (supposed to be on O2 2L via NC at HS), schizoaffective disorder, restrictive lung disease, mild intellectual disability, prior breast CA, HTN, GERD, dyslipidemia, ambulatory dysfunction, and frequent falls. At this time the patient denies significant problems with dyspnea at rest or significant cough. It seems that she has occasional sputum production, but she does not expectorate it. I recommended for the patient to try to provide a sputum specimen so it can be submitted for culture. When I saw the patient she was receiving Oxygen at 5 L/min via Oxymask, but it seems that the Pulse-Oximeter reading was not consistent, with readings in the upper 80s to low 90s. Allergies Allergy/AdvReac Type Severity Reaction Status Date / Time No Known Allergies Allergy Verified 07/26/25 11:53 Home Medications Medication Instructions Recorded Confirmed Type atorvastatin 40 mg tablet 40 mg PO HS 04/07/19 07/26/25 History lisinopril 10 mg tablet 10 mg PO QAM 04/07/19 07/26/25 History omeprazole 20 mg tablet,delayed 20 mg PO HS 04/07/19 07/26/25 History release glipizide 5 mg tablet, extended 5 mg PO DAILY 02/02/25 07/26/25 History release 24 hr nystatin 100,000 unit/gram topical 100,000 unit topical 3XD PRN SKIN 02/02/25 07/26/25 History powder (Nyamyc) FOLDS NEEDED citalopram 20 mg tablet 20 mg PO QAM 03/29/25 07/26/25 History Aloe Aftersun Gel 1 applic topical DIRECTED PRN 07/24/25 07/26/25 History SUNBURNS aluminum-mag hydroxide-simethicone 10 ml PO Q6H PRN Indigestion 07/24/25 07/26/25 History 400 mg-400 mg-40 mg/5 mL oral susp (Mylanta Maximum Strength) chlorpheniramine-dextromethorphan 1 tab PO Q6H PRN RUNNY NOSE/COLDS 07/24/25 07/26/25 History 4 mg-30 mg tablet (Coricidin HBP Cough and Cold) diclofenac sodium 1 % topical gel 2 g topical Q4H PRN Pain 07/24/25 07/26/25 History hydrocortisone 1 % topical cream 1 applic topical TID PRN Rash 07/24/25 07/26/25 History ibuprofen 200 mg tablet 400 mg PO Q4H PRN 07/24/25 07/26/25 History FEVER/PAIN/HEADACHES loperamide 1 mg/7.5 mL oral liquid 2 mg PO DIRECTED PRN Diarrhea 07/24/25 History (Imodium A-D) magnesium hydroxide 400 mg/5 mL 30 ml PO Q6H PRN Constipation 07/24/25 07/26/25 History oral suspension (Milk of Magnesia) neomycin-bacitracn Zn-polymyx 3.5 1 applic topical BID PRN MINOR 07/24/25 07/26/25 History mg-400 unit-5,000 unit/gram top SCRAPS/CUTS oint (Neosporin (rbw-aky-fmgah)) phosphorated carbohydrate oral 15 ml PO Q15M PRN NAUSEA/VOMITING 07/24/25 07/26/25 History solution (Emetrol oral solution) risperidone 0.5 mg tablet 0.5 mg PO HS 07/24/25 07/26/25 History (Risperdal) mirabegron 50 mg tablet,extended 50 mg PO HS 07/26/25 07/26/25 History release 24 hr (Myrbetriq) Patient History Medical History Restrictive lung disease Mild intellectual disability Cancer of central portion of left breast (01/30/16) "Abnormal left breast mammogram Status post stereotactic biopsy 01/30/2016 revealing ductal carcinoma grade 2 Estrogen receptor positive, progesterone receptor positive, HER-2/frederic negative Status post needle localization lumpectomy and sentinel lymph node biopsy mar 24 2016 Stage pT1c pN0 positive margin of DCIS Status post reexcision 04/09/2016 negative margins Oncotype DX 7 Status post completion of radiation therapy 06/26/2016 received 5130 cGy utilizing hypo-fractionation" On 05/16/16 11:51 Sylvia Angel wrote "Abnormal left breast mammogram Status post stereotactic biopsy 01/30/2016 revealing ductal carcinoma grade 2 Estrogen receptor positive, progesterone receptor positive, HER-2/frederic negative Status post needle localization lumpectomy and sentinel lymph node biopsy mar 24 2016 Stage pT1c pN0 positive margin of DCIS Status post reexcision 04/09/2016 negative margins Oncotype DX pending" HTN (hypertension) DM (diabetes mellitus), type 2 HLD (hyperlipidemia) Obstructive sleep apnea Schizoaffective disorder History of breast cancer Acute respiratory failure with hypoxia Surgical History Hx of tonsillectomy H/O partial mastectomy Family History Other Breast cancer Diabetes Hypertension Social History Smoking Status: Never smoker Second Hand Exposure: No; Do You Dip or Chew Tobacco: No; Hx Alcohol Use: No Hx Substance Use: No Preferred Language: Finnish Communication Ability: Effective Communication Ability Comment: developmental delay [place] Alarm Superintendent Required: No Beliefs That Will Affect Care: None marital status: Single Current Living Situation: Boarding Home current occupational status: disabled Feels Safe at Home: Yes Safety Concerns: Feels Safe At This Time Gender Identity: Female Assistive Devices: Oxygen - at Night and Walker Review of Systems Review of Systems: All systems reviewed & are unremarkable except as noted in HPI & below Physical Exam Physical Exam: Vitals and labs reviewed. General: In no acute distress, using Oxygenvia Oxymask. Head-tremor. Skin: Warm and dry to touch. Noobvious lesions. Eyes: Anicteric.Noconjunctivitis.No periorbital edema. Left eye with does not turn to the left beyond midline. ENT: No oral thrush. No oropharyngeal erythema or exudates. Limited motion of the TMJ, allowing for restricted ability to fully open the mouth. Poor dentition. Could not assess Mallampati adequately. Neck: No palpable masses or adenopathy. Respiratory: Diffusely decreased breath sounds; minimal right base expiratory wheezing. No crackles. No use of accessory muscles and no prolonged exhalation. Cardiac: Distant sounds, regular rhythm, Grade 2/6 systolic murmur over Tricuspid Area, no gallops, no rubs; could not appreciate JV pulse elevation. GI: Soft, nontender. Extremities No clubbing,no cyanosis,no edema. Neuro: No gross motor deficits. Head-tremor (mostly in the sagittal plane). Seems sleepy and with very short responses. ? baseline per nursing staff. Results & Data Results & Data Vital Signs (Past 12 Hours) Vital Signs Temp Pulse Pulse Resp BP Pulse Ox O2 Del Method 07/27/25 07:15 70 18 94 Oxymask 07/27/25 07:00 36.8 C 79 19 152/75 H 92 Oxymask 07/27/25 06:35 70 07/27/25 02:50 36.9 C 76 18 149/84 H 93 Oxymask 07/27/25 01:31 75 07/26/25 23:39 36.8 C 82 18 109/73 91 Oxymask O2 Flow Rate 07/27/25 07:15 4 07/27/25 07:00 4 07/27/25 06:35 07/27/25 02:50 4 07/27/25 01:31 07/26/25 23:39 4 Laboratory Results Abnormal Lab Results 07/26/25 07/26/25 07/26/25 08:33 10:08 14:43 Sodium 135 L Potassium TNP 3.9 Chloride 99 Carbon Dioxide 28 Anion Gap 8 BUN 18 Creatinine 0.72 Est Cr Clr Drug Dosing Not Reportable eGFR 90.45 BUN/Creatinine Ratio 25.0 H Glucose 141 H POC Glucose 79 Estimat Average Glucose 123 Hemoglobin A1c 5.9 H Calcium 9.1 Magnesium 2.0 Total Bilirubin 0.7 AST TNP 17 ALT 9 Alkaline Phosphatase 87 Troponin I High Sens 8.7 Total Protein 7.1 Albumin 3.8 Globulin 3.3 Albumin/Globulin Ratio 1.2 Procalcitonin 0.06 Nasal Screen MRSA (PCR) Adenovirus (PCR) B. pertussis DNA (PCR) B.parapertussis DNA PCR C. pneumoniae DNA (PCR) Coronavirus OC43 (PCR) Coronavirus HKU1 (PCR) Coronavirus 229E (PCR) SARS-CoV-2 (PCR) Coronavirus NL63 (PCR) Human Metapneumovir PCR Influenza Type A (PCR) Influenza Type B (PCR) M. pneumoniae (PCR) Parainfluenza 1 (PCR) Parainfluenza 2 (PCR) Parainfluenza 3 (PCR) Parainfluenza 4 (PCR) RSV (PCR) Entero/Rhino (PCR) 07/26/25 07/26/25 07/26/25 16:24 20:14 Unknown Sodium Potassium Chloride Carbon Dioxide Anion Gap BUN Creatinine Est Cr Clr Drug Dosing eGFR BUN/Creatinine Ratio Glucose POC Glucose 161 H 74 Estimat Average Glucose Hemoglobin A1c Calcium Magnesium Total Bilirubin AST ALT Alkaline Phosphatase Troponin I High Sens Total Protein Albumin Globulin Albumin/Globulin Ratio Procalcitonin Nasal Screen MRSA (PCR) Negative Adenovirus (PCR) Not Detected B. pertussis DNA (PCR) Not Detected B.parapertussis DNA PCR Not Detected C. pneumoniae DNA (PCR) Not Detected Coronavirus OC43 (PCR) Not Detected Coronavirus HKU1 (PCR) Not Detected Coronavirus 229E (PCR) Not Detected SARS-CoV-2 (PCR) Not Detected Coronavirus NL63 (PCR) Not Detected Human Metapneumovir PCR Not Detected Influenza Type A (PCR) Not Detected Influenza Type B (PCR) Not Detected M. pneumoniae (PCR) Not Detected Parainfluenza 1 (PCR) Not Detected Parainfluenza 2 (PCR) Not Detected Parainfluenza 3 (PCR) Not Detected Parainfluenza 4 (PCR) Not Detected RSV (PCR) Not Detected Entero/Rhino (PCR) DETECTED A 07/27/25 07:21 Sodium Potassium Chloride Carbon Dioxide Anion Gap BUN Creatinine Est Cr Clr Drug Dosing eGFR BUN/Creatinine Ratio Glucose POC Glucose 177 H Estimat Average Glucose Hemoglobin A1c Calcium Magnesium Total Bilirubin AST ALT Alkaline Phosphatase Troponin I High Sens Total Protein Albumin Globulin Albumin/Globulin Ratio Procalcitonin Nasal Screen MRSA (PCR) Adenovirus (PCR) B. pertussis DNA (PCR) B.parapertussis DNA PCR C. pneumoniae DNA (PCR) Coronavirus OC43 (PCR) Coronavirus HKU1 (PCR) Coronavirus 229E (PCR) SARS-CoV-2 (PCR) Coronavirus NL63 (PCR) Human Metapneumovir PCR Influenza Type A (PCR) Influenza Type B (PCR) M. pneumoniae (PCR) Parainfluenza 1 (PCR) Parainfluenza 2 (PCR) Parainfluenza 3 (PCR) Parainfluenza 4 (PCR) RSV (PCR) Entero/Rhino (PCR) Diagnostic Findings Chest X-Ray 07/26/25 09:05 XR chest 1V portable CLINICAL HISTORY: eval for pna COMPARISON STUDY: 07/23/2025 FINDINGS: Stable mild cardiomegaly without pulmonary vascular congestion. There is mildly increased hazy opacity at the left lung base. There is stable mild stranding of the right base. No pneumothorax. IMPRESSION: Mildly increased hazy opacity at the left lung base could represent early pneumonia or atelectasis. ACT 112: Negative or not required by law. Electronically signed by: Biju Cabral M.D. 07/26/2025 9:28 AM Abdomen/Pelvis CT 07/26/25 09:[address] WITH IV CONTRAST CT DOSE: 3418 HISTORY: fall, abd pain TECHNIQUE: Multiaxial CT images of the abdomen and pelvis were performed following the IV administration of 90 cc of Optiray, A dose lowering technique was utilized adhering to the principles of ALARA. COMPARISON STUDY: 12/25/2022 FINDINGS: ABDOMEN: Liver, gallbladder, spleen, pancreas, adrenal glands, and kidneys show no evidence of acute injury. Stable tiny fat density finding distally in the pancreas. Stable nodularity of the left adrenal gland with largest nodule measuring 1.3 cm. There is no hydronephrosis. No evidence of abdominal aortic injury. There are scattered atherosclerotic calcifications. No abdominal aortic aneurysm. Pelvis: Uterus and adnexa are grossly unremarkable. Urinary bladder is nondistended. There is moderate retained stool. No bowel inflammation or obstruction seen. No free fluid, free air, or hematoma seen. Osseous structures: There is osteopenia. There are moderate degenerative changes at the lumbar spine. No acute fracture is seen of the visualized osseous structures. IMPRESSION: No acute injury seen at the abdomen or pelvis. Otherwise as described. ACT 112: Negative or not required by law. The above report was generated using voice recognition software. It may contain grammatical, syntax or spelling errors. Electronically signed by: Biju Cabral M.D. 07/26/2025 10:[address] 07/26/25 09:[address] WITH CONTRAST CT DOSE: 2418.31 mGy.cm HISTORY: Acute chest trauma eval for trauma, pna TECHNIQUE: Multiaxial CT images of the chest were performed following the IV administration of 94 cc of Optiray. A dose lowering technique was utilized adhering to the principles of ALARA. COMPARISON: CT abdomen and pelvis of same day, CTA chest 10/07/2023 FINDINGS: Subcentimeter low suspicion hypodense scattered thyroid nodules. Mild cardiomegaly without pericardial effusion. No thoracic aortic aneurysm. Unremarkable opacified pulmonary artery. Study is limited secondary to respiratory motion artifact and upper extremity positioning. Mild right hemidiaphragmatic elevation. There is no pneumothorax, pleural effusion or overt pulmonary edema. Linear subsegmental areas of bibasilar prominent consolidation suggestive of atelectasis. There are no suspicious pulmonary nodules or masses. Are bibasilar mucous plugging. No acute upper abdominal abnormality. CT abdomen and pelvis dictated separately. Degenerative changes of the shoulders and spine. No acute displaced rib fractures identified. Healed chronic distal left clavicular fracture deformity. IMPRESSION: 1. No acute posttraumatic intrathoracic abnormality. 2. No acute rib fracture or pneumothorax identified 3. Mild bibasilar mucous plugging with subsegmental atelectasis. ACT 112: Negative or not required by law. Electronically signed by: Ian French M.D. 07/26/2025 10:19 AM Medications Administered Home Medications Medication Instructions Recorded Confirmed Last Taken atorvastatin 40 mg tablet 40 mg PO HS 04/07/19 07/26/25 07/25/25 lisinopril 10 mg tablet 10 mg PO QAM 04/07/19 07/26/25 07/26/25 omeprazole 20 mg tablet,delayed 20 mg PO HS 04/07/19 07/26/25 07/25/25 release glipizide 5 mg tablet, extended 5 mg PO DAILY 02/02/25 07/26/25 07/26/25 release 24 hr nystatin 100,000 unit/gram topical 100,000 unit topical 3XD PRN SKIN 02/02/25 07/26/25 Unknown powder ([facility]) FOLDS NEEDED citalopram 20 mg tablet 20 mg PO QAM 03/29/25 07/26/25 07/26/25 Aloe Aftersun Gel 1 applic topical DIRECTED PRN 07/24/25 07/26/25 Unknown SUN[place]NS aluminum-mag hydroxide-simethicone 10 ml PO Q6H PRN Indigestion 07/24/25 07/26/25 Unknown 400 mg-400 mg-40 mg/5 mL oral susp (Mylanta Maximum Strength) chlorpheniramine-dextromethorphan 1 tab PO Q6H PRN RUNNY NOSE/COLDS 07/24/25 07/26/25 Unknown 4 mg-30 mg tablet (Coricidin HBP Cough and Cold) diclofenac sodium 1 % topical gel 2 g topical Q4H PRN Pain 07/24/25 07/26/25 Unknown hydrocortisone 1 % topical cream 1 applic topical TID PRN Rash 07/24/25 07/26/25 Unknown ibuprofen 200 mg tablet 400 mg PO Q4H PRN 07/24/25 07/26/25 Unknown FEVER/PAIN/HEADACHES loperamide 1 mg/7.5 mL oral liquid 2 mg PO DIRECTED PRN Diarrhea 07/24/25 07/26/25 Unknown (Imodium A-D) magnesium hydroxide 400 mg/5 mL 30 ml PO Q6H PRN Constipation 07/24/25 07/26/25 Unknown oral suspension (Milk of Magnesia) neomycin-bacitracn Zn-polymyx 3.5 1 applic topical BID PRN MINOR 07/24/25 07/26/25 Unknown mg-400 unit-5,000 unit/gram top SCRAPS/CUTS oint (Neosporin (lem-zip-jolnt)) phosphorated carbohydrate oral 15 ml PO Q15M PRN NAUSEA/VOMITING 07/24/25 07/26/25 Unknown solution (Emetrol oral solution) risperidone 0.5 mg tablet 0.5 mg PO HS 07/24/25 07/26/25 07/25/25 (Risperdal) mirabegron 50 mg tablet,extended 50 mg PO HS 07/26/25 07/26/25 07/25/25 release 24 hr (Myrbetriq) Active Medications Generic Name Dose Route Start Last Admin Trade Name Freq PRN Reason Stop Dose Admin Albuterol 3 ml 07/26/25 15:00 07/27/25 07:15 Albut/Ipratrop 3mg/0.5mg Neb 3 Ml Vial NEB 08/25/25 14:59 3 ml QIDR ROMEL Administration Protocol Atorvastatin Calcium 40 mg 07/26/25 21:00 07/26/25 20:05 Atorvastatin 40 Mg Tab PO 08/25/25 20:59 40 mg HS ROMEL Administration Citalopram Hydrobromide 20 mg 07/27/25 09:00 07/27/25 07:36 Citalopram 20 Mg Tab PO 08/26/25 08:59 20 mg QAM ROMEL Administration Doxycycline Hyclate 100 mg 07/27/25 09:00 07/27/25 08:26 Doxycycline Hyclate 100 Mg Cap PO 08/01/25 08:59 Not Given BID ROMEL Guaifenesin 600 mg 07/26/25 21:00 07/27/25 07:36 Guaifenesin 600 Mg Tabcr PO 08/25/25 20:59 600 mg Q12 ROMEL Administration Cefepime HCl 2,000 mg in 20 mls @ 5 mls/min 07/26/25 16:00 07/27/25 07:36 Maxipime 2000mg IV 07/31/25 15:59 5 mls/min Q8H ROMEL Administration Protocol Methylprednisolone 40 mg/ 0.64 mls @ 1.5 mls/min 07/26/25 21:00 07/27/25 08:16 Syringe IV 08/25/25 20:59 1.5 mls/min Q12H ROMEL Administration Insulin Aspart 0 units 07/26/25 16:30 07/27/25 08:18 Insulin Aspart Per Unit Charge SC 08/25/25 16:29 4 units ACHS ROMEL Administration Lactobacillus Acidophilus 1,250 mg 07/26/25 09:00 07/27/25 07:37 Advanced Probiotic 625 Mg Capsule PO 08/25/25 08:59 1,250 mg DAILY ROMEL Administration Lisinopril 10 mg 07/27/25 09:00 07/27/25 07:36 Lisinopril 10 Mg Tab PO 08/26/25 08:59 10 mg QAM ROMEL Administration Pantoprazole Sodium 40 mg 07/26/25 14:45 07/27/25 07:36 Pantoprazole 40 Mg Tab PO 08/25/25 14:44 40 mg QAM ROMEL Administration Risperidone 0.5 mg 07/26/25 21:00 07/26/25 20:05 Risperidone 0.5 Mg Tablet PO 08/25/25 20:59 0.5 mg HS ROMEL Administration Sodium Chloride 4 ml 07/26/25 11:35 07/27/25 07:15 Sodium Chlor 7% 4 Ml Neb NEB 08/25/25 11:34 4 ml BIDR ROMEL Administration Vibegron 75 mg 07/26/25 21:00 07/26/25 20:05 Vibegron 75 Mg Tab PO 08/25/25 20:59 75 mg HS ROMEL Administration PG Care Time/CCT Total # of Minutes Spent Total Time Spent with Patient: Total time spent is greater than 50% in coordination of care (as documented) at patient's floor/unit and/or counseling patient: 65 minutes Coding Level of Care Code 00271 IN/OBS CONSULT LVL 4,60M Diagnoses Viral respiratory infection J98.8; B97.89 Acute on chronic hypoxic respiratory failure J96.[address] R93.89 Obstructive sleep apnea G47.33 Restrictive lung disease J98.4 Time Spent (min) 65 Comment Review chart/ imaging studies, history/ physical, update patient, family, nurse, provider.
--- NOTE | 2025-07-27 14:38 | Hospitalist Progress Note ---
Date of Service July 27, 2025 Assessment & Plan (1) Acute on chronic hypoxic respiratory failure: (2) Viral respiratory infection: (3) Dehydration: (4) Restrictive lung disease: (5) Obstructive sleep apnea: (6) DM (diabetes mellitus), type 2: (7) HTN (hypertension): (8) Schizoaffective disorder: (9) Mild intellectual disability: Plan Patient is a 70 y/o female with DM2, TC, not tolerant of CPAP, nocturnal hypoxemia (supposed to be on O2 2L via NC at HS), schizoaffective d/o, restrictive lung dz, mild intellectual disability, prior breast CA, HTN, GERD, dyslipidemia, and other history as outlined below who presents to the ED today from the residential where she resides with cold symptoms for last few days. In the ED, she was noted to be hypoxic with sats in the 80s, initially required 15L O2 via oxymask but this has been successfully decreased to 6L with maintenance of sats in the 90s. BioFire respiratory panel was positive for entero/rhinovirus, negative for flu/COVID, RSV. CT chest personally reviewed - shows bilateral basilar mucus plugging, atelectasis, possible early pneumonia. Pt referred for admission for evaluation and management. Acute on chronic respiratory failure with hypoxia Secondary to rhinovirus infection Possible secondary bacterial pneumonia Mucous plugging Restrictive lung disease TC - noncompliant with CPAP, intermittently uses nocturnal O2 --Chest CT:No acute posttraumatic intrathoracic abnormality. No acute rib fracture or pneumothorax identified. Mild bibasilar mucous plugging with subsegmental atelectasis. -- Respiratory BioFire positive for rhinovirus --Blood cultures negative to date --sputum culture pending -- Normal procalcitonin --Nasal MRSA negative Empirically on doxycycline, cefepime Continue supplemental oxygen as needed IV Solu-Medrol discontinued as recommended by pulmonology Pulmonary hygiene Aspiration precautions Dehydration Received IV fluids Monitor Schizoaffective disorder Mild intellectual disability correction resident - please keep staff updated on plan of care Continue outpatient citalopram, risperidone DM II HbA1c 5.9 Continue insulin per protocol Monitor blood glucose levels Hypertension Blood pressure slightly elevated likely due to Solu-Medrol Continue lisinopril Monitor GERD/esophageal dysmotility Easy to chew diet (per residential termite control representative) Continue daily PPI Dyslipidemia Chronic, stable continue statin therapy DVT Px: Lovenox SQ CODE STATUS Full code Admission and Anticipated Discharge Date Admission Date: July 26, 2025 Subjective Patient is seen and examined at bedside Poor historian Admits to have some cough with yellowish expectoration Requiring supplemental oxygen to maintain saturations Less dyspnea today Denies any chest pain, abdominal pain, dizziness Discussed with pulmonology today No other complaints Review of Systems Review of Systems: All systems reviewed & are unremarkable except as noted in Subjective Physical Exam Physical Exam: Physical Exam: Vitals signs as noted above General Appearance:Obese, no apparent distress Head: normocephalic, Atraumatic Eyes: normal inspection, EOMI Neck: supple, Trachea midline Respiratory/Chest: Decreased breath sounds,scant wheezes, No accessory muscle use Cardiovascular: S1, S2, + murmur Abdomen/GI:Soft, Non tender, Bowel sounds present Extremities/Musculoskeletal:normal inspection, no edema Neurologic/Psych:AAOX3, grossly no focal neurological deficits Skin: normal color, warm Results & Data Results & Data Vital Signs (Past 12 Hours) Vital Signs Temp Pulse Pulse Resp BP Pulse Ox Pulse Ox 07/27/25 11:59 72 18 91 07/27/25 11:58 772 H 91 07/27/25 11:20 91 07/27/25 10:36 36.4 C L 65 19 155/84 H 92 07/27/25 09:47 68 07/27/25 09:33 70 07/27/25 09:33 07/27/25 07:15 70 18 94 07/27/25 07:00 36.8 C 79 19 152/75 H 92 07/27/25 06:35 70 07/27/25 02:50 36.9 C 76 18 149/84 H 93 O2 Del Method O2 Del Method O2 Flow Rate O2 Flow Rate 07/27/25 11:59 07/27/25 11:58 Nasal Cannula 5 07/27/25 11:20 Oxymask 7 07/27/25 10:36 Oxymask 6 07/27/25 09:47 07/27/25 09:33 07/27/25 09:33 Nasal Cannula 5 07/27/25 07:15 Oxymask 4 07/27/25 07:00 Oxymask 4 07/27/25 06:35 07/27/25 02:50 Oxymask 4 (6) DM (diabetes mellitus), type 2 Diabetes mellitus complication status: without complication Diabetes mellitus salvage determiner insulin use: without salvage determiner use Qualified Code(s): E11.9 - Type 2 diabetes mellitus without complications (7) HTN (hypertension) Hypertension type: unspecified Qualified Code(s): I10 - Essential (primary) hypertension (8) Schizoaffective disorder Schizoaffective disorder type: depressive Qualified Code(s): F25.1 - Schizoaffective disorder, depressive type
[2025-07-28 06:27] LABS: Hematocrit (blood only) 36.2 % (37.0-47.0); Hemoglobin 12.3 g/dl (12.0-16.0); Mean Corpuscular Hemoglobin 31.6 pg (25.0-34.0); Mean Corpuscular Volume 93.1 fL (80.0-100.0); Platelet Count 287 K/uL (130-400); RDW Standard Deviation 45.5 fL (36.4-46.3); Red Blood Count 3.89 M/uL (4.20-5.40); White Blood Count 16.98 K/ul (4.8-10.8)
[2025-07-28 06:49] LABS: Anion Gap 6.0 (3-11); Blood Urea Nitrogen 20.0 mg/dl (6-23); Calcium 9.3 mg/dl (8.6-10.3); Carbon Dioxide 29.0 mmol/L (21-32); Chloride 102.0 mmol/L (98-107); Creatinine Clr Calc Pharmacy 96.8 ml/min; Glucose 124.0 mg/dl (70-99(Fasting)); Magnesium 2.3 mg/dl (1.7-2.4); Potassium 4.2 mmol/L (3.5-5.1); Sodium 137.0 mmol/L (136-145)
--- NOTE | 2025-07-28 08:34 | XRay Report ---
EXAM: XR chest 1V portable CLINICAL HISTORY: Ongoing severe hypoxia. TECHNIQUE: An X-ray image of the chest was obtained in the AP projection. COMPARISON: No prior studies are available for comparison. FINDINGS: Chest leads are seen superimposed on the chest. Pulmonary Parenchyma: There is prominence of bilateral parahilar bronchovascular markings, likely representing pulmonary congestion. An atelectatic band is seen in the right lower zone. No discrete pleuropulmonary nodularity is detected on either side. There is blunting of the bilateral CP angles, likely due to pleural thickening versus effusion. Heart and Mediastinum: Apparent cardiomegaly is noted despite the AP supine projection. No hilar lymphadenopathy is noted. Bony Thorax: The visualized bony thorax appears intact without definite evidence of fractures. Degenerative changes are seen in the visualized thoracic spine. Soft Tissues: The soft tissues overlying the chest wall appear grossly unremarkable. IMPRESSION: 1. Prominence of bilateral parahilar bronchovascular markings, likely representing pulmonary congestion. 2. Cardiomegaly. 3. Blunting of bilateral CP angles, likely due to pleural thickening versus effusion. 4. Clinical correlation is suggested. Electronically signed by Darvin Mccartney 07-28-2025 08:34 AM
[2025-07-28] MEDS: ACETYLCYSTEINE 10% INHAL SOLN 4 ML **DISPENSED BY RESP. INH SCH (11:28)
--- NOTE | 2025-07-28 15:32 | Hospitalist Progress Note ---
Date of Service July 28, 2025 Assessment & Plan (1) Acute on chronic hypoxic respiratory failure: (2) Viral respiratory infection: (3) Dehydration: (4) Restrictive lung disease: (5) Obstructive sleep apnea: (6) DM (diabetes mellitus), type 2: (7) HTN (hypertension): (8) Schizoaffective disorder: (9) Mild intellectual disability: Plan Patient is a 70 y/o female with DM2, TC, not tolerant of CPAP, nocturnal hypoxemia (supposed to be on O2 2L via NC at ), schizoaffective d/o, restrictive lung dz, mild intellectual disability, prior breast CA, HTN, GERD, dyslipidemia, and other history as outlined below who presents to the ED today from the [facility] where she resides with cold symptoms for last few days. Acute on chronic respiratory failure with hypoxia Rhinovirus CAP Mucous plugging Restrictive lung disease TC - noncompliant with CPAP, intermittently uses nocturnal O2 -Chest CT:No acute posttraumatic intrathoracic abnormality. No acute rib fracture or pneumothorax identified. Mild bibasilar mucous plugging with subsegmental atelectasis. -- Respiratory BioFire positive for rhinovirus --Blood cultures negative to date --sputum culture pending -- Normal procalcitonin --Nasal MRSA negative Plan: -continuedoxycycline, cefepime -Continue supplemental oxygen as needed -continue methylprednisolone -goal oxygen saturation of 88% given restrictive lung disease -continue IS, flutter valve, start mucomyst -check chest xr, BNP -start lasix 20 IV bid given pulmonary contestion on chest xray Schizoaffective disorder Mild intellectual disability -halfway resident - please keep staff updated on plan of care -Continue outpatient citalopram, risperidone DM II -HbA1c 5.9 -Continue insulin per protocol Hypertension -Continue lisinopril GERD/esophageal dysmotility -Easy to chew diet (per correction commercial representative) -Continue daily PPI Dyslipidemia -Chronic, stable -continue statin therapy I spent a total of 50 minutes in direct patient care, including [id number] time with the patient and/or family, reviewing medical records, ordering and reviewing diagnostic tests, and coordinating care with other healthcare providers. This time includes: history taking, physical examination, medical decision making, counseling, ECG interpretation, imaging interpretation, lab in terpretation, orders, and education, excluding time spent in the performance of separately billed services. Admission and Anticipated Discharge Date Admission Date: July 26, 2025 Subjective Patient seen and examined at bedside. Patient appears breathless on exam. Feels like she is improving. Review of Systems Review of Systems: CONSTITUTIONAL: Patient denies fevers, chills, sweats and weight changes. EYES: Patient denies any visual symptoms. EARS, NOSE, AND THROAT: No difficulties with hearing. No symptoms of rhinitis or sore throat. CARDIOVASCULAR: Patient denies chest pains, palpitations, orthopnea and paroxysmal nocturnal dyspnea. RESPIRATORY: SOB, coughing GI: No nausea, vomiting, diarrhea, constipation, abdominal pain, hematochezia or melena. : No urinary hesitancy or dribbling. No nocturia or urinary frequency. No abnormal urethral discharge. MUSCULOSKELETAL: No myalgias or arthralgias. NEUROLOGIC: No chronic headaches, no seizures. Patient denies numbness, tingling or weakness. PSYCHIATRIC: Patient denies problems with mood disturbance. No problems with anxiety. ENDOCRINE: No excessive urination or excessive thirst. DERMATOLOGIC: Patient denies any rashes or skin changes. Physical Exam Physical Exam: Gen: A&O 3 NAD HEENT: NCAT, EOMI, not icteric. External ears normal. No rhinorrhea. Moist mucous membranes. Neck: Supple, full range of motion, no observable masses, No meningeal sign. Lungs: tracing wheezing, poor air movement CV: RRR Abdomen: Soft, nondistended, No rebound tenderness. MSK: No joint swelling, no redness. Skin: No rashes, petechiae, lesions. Normal color per patient. Neuro: Normal Gait, Grossly intact. Psych: Appropriate for situation. Results & Data Results & Data Vital Signs (Past 12 Hours) Vital Signs Temp Pulse Pulse Resp BP Pulse Ox Pulse Ox 07/28/25 12:49 07/28/25 11:41 36.6 C 84 16 117/54 L 94 07/28/25 11:29 18 07/28/25 11:00 89 L 07/28/25 10:08 64 07/28/25 10:08 07/28/25 08:00 78 16 135/92 91 07/28/25 07:08 75 18 92 Pulse Ox Pulse Ox Pulse Ox O2 Del Method O2 Del Method O2 Flow Rate O2 Flow Rate 07/28/25 12:49 92 92 90 07/28/25 11:41 Nasal Cannula 07/28/25 11:29 Room Air 07/28/25 11:00 Nasal Cannula 4 07/28/25 10:08 07/28/25 10:08 Nasal Cannula 4 07/28/25 08:00 Nasal Cannula 07/28/25 07:08 Oxymask 6 O2 Flow Rate O2 Flow Rate O2 Flow Rate 07/28/25 12:49 5 5 6 07/28/25 11:41 07/28/25 11:29 07/28/25 11:00 07/28/25 10:08 07/28/25 10:08 07/28/25 08:00 07/28/25 07:08 Laboratory Results -personally reviewed, WBC uptrending in setting of methylpred use, creatinine at baseline Medications Administered Acetylcysteine (Acetylcysteine 10% Inhal Soln 4 Ml Dispensed By Resp.) 5 ml INH TID [facility] Stop: 08/27/25 08:59 Last Admin: 07/28/25 15:42 Dose: 5 ml Documented By: Admin: 07/28/25 11:28 Dose: 5 ml Documented By: EMILY Atorvastatin Calcium (Atorvastatin 40 Mg Tab) 40 mg PO HS [facility] Stop: 08/25/25 20:59 Last Admin: 07/27/25 20:34 Dose: 40 mg Documented By: Admin: 07/26/25 20:05 Dose: 40 mg Documented By: GUERRERO Citalopram Hydrobromide (Citalopram 20 Mg Tab) 20 mg PO QAM [facility] Stop: 08/26/25 08:59 Last Admin: 07/28/25 07:59 Dose: 20 mg Documented By: kvng Admin: 07/27/25 07:36 Dose: 20 mg Documented By: kvng Doxycycline Hyclate (Doxycycline Hyclate 100 Mg Cap) 100 mg PO BID [facility] Stop: 08/01/25 08:59 Last Admin: 07/28/25 07:59 Dose: 100 mg Documented By: kvng Admin: 07/27/25 20:33 Dose: 100 mg Documented By: Admin: 07/27/25 08:26 Dose: Not Given Documented By: kvng Guaifenesin (Guaifenesin 600 Mg Tabcr) 600 mg PO Q12 [facility] Stop: 08/25/25 20:59 Last Admin: 07/28/25 07:59 Dose: 600 mg Documented By: kvng Admin: 07/27/25 20:33 Dose: 600 mg Documented By: Admin: 07/27/25 07:36 Dose: 600 mg Documented By: kvng Admin: 07/26/25 20:04 Dose: 600 mg Documented By: GUERRERO Cefepime HCl (Maxipime 2000mg) 2,000 mg in 20 mls @ 5 mls/min IV Q8H [facility]; Protocol Stop: 07/31/25 15:59 Last Admin: 07/28/25 16:24 Dose: 5 mls/min Documented By: kvng Admin: 07/28/25 09:31 Dose: 5 mls/min Documented By: kvng Admin: 07/28/25 00:07 Dose: 5 mls/min Documented By: Admin: 07/27/25 16:12 Dose: 5 mls/min Documented By: kvng Admin: 07/27/25 07:36 Dose: 5 mls/min Documented By: kvng Admin: 07/26/25 23:13 Dose: 5 mls/min Documented By: Admin: 07/26/25 15:48 Dose: 5 mls/min Documented By: JOSEMANUEL Insulin Aspart (Insulin Aspart Per Unit Charge) 0 units SC ACHS [facility] Stop: 08/25/25 16:29 Last Admin: 07/28/25 16:50 Dose: 7 units Documented By: kvng Co-signed By: HALEY Admin: 07/28/25 12:22 Dose: 7 units Documented By: kvng Co-signed By: CHUY Admin: 07/28/25 08:32 Dose: 6 units Documented By: kvng Co-signed By: TOMAS Admin: 07/27/25 20:33 Dose: 2 units Documented By: ELEANOR Co-signed By: TOÑA Admin: 07/27/25 17:00 Dose: 8 units Documented By: kvng Co-signed By: HAIR Admin: 07/27/25 12:30 Dose: 8 units Documented By: kvng Co-signed By: HALEY Admin: 07/27/25 08:18 Dose: 4 units Documented By: kvng Co-signed By: HALEY Admin: 07/26/25 20:23 Dose: Not Given Documented By: Admin: 07/26/25 16:42 Dose: 8 units Documented By: WILLIAM Co-signed By: JOSEMANUEL Lactobacillus Acidophilus (Advanced Probiotic 625 Mg Capsule) 1,250 mg PO DAILY [facility] Stop: 08/25/25 08:59 Last Admin: 07/28/25 07:59 Dose: 1,250 mg Documented By: [facility] Admin: 07/27/25 07:37 Dose: 1,250 mg Documented By: Admin: 07/26/25 14:54 Dose: 1,250 mg Documented By: JOSEMANUEL [facility]inop[facility] ([facility]op[facility] 10 Mg Tab) [facility] [place]: 08/26/25 08:59 Last Admin: 07/28/25 07:59 Dose: 10 mg Documented By: Admin: 07/27/25 07:36 Dose: 10 mg Documented By: kvng Pantoprazole Sodium (Pantoprazole 40 Mg Tab) [facility] [place]: 08/25/25 14:44 Last Admin: 07/28/25 07:59 Dose: 40 mg Documented By: kvgn Admin: 07/27/25 07:36 Dose: 40 mg Documented By: Admin: 07/26/25 14:54 Dose: 40 mg Documented By: JOSEMANUEL Risperidone (Risperidone 0.5 Mg Tablet) 0.5 mg PO [facility] Stop: 08/25/25 20:59 Last Admin: 07/27/25 20:34 Dose: 0.5 mg Documented By: Admin: 07/26/25 20:05 Dose: 0.5 mg Documented By: GUERRERO Sodium Chloride (Sodium Chlor 7% 4 Ml Neb) 4 ml NEB BIDR [facility] Stop: 08/25/25 11:34 Last Admin: 07/28/25 07:07 Dose: 4 ml Documented By: Admin: 07/27/25 19:58 Dose: 4 ml Documented By: Admin: 07/27/25 07:15 Dose: 4 ml Documented By: [id number] Admin: 07/26/25 20:27 Dose: 4 ml Documented By: Admin: 07/26/25 12:05 Dose: 4 ml Documented By: VALERI Vibegron (Vibegron 75 Mg Tab) 75 mg PO [facility] Stop: 08/25/25 20:59 Last Admin: 07/27/25 20:33 Dose: 75 mg Documented By: KDTorres Admin: 07/26/25 20:05 Dose: 75 mg Documented By: GUERRERO (6) DM (diabetes mellitus), type 2 Diabetes mellitus complication status: without complication Diabetes mellitus supervisor intermediates insulin use: without supervisor intermediates use Qualified Code(s): E11.9 - Type 2 diabetes mellitus without complications (7) HTN (hypertension) Hypertension type: unspecified Qualified Code(s): I10 - Essential (primary) hypertension (8) Schizoaffective disorder Schizoaffective disorder type: depressive Qualified Code(s): F25.1 - Schizoaffective disorder, depressive type
[2025-07-28] MEDS: ALBUT/IPRATROP 3MG/0.5MG NEB 3 ML VIAL NEB SCH (19:53)
[2025-07-28] MEDS: FUROSEMIDE INJ 20 MG/2 ML VIAL IV SCH (20:21)
[2025-07-29 07:33] LABS: Hematocrit (blood only) 38.7 % (37.0-47.0); Hemoglobin 13.0 g/dl (12.0-16.0); Mean Corpuscular Hemoglobin 31.3 pg (25.0-34.0); Mean Corpuscular Volume 93.0 fL (80.0-100.0); Platelet Count 328 K/uL (130-400); RDW Standard Deviation 45.6 fL (36.4-46.3); Red Blood Count 4.16 M/uL (4.20-5.40); White Blood Count 14.09 K/ul (4.8-10.8)
[2025-07-29 07:55] LABS: Anion Gap 8.0 (3-11); Blood Urea Nitrogen 26.0 mg/dl (6-23); Calcium 9.5 mg/dl (8.6-10.3); Carbon Dioxide 33.0 mmol/L (21-32); Chloride 96.0 mmol/L (98-107); Creatinine Clr Calc Pharmacy 81.7 ml/min; Glucose 94.0 mg/dl (70-99(Fasting)); Magnesium 2.1 mg/dl (1.7-2.4); Potassium 3.8 mmol/L (3.5-5.1); Sodium 137.0 mmol/L (136-145)
[2025-07-29] MEDS: ONDANSETRON INJ 2 MG/ML 2 ML VIAL IV PRN (11:50)
--- NOTE | 2025-07-29 14:39 | Hospitalist Progress Note ---
Date of Service July 29, 2025 Assessment & Plan (1) Acute on chronic hypoxic respiratory failure: (2) Viral respiratory infection: (3) Dehydration: (4) Restrictive lung disease: (5) Obstructive sleep apnea: (6) DM (diabetes mellitus), type 2: (7) HTN (hypertension): (8) Schizoaffective disorder: (9) Mild intellectual disability: Plan Patient is a 70 y/o female with DM2, TC, not tolerant of CPAP, nocturnal hypoxemia (supposed to be on O2 2L via NC at ), schizoaffective d/o, restrictive lung dz, mild intellectual disability, prior breast CA, HTN, GERD, dyslipidemia, and other history as outlined below who presents to the ED today from the intermediate where she resides with cold symptoms for last few days. Acute on chronic respiratory failure with hypoxia Rhinovirus CAP Mucous plugging Restrictive lung disease TC - noncompliant with CPAP, intermittently uses nocturnal O2 -Chest CT:No acute posttraumatic intrathoracic abnormality. No acute rib fracture or pneumothorax identified. Mild bibasilar mucous plugging with subsegmental atelectasis. -- Respiratory BioFire positive for rhinovirus --Blood cultures negative to date --sputum culture pending -- Normal procalcitonin --Nasal MRSA negative -improved with lasix, now showing signs of contraction Plan: -continue doxycycline, cefepime x7 days total -goal oxygen saturation of 88% given restrictive lung disease -continue IS, flutter valve, continue mucomyst -stop lasix after morning dose -will need 2-step morning of discharge, has oxygen at home Schizoaffective disorder Mild intellectual disability -[facility] resident - please keep staff updated on plan of care -Continue outpatient citalopram, risperidone DM II -HbA1c 5.9 -Continue insulin per protocol Hypertension -Continue lisinopril GERD/esophageal dysmotility -Easy to chew diet (per intermediate client account representative) -Continue daily PPI Dyslipidemia -Chronic, stable -continue statin therapy I spent a total of 50 minutes in direct patient care, including [id number] time with the patient and/or family, reviewing medical records, ordering and reviewing diagnostic tests, and coordinating care with other healthcare providers. This time includes: history taking, physical examination, medical decision making, counseling, ECG interpretation, imaging interpretation, lab interpretation, orders, and education, excluding time spent in the performance of separately billed services. Admission and Anticipated Discharge Date Admission Date: July 26, 2025 Subjective Patient seen and examined at bedside. Patient doing better today overall. Review of Systems Review of Systems: CONSTITUTIONAL: Patient denies fevers, chills, sweats and weight changes. EYES: Patient denies any visual symptoms. EARS, NOSE, AND THROAT: No difficulties with hearing. No symptoms of rhinitis or sore throat. CARDIOVASCULAR: Patient denies chest pains, palpitations, orthopnea and paroxysmal nocturnal dyspnea. RESPIRATORY: SOB, coughing GI: No nausea, vomiting, diarrhea, constipation, abdominal pain, hematochezia or melena. : No urinary hesitancy or dribbling. No nocturia or urinary frequency. No abnormal urethral discharge. MUSCULOSKELETAL: No myalgias or arthralgias. NEUROLOGIC: No chronic headaches, no seizures. Patient denies numbness, tingling or weakness. PSYCHIATRIC: Patient denies problems with mood disturbance. No problems with anxiety. ENDOCRINE: No excessive urination or excessive thirst. DERMATOLOGIC: Patient denies any rashes or skin changes. Physical Exam Physical Exam: Gen: A&O 3 NAD HEENT: NCAT, EOMI, not icteric. External ears normal. No rhinorrhea. Moist mucous membranes. Neck: Supple, full range of motion, no observable masses, No meningeal sign. Lungs: tracing wheezing, poor air movement, improved from yesterday CV: RRR Abdomen: Soft, nondistended, No rebound tenderness. MSK: No joint swelling, no redness. Skin: No rashes, petechiae, lesions. Normal color per patient. Neuro: Normal Gait, Grossly intact. Psych: Appropriate for situation. Results & Data Results & Data Vital Signs (Past 12 Hours) Vital Signs Temp Pulse Resp BP Pulse Ox O2 Del Method O2 Flow Rate 07/29/25 13:19 74 18 92 Oxymask 2 07/29/25 11:06 72 20 132/76 90 Oxymask 2 07/29/25 10:28 71 18 89 L Nasal Cannula 2 07/29/25 07:45 Nasal Cannula 3 07/29/25 07:32 36.4 C L 65 18 137/76 96 Nebulizer 6 07/29/25 07:23 68 20 92 Oxymask 3 07/29/25 04:32 Oxymask 3 Laboratory Results -personally reviewed, leukocytosis downtrending, uptrending Co2 evidence of contraction Medications Administered Acetylcysteine (Acetylcysteine 10% Inhal Soln 4 Ml Dispensed By Resp.) 5 ml INH TID [facility] Stop: 08/27/25 08:59 Last Admin: 07/29/25 13:19 Dose: 5 ml Documented By: Admin: 07/29/25 07:20 Dose: 5 ml Documented By: Admin: 07/28/25 19:53 Dose: 5 ml Documented By: Admin: 07/28/25 15:42 Dose: 5 ml Documented By: Admin: 07/28/25 11:28 Dose: 5 ml Documented By: EMILY Albuterol (Albut/Ipratrop 3mg/0.5mg Neb 3 Ml Vial) 3 ml NEB TIDR [facility]; Protocol Stop: 08/27/25 18:59 Last Admin: 07/29/25 13:18 Dose: 3 ml Documented By: Admin: 07/29/25 07:20 Dose: 3 ml Documented By: Admin: 07/28/25 19:53 Dose: 3 ml Documented By: ATIF Atorvastatin Calcium (Atorvastatin 40 Mg Tab) 40 mg PO HS [facility] Stop: 08/25/25 20:59 Last Admin: 07/28/25 20:22 Dose: 40 mg Documented By: Admin: 07/27/25 20:34 Dose: 40 mg Documented By: Admin: 07/26/25 20:05 Dose: 40 mg Documented By: GUERRERO Citalopram Hydrobromide (Citalopram 20 Mg Tab) 20 mg PO QAM [facility] Stop: 08/26/25 08:59 Last Admin: 07/29/25 08:13 Dose: 20 mg Documented By: Admin: 07/28/25 07:59 Dose: 20 mg Documented By: kvng Admin: 07/27/25 07:36 Dose: 20 mg Documented By: kvng Doxycycline Hyclate (Doxycycline Hyclate 100 Mg Cap) 100 mg PO BID [facility] Stop: 08/01/25 08:59 Last Admin: 07/29/25 08:14 Dose: 100 mg Documented By: Admin: 07/28/25 20:22 Dose: 100 mg Documented By: Admin: 07/28/25 07:59 Dose: 100 mg Documented By: kvng Admin: 07/27/25 20:33 Dose: 100 mg Documented By: Admin: 07/27/25 08:26 Dose: Not Given Documented By: kvng Guaifenesin (Guaifenesin 600 Mg Tabcr) 600 mg PO Q12 [facility] Stop: 08/25/25 20:59 Last Admin: 07/29/25 08:14 Dose: 600 mg Documented By: Admin: 07/28/25 20:22 Dose: 600 mg Documented By: Admin: 07/28/25 07:59 Dose: 600 mg Documented By: kvng Admin: 07/27/25 20:33 Dose: 600 mg Documented By: Admin: 07/27/25 07:36 Dose: 600 mg Documented By: kvng Admin: 07/26/25 20:04 Dose: 600 mg Documented By: GUERRERO Cefepime HCl (Maxipime 2000mg) 2,000 mg in 20 mls @ 5 mls/min IV Q8H [facility]; Protocol Stop: 07/31/25 15:59 Last Admin: 07/29/25 08:14 Dose: 5 mls/min Documented By: Admin: 07/28/25 23:39 Dose: 5 mls/min Documented By: Admin: 07/28/25 16:24 Dose: 5 mls/min Documented By: kvng Admin: 07/28/25 09:31 Dose: 5 mls/min Documented By: kvng Admin: 07/28/25 00:07 Dose: 5 mls/min Documented By: Admin: 07/27/25 16:12 Dose: 5 mls/min Documented By: kvng Admin: 07/27/25 07:36 Dose: 5 mls/min Documented By: kvng Admin: 07/26/25 23:13 Dose: 5 mls/min Documented By: Admin: 07/26/25 15:48 Dose: 5 mls/min Documented By: JOSEMANUEL Insulin Aspart (Insulin Aspart Per Unit Charge) 0 units SC ACHS [facility] Stop: 08/25/25 16:29 Last Admin: 07/29/25 12:26 Dose: Not Given Documented By: DAVID Co-signed By: BONNY Admin: 07/29/25 08:29 Dose: 6 units Documented By: DAVID Co-signed By: INNA Admin: 07/28/25 20:18 Dose: Not Given Documented By: Admin: 07/28/25 16:50 Dose: 7 units Documented By: kvgn Co-signed By: HALEY Admin: 07/28/25 12:22 Dose: 7 units Documented By: kvng Co-signed By: CHUY Admin: 07/28/25 08:32 Dose: 6 units Documented By: kvng Co-signed By: TOMAS Admin: 07/27/25 20:33 Dose: 2 units Documented By: ELEANOR Co-signed By: TOÑA Admin: 07/27/25 17:00 Dose: 8 units Documented By: kvng Co-signed By: HAIR Admin: 07/27/25 12:30 Dose: 8 units Documented By: kvng Co-signed By: HALEY Admin: 07/27/25 08:18 Dose: 4 units Documented By: kvng Co-signed By: HALEY Admin: 07/26/25 20:23 Dose: Not Given Documented By: Admin: 07/26/25 16:42 Dose: 8 units Documented By: WILLIAM Co-signed By: JOSEMANUEL Lactobacillus Acidophilus (Advanced Probiotic 625 Mg Capsule) 1,250 mg PO DAILY [facility] Stop: 08/25/25 08:59 Last Admin: 07/29/25 08:14 Dose: 1,250 mg Documented By: Admin: 07/28/25 07:59 Dose: 1,250 mg Documented By: kvng Admin: 07/27/25 07:37 Dose: 1,250 mg Documented By: kvng Admin: 07/26/25 14:54 Dose: 1,250 mg Documented By: JOSEMANUEL Lisinopril (Lisinopril 10 Mg Tab) 10 mg PO QAM [facility] Stop: 08/26/25 08:59 Last Admin: 07/29/25 08:14 Dose: 10 mg Documented By: Admin: 07/28/25 07:59 Dose: 10 mg Documented By: kvng Admin: 07/27/25 07:36 Dose: 10 mg Documented By: kvng Ondansetron HCl (Ondansetron Inj 2 Mg/Ml 2 Ml Vial) 4 mg IV Q6H PRN PRN Reason: Nausea And Vomiting Stop: 08/28/25 11:39 Last Admin: 07/29/25 11:50 Dose: 4 mg Documented By: DAVID Pantoprazole Sodium (Pantoprazole 40 Mg Tab) [facility] [place] [place]: 08/25/25 14:44 Last Admin: 07/29/25 08:47 Dose: 40 mg Documented By: Admin: 07/28/25 07:59 Dose: 40 mg Documented By: Admin: 07/27/25 07:36 Dose: 40 mg Documented By: kvng Admin: 07/26/25 14:54 Dose: 40 mg Documented By: JOSEMANUEL Risperidone (Risperidone 0.5 Mg Tablet) 0.5 mg PO [facility] Stop: 08/25/25 20:59 Last Admin: 07/28/25 20:23 Dose: 0.5 mg Documented By: Admin: 07/27/25 20:34 Dose: 0.5 mg Documented By: Admin: 07/26/25 20:05 Dose: 0.5 mg Documented By: GUERREOR Vibegron (Vibegron 75 Mg Tab) 75 mg PO [facility] Stop: 08/25/25 20:59 Last Admin: 07/28/25 20:22 Dose: 75 mg Documented By: KDTorres Admin: 07/27/25 20:33 Dose: 75 mg Documented By: Admin: 07/26/25 20:05 Dose: 75 mg Documented By: GUERRERO (6) DM (diabetes mellitus), type 2 Diabetes mellitus terminal gauger supervisor insulin use: without terminal gauger supervisor use Diabetes mellitus complication status: without complication Qualified Code(s): E11.9 - Type 2 diabetes mellitus without complications (7) HTN (hypertension) Hypertension type: unspecified Qualified Code(s): I10 - Essential (primary) hypertension (8) Schizoaffective disorder Schizoaffective disorder type: depressive Qualified Code(s): F25.1 - Schizoaffective disorder, depressive type
[2025-07-30 06:50] LABS: Hematocrit (blood only) 39.1 % (37.0-47.0); Hemoglobin 13.2 g/dl (12.0-16.0); Mean Corpuscular Hemoglobin 31.1 pg (25.0-34.0); Mean Corpuscular Volume 92.2 fL (80.0-100.0); Platelet Count 332 K/uL (130-400); RDW Standard Deviation 44.7 fL (36.4-46.3); Red Blood Count 4.24 M/uL (4.20-5.40); White Blood Count 13.96 K/ul (4.8-10.8)
[2025-07-30 07:10] LABS: Anion Gap 5.0 (3-11); Blood Urea Nitrogen 27.0 mg/dl (6-23); Calcium 9.5 mg/dl (8.6-10.3); Carbon Dioxide 34.0 mmol/L (21-32); Chloride 97.0 mmol/L (98-107); Creatinine Clr Calc Pharmacy 76.6 ml/min; Glucose 117.0 mg/dl (70-99(Fasting)); Potassium 4.0 mmol/L (3.5-5.1); Sodium 136.0 mmol/L (136-145)
[2025-07-30] MEDS: LACTATED RINGER'S 500 ML IV ONE (13:39)
--- NOTE | 2025-07-30 15:27 | Hospitalist Progress Note ---
Date of Service July 30, 2025 Assessment & Plan (1) Acute on chronic hypoxic respiratory failure: (2) Viral respiratory infection: (3) Dehydration: (4) Restrictive lung disease: (5) Obstructive sleep apnea: (6) DM (diabetes mellitus), type 2: (7) HTN (hypertension): (8) Schizoaffective disorder: (9) Mild intellectual disability: Plan Patient is a 70 y/o female with DM2, TC, not tolerant of CPAP, nocturnal hypoxemia (supposed to be on O2 2L via NC at ), schizoaffective d/o, restrictive lung dz, mild intellectual disability, prior breast CA, HTN, GERD, dyslipidemia, and other history as outlined below who presents to the ED today from the senior care where she resides with cold symptoms for last few days. Acute on chronic respiratory failure with hypoxia Rhinovirus CAP Mucous plugging Restrictive lung disease TC - noncompliant with CPAP, intermittently uses nocturnal O2 -Chest CT:No acute posttraumatic intrathoracic abnormality. No acute rib fracture or pneumothorax identified. Mild bibasilar mucous plugging with subsegmental atelectasis. -- Respiratory BioFire positive for rhinovirus --Blood cultures negative to date --sputum culture pending -- Normal procalcitonin --Nasal MRSA negative -improved with lasix, now showing signs of contraction Plan: -continue doxycycline, cefepime x7 days total -goal oxygen saturation of 88% given restrictive lung disease -continue IS, flutter valve, continue mucomyst -2-step ordered -will need rehab facility at discharge, medically stable for discharge -given ongoing oxygen needs above baseline, tachycardia, will check CTA PE Schizoaffective disorder Mild intellectual disability -intermediate resident - please keep staff updated on plan of care -Continue outpatient citalopram, risperidone DM II -HbA1c 5.9 -Continue insulin per protocol Hypertension -Continue lisinopril GERD/esophageal dysmotility -Easy to chew diet (per senior care medical [facility] representative) -Continue daily PPI Dyslipidemia -Chronic, stable -continue statin therapy I spent a total of 50 minutes in direct patient care, including [id number] time with the patient and/or family, reviewing medical records, ordering and reviewing diagnostic tests, and coordinating care with other healthcare providers. This time includes: history taking, physical examination, medical decision making, counseling, ECG interpretation, imaging interpretation, lab interpretation, orders, and education, excluding time spent in the performance of separately billed services. Admission and Anticipated Discharge Date Admission Date: July 26, 2025 Subjective Patient seen and examined at bedside. States she feels fine today. Had some nausea this morning. Still SOB with exertion. Review of Systems Review of Systems: CONSTITUTIONAL: Patient denies fevers, chills, sweats and weight changes. EYES: Patient denies any visual symptoms. EARS, NOSE, AND THROAT: No difficulties with hearing. No symptoms of rhinitis or sore throat. CARDIOVASCULAR: Patient denies chest pains, palpitations, orthopnea and paroxysmal nocturnal dyspnea. RESPIRATORY: SOB, coughing GI: No nausea, vomiting, diarrhea, constipation, abdominal pain, hematochezia or melena. : No urinary hesitancy or dribbling. No nocturia or urinary frequency. No abnormal urethral discharge. MUSCULOSKELETAL: No myalgias or arthralgias. NEUROLOGIC: No chronic headaches, no seizures. Patient denies numbness, tingling or weakness. PSYCHIATRIC: Patient denies problems with mood disturbance. No problems with anxiety. ENDOCRINE: No excessive urination or excessive thirst. DERMATOLOGIC: Patient denies any rashes or skin changes. Physical Exam Physical Exam: Gen: A&O 3 NAD HEENT: NCAT, EOMI, not icteric. External ears normal. No rhinorrhea. Moist mucous membranes. Neck: Supple, full range of motion, no observable masses, No meningeal sign. Lungs: poor air movement CV: RRR Abdomen: Soft, nondistended, No rebound tenderness. MSK: No joint swelling, no redness. Skin: No rashes, petechiae, lesions. Normal color per patient. Neuro: Normal Gait, Grossly intact. Psych: Appropriate for situation. Results & Data Results & Data Vital Signs (Past 12 Hours) Vital Signs Temp Pulse Pulse Pulse Pulse Pulse Resp 07/30/25 14:53 36.6 C 92 H 15 07/30/25 12:45 97 H 88 85 80 07/30/25 12:15 36.6 C 83 14 07/30/25 11:03 07/30/25 07:15 74 19 07/30/25 06:58 36.5 C 72 15 Resp Resp Resp Resp BP Pulse Ox Pulse Ox 07/30/25 14:53 108/73 94 07/30/25 12:45 22 20 20 20 91 07/30/25 12:15 138/75 92 07/30/25 11:03 07/30/25 07:15 96 07/30/25 06:58 128/77 95 Pulse Ox Pulse Ox Pulse Ox O2 Del Method O2 Flow Rate O2 Flow Rate O2 Flow Rate 07/30/25 14:53 Nasal Cannula 3 07/30/25 12:45 87 L 90 82 L 3 2 07/30/25 12:15 Oxymask 2 07/30/25 11:03 Oxymask 2 07/30/25 07:15 Oxymask 2 07/30/25 06:58 Oxymask 2 O2 Flow Rate 07/30/25 14:53 07/30/25 12:45 3 07/30/25 12:15 07/30/25 11:03 07/30/25 07:15 07/30/25 06:58 Laboratory Results -personally reviewed, downtrending leukocytosis, creatinine at baseline Medications Administered Acetylcysteine (Acetylcysteine 10% Inhal Soln 4 Ml Dispensed By Resp.) 5 ml INH TID [facility] Stop: 08/27/25 08:59 Last Admin: 07/30/25 07:14 Dose: 5 ml Documented By: Admin: 07/29/25 19:35 Dose: 5 ml Documented By: Admin: 07/29/25 13:19 Dose: 5 ml Documented By: Admin: 07/29/25 07:20 Dose: 5 ml Documented By: Admin: 07/28/25 19:53 Dose: 5 ml Documented By: Admin: 07/28/25 15:42 Dose: 5 ml Documented By: Admin: 07/28/25 11:28 Dose: 5 ml Documented By: EMILY Albuterol (Albut/Ipratrop 3mg/0.5mg Neb 3 Ml Vial) 3 ml NEB TIDR ROMEL; Protocol Stop: 08/27/25 18:59 Last Admin: 07/30/25 12:54 Dose: 3 ml Documented By: Admin: 07/30/25 07:15 Dose: 3 ml Documented By: Admin: 07/29/25 19:35 Dose: 3 ml Documented By: Admin: 07/29/25 13:18 Dose: 3 ml Documented By: Admin: 07/29/25 07:20 Dose: 3 ml Documented By: Admin: 07/28/25 19:53 Dose: 3 ml Documented By: ATIF Atorvastatin Calcium (Atorvastatin 40 Mg Tab) 40 mg PO HS [facility] Stop: 08/25/25 20:59 Last Admin: 07/29/25 20:57 Dose: 40 mg Documented By: Admin: 07/28/25 20:22 Dose: 40 mg Documented By: Admin: 07/27/25 20:34 Dose: 40 mg Documented By: Admin: 07/26/25 20:05 Dose: 40 mg Documented By: GUERRERO Citalopram Hydrobromide (Citalopram 20 Mg Tab) 20 mg PO QAM [facility] Stop: 08/26/25 08:59 Last Admin: 07/30/25 07:56 Dose: 20 mg Documented By: Admin: 07/29/25 08:13 Dose: 20 mg Documented By: Admin: 07/28/25 07:59 Dose: 20 mg Documented By: kvng Admin: 07/27/25 07:36 Dose: 20 mg Documented By: kvng Doxycycline Hyclate (Doxycycline Hyclate 100 Mg Cap) 100 mg PO BID [facility] Stop: 08/01/25 08:59 Last Admin: 07/30/25 07:54 Dose: 100 mg Documented By: Admin: 07/29/25 20:56 Dose: 100 mg Documented By: Admin: 07/29/25 08:14 Dose: 100 mg Documented By: Admin: 07/28/25 20:22 Dose: 100 mg Documented By: Admin: 07/28/25 07:59 Dose: 100 mg Documented By: kvng Admin: 07/27/25 20:33 Dose: 100 mg Documented By: Admin: 07/27/25 08:26 Dose: Not Given Documented By: kvng Guaifenesin (Guaifenesin 600 Mg Tabcr) 600 mg PO Q12 [facility] Stop: 08/25/25 20:59 Last Admin: 07/30/25 07:54 Dose: 600 mg Documented By: Admin: 07/29/25 20:57 Dose: 600 mg Documented By: Admin: 07/29/25 08:14 Dose: 600 mg Documented By: Admin: 07/28/25 20:22 Dose: 600 mg Documented By: Admin: 07/28/25 07:59 Dose: 600 mg Documented By: kvng Admin: 07/27/25 20:33 Dose: 600 mg Documented By: Admin: 07/27/25 07:36 Dose: 600 mg Documented By: kvng Admin: 07/26/25 20:04 Dose: 600 mg Documented By: GUERRERO Cefepime HCl (Maxipime 2000mg) 2,000 mg in 20 mls @ 5 mls/min IV Q8H [facility]; Protocol Stop: 07/31/25 15:59 Last Admin: 07/30/25 08:08 Dose: 5 mls/min Documented By: Admin: 07/30/25 00:41 Dose: 5 mls/min Documented By: Admin: 07/29/25 16:06 Dose: 5 mls/min Documented By: Admin: 07/29/25 08:14 Dose: 5 mls/min Documented By: Admin: 07/28/25 23:39 Dose: 5 mls/min Documented By: Admin: 07/28/25 16:24 Dose: 5 mls/min Documented By: kvng Admin: 07/28/25 09:31 Dose: 5 mls/min Documented By: kvng Admin: 07/28/25 00:07 Dose: 5 mls/min Documented By: Admin: 07/27/25 16:12 Dose: 5 mls/min Documented By: kvng Admin: 07/27/25 07:36 Dose: 5 mls/min Documented By: kvng Admin: 07/26/25 23:13 Dose: 5 mls/min Documented By: Admin: 07/26/25 15:48 Dose: 5 mls/min Documented By: JOSEMANUEL Insulin Aspart (Insulin Aspart Per Unit Charge) 0 units SC ACHS [facility] Stop: 08/25/25 16:29 Last Admin: 07/30/25 14:49 Dose: Not Given Documented By: NATE Co-signed By: RITESH Admin: 07/30/25 08:18 Dose: Not Given Documented By: NATE Co-signed By: INNA Admin: 07/29/25 21:37 Dose: Not Given Documented By: KATHERIN Co-signed By: SOO Admin: 07/29/25 17:21 Dose: Not Given Documented By: DAVID Co-signed By: FELIPE Admin: 07/29/25 12:26 Dose: Not Given Documented By: DAVID Co-signed By: FELIPE Admin: 07/29/25 08:29 Dose: 6 units Documented By: DAVID Co-signed By: INNA Admin: 07/28/25 20:18 Dose: Not Given Documented By: Admin: 07/28/25 16:50 Dose: 7 units Documented By: kvng Co-signed By: HALEY Admin: 07/28/25 12:22 Dose: 7 units Documented By: kvng Co-signed By: CHUY Admin: 07/28/25 08:32 Dose: 6 units Documented By: kvng Co-signed By: TOMAS Admin: 07/27/25 20:33 Dose: 2 units Documented By: ELEANOR Co-signed By: TOÑA Admin: 07/27/25 17:00 Dose: 8 units Documented By: kvng Co-signed By: HAIR Admin: 07/27/25 12:30 Dose: 8 units Documented By: kvng Co-signed By: HALEY Admin: 07/27/25 08:18 Dose: 4 units Documented By: kvng Co-signed By: HALEY Admin: 07/26/25 20:23 Dose: Not Given Documented By: Admin: 07/26/25 16:42 Dose: 8 units Documented By: WILLIAM Co-signed By: JOSEMANUEL Lactobacillus Acidophilus (Advanced Probiotic 625 Mg Capsule) 1,250 mg PO DAILY [facility] Stop: 08/25/25 08:59 Last Admin: 07/30/25 07:56 Dose: 1,250 mg Documented By: Admin: 07/29/25 08:14 Dose: 1,250 mg Documented By: Admin: 07/28/25 07:59 Dose: 1,250 mg Documented By: kvng Admin: 07/27/25 07:37 Dose: 1,250 mg Documented By: kvng Admin: 07/26/25 14:54 Dose: 1,250 mg Documented By: JOSEMANUEL Lisinopril (Lisinopril 10 Mg Tab) 10 mg PO QAM [facility] Stop: 08/26/25 08:59 Last Admin: 07/30/25 07:55 Dose: 10 mg Documented By: Admin: 07/29/25 08:14 Dose: 10 mg Documented By: Admin: 07/28/25 07:59 Dose: 10 mg Documented By: Admin: 07/27/25 07:36 Dose: 10 mg Documented By: kvng Ondansetron HCl (Ondansetron Inj 2 Mg/Ml 2 Ml Vial) 4 mg IV Q6H PRN PRN Reason: Nausea And Vomiting Stop: 08/28/25 11:39 Last Admin: 07/29/25 11:50 Dose: 4 mg Documented By: DAVID Pantoprazole Sodium (Pantoprazole 40 Mg Tab) 40 mg PO [facility] Stop: 08/25/25 14:44 Last Admin: 07/30/25 07:56 Dose: 40 mg Documented By: Admin: 07/29/25 08:47 Dose: 40 mg Documented By: Admin: 07/28/25 07:59 Dose: 40 mg Documented By: kvng Admin: 07/27/25 07:36 Dose: 40 mg Documented By: Admin: 07/26/25 14:54 Dose: 40 mg Documented By: JOSEMANUEL Risperidone (Risperidone 0.5 Mg Tablet) 0.5 mg PO [facility] Stop: 08/25/25 20:59 Last Admin: 07/29/25 20:57 Dose: 0.5 mg Documented By: Admin: 07/28/25 20:23 Dose: 0.5 mg Documented By: Admin: 07/27/25 20:34 Dose: 0.5 mg Documented By: Admin: 07/26/25 20:05 Dose: 0.5 mg Documented By: GUERRERO Vibegron (Vibegron 75 Mg Tab) 75 mg PO [facility] Stop: 08/25/25 20:59 Last Admin: 07/29/25 20:57 Dose: 75 mg Documented By: Admin: 07/28/25 20:22 Dose: 75 mg Documented By: Admin: 07/27/25 20:33 Dose: 75 mg Documented By: Admin: 07/26/25 20:05 Dose: 75 mg Documented By: GUERRERO (6) DM (diabetes mellitus), type 2 Diabetes mellitus long term care pharmacist insulin use: without alf use Diabetes mellitus complication status: without complication Qualified Code(s): E11.9 - Type 2 diabetes mellitus without complications (7) HTN (hypertension) Hypertension type: unspecified Qualified Code(s): I10 - Essential (primary) hypertension (8) Schizoaffective disorder Schizoaffective disorder type: depressive Qualified Code(s): F25.1 - Schizoaffective disorder, depressive type
[2025-07-30] MEDS: OPTIRAY 320 125ml IV ONE (16:17)
--- NOTE | 2025-07-30 17:42 | CT Scan Report ---
Clinical history: Rule out pulmonary embolism Technique: Axial computed tomography images were obtained of the chest after the administration of intravenous contrast according to the CT angiogram protocol Comparison is made to the prior CT dated 07/26/2025 Findings: There is new segmental and subsegmental pulmonary embolism in the right upper lobe. There is bilateral lower lobe atelectasis. There is no pleural effusion or pneumothorax. There is no sign of pulmonary fibrosis or other diffuse interstitial process. No endobronchial lesion is seen There is no mediastinal, hilar, or axillary adenopathy. The thoracic aorta appears unremarkable with no sign of aneurysm or dissection. There is no pericardial effusion There are partially visualized low attenuation adrenal nodules bilaterally, likely benign adenomas. There is a small hiatal hernia. No fracture is seen. No focal osseous lesion is evident Impression: 1. New right upper lobe pulmonary embolism 2. Bilateral lower lobe atelectasis 3. Partially visualized bilateral adrenal lesions, likely benign adenomas but indeterminate in nature ACT 112: Positive. There are findings on this exam that require communication between the performing entity and the patient following Patient Test Result Information Act ([place] ACT 112) guidelines. Electronically signed by Librado Eugene 07-30-2025 5:42 PM
[2025-07-30 21:11] LABS: Hematocrit (blood only) 37.9 % (37.0-47.0); Hemoglobin 13.0 g/dl (12.0-16.0); Mean Corpuscular Hemoglobin 31.7 pg (25.0-34.0); Mean Corpuscular Volume 92.4 fL (80.0-100.0); RDW Standard Deviation 45.1 fL (36.4-46.3); Red Blood Count 4.10 M/uL (4.20-5.40); White Blood Count 17.04 K/ul (4.8-10.8)
[2025-07-30 21:12] LABS: Immature Granulocytes # (auto) 0.08 K/uL (0.01-0.20); Immature Granulocytes % (auto) 0.5 %; Platelet Count 334 K/uL (130-400)
[2025-07-30] MEDS: HEPARIN SOD (PORCINE) 1000 UNIT/ML IV ONE (21:17)
[2025-07-30] MEDS: HEPARIN 25000 UNIT/500 ML D5W 25,000 UNITS/500 ML BAG IV SCH (21:18)
[2025-07-30 21:39] LABS: INR 1.0 (0.9-1.1); Partial Thromboplastin Time 25 Seconds (21-31); Prothrombin Time 10.9 Seconds (9.0-12.0)
[2025-07-30] MEDS: Heparin IV Adult Wt-Based Standard w/ INITIAL Bolus Protocol IV STA (22:28)
[2025-07-31 04:01] LABS: Hematocrit (blood only) 37.5 % (37.0-47.0); Hemoglobin 12.3 g/dl (12.0-16.0); Mean Corpuscular Hemoglobin 30.4 pg (25.0-34.0); Mean Corpuscular Volume 92.8 fL (80.0-100.0); Platelet Count 323 K/uL (130-400); RDW Standard Deviation 45.4 fL (36.4-46.3); Red Blood Count 4.04 M/uL (4.20-5.40); White Blood Count 14.01 K/ul (4.8-10.8)
[2025-07-31 04:18] LABS: Anion Gap 6.0 (3-11); Blood Urea Nitrogen 25.0 mg/dl (6-23); Calcium 9.0 mg/dl (8.6-10.3); Carbon Dioxide 30.0 mmol/L (21-32); Chloride 100.0 mmol/L (98-107); Creatinine Clr Calc Pharmacy 71.5 ml/min; Glucose 114.0 mg/dl (70-99(Fasting)); Potassium 3.8 mmol/L (3.5-5.1); Sodium 136.0 mmol/L (136-145)
[2025-07-31 04:24] LABS: ANTI-Xa, UFH(UnfractionatedHep 0.51 IU/ml (0.3-0.7)
[2025-07-31 10:19] LABS: ANTI-Xa, UFH(UnfractionatedHep 0.43 IU/ml (0.3-0.7)
--- NOTE | 2025-07-31 13:06 | Hospitalist Progress Note ---
Date of Service July 31, 2025 Assessment & Plan (1) Acute on chronic hypoxic respiratory failure: (2) Viral respiratory infection: (3) Dehydration: (4) Restrictive lung disease: (5) Obstructive sleep apnea: (6) DM (diabetes mellitus), type 2: (7) HTN (hypertension): (8) Schizoaffective disorder: (9) Mild intellectual disability: Plan Patient is a 70 y/o female with DM2, TC, not tolerant of CPAP, nocturnal hypoxemia (supposed to be on O2 2L via NC at ), schizoaffective d/o, restrictive lung dz, mild intellectual disability, prior breast CA, HTN, GERD, dyslipidemia, and other history as outlined below who presents to the ED today from the [place] [facility] she resides with cold symptoms for last few days. Acute on chronic respiratory failure with hypoxia Rhinovirus CAP Mucous plugging Restrictive lung disease TC - noncompliant with CPAP, intermittently uses nocturnal O2 Acute Segmental/Subsegmental PE -Chest CT:No acute posttraumatic intrathoracic abnormality. No acute rib fracture or pneumothorax identified. Mild bibasilar mucous plugging with subsegmental atelectasis. -- Respiratory BioFire positive for rhinovirus --Blood cultures negative to date --sputum culture pending -- Normal procalcitonin --Nasal MRSA negative -CTA PE revealing acute pulmonary embolism, likely cause of worsening SOB Plan: -continue doxycycline, cefepime x7 days total -goal oxygen saturation of 88% given restrictive lung disease -continue IS, flutter valve, continue mucomyst -continue heparin drip for 48 hours given intermediate risk PE then switch to PO -will need acute rehab at discharge, well below baseline Schizoaffective disorder Mild intellectual disability -[facility] resident - please keep staff updated on plan of care -Continue outpatient citalopram, risperidone DM II -HbA1c 5.9 -Continue insulin per protocol Hypertension -Continue lisinopril GERD/esophageal dysmotility -Easy to chew diet (per [place] [facility] [employer] [facility] uniforms) -Continue daily PPI Dyslipidemia -Chronic, stable -continue statin therapy I spent a total of 50 minutes in direct patient care, including neci-ke-zzep time with the patient and/or family, reviewing medical records, ordering and reviewing diagnostic tests, and coordinating care with other healthcare providers. This time includes: history taking, physical examination, medical decision making, counseling, ECG interpretation, imaging interpretation, lab interpretation, orders, and education, excluding time spent in the performance of separately billed services. Admission and Anticipated Discharge Date Admission Date: July 26, 2025 Subjective Patient seen and examined at bedside. Patient more comfortable today, states she feels better overall. Review of Systems Review of Systems: CONSTITUTIONAL: Patient denies fevers, chills, sweats and weight changes. EYES: Patient denies any visual symptoms. EARS, NOSE, AND THROAT: No difficulties with hearing. No symptoms of rhinitis or sore throat. CARDIOVASCULAR: Patient denies chest pains, palpitations, orthopnea and paroxysmal nocturnal dyspnea. RESPIRATORY: SOB, coughing GI: No nausea, vomiting, diarrhea, constipation, abdominal pain, hematochezia or melena. : No urinary hesitancy or dribbling. No nocturia or urinary frequency. No abnormal urethral discharge. MUSCULOSKELETAL: No myalgias or arthralgias. NEUROLOGIC: No chronic headaches, no seizures. Patient denies numbness, tingling or weakness. PSYCHIATRIC: Patient denies problems with mood disturbance. No problems with anxiety. ENDOCRINE: No excessive urination or excessive thirst. DERMATOLOGIC: Patient denies any rashes or skin changes. Physical Exam Physical Exam: Gen: A&O 3 NAD HEENT: NCAT, EOMI, not icteric. External ears normal. No rhinorrhea. Moist mucous membranes. Neck: Supple, full range of motion, no observable masses, No meningeal sign. Lungs: poor air movement CV: RRR Abdomen: Soft, nondistended, No rebound tenderness. MSK: No joint swelling, no redness. Skin: No rashes, petechiae, lesions. Normal color per patient. Neuro: Normal Gait, Grossly intact. Psych: Appropriate for situation. Results & Data Results & Data Vital Signs (Past 12 Hours) Vital Signs Temp Pulse Pulse Resp BP Pulse Ox O2 Del Method 07/31/25 12:58 81 18 92 Nasal Cannula 07/31/25 11:35 36.5 C 78 20 132/75 90 Nasal Cannula 07/31/25 07:41 70 18 95 Nasal Cannula 07/31/25 07:39 36.8 C 68 20 144/80 H 91 Nasal Cannula 07/31/25 07:38 68 07/31/25 03:18 36.4 C L 77 18 130/72 93 Nasal Cannula O2 Flow Rate 07/31/25 12:58 2 07/31/25 11:35 2 07/31/25 07:41 2 07/31/25 07:39 2 07/31/25 07:38 07/31/25 03:18 2 Laboratory Results -personally reviewed, leukocytosis downtrending, creatinine 0.74 at baseline Medications Administered Acetylcysteine (Acetylcysteine 10% Inhal Soln 4 Ml Dispensed By Resp.) 5 ml INH TID ROMEL Stop: 08/27/25 08:59 Last Admin: 07/31/25 13:07 Dose: Not Given Documented By: Admin: 07/31/25 07:40 Dose: Not Given Documented By: Admin: 07/30/25 22:17 Dose: Not Given Documented By: Admin: 07/30/25 20:28 Dose: Not Given Documented By: Admin: 07/30/25 07:14 Dose: 5 ml Documented By: Admin: 07/29/25 19:35 Dose: 5 ml Documented By: Admin: 07/29/25 13:19 Dose: 5 ml Documented By: Admin: 07/29/25 07:20 Dose: 5 ml Documented By: Admin: 07/28/25 19:53 Dose: 5 ml Documented By: Admin: 07/28/25 15:42 Dose: 5 ml Documented By: Admin: 07/28/25 11:28 Dose: 5 ml Documented By: EMILY Albuterol (Albut/Ipratrop 3mg/0.5mg Neb 3 Ml Vial) 3 ml NEB TIDR ROMEL; Protocol Stop: 08/27/25 18:59 Last Admin: 07/31/25 13:07 Dose: 3 ml Documented By: Admin: 07/31/25 07:40 Dose: 3 ml Documented By: Admin: 07/30/25 20:28 Dose: 3 ml Documented By: Admin: 07/30/25 12:54 Dose: 3 ml Documented By: Admin: 07/30/25 07:15 Dose: 3 ml Documented By: Admin: 07/29/25 19:35 Dose: 3 ml Documented By: Admin: 07/29/25 13:18 Dose: 3 ml Documented By: Admin: 07/29/25 07:20 Dose: 3 ml Documented By: Admin: 07/28/25 19:53 Dose: 3 ml Documented By: ATIF Atorvastatin Calcium (Atorvastatin 40 Mg Tab) 40 mg PO HS ROMEL Stop: 08/25/25 20:59 Last Admin: 07/30/25 21:25 Dose: 40 mg Documented By: Admin: 07/29/25 20:57 Dose: 40 mg Documented By: Admin: 07/28/25 20:22 Dose: 40 mg Documented By: Admin: 07/27/25 20:34 Dose: 40 mg Documented By: Admin: 07/26/25 20:05 Dose: 40 mg Documented By: GUERRERO Citalopram Hydrobromide (Citalopram 20 Mg Tab) 20 mg PO QAM ROMEL Stop: 08/26/25 08:59 Last Admin: 07/31/25 10:20 Dose: 20 mg Documented By: Admin: 07/30/25 07:56 Dose: 20 mg Documented By: Admin: 07/29/25 08:13 Dose: 20 mg Documented By: Admin: 07/28/25 07:59 Dose: 20 mg Documented By: kvng Admin: 07/27/25 07:36 Dose: 20 mg Documented By: kvng Doxycycline Hyclate (Doxycycline Hyclate 100 Mg Cap) 100 mg PO BID ROMEL Stop: 08/01/25 08:59 Last Admin: 07/31/25 10:19 Dose: 100 mg Documented By: Admin: 07/30/25 21:25 Dose: 100 mg Documented By: Admin: 07/30/25 07:54 Dose: 100 mg Documented By: Admin: 07/29/25 20:56 Dose: 100 mg Documented By: Admin: 07/29/25 08:14 Dose: 100 mg Documented By: Admin: 07/28/25 20:22 Dose: 100 mg Documented By: Admin: 07/28/25 07:59 Dose: 100 mg Documented By: kvng Admin: 07/27/25 20:33 Dose: 100 mg Documented By: Admin: 07/27/25 08:26 Dose: Not Given Documented By: kvng Guaifenesin (Guaifenesin 600 Mg Tabcr) 600 mg PO Q12 ROMEL Stop: 08/25/25 20:59 Last Admin: 07/31/25 10:20 Dose: 600 mg Documented By: Admin: 07/30/25 21:25 Dose: 600 mg Documented By: Admin: 07/30/25 07:54 Dose: 600 mg Documented By: Admin: 07/29/25 20:57 Dose: 600 mg Documented By: Admin: 07/29/25 08:14 Dose: 600 mg Documented By: Admin: 07/28/25 20:22 Dose: 600 mg Documented By: Admin: 07/28/25 07:59 Dose: 600 mg Documented By: kvng Admin: 07/27/25 20:33 Dose: 600 mg Documented By: Admin: 07/27/25 07:36 Dose: 600 mg Documented By: kvng Admin: 07/26/25 20:04 Dose: 600 mg Documented By: GUERRERO Cefepime HCl (Maxipime 2000mg) 2,000 mg in 20 mls @ 5 mls/min IV Q8H ROMEL; Protocol Stop: 07/31/25 15:59 Last Admin: 07/31/25 10:18 Dose: 5 mls/min Documented By: Admin: 07/31/25 01:05 Dose: 5 mls/min Documented By: nakita Admin: 07/30/25 16:31 Dose: 5 mls/min Documented By: Admin: 07/30/25 08:08 Dose: 5 mls/min Documented By: Admin: 07/30/25 00:41 Dose: 5 mls/min Documented By: Admin: 07/29/25 16:06 Dose: 5 mls/min Documented By: Admin: 07/29/25 08:14 Dose: 5 mls/min Documented By: Admin: 07/28/25 23:39 Dose: 5 mls/min Documented By: Admin: 07/28/25 16:24 Dose: 5 mls/min Documented By: kvng Admin: 07/28/25 09:31 Dose: 5 mls/min Documented By: kvng Admin: 07/28/25 00:07 Dose: 5 mls/min Documented By: Admin: 07/27/25 16:12 Dose: 5 mls/min Documented By: kvng Admin: 07/27/25 07:36 Dose: 5 mls/min Documented By: kvng Admin: 07/26/25 23:13 Dose: 5 mls/min Documented By: Admin: 07/26/25 15:48 Dose: 5 mls/min Documented By: JOSEMANUEL Heparin Sodium/Dextrose (Heparin 02486 Unit/500 Ml D5w) 25,000 units in 500 mls @ 23 mls/hr IV .[id number] [facility]; Protocol Stop: 08/29/25 18:29 Last Admin: 07/30/25 21:18 Dose: 1,150 units/hr, 23 mls/hr Documented By: nakita Co-signed By: DARRYL Insulin Aspart (Insulin Aspart Per Unit Charge) 0 units SC ACHS ROMEL Stop: 08/25/25 16:29 Last Admin: 07/31/25 10:18 Dose: 2 units Documented By: SEHRI Co-signed By: KRISTA Admin: 07/30/25 20:50 Dose: Not Given Documented By: DARRYL Co-signed By: nakita Admin: 07/30/25 17:56 Dose: 2 units Documented By: NATE Co-signed By: INNA Admin: 07/30/25 14:49 Dose: Not Given Documented By: NATE Co-signed By: RITESH Admin: 07/30/25 08:18 Dose: Not Given Documented By: NATE Co-signed By: INNA Admin: 07/29/25 21:37 Dose: Not Given Documented By: KARLEEW Co-signed By: SOO Admin: 07/29/25 17:21 Dose: Not Given Documented By: HRB Co-signed By: BONNY Admin: 07/29/25 12:26 Dose: Not Given Documented By: HRB Co-signed By: BONNY Admin: 07/29/25 08:29 Dose: 6 units Documented By: DAVID Co-signed By: INNA Admin: 07/28/25 20:18 Dose: Not Given Documented By: Admin: 07/28/25 16:50 Dose: 7 units Documented By: kvng Co-signed By: HALEY Admin: 07/28/25 12:22 Dose: 7 units Documented By: knvg Co-signed By: DARRELC Admin: 07/28/25 08:32 Dose: 6 units Documented By: kvng Co-signed By: TOMAS Admin: 07/27/25 20:33 Dose: 2 units Documented By: ELEANOR Co-signed By: TOÑA Admin: 07/27/25 17:00 Dose: 8 units Documented By: kvng Co-signed By: HAIR Admin: 07/27/25 12:30 Dose: 8 units Documented By: kvng Co-signed By: HALEY Admin: 07/27/25 08:18 Dose: 4 units Documented By: kvng Co-signed By: HALEY Admin: 07/26/25 20:23 Dose: Not Given Documented By: Admin: 07/26/25 16:42 Dose: 8 units Documented By: WILLIAM Co-signed By: JOSEMANUEL Lactobacillus Acidophilus (Advanced Probiotic 625 Mg Capsule) 1,250 mg PO DAILY ROMEL Stop: 08/25/25 08:59 Last Admin: 07/31/25 10:19 Dose: 1,250 mg Documented By: Admin: 07/30/25 07:56 Dose: 1,250 mg Documented By: Admin: 07/29/25 08:14 Dose: 1,250 mg Documented By: Admin: 07/28/25 07:59 Dose: 1,250 mg Documented By: kvng Admin: 07/27/25 07:37 Dose: 1,250 mg Documented By: Admin: 07/26/25 14:54 Dose: 1,250 mg Documented By: JOSEMANUEL Ondansetron HCl (Ondansetron Inj 2 Mg/Ml 2 Ml Vial) 4 mg IV Q6H PRN PRN Reason: Nausea And Vomiting Stop: 08/28/25 11:39 Last Admin: 07/29/25 11:50 Dose: 4 mg Documented By: DAVID Pantoprazole Sodium (Pantoprazole 40 Mg Tab) [facility] [place]: 08/25/25 14:44 Last Admin: 07/31/25 10:19 Dose: 40 mg Documented By: Admin: 07/30/25 07:56 Dose: 40 mg Documented By: Admin: 07/29/25 08:47 Dose: 40 mg Documented By: Admin: 07/28/25 07:59 Dose: 40 mg Documented By: kvng Admin: 07/27/25 07:36 Dose: 40 mg Documented By: kvng Admin: 07/26/25 14:54 Dose: 40 mg Documented By: JOSEMANUEL Risperidone (Risperidone 0.5 Mg Tablet) 0.5 mg PO HS ROMEL Stop: 08/25/25 20:59 Last Admin: 07/30/25 21:25 Dose: 0.5 mg Documented By: Admin: 07/29/25 20:57 Dose: 0.5 mg Documented By: Admin: 07/28/25 20:23 Dose: 0.5 mg Documented By: KDTorres Admin: 07/27/25 20:34 Dose: 0.5 mg Documented By: Admin: 07/26/25 20:05 Dose: 0.5 mg Documented By: GUERRERO Vibegron (Vibegron 75 Mg Tab) 75 mg PO HS ROMEL Stop: 08/25/25 20:59 Last Admin: 07/30/25 21:25 Dose: 75 mg Documented By: Admin: 07/29/25 20:57 Dose: 75 mg Documented By: Admin: 07/28/25 20:22 Dose: 75 mg Documented By: KDTorres Admin: 07/27/25 20:33 Dose: 75 mg Documented By: Admin: 07/26/25 20:05 Dose: 75 mg Documented By: GUERRERO (6) DM (diabetes mellitus), type 2 Diabetes mellitus complication status: without complication Diabetes mellitus senior living insulin use: without senior living use Qualified Code(s): E11.9 - Type 2 diabetes mellitus without complications (7) HTN (hypertension) Hypertension type: unspecified Qualified Code(s): I10 - Essential (primary) hypertension (8) Schizoaffective disorder Schizoaffective disorder type: depressive Qualified Code(s): F25.1 - Schizoaffective disorder, depressive type
[2025-08-01 06:48] LABS: Hematocrit (blood only) 38.1 % (37.0-47.0); Hemoglobin 12.4 g/dl (12.0-16.0); Mean Corpuscular Hemoglobin 30.5 pg (25.0-34.0); Mean Corpuscular Volume 93.6 fL (80.0-100.0); Platelet Count 356 K/uL (130-400); RDW Standard Deviation 44.7 fL (36.4-46.3); Red Blood Count 4.07 M/uL (4.20-5.40); White Blood Count 13.28 K/ul (4.8-10.8)
[2025-08-01 07:11] LABS: Anion Gap 6.0 (3-11); Blood Urea Nitrogen 18.0 mg/dl (6-23); Calcium 9.2 mg/dl (8.6-10.3); Carbon Dioxide 30.0 mmol/L (21-32); Chloride 101.0 mmol/L (98-107); Creatinine Clr Calc Pharmacy 90.0 ml/min; Glucose 120.0 mg/dl (70-99(Fasting)); Potassium 4.0 mmol/L (3.5-5.1); Sodium 137.0 mmol/L (136-145)
[2025-08-01 07:12] LABS: ANTI-Xa, UFH(UnfractionatedHep 0.32 IU/ml (0.3-0.7)
--- NOTE | 2025-08-01 14:41 | Hospitalist Progress Note ---
Date of Service August 01, 2025 Assessment & Plan (1) Acute on chronic hypoxic respiratory failure: (2) Viral respiratory infection: (3) Dehydration: (4) Restrictive lung disease: (5) Obstructive sleep apnea: (6) DM (diabetes mellitus), type 2: (7) HTN (hypertension): (8) Schizoaffective disorder: (9) Mild intellectual disability: Plan Patient is a 70 y/o female with DM2, TC, not tolerant of CPAP, nocturnal hypoxemia (supposed to be on O2 2L via NC at ), schizoaffective d/o, restrictive lung dz, mild intellectual disability, prior breast CA, HTN, GERD, dyslipidemia, and other history as outlined below who presents to the ED today from the senior care where she resides with cold symptoms for last few days. Acute on chronic respiratory failure with hypoxia Rhinovirus CAP Mucous plugging Restrictive lung disease TC - noncompliant with CPAP, intermittently uses nocturnal O2 Acute Segmental/Subsegmental PE -Chest CT:No acute posttraumatic intrathoracic abnormality. No acute rib fracture or pneumothorax identified. Mild bibasilar mucous plugging with subsegmental atelectasis. -- Respiratory BioFire positive for rhinovirus --Blood cultures negative to date --sputum culture pending -- Normal procalcitonin --Nasal MRSA negative -CTA PE revealing acute pulmonary embolism, likely cause of worsening SOB Plan: -continue doxycycline, cefepime x7 days total, day 6/7 -goal oxygen saturation of 88% given restrictive lung disease -continue IS, flutter valve, continue mucomyst -stop heparin, switch to eliquis to 10mg bid for 4 more days than switch to normal dose 5mg bid -will need acute rehab at discharge, discussed with case management -medically stable for discharge, acute rehab at [facility] pending Schizoaffective disorder Mild intellectual disability -[facility] resident - please keep staff updated on plan of care -Continue outpatient citalopram, risperidone DM II -HbA1c 5.9 -Continue insulin per protocol Hypertension -Continue lisinopril GERD/esophageal dysmotility -Easy to chew diet (per senior care graphic art sales representative) -Continue daily PPI Dyslipidemia -Chronic, stable -continue statin therapy I spent a total of 50 minutes in direct patient care, including [id number] time with the patient and/or family, reviewing medical records, ordering and reviewing diagnostic tests, and coordinating care with other healthcare providers. This time includes: history taking, physical examination, medical decision making, counseling, ECG interpretation, imaging interpretation, lab interpretation, orders, and education, excluding time spent in the performance of separately billed services. Admission and Anticipated Discharge Date Admission Date: July 26, 2025 Subjective Patient seen and examined at bedside. Patient doing ok today, feels about the same as yesterday. Review of Systems Review of Systems: CONSTITUTIONAL: Patient denies fevers, chills, sweats and weight changes. EYES: Patient denies any visual symptoms. EARS, NOSE, AND THROAT: No difficulties with hearing. No symptoms of rhinitis or sore throat. CARDIOVASCULAR: Patient denies chest pains, palpitations, orthopnea and paroxysmal nocturnal dyspnea. RESPIRATORY: SOB, coughing GI: No nausea, vomiting, diarrhea, constipation, abdominal pain, hematochezia or melena. : No urinary hesitancy or dribbling. No nocturia or urinary frequency. No abnormal urethral discharge. MUSCULOSKELETAL: No myalgias or arthralgias. NEUROLOGIC: No chronic headaches, no seizures. Patient denies numbness, tingling or weakness. PSYCHIATRIC: Patient denies problems with mood disturbance. No problems with anxiety. ENDOCRINE: No excessive urination or excessive thirst. DERMATOLOGIC: Patient denies any rashes or skin changes. Physical Exam Physical Exam: Gen: A&O 3 NAD HEENT: NCAT, EOMI, not icteric. External ears normal. No rhinorrhea. Moist mucous membranes. Neck: Supple, full range of motion, no observable masses, No meningeal sign. Lungs: poor air movement CV: RRR Abdomen: Soft, nondistended, No rebound tenderness. MSK: No joint swelling, no redness. Skin: No rashes, petechiae, lesions. Normal color per patient. Neuro: Normal Gait, Grossly intact. Psych: Appropriate for situation. Results & Data Results & Data Vital Signs (Past 12 Hours) Vital Signs Temp Pulse Pulse Resp BP Pulse Ox O2 Del Method 08/01/25 13:38 72 08/01/25 12:48 78 18 94 Nasal Cannula 08/01/25 10:57 36.9 C 66 20 122/71 91 Nasal Cannula 08/01/25 08:08 36.5 C 63 16 145/68 H 90 Nasal Cannula 08/01/25 07:23 67 08/01/25 07:15 78 18 95 Nasal Cannula 08/01/25 04:30 36.8 C 71 20 141/71 H 92 Nasal Cannula O2 Flow Rate 08/01/25 13:38 08/01/25 12:48 2 08/01/25 10:57 2 08/01/25 08:08 2 08/01/25 07:23 08/01/25 07:15 2 08/01/25 04:30 2 Laboratory Results -personally reviewed, downtrending leukocytosis, creatinine at baseline Medications Administered Albuterol (Albut/Ipratrop 3mg/0.5mg Neb 3 Ml Vial) 3 ml NEB TIDR ROMEL; Protocol Stop: 08/27/25 18:59 Last Admin: 08/01/25 07:15 Dose: 3 ml Documented By: Admin: 07/31/25 19:31 Dose: 3 ml Documented By: Admin: 07/31/25 13:07 Dose: 3 ml Documented By: Admin: 07/31/25 07:40 Dose: 3 ml Documented By: Admin: 07/30/25 20:28 Dose: 3 ml Documented By: Admin: 07/30/25 12:54 Dose: 3 ml Documented By: Admin: 07/30/25 07:15 Dose: 3 ml Documented By: Admin: 07/29/25 19:35 Dose: 3 ml Documented By: Admin: 07/29/25 13:18 Dose: 3 ml Documented By: Admin: 07/29/25 07:20 Dose: 3 ml Documented By: Admin: 07/28/25 19:53 Dose: 3 ml Documented By: ATIF Atorvastatin Calcium (Atorvastatin 40 Mg Tab) 40 mg PO HS ROMEL Stop: 08/25/25 20:59 Last Admin: 07/31/25 21:52 Dose: 40 mg Documented By: Admin: 07/30/25 21:25 Dose: 40 mg Documented By: Admin: 07/29/25 20:57 Dose: 40 mg Documented By: Admin: 07/28/25 20:22 Dose: 40 mg Documented By: Admin: 07/27/25 20:34 Dose: 40 mg Documented By: Admin: 07/26/25 20:05 Dose: 40 mg Documented By: GUERRERO Citalopram Hydrobromide (Citalopram 20 Mg Tab) 20 mg PO QAM ROMEL Stop: 08/26/25 08:59 Last Admin: 08/01/25 09:37 Dose: 20 mg Documented By: Admin: 07/31/25 10:20 Dose: 20 mg Documented By: Admin: 07/30/25 07:56 Dose: 20 mg Documented By: Admin: 07/29/25 08:13 Dose: 20 mg Documented By: Admin: 07/28/25 07:59 Dose: 20 mg Documented By: kvng Admin: 07/27/25 07:36 Dose: 20 mg Documented By: kvng Guaifenesin (Guaifenesin 600 Mg Tabcr) 600 mg PO Q12 ROMEL Stop: 08/25/25 20:59 Last Admin: 08/01/25 09:37 Dose: 600 mg Documented By: Admin: 07/31/25 21:52 Dose: 600 mg Documented By: Admin: 07/31/25 10:20 Dose: 600 mg Documented By: Admin: 07/30/25 21:25 Dose: 600 mg Documented By: Admin: 07/30/25 07:54 Dose: 600 mg Documented By: Admin: 07/29/25 20:57 Dose: 600 mg Documented By: Admin: 07/29/25 08:14 Dose: 600 mg Documented By: Admin: 07/28/25 20:22 Dose: 600 mg Documented By: Admin: 07/28/25 07:59 Dose: 600 mg Documented By: kvng Admin: 07/27/25 20:33 Dose: 600 mg Documented By: Admin: 07/27/25 07:36 Dose: 600 mg Documented By: Admin: 07/26/25 20:04 Dose: 600 mg Documented By: GUERRERO Heparin Sodium/Dextrose (Heparin 38261 Unit/500 Ml D5w) 25,000 units in 500 mls @ 23 mls/hr IV .[id number] ROMEL; Protocol Stop: 08/29/25 18:29 Last Titration: 08/01/25 07:13 Dose: 1,150 units/hr, 23 mls/hr Documented By: SHERI Co-signed By: DARRYL Titration: 07/31/25 19:29 Dose: 1,150 units/hr, 23 mls/hr Documented By: SHERI Co-signed By: DARRYL Admin: 07/31/25 19:07 Dose: 1,150 units/hr, 23 mls/hr Documented By: SHERI Co-signed By: DARRYL Titration: 07/31/25 19:03 Dose: Infused Documented By: SHERI Co-signed By: DARRYL Admin: 07/30/25 21:18 Dose: 1,150 units/hr, 23 mls/hr Documented By: nakita Co-signed By: DARRYL Insulin Aspart (Insulin Aspart Per Unit Charge) 0 units SC ACHS ROMEL Stop: 08/25/25 16:29 Last Admin: 08/01/25 13:22 Dose: 7 units Documented By: SHERI Co-signed By: [facility] Admin: 08/01/25 09:00 Dose: 8 units Documented By: SHERI Co-signed By: [facility] Admin: 07/31/25 20:56 Dose: Not Given Documented By: Admin: 07/31/25 18:04 Dose: 5 units Documented By: SHERI Co-signed By: [facility] Admin: 07/31/25 13:09 Dose: 8 units Documented By: SHERI Co-signed By: ANGELINA Admin: 07/31/25 10:18 Dose: 2 units Documented By: SHERI Co-signed By: [facility] Admin: 07/30/25 20:50 Dose: Not Given Documented By: DARRYL Co-signed By: nakita Admin: 07/30/25 17:56 Dose: 2 units Documented By: NATE Co-signed By: INNA Admin: 07/30/25 14:49 Dose: Not Given Documented By: NATE Co-signed By: RITESH Admin: 07/30/25 08:18 Dose: Not Given Documented By: DLS Co-signed By: INNA Admin: 07/29/25 21:37 Dose: Not Given Documented By: HFW Co-signed By: SOO Admin: 07/29/25 17:21 Dose: Not Given Documented By: HRB Co-signed By: [facility] Admin: 07/29/25 12:26 Dose: Not Given Documented By: HRB Co-signed By: BONNY Admin: 07/29/25 08:29 Dose: 6 units Documented By: HRB Co-signed By: INNA Admin: 07/28/25 20:18 Dose: Not Given Documented By: Admin: 07/28/25 16:50 Dose: 7 units Documented By: kvng Co-signed By: HALEY Admin: 07/28/25 12:22 Dose: 7 units Documented By: kvng Co-signed By: CHUY Admin: 07/28/25 08:32 Dose: 6 units Documented By: kvng Co-signed By: TOMAS Admin: 07/27/25 20:33 Dose: 2 units Documented By: ELEANOR Co-signed By: TOÑA Admin: 07/27/25 17:00 Dose: 8 units Documented By: kvng Co-signed By: HAIR Admin: 07/27/25 12:30 Dose: 8 units Documented By: kvng Co-signed By: HALEY Admin: 07/27/25 08:18 Dose: 4 units Documented By: kvng Co-signed By: HALEY Admin: 07/26/25 20:23 Dose: Not Given Documented By: Admin: 07/26/25 16:42 Dose: 8 units Documented By: WILLIAM Co-signed By: JOSEMANUEL Lactobacillus Acidophilus (Advanced Probiotic 625 Mg Capsule) 1,250 mg PO DAILY [facility] Stop: 08/25/25 08:59 Last Admin: 08/01/25 09:37 Dose: 1,250 mg Documented By: Admin: 07/31/25 10:19 Dose: 1,250 mg Documented By: Admin: 07/30/25 07:56 Dose: 1,250 mg Documented By: Admin: 07/29/25 08:14 Dose: 1,250 mg Documented By: Admin: 07/28/25 07:59 Dose: 1,250 mg Documented By: kvng Admin: 07/27/25 07:37 Dose: 1,250 mg Documented By: kvng Admin: 07/26/25 14:54 Dose: 1,250 mg Documented By: JOSEMANUEL Ondansetron HCl (Ondansetron Inj 2 Mg/Ml 2 Ml Vial) 4 mg IV Q6H PRN PRN Reason: Nausea And Vomiting Stop: 08/28/25 11:39 Last Admin: 07/29/25 11:50 Dose: 4 mg Documented By: HRB Pantoprazole Sodium (Pantoprazole 40 Mg Tab) 40 mg PO QAM ROMEL Stop: 08/25/25 14:44 Last Admin: 08/01/25 09:37 Dose: 40 mg Documented By: Admin: 07/31/25 10:19 Dose: 40 mg Documented By: Admin: 07/30/25 07:56 Dose: 40 mg Documented By: Admin: 07/29/25 08:47 Dose: 40 mg Documented By: Admin: 07/28/25 07:59 Dose: 40 mg Documented By: kvng Admin: 07/27/25 07:36 Dose: 40 mg Documented By: kvng Admin: 07/26/25 14:54 Dose: 40 mg Documented By: JOSEMANUEL Risperidone (Risperidone 0.5 Mg Tablet) 0.5 mg PO ROMEL Stop: 08/25/25 20:59 Last Admin: 07/31/25 21:52 Dose: 0.5 mg Documented By: Admin: 07/30/25 21:25 Dose: 0.5 mg Documented By: Admin: 07/29/25 20:57 Dose: 0.5 mg Documented By: Admin: 07/28/25 20:23 Dose: 0.5 mg Documented By: Admin: 07/27/25 20:34 Dose: 0.5 mg Documented By: Admin: 07/26/25 20:05 Dose: 0.5 mg Documented By: GUERRERO Vibegron (Vibegron 75 Mg Tab) 75 mg PO ROMEL Stop: 08/25/25 20:59 Last Admin: 07/31/25 21:52 Dose: 75 mg Documented By: Admin: 07/30/25 21:25 Dose: 75 mg Documented By: Admin: 07/29/25 20:57 Dose: 75 mg Documented By: Admin: 07/28/25 20:22 Dose: 75 mg Documented By: KDTorres Admin: 07/27/25 20:33 Dose: 75 mg Documented By: KDTorres Admin: 07/26/25 20:05 Dose: 75 mg Documented By: GUERRERO (6) DM (diabetes mellitus), type 2 Diabetes mellitus termination clerk insulin use: without halfway use Diabetes mellitus complication status: without complication Qualified Code(s): E11.9 - Type 2 diabetes mellitus without complications (7) HTN (hypertension) Hypertension type: unspecified Qualified Code(s): I10 - Essential (primary) hypertension (8) Schizoaffective disorder Schizoaffective disorder type: depressive Qualified Code(s): F25.1 - Schizoaffective disorder, depressive type
[2025-08-01] MEDS: APIXABAN 5 MG TABLET PO SCH (16:34)
[2025-08-01] MEDS: LORazepam 0.5 MG TAB SL STA (23:23)
[2025-08-02 06:36] LABS: Hematocrit (blood only) 39.8 % (37.0-47.0); Hemoglobin 12.7 g/dl (12.0-16.0); Mean Corpuscular Hemoglobin 30.2 pg (25.0-34.0); Mean Corpuscular Volume 94.5 fL (80.0-100.0); Platelet Count 355 K/uL (130-400); RDW Standard Deviation 44.9 fL (36.4-46.3); Red Blood Count 4.21 M/uL (4.20-5.40); White Blood Count 12.62 K/ul (4.8-10.8)
[2025-08-02 07:04] LABS: Anion Gap 6.0 (3-11); Blood Urea Nitrogen 17.0 mg/dl (6-23); Calcium 9.3 mg/dl (8.6-10.3); Carbon Dioxide 30.0 mmol/L (21-32); Chloride 101.0 mmol/L (98-107); Creatinine Clr Calc Pharmacy 74.5 ml/min; Glucose 118.0 mg/dl (70-99(Fasting)); Potassium 3.9 mmol/L (3.5-5.1); Sodium 137.0 mmol/L (136-145)
[2025-08-02 07:22] VITALS: TEMP 97.5
[2025-08-02 11:46] VITALS: BP 134/83
[2025-08-02] MEDS: INFLUENZA VACC TS2025-26(65y+)/PF (IIV3) 0.5mL Syr IM ONE (11:53)
[2025-08-02 12:22] VITALS: RESP 18; O2SAT 90
--- NOTE | 2025-08-02 12:49 | Discharge Summary ---
Discharge Summary Date of Service August 02, 2025 Principal Dx & Hospital Course #1 = Principal Diagnosis (1) Acute on chronic hypoxic respiratory failure: (2) Viral respiratory infection: (3) Dehydration: (4) Restrictive lung disease: (5) Obstructive sleep apnea: (6) DM (diabetes mellitus), type 2: (7) HTN (hypertension): (8) Schizoaffective disorder: (9) Mild intellectual disability: Plan Patient is a 70 y/o female with DM2, TC, not tolerant of CPAP, nocturnal hypoxemia (supposed to be on O2 2L via NC at HS), schizoaffective d/o, restrictive lung dz, mild intellectual disability, prior breast CA, HTN, GERD, dyslipidemia, and other history as outlined below who presents to the ED today from the [facility] where she resides with cold symptoms for last few days. Acute on chronic respiratory failure with hypoxia Rhinovirus CAP Mucous plugging Restrictive lung disease TC - noncompliant with CPAP, intermittently uses nocturnal O2 Acute Segmental/Subsegmental PE -Chest CT:No acute posttraumatic intrathoracic abnormality. No acute rib fracture or pneumothorax identified. Mild bibasilar mucous plugging with subsegmental atelectasis. -- Respiratory BioFire positive for rhinovirus --Blood cultures negative to date --sputum culture pending -- Normal procalcitonin --Nasal MRSA negative -CTA PE revealing acute pulmonary embolism, likely cause of worsening SOB Plan: -continue doxycycline, cefepime x7 days total, day 6/7 -goal oxygen saturation of 88% given restrictive lung disease -continue IS, flutter valve, continue mucomyst -stop heparin, switch to eliquis to 10mg bid for 4 more days than switch to normal dose 5mg bid -will need acute rehab at discharge, discussed with case management -medically stable for discharge, acute rehab at [facility] pending Schizoaffective disorder Mild intellectual disability -[facility] resident - please keep staff updated on plan of care -Continue outpatient citalopram, risperidone DM II -HbA1c 5.9 -Continue insulin per protocol Hypertension -Continue lisinopril GERD/esophageal dysmotility -Easy to chew diet (per [facility] field representatives director) -Continue daily PPI Dyslipidemia -Chronic, stable -continue statin therapy Notes For Next Care Provider Patient is a 70 y/o female with DM2, TC, not tolerant of CPAP, nocturnal hypoxemia (supposed to be on O2 2L via NC at HS), schizoaffective d/o, restrictive lung dz, mild intellectual disability, prior breast CA, HTN, GERD, dyslipidemia, and other history as outlined below who presents to the ED today from the [facility] where she resides with cold symptoms for last few days. Found to have rhinovirus, admitted to medicine. On medicine, found to have CAP, started on abx. Given mild diuresis for pulmonary edema. Noted tachycardia and decrease in functional status, CTA PE revealing acute PE. Started on heparin for 48 hours, intermediate risk PE by PESI score. Transitioned to eliquis. PT/OT recommended acute rehab. On 08/02/2025 patient medically stable for transfer to acute rehab. To do: [ ] f/u with pulmonology -Incidental Findings: atelectasis, bilateral adrenal adenomas Medication Changes From Visit -see below Admission HPI Per Admitting Provider This is a 70 y/o female with DM2, TC, not tolerant of CPAP, nocturnal hypoxemia (supposed to be on O2 2L via NC at HS), schizoaffective d/o, restrictive lung dz, mild intellectual disability, prior breast CA, HTN, GERD, dyslipidemia, and other history as outlined below who presents to the ED today from the [facility] where she resides with cold symptoms for last few days. Pt was seen in the ED over the weekend after a GLF (fell out of bed) - negative CT head, knee x-rays, CXR though noted to have a leukocytosis at that visit of 16.06, COVID/flu/RSV negative. Today she presents with cold symptoms and shortness of breath, staff at [facility] note that she has not been acting like herself. Pt reports a cough that is not productive. Generalized fatigue and weakness affecting ability to ambulate. She denies abdominal pain, N/V/D, ARGUELLO, sore throat. Unsure how her appetite has been. Her outpatient Epic records were reviewed including notes from PCP, pulmonology and sleep medicine. Pt has a history of restrictive lung disease - follows with [facility] pulmonology. Last visit 07/20/25. Noted noncompliance with inhaler due to not liking taste so prescribed nebulizer to try instead but facility has not yet been able to get this set up. Also follows with sleep medicine due to severe TC but not able to tolerate CPAP. Uses 2L of oxygen at night due to nocturnal hypoxemia but reportedly not using consistently. Did use the last couple nights. No known sick contacts. Discharge Exam Gen: A&O 3 NAD HEENT: NCAT, EOMI, not icteric. External ears normal. No rhinorrhea. Moist mucous membranes. Neck: Supple, full range of motion, no observable masses, No meningeal sign. Lungs: poor air movement CV: RRR Abdomen: Soft, nondistended, No rebound tenderness. MSK: No joint swelling, no redness. Skin: No rashes, petechiae, lesions. Normal color per patient. Neuro: Normal Gait, Grossly intact. Psych: Appropriate for situation. Updated Medication List Medication Instructions Recorded Confirmed Type atorvastatin 40 mg tablet 40 mg PO HS 04/07/19 07/26/25 History lisinopril 10 mg tablet 10 mg PO QAM 04/07/19 07/26/25 History omeprazole 20 mg tablet,delayed 20 mg PO HS 04/07/19 07/26/25 History release glipizide 5 mg tablet, extended 5 mg PO DAILY 02/02/25 07/26/25 History release 24 hr nystatin 100,000 unit/gram topical 100,000 unit topical 3XD PRN SKIN 02/02/25 07/26/25 History powder (Nyamyc) FOLDS NEEDED citalopram 20 mg tablet 20 mg PO QAM 03/29/25 07/26/25 History Aloe Aftersun Gel 1 applic topical DIRECTED PRN 07/24/25 07/26/25 History [place] aluminum-mag hydroxide-simethicone 10 ml PO Q6H PRN Indigestion 07/24/25 07/26/25 History 400 mg-400 mg-40 mg/5 mL oral susp (Mylanta Maximum Strength) chlorpheniramine-dextromethorphan 1 tab PO Q6H PRN RUNNY NOSE/COLDS 07/24/25 07/26/25 History 4 mg-30 mg tablet (Coricidin HBP Cough and Cold) diclofenac sodium 1 % topical gel 2 g topical Q4H PRN Pain 07/24/25 07/26/25 History hydrocortisone 1 % topical cream 1 applic topical TID PRN Rash 07/24/25 07/26/25 History ibuprofen 200 mg tablet 400 mg PO Q4H PRN 07/24/25 07/26/25 History FEVER/PAIN/HEADACHES loperamide 1 mg/7.5 mL oral liquid 2 mg PO DIRECTED PRN Diarrhea 07/24/25 07/26/25 History (Imodium A-D) magnesium hydroxide 400 mg/5 mL 30 ml PO Q6H PRN Constipation 07/24/25 07/26/25 History oral suspension (Milk of Magnesia) neomycin-bacitracn Zn-polymyx 3.5 1 applic topical BID PRN MINOR 07/24/25 07/26/25 History mg-400 unit-5,000 unit/gram top SCRAPS/CUTS oint (Neosporin (jfv-[id number])) phosphorated carbohydrate oral 15 ml PO Q15M PRN NAUSEA/VOMITING 07/24/25 07/26/25 History solution (Emetrol oral solution) risperidone 0.5 mg tablet 0.5 mg PO HS 07/24/25 07/26/25 History (Risperdal) mirabegron 50 mg tablet,extended 50 mg PO HS 07/26/25 07/26/25 History release 24 hr (Myrbetriq) apixaban 5 mg (74 tabs) tablets in 5 mg PO BID #74 ea 08/02/25 Rx a dose pack Hospital Stay Data Consultations 07/26/25 10:33 ED Decision to Admit Stat 07/26/25 14:28 Consult Pulmonology Routine Diagnostic Imagining Performed 07/26/25 09:24 CT abd pelvis IV con only Stat CT chest diagnostic w con Stat 07/30/25 15:30 CT angio chest PE protocol Urgent Pending Results Patient Have Any Pending Studies at Discharge: No Discharge Instructions Given to Patient (Per Discharging Provider) Diagnosis: rhinovirus, acute PE, CAP Follow Ups: PCP, pulmonology, sleep medicine Incidental Findings: atelectasis, bilateral adrenal adenomas 1. Please follow up with PCP, pulmonology, sleep medicine. 2. Please take medications as prescribed! Total Time Total Time Spent Total Time Spent (In Minutes): I spent a total of 35 minutes in direct patient care, including [id number] time with the patient and/or family, reviewing medical records, ordering and reviewing diagnostic tests, and coordinating care with other healthcare providers. This time includes: history taking, physical examination, medical decision making, counseling, ECG interpretation, imaging interpretation, lab interpretation, orders, and education, excluding time spent in the performance of separately billed services.
[2025-08-02 15:19] VITALS: PULSE 89
== END 2025-08-02 16:01 | DRG 189 ==
LOC: ED 08:21 → 2E 12:04 → SUATTDRO 12:04 → 2E 13:43 → 3E 07-29 04:27 → 2W 07-30 19:50